=== PATIENT | female | born 1960 | race Caucasian/White ===

== ENCOUNTER 2017-03-06 10:20 | Inpatient (IN) | payer SELFPAY ==
[~2017-03-06] VITALS: Ht 170.2 cm; Wt 161.5 kg
[2017-03-06 12:30] VITALS: BP 82/39
[2017-03-06 15:00] VITALS: BP 86/37
[2017-03-06] MEDS ORDERED: 0.9 % SODIUM CHLORIDE 10 ML DISP.SYRIN. IV PRN (18:00)
--- NOTE | 2017-03-06 18:33 | HP ---
ADMIT DATE: 03/06/2017 CHIEF COMPLAINT: Acute congestive heart failure, hypotension. HISTORY OF PRESENT ILLNESS: The patient is a 56-year-old catastrophically obese woman with chronic systolic heart failure, hypertension as well as NCIM who presented to [facility] ER with complaints of dyspnea, lower extremity edema and cellulitis. The patient relates that her respiratory symptoms have been going on for about a couple of weeks that slowly has been getting worse. She denies any productive cough, although in the past day she has developed some cough without any sputum; however, symptoms became worse and worse and although initially she had plan of going to [facility], she diverted and went to the ER instead. She has recurrent lower extremity infections with increasing erythema, more on the left than on the right. There is a wound that as waxing and waning in its healing status as well. In the Emergency Room, at [facility] two days ago she was found with right patchy infiltrate suggestive of pneumonia or atypical congestive heart failure. She also had blisters on her left rooney surrounded by cellulitis. A CTA of the chest showing no evidence of pulmonary embolus; however, marked adenopathy in the left axilla which has progressed relative to previous exam two months ago, also numerous nodular opacities in the lungs were noted, some of which appeared larger on today's study, favoring malignant process over infectious etiology. Also noted was enlargement of the right lobe of the thyroid with associated mediastinal extension. The patient was subsequently transferred to [facility] for further attention and management. PAST MEDICAL HISTORY: COPD/asthma, sleep apnea, obesity related hypoventilation syndrome, CHF, chronic systolic with an EF of 30%, hypertension, hyperlipidemia, anxiety. FAMILY HISTORY: Premature CAD in brother in his 40s. SOCIAL HISTORY: Quit smoking about a year ago after accumulating 1 pack per day for 30+ years. Denies any alcohol or drug use. ALLERGIES: No known drug allergies. MAR reconciled with home medications. REVIEW OF SYSTEMS: Positive as per HPI. Endorses significant dyspnea with exertion, unable to walk more than 50 feet at a time. Symptoms are somewhat better currently as far as her cellulitis is concerned. Rest of organ system review is essentially benign. LABORATORY DATA: CBC from today shows WBC of 6.9, hemoglobin 12.1, platelets of 195. Chemistries with BUN and creatinine of 19 and 1.00. Electrolytes essentially within normal limits. Calcium at 8.3. LFTs within normal. ProBNP 5695, albumin 2.5. ASSESSMENT AND PLAN: The patient is a 56-year-old morbidly obese woman with cardiac issues as well as new lung findings suggesting metastatic cancer. Given the distribution of axillary lymphadenopathy and lung mets, suspicion for breast cancer would be a top of the list. We will obtain consult with Dr. Gutierrez. Congestive heart failure chronic in her. Labs actually appear fairly stable. The shortness of breath is clearly multifactorial. Cardiology with Dr. Moore has been following, will be consulted here as well. The patient has lower extremity cellulitis, more likely due to chronic venous stasis and poor circulation due to her body habitus. Infectious Disease will be consulted to help with regimen. Other home medications will be continued for the time being. FRANCISCA RODRIGUEZ MD DR: UR/nts JOB#: [id number] / [id number] CAESAR
[2017-03-06 19:00] VITALS: BP 98/59
[2017-03-06] MEDS: IPRATRPIUM/ALBUTEROL 0.5/2.5MG 3 ML NEBU. NEB SCH (19:53)
[2017-03-06] MEDS: NYSTATIN TOPICAL POWDER 15GM BOTTLE. TP SCH (20:45)
[2017-03-06] MEDS: oxyCODONE/APAP 5/325 1 TAB TABLET PO PRN (21:49)
[2017-03-06] MEDS: ONDANSETRON ODT 4 MG TAB.RAPDIS. PO PRN (21:51)
[2017-03-06 23:00] VITALS: BP 90/70
[2017-03-07 03:08] VITALS: BP 92/52
--- NOTE | 2017-03-07 05:13 | ACF ---
Admission Forms Criteria HEART FAILURE: COMMON COMPLICATIONS (Place 'X' for any and all applicable criteria): Ongoing inpatient care may be indicated for heart failure with 1 or more of the following (1)(2)(3)(4)(5)(6)(7)(8): [ ]I. New-onset heart failure [ ]II. Acute cardiac ischemia causing or associated with failure [ ]III. Ongoing need for care for primary condition requiring frequent therapy adjustments because of changes in cardiac function (eg, drug dosage changes for drugs that are renally metabolized) [X]IV. Complications of heart failure, including 1 or more of the following: [ ]a) Hemodynamic instability [ ]b) Pericardial effusion [ ]c) Symptomatic pleural effusion [ ]d) Hypoxemia [ ]e) Tachypnea [X]f) Dyspnea [ ]g) Syncope [ ]h) Altered mental status [ ]i) Acute renal insufficiency that is severe (reduction of more than 50% in estimated glomerular filtration rate from baseline) or progressive reduction of more than 25% in estimated glomerular filtration rate from baseline, with creatinine continuing to rise) [ ]j) Debilitating anasarca (eg tissue breakdown with infection, inability to void due to edema) (E) [ ]k) Clinically significant metabolic abnormalities due to heart failure (eg, new-onset metabolic acidosis) Extended stay may be needed until ALL of the following are present (1)(3)(18)(41 )(55) [ ]a) Hemodynamic stability [ ]b) Stable and effective diuretic regimen established (or patient on stable dialysis regimen if in chronic renal failure) [ ]c) Volume status acceptable on oral medication [ ]d) Breathing comfortably at rest [ ]e) Saturation of arterial oxygen greater than 90% or at acceptable baseline [ ]f) Pulmonary edema absent or improved [ ]g) Peripheral or sacral edema absent or improved [ ]h) Renal function stable and manageable at a lower level of care [ ]i) Complications (eg, pleural effusion) resolved or manageable at a lower level of care [ ]g) Patient or caregiver has received written discharge instructions or educational material addressing activity level, diet, discharge medications, follow-up appointment, weight monitoring, and what to do if symptoms worsen.(25)(26) The original [facility] [employer] content created by [employer] has been revised. The portions of the content which have been revised are identified through the use of italic text, and [facility] has neither reviewed nor approved the modified material.All other unmodified content is copyright [facility]. Please see references footnoted in the original [facility] edition 2015 Admission Criteria Met?: Yes STEFFANY GARCIA Mar 07, 2017 05:13 FRANCISCA RODRIGUEZ MD Mar 07, 2017 09:25
[2017-03-07 07:00] VITALS: BP 123/59
[2017-03-07] MEDS: IPRATRPIUM/ALBUTEROL 0.5/2.5MG 3 ML NEBU. NEB SCH ×4 (07:52→19:31)
--- NOTE | 2017-03-07 09:14 | PDOC ---
Provider Note Provider Note Med onc consult: 1. Mantle cell lymphoma - plan bone marrow bx, CT, portacath for chemo. SW to help with medicaid application. Pt interested in chemo. See dictation TEJINDER LAGUNA MD Mar 07, 2017 09:14
[2017-03-07] MEDS ORDERED: CONTRAST GIVEN MC PRN (09:15)
[2017-03-07] MEDS: NYSTATIN TOPICAL POWDER 15GM BOTTLE. TP SCH ×2 (09:15→20:30)
[2017-03-07] MEDS ORDERED: IOHEXOL 300 MG/ML 75 ML VIAL IV ONE (09:15)
[2017-03-07] MEDS ORDERED: IOHEXOL 240 MG/ML 50ML VIAL. PO ONE (09:15)
[2017-03-07] MEDS: oxyCODONE/APAP 5/325 1 TAB TABLET PO PRN (09:42)
--- NOTE | 2017-03-07 09:46 | PDOC2 ---
LANCE NINO MECHANICAL ASSEMBLY 03/07/17 0945: CARDIAC CONSULT DATE OF CONSULT Date of Consult DATE: 03/07/17 TIME: 09:44 REASON FOR CONSULT Reason for Consult: Dr. Muro REFERRING PHYSICIAN Referring Physician: CHF Hypotension SOURCE Source: Chart review, Patient HISTORY OF PRESENT ILLNESS HISTORY OF PRESENT ILLNESS This is a 56 yo female, with a h/o NICM, who presented to [facility] with complaints of shortness of breath. Please see consult 03/06/17 at [facility] for full details. CT chest notable for marked left axilla adenopathy and multiple lung nodules suggestive of malignancy. Study negative for PE. LE US negative for DVT. Patient was transferred to [facility] for further care. PAST MEDICAL HISTORY Cardiovascular: CHF (NICM LVEF 20-25%), HTN, Hyperlipidemia Pulmonary: Asthma, COPD, Other (CAMILO) Psych: Anxiety PAST SURGICAL HISTORY Past Surgical History: Other (none) FAMILY HISTORY Family History: Coronary Artery Disease SOCIAL HISTORY Smoke: Quit ( 1 year ago) ALCOHOL: none Drugs: None CURRENT MEDICATIONS CURRENT MEDICATIONS Current Medications Medications (Trade) Dose Ordered Sig/Andres Route PRN Reason Start Time Stop Time Status Last Admin Dose Admin Enoxaparin Sodium (Lovenox 150mg Syringe) 150 mg Q12HR SQ 03/06/17 21:00 03/06/17 20:45 Albuterol/ Ipratropium (Duoneb) 3 ml RTQID NEB 03/06/17 20:00 03/07/17 07:52 Nystatin (Nystop) 1 john BID TP 03/06/17 21:00 03/07/17 09:15 Ondansetron HCl (Zofran Odt) 4 mg PRN Q6HRS PRN PO NAUSEA/VOMITING 03/06/17 18:00 03/06/17 21:51 Ceftriaxone Sodium 1 gm/ Sodium Chloride 50 ml @ 100 mls/hr Q24H IV 03/06/17 20:00 03/06/17 20:58 Oxycodone/ Acetaminophen (Percocet 5/325) 1 tab PRN Q4HRS PRN PO PAIN 03/06/17 18:00 03/07/17 09:42 ALLERGIES ALLERGIES: Coded Allergies: Penicillins (Verified Allergy, Intermediate, 03/07/17) TOLERATES ROCEPHIN ROS Review of System 14 point ROS conducted with pertinent positives noted above in HPI. PHYSICAL EXAM General: Alert, Oriented X3, Cooperative, No acute distress HEENT: Atraumatic, Other (diminished bases ) Lungs: Clear to auscultation, Other (diminished bases) Heart: Regular rate, Normal S1, Normal S2, No murmurs Abdomen: Soft, Other (obese ) Extremities: Other (2+ bilateral LE edema ) Skin: Other (bilateral LE edema, DRSG to LLE) Neuro: Normal speech, Sensation intact Psych/Mental Status: Mental status NL, Mood NL MUSCULOSKELETAL: Osteoarthritic changes both hands VITALS VITALS Vital Signs Date Time Temp Pulse Resp B/P (MAP) Pulse Ox O2 Delivery O2 Flow Rate FiO2 03/07/17 09:42 16 91 Nasal Cannula 2.0 03/07/17 07:00 96.6 93 123/59 (80) 96.6 ECHOCARDIOGRAM ECHOCARDIOGRAM <Conclusion> Left ventricle systolic function is severely impaired.The Ejection Fraction is 20-25%. There is severe global hypokinesis of the left ventricle. Tissue Doppler imaging reveals moderate left ventricular diastolic dysfunction. Doppler and Color Flow revealed mild to moderate tricuspid regurgitation. The PA pressure was estimated at 45 mmHg. The IVC is dilated and collapses <50% with inspiration. DATE: 12/30/16 1634 HEART CATH HEART CATH CORONARY ANGIOGRAPHY: LM is a large caliber vessel with normal angiographic appearance. LAD is a large caliber vessel with mild luminal irregularities. LCx is a moderate caliber non-dominant vessel with normal angiographic appearance. OM1 is a moderate to large caliber vessel with normal angiographic appearance. RCA is a large caliber dominant vessel with proximal 30% and a distal 50% stenosis. RPDA and RPL are moderate caliber vessels with normal angiographic appearance. Conclusion 1. Elevated left ventricular filling pressure. 2. Severe LV dysfunction. EF 30%. 3. No significant obstructive coronary disease. Recommendations Aggressive Medical Therapy DATE: 11/23/15 1723 ASSESSMENT/PLAN ASSESSMENT/PLAN 1. Chronic systolic heart failure with NICM 20-25% 2. Hypertension with present hypotension 3. Cellulitis 4. Mantle cell lymphoma (new finding); further workup ongoing today. Recommendations Appears compensated from a HF standpoint. Labs at [facility] with concern for intravascular depletion along with hypotension. Hold lasix today. Repeat labs Hold antiHTN therapy Supportive care. Social work following for medicaid application. Palliative care consulted. Problems: SAQIB RAY MD 03/07/17 1640: CARDIAC CONSULT ALLERGIES ALLERGIES: Coded Allergies: Penicillins (Verified Allergy, Intermediate, 03/07/17) TOLERATES ROCEPHIN ASSESSMENT/PLAN ASSESSMENT/PLAN Seen and examined. AGree with above [employer] NET DEVELOPER note. Will start hydralazine 10mg IVP prn q 4 hours. Start imdur 30mg daily Supportive care for now. Monitor LV function after chemotherapy. Will follow along. Problems: LANCE NINO APRN Mar 07, 2017 09:45 SAQIB RAY MD Mar 07, 2017 16:40
[2017-03-07 10:42] LABS: BASO # 0.1 x10^3/uL (0.0-0.2); BASO % 1 % (0-3); EOS % 3 % (0-3); HEMATOCRIT 38.7 % (36.0-47.0); HEMOGLOBIN 12.2 g/dL (12.0-15.5); LYMPH # 1.4 x10^3/uL (1.0-4.8); LYMPH % 19 % (24-48); MEAN CORPUSCULAR HEMOGLOBIN 29 pg (25-35); MEAN CORPUSCULAR HGB CONC 32 g/dL (31-37); MEAN CORPUSCULAR VOLUME 91 fL (79-100); MONO % 14 % (0-9); NEUT % 64 % (31-73); PLATELET COUNT 189 x10^3/uL (140-400); RED BLOOD COUNT 4.28 x10^6/uL (3.50-5.40); RED CELL DISTRIBUTION WIDTH 17.1 % (11.5-14.5); WHITE BLOOD COUNT 7.8 x10^3/uL (4.0-11.0)
[2017-03-07 10:43] LABS: ALBUMIN 2.4 g/dL (3.4-5.0); ALBUMIN/GLOBULIN RATIO 0.5 (1.0-1.7); CREATININE 1.5 mg/dL (0.6-1.0); GFR 35.7; POTASSIUM 4.6 mmol/L (3.5-5.1); TOTAL BILIRUBIN 1.3 mg/dL (0.2-1.0); TOTAL PROTEIN 7.3 g/dL (6.4-8.2)
[2017-03-07 10:53] LABS: INR 1.3 (0.8-1.1); PROTHROMBIN TIME PATIENT 15.6 SEC (11.7-14.0)
[2017-03-07 11:00] VITALS: BP 123/60
[2017-03-07] MEDS: ALLOPURINOL 100 MG TABLET. PO SCH (11:00)
--- NOTE | 2017-03-07 12:12 | PDOC ---
PROGRESS NOTES Chief Complaint Chief Complaint Acute CHF Hypotension PMH: COPD/asthma Sleep apnea Obesity related hypoventilation syndrome CHF - chronic systolic with EF of 30% htn hld anxiety History of Present Illness History of Present Illness Patient laying in bed, left leg dressing CDI. Spoke with Dr. Gutierrez - patient has biopsy on 01/01/17 - confirmed mantle cell lymphoma, awaiting staging to progress with treatment plan. Spoke with RN: pt has a planned bx and portacath planned Vitals Vitals Vital Signs Date Time Temp Pulse Resp B/P (MAP) Pulse Ox O2 Delivery O2 Flow Rate FiO2 03/07/17 11:21 94 Nasal Cannula 2.0 03/07/17 09:42 16 03/07/17 07:00 96.6 93 123/59 (80) 96.6 Physical Exam General: Alert, Oriented X3, Cooperative, No acute distress Heart: Regular rate, Normal S1, Normal S2 Lungs: Clear Abdomen: Soft, Other (obese ) Extremities: No clubbing, No cyanosis Skin: Other (bilateral LE edema ) Labs LABS Laboratory Tests Test 03/07/17 09:50 White Blood Count 7.8 x10^3/uL (4.0-11.0) Red Blood Count 4.28 x10^6/uL (3.50-5.40) Hemoglobin 12.2 g/dL (12.0-15.5) Hematocrit 38.7 % (36.0-47.0) Mean Corpuscular Volume 91 fL (79-100) Mean Corpuscular Hemoglobin 29 pg (25-35) Mean Corpuscular Hemoglobin Concent 32 g/dL (31-37) Red Cell Distribution Width 17.1 % (11.5-14.5) Platelet Count 189 x10^3/uL (140-400) Neutrophils (%) (Auto) 64 % (31-73) Lymphocytes (%) (Auto) 19 % (24-48) Monocytes (%) (Auto) 14 % (0-9) Eosinophils (%) (Auto) 3 % (0-3) Basophils (%) (Auto) 1 % (0-3) Neutrophils # (Auto) 5.0 x10^3uL (1.8-7.7) Lymphocytes # (Auto) 1.4 x10^3/uL (1.0-4.8) Monocytes # (Auto) 1.1 x10^3/uL (0.0-1.1) Eosinophils # (Auto) 0.2 x10^3/uL (0.0-0.7) Basophils # (Auto) 0.1 x10^3/uL (0.0-0.2) Prothrombin Time 15.6 SEC (11.7-14.0) Prothromb Time International Ratio 1.3 (0.8-1.1) Sodium Level 130 mmol/L (136-145) Potassium Level 4.6 mmol/L (3.5-5.1) Chloride Level 94 mmol/L (98-107) Carbon Dioxide Level 31 mmol/L (21-32) Anion Gap 5 (6-14) Blood Urea Nitrogen 33 mg/dL (7-20) Creatinine 1.5 mg/dL (0.6-1.0) Estimated GFR (Cockcroft-Gault) 35.7 BUN/Creatinine Ratio 22 (6-20) Glucose Level 106 mg/dL (70-99) Uric Acid 8.7 mg/dL (2.6-6.0) Calcium Level 8.0 mg/dL (8.5-10.1) Total Bilirubin 1.3 mg/dL (0.2-1.0) Aspartate Amino Transf (AST/SGOT) 320 U/L (15-37) Alanine Aminotransferase (ALT/SGPT) 285 U/L (14-59) Alkaline Phosphatase 103 U/L (46-116) Lactate Dehydrogenase 204 U/L (81-234) Total Protein 7.3 g/dL (6.4-8.2) Albumin 2.4 g/dL (3.4-5.0) Albumin/Globulin Ratio 0.5 (1.0-1.7) Review of Systems Review of Systems fatigue c/o hunger Assessment and Plan Assessmemt and Plan Mantle cell lymphoma - Dr. Gutierrez following, awaiting staging for treatment plan Acute CHF, hypotension - Cardiology consulted, awaiting rec Left lower leg cellulitis d/t chronic venous stasis 1.Heme/on following - awaiting staging 2.Cardiology consulted - awaiting rec 3.ID consulted for left LE cellulitis - awaiting rec 4.Continue home meds 5.Continue wound care 6.Recheck labs in am 7.PT/OT 8. Appreciate subspecialty input Problems: Comment Review of Relevant I have reviewed the following items kailey (where applicable) has been applied. Labs Laboratory Tests Test 03/07/17 09:50 White Blood Count 7.8 x10^3/uL (4.0-11.0) Red Blood Count 4.28 x10^6/uL (3.50-5.40) Hemoglobin 12.2 g/dL (12.0-15.5) Hematocrit 38.7 % (36.0-47.0) Mean Corpuscular Volume 91 fL (79-100) Mean Corpuscular Hemoglobin 29 pg (25-35) Mean Corpuscular Hemoglobin Concent 32 g/dL (31-37) Red Cell Distribution Width 17.1 % (11.5-14.5) Platelet Count 189 x10^3/uL (140-400) Neutrophils (%) (Auto) 64 % (31-73) Lymphocytes (%) (Auto) 19 % (24-48) Monocytes (%) (Auto) 14 % (0-9) Eosinophils (%) (Auto) 3 % (0-3) Basophils (%) (Auto) 1 % (0-3) Neutrophils # (Auto) 5.0 x10^3uL (1.8-7.7) Lymphocytes # (Auto) 1.4 x10^3/uL (1.0-4.8) Monocytes # (Auto) 1.1 x10^3/uL (0.0-1.1) Eosinophils # (Auto) 0.2 x10^3/uL (0.0-0.7) Basophils # (Auto) 0.1 x10^3/uL (0.0-0.2) Prothrombin Time 15.6 SEC (11.7-14.0) Prothromb Time International Ratio 1.3 (0.8-1.1) Sodium Level 130 mmol/L (136-145) Potassium Level 4.6 mmol/L (3.5-5.1) Chloride Level 94 mmol/L (98-107) Carbon Dioxide Level 31 mmol/L (21-32) Anion Gap 5 (6-14) Blood Urea Nitrogen 33 mg/dL (7-20) Creatinine 1.5 mg/dL (0.6-1.0) Estimated GFR (Cockcroft-Gault) 35.7 BUN/Creatinine Ratio 22 (6-20) Glucose Level 106 mg/dL (70-99) Uric Acid 8.7 mg/dL (2.6-6.0) Calcium Level 8.0 mg/dL (8.5-10.1) Total Bilirubin 1.3 mg/dL (0.2-1.0) Aspartate Amino Transf (AST/SGOT) 320 U/L (15-37) Alanine Aminotransferase (ALT/SGPT) 285 U/L (14-59) Alkaline Phosphatase 103 U/L (46-116) Lactate Dehydrogenase 204 U/L (81-234) Total Protein 7.3 g/dL (6.4-8.2) Albumin 2.4 g/dL (3.4-5.0) Albumin/Globulin Ratio 0.5 (1.0-1.7) Laboratory Tests Test 03/07/17 09:50 White Blood Count 7.8 x10^3/uL (4.0-11.0) Red Blood Count 4.28 x10^6/uL (3.50-5.40) Hemoglobin 12.2 g/dL (12.0-15.5) Hematocrit 38.7 % (36.0-47.0) Mean Corpuscular Volume 91 fL (79-100) Mean Corpuscular Hemoglobin 29 pg (25-35) Mean Corpuscular Hemoglobin Concent 32 g/dL (31-37) Red Cell Distribution Width 17.1 % (11.5-14.5) Platelet Count 189 x10^3/uL (140-400) Neutrophils (%) (Auto) 64 % (31-73) Lymphocytes (%) (Auto) 19 % (24-48) Monocytes (%) (Auto) 14 % (0-9) Eosinophils (%) (Auto) 3 % (0-3) Basophils (%) (Auto) 1 % (0-3) Neutrophils # (Auto) 5.0 x10^3uL (1.8-7.7) Lymphocytes # (Auto) 1.4 x10^3/uL (1.0-4.8) Monocytes # (Auto) 1.1 x10^3/uL (0.0-1.1) Eosinophils # (Auto) 0.2 x10^3/uL (0.0-0.7) Basophils # (Auto) 0.1 x10^3/uL (0.0-0.2) Prothrombin Time 15.6 SEC (11.7-14.0) Prothromb Time International Ratio 1.3 (0.8-1.1) Sodium Level 130 mmol/L (136-145) Potassium Level 4.6 mmol/L (3.5-5.1) Chloride Level 94 mmol/L (98-107) Carbon Dioxide Level 31 mmol/L (21-32) Anion Gap 5 (6-14) Blood Urea Nitrogen 33 mg/dL (7-20) Creatinine 1.5 mg/dL (0.6-1.0) Estimated GFR (Cockcroft-Gault) 35.7 BUN/Creatinine Ratio 22 (6-20) Glucose Level 106 mg/dL (70-99) Uric Acid 8.7 mg/dL (2.6-6.0) Calcium Level 8.0 mg/dL (8.5-10.1) Total Bilirubin 1.3 mg/dL (0.2-1.0) Aspartate Amino Transf (AST/SGOT) 320 U/L (15-37) Alanine Aminotransferase (ALT/SGPT) 285 U/L (14-59) Alkaline Phosphatase 103 U/L (46-116) Lactate Dehydrogenase 204 U/L (81-234) Total Protein 7.3 g/dL (6.4-8.2) Albumin 2.4 g/dL (3.4-5.0) Albumin/Globulin Ratio 0.5 (1.0-1.7) Medications Current Medications Enoxaparin Sodium (Lovenox 150mg Syringe) 150 mg Q12HR SQ Last administered on 03/06/17 20:45; Start 03/06/17 at 21:00 Albuterol/ Ipratropium (Duoneb) 3 ml RTQID NEB Last administered on 03/07/17 11:21; Start 03/06/17 at 20:00 Nystatin (Nystop) 1 john BID TP Last administered on 03/07/17 09:15; Start at 21:00 Ondansetron HCl (Zofran Odt) 4 mg PRN Q6HRS PRN PO NAUSEA/VOMITING Last administered on 03/06/17 21:51; Start 03/06/17 at 18:00 Ceftriaxone Sodium 1 gm/ Sodium Chloride 50 ml @ 100 mls/hr Q24H IV Last administered on 03/06/17t 20:58; Start 03/06/17 at 20:00 Oxycodone/ Acetaminophen (Percocet 5/325) 1 tab PRN Q4HRS PRN PO PAIN Last administered on 03/07/17 09:42; Start 03/06/17 at 18:00 Sodium Chloride (Normal Saline Flush) 3 ml PRN DAILY PRN IV AFTER MEDS AND BLOOD DRAWS; Start 03/06/17 at 18:00 Iohexol (Omnipaque 300 Mg/ml) 75 ml 1X ONCE IV ; Start 03/07/17 at 09:15; Stop 03/07/17 at 09:16; Status DC Iohexol (Omnipaque 240 Mg/ml) 50 ml 1X ONCE PO ; Start 03/07/17 at 09:15; Stop 03/07/17 at 09:16; Status DC Info (Do NOT chart on this entry -- for MONITORING) 1 each PRN DAILY PRN MC SEE COMMENTS; Start 03/07/17 at 09:15; Stop 03/09/17 at 09:14 Allopurinol (Zyloprim) 100 mg DAILY PO ; Start 03/07/17 at 11:00 Vitals/I & O Vital Sign - Last 24 Hours 03/06/17 03/06/17 03/06/17 03/06/17 12:30 14:20 15:00 19:00 Temp 97.9 97.9 96.6 97.9 97.9 96.6 Pulse 78 85 78 Resp 18 18 20 B/P (MAP) 82/39 (53) 86/37 (53) 98/59 (72) Pulse Ox 96 92 90 O2 Delivery Nasal Cannula Room Air Nasal Cannula Nasal Cannula 03/06/17 03/06/17 03/06/17 03/06/17 19:51 20:00 21:49 22:49 Pulse Ox 91 91 93 O2 Delivery Nasal Cannula Nasal Cannula Room Air Room Air O2 Flow Rate 2.0 2.0 2.0 2.0 03/06/17 03/07/17 03/07/17 03/07/17 23:00 03:08 07:00 07:53 Temp 97.7 98.5 96.6 97.7 98.5 96.6 Pulse 77 80 93 Resp 20 20 20 B/P (MAP) 90/70 (77) 92/52 (65) 123/59 (80) Pulse Ox 94 96 94 97 O2 Delivery Nasal Cannula Nasal Cannula Nasal Cannula Nasal Cannula O2 Flow Rate 3.0 03/07/17 03/07/17 03/07/17 08:00 09:42 11:21 Resp 16 Pulse Ox 91 94 O2 Delivery Nasal Cannula Nasal Cannula Nasal Cannula O2 Flow Rate 2.0 2.0 2.0 LETA CALLOWAY III DO Mar 07, 2017 12:12
[2017-03-07] MEDS ORDERED: ANTI-COAG MONITOR BY PHARMACY. MC PRN (13:30)
[2017-03-07 15:00] VITALS: BP 120/60
--- NOTE | 2017-03-07 15:23 | PDOC2 ---
PALLIATIVE CARE Palliative Care Note Palliative Care Consult requested by Dr. Muro to address goals of care. Diagnosis: Mantel Cell Lymphoma PAST MEDICAL HISTORY: COPD/asthma, sleep apnea, obesity related hypoventilation syndrome, CHF, chronic systolic with an EF of 30%, hypertension, hyperlipidemia, anxiety. Patient seen along with Dr. Gutierrez. Patient has been offered chemotherapy for treatment of Lymphoma. She would like to proceed with treatments. Cardiology Consult pending; Bone Marrow bx and insertions of port pending. Code Status: DNR/DNI. Patient states she has no family. "They have all " "Only has friends" Above will be reviewed with CHIARA. PARKER unavailable week of 03/10 FIOR VALENTE Mar 07, 2017 15:23
[2017-03-07] MEDS ORDERED: HEPARIN PF 500 UNIT/5 ML DISP.SYRIN. IV ONE ×2 (15:25→16:15)
[2017-03-07] MEDS ORDERED: LIDOCAINE 1%/EPI 1:100,000 20 ML VIAL. ONE (15:25)
[2017-03-07] MEDS ORDERED: fentaNYL PF VIAL 100 MCG/2 ML VIAL ONE (15:58)
[2017-03-07] MEDS ORDERED: CLINDAMYCIN 600MG PREMIX 50 ML IV ONE ×2 (16:06→16:30)
[2017-03-07] MEDS ORDERED: ONDANSETRON PF 4 MG/2 ML VIAL. ONE (16:14)
[2017-03-07] MEDS ORDERED: LIDOCAINE 1%/EPI 1:100,000 20 ML VIAL. INJ ONE (16:15)
[2017-03-07] MEDS ORDERED: ONDANSETRON PF 4 MG/2 ML VIAL. IV ONE (16:30)
--- NOTE | 2017-03-07 16:41 | RAD ---
Procedure: Ultrasound and fluoroscopically guided placement of right internal jugular power port.. 03/07/2017 4:37 PM Clinical Indication: staging mantle cell lymphoma Sedation: Conscious sedation was administered for 30 minutes. The patient was monitored by a qualified independent observer throughout the time of sedation. Please refer to the medical record for exact doses of medications utilized to achieve moderate sedation. Fluoro time: 1.4 min dose: 6 Gycm2 Consent: The procedure was explained in its entirety to the patient or the patients designated insurance sales representative by a member of the treatment team, including a discussion of the risks, benefits and commonly accepted alternatives to the procedure, as well as the expected consequences of no therapy whatsoever. Discussion of the risks included, but was not limited to, those that are most frequent and those that are rare but possibly severe or life-threatening, as well as the possibility of unforeseen complications. Technique and Findings: All elements of maximal sterile barrier technique including the use of a cap, mask, sterile gown, sterile gloves, large sterile sheet, appropriate hand hygiene, and 2% chlorhexidine for cutaneous antisepsis (or acceptable alternative antiseptic per current guidelines) were followed for this procedure. Following informed consent, and a timeout procedure, the patient was prepped and draped in the usual sterile fashion. Ultrasound interrogation of the right neck revealed patency and compressibility of the right internal jugular vein. A 21-gauge micropuncture was then used to gain access to this vein under ultrasound guidance. A hard copy ultrasound image was recorded. The needle was exchanged over a wire for a sheath. A 1 inch incision was made several centimeters inferior to the sternotomy site. A catheter was tunneled from this site dermatotomy site in the neck. Catheter was advanced through peel-away sheath such that its tip was in the proximal right atrium with the patient supine. The catheter was trimmed to length and connected to the port reservoir. The port was found to flush and aspirate normally. The wound was closed in layers using 4-0 Vicryl suture. Sterile dressings were applied. Impression: Successful ultrasound and fluoroscopically guided placement of a right internal jugular PowerPort
[2017-03-07] MEDS ORDERED: hydrALAZINE 20 MG/ML VIAL. IVP PRN (16:45)
[2017-03-07 19:00] VITALS: BP 151/73
--- NOTE | 2017-03-07 19:04 | CONS ---
DATE OF CONSULTATION: 03/07/2017 MEDICAL ONCOLOGY CONSULTATION Consultation requested by Dr. Beth Muro. REASON FOR CONSULTATION: Mantle cell lymphoma presenting with left axillary lymphadenopathy. HISTORY OF PRESENT ILLNESS: The patient is a 56-year-old female who had presented to [facility] in 12/2016 with worsening edema, abdominal distention and cellulitis of bilateral lower extremities. She has a history of congestive heart failure with very poor ejection fraction of 30% at that time. However, the note from the chemical production technician from 03/07/2017 reveals that her ejection fraction is 20-25%. She denies loss of weight or loss of appetite. No fevers, chills or night sweats. She underwent a CT angiogram at [facility] in 12/2016 that revealed bilateral lung ground-glass opacities and a 5.4 cm left axillary lymph node in addition to mediastinal lymphadenopathy. Her symptoms of congestive heart failure had improved with diuretics at that time. She was evaluated by Dr. Sarah Huston on 12/31/2016 and biopsy of the left axillary lymph node was recommended. 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 Based on the morphology and immunohistochemical staining pattern and flow cytometry, the findings were consistent with involvement by mantle cell lymphoma. There are also suggestions of possible biclonal lymphoproliferative disorder with both mantle cell lymphoma and plasma cell neoplasm. Dr. Huston notified the patient of these results and she did not express interest in chemotherapy at that time. In addition, she did not have any insurance and she did not follow up with Dr. Huston. She presented to [facility] on 03/06/[address] with [address] scan of the chest was performed on 03/04/2017 that revealed marked lymphadenopathy in the left axilla, which has progressed when compared to the previous examination. There are also numerous nodular opacities in the lungs, some of which appear larger when compared to the prior study from 12/2016. She underwent bilateral lower extremity venous Doppler on 03/04/2017 that is negative for DVT. PAST MEDICAL HISTORY: Congestive heart failure with a left ventricular ejection fraction of 22-25%. Hypertension, hyperlipidemia, asthma, COPD, obstructive sleep apnea, anxiety, chronic pedal edema, history of cellulitis in the lower extremities, obesity, gastroesophageal reflux disease. FAMILY HISTORY: Brother at the age of 47 from myocardial infarction. SOCIAL HISTORY: She has a history of smoking 1 pack of cigarettes per day for 10 years that she quit in 2013. REVIEW OF SYSTEMS: A 14-point review of systems was performed. Pertinent positives are mentioned in the history of present illness. Rest of the system review is negative. PHYSICAL EXAMINATION: GENERAL APPEARANCE: The patient is a 56-year-old female who is obese and in no acute cardiorespiratory distress. VITAL SIGNS: Blood pressure 123/60, temperature 98.1. HEENT: Head: Atraumatic, normocephalic. Eyes: No icterus. NECK: Supple. CHEST: Bilaterally symmetrical. HEART: S1, S2 normal. ABDOMEN: Soft, nontender. No hepatosplenomegaly. CENTRAL NERVOUS SYSTEM: No focal neurological deficits. LYMPHATICS: No clear lymphadenopathy palpable in the left axilla. Difficult to feel the lymph nodes because of her obese status. MUSCULOSKELETAL: She has evidence of bilateral pedal edema, bilateral chronic skin changes due to chronic edema. LABORATORY DATA: WBC 7.8, hemoglobin 12.2, platelet count 189. Sodium 130, potassium 4.6, creatinine 1.5. Uric acid 8.7, calcium 8, total bilirubin 1.3, AST 320, ALT 285, albumin 2.4. IMPRESSION AND PLAN: 1. Mantle cell lymphoma involving the left axillary lymph nodes and possible involvement of the lungs. The lymphadenopathy has progressed between 12/2016 to 02/2017. She had an ultrasound-guided biopsy of the left axillary lymph node on 01/01/2017, which revealed mantle cell lymphoma in addition to kappa predominant plasmacytosis. There is a possibility that she has a biclonal lymphoproliferative disorder with both mantle cell lymphoma and plasma cell neoplasm. I will obtain further studies with serum protein electrophoresis, bone survey and bone marrow biopsy. I will also obtain CT scan of the neck, chest, abdomen and pelvis for completion of staging workup. I discussed in detail with the patient regarding the diagnosis and treatment options for mantle cell lymphoma. I recommended chemotherapy with bendamustine and rituximab given for 6 cycles. She has poor performance status with ECOG performance status score of 3. In addition, she has significant comorbidities including congestive heart failure with an ejection fraction of only 20-25%. The presence of her comorbidities would increase the likelihood of toxicities due to chemotherapy. I explained all of my concerns to the patient. However, if untreated, the lymphoma is likely fatal. The patient mentions that she would like to proceed with treatments. I reviewed the risks and benefits, and she understands and agrees to proceed with chemotherapy once the staging workup is completed. I discussed with Dr. Leta Rodríguez, Iliana Lawson from palliative care and registered nurse. 2. Elevated liver function test likely changes from congestive heart failure. Continue to monitor. 3. Hyponatremia due to congestive heart failure, monitor. 4. Congestive heart failure with an ejection fraction of 20-25%. Appreciate Cardiology management. 5. Elevated uric acid - ordered allopurinol 100 mg daily. TEJINDER LAGUNA MD DR: ROLA/nts JOB#: [id number] / [id number] LETA Hernandez DO MTDD
[2017-03-07 23:00] VITALS: BP 139/69
[2017-03-08 00:09] LABS: HEP B SURFACE ABDY Non Reactive (.)
[2017-03-08] MEDS: oxyCODONE/APAP 5/325 1 TAB TABLET PO PRN ×4 (01:37→21:18)
[2017-03-08 03:01] VITALS: BP 134/74
[2017-03-08 04:24] LABS: BASO # 0.1 x10^3/uL (0.0-0.2); BASO % 1 % (0-3); EOS % 3 % (0-3); HEMATOCRIT 36.3 % (36.0-47.0); LYMPH # 1.4 x10^3/uL (1.0-4.8); LYMPH % 18 % (24-48); MEAN CORPUSCULAR HEMOGLOBIN 29 pg (25-35); MEAN CORPUSCULAR HGB CONC 33 g/dL (31-37); MEAN CORPUSCULAR VOLUME 88 fL (79-100); MONO % 16 % (0-9); NEUT % 62 % (31-73); PLATELET COUNT 162 x10^3/uL (140-400); RED BLOOD COUNT 4.13 x10^6/uL (3.50-5.40); RED CELL DISTRIBUTION WIDTH 17.4 % (11.5-14.5); WHITE BLOOD COUNT 7.6 x10^3/uL (4.0-11.0)
[2017-03-08 04:38] LABS: CREATININE 1.1 mg/dL (0.6-1.0)
[2017-03-08] MEDS: ONDANSETRON ODT 4 MG TAB.RAPDIS. PO PRN (06:34)
[2017-03-08 07:15] VITALS: BP 125/56
[2017-03-08] MEDS: IPRATRPIUM/ALBUTEROL 0.5/2.5MG 3 ML NEBU. NEB SCH ×4 (07:28→20:04)
--- NOTE | 2017-03-08 08:36 | PDOC ---
CARDIO Progress Notes Date and Time Date of Service 03/08/2017 Time of Evaluation 0810 Subjective Subjective: No Chest Pain, No Palpitations, No Dizziness, Other (mild SOA but much better) Vitals Vitals Vital Signs Date Time Temp Pulse Resp B/P (MAP) Pulse Ox O2 Delivery O2 Flow Rate FiO2 03/08/17 07:34 18 93 Nasal Cannula 03/08/17 06:34 2.0 03/08/17 03:01 97.7 78 134/74 (94) 97.7 Weight Weight [ ] Laboratory Labs Laboratory Tests Test 03/07/17 09:50 03/08/17 04:05 White Blood Count 7.8 x10^3/uL (4.0-11.0) 7.6 x10^3/uL (4.0-11.0) Red Blood Count 4.28 x10^6/uL (3.50-5.40) 4.13 x10^6/uL (3.50-5.40) Hemoglobin 12.2 g/dL (12.0-15.5) 12.0 g/dL (12.0-15.5) Hematocrit 38.7 % (36.0-47.0) 36.3 % (36.0-47.0) Mean Corpuscular Volume 91 fL (79-100) 88 fL (79-100) Mean Corpuscular Hemoglobin 29 pg (25-35) 29 pg (25-35) Mean Corpuscular Hemoglobin Concent 32 g/dL (31-37) 33 g/dL (31-37) Red Cell Distribution Width 17.1 % (11.5-14.5) 17.4 % (11.5-14.5) Platelet Count 189 x10^3/uL (140-400) 162 x10^3/uL (140-400) Neutrophils (%) (Auto) 64 % (31-73) 62 % (31-73) Lymphocytes (%) (Auto) 19 % (24-48) 18 % (24-48) Monocytes (%) (Auto) 14 % (0-9) 16 % (0-9) Eosinophils (%) (Auto) 3 % (0-3) 3 % (0-3) Basophils (%) (Auto) 1 % (0-3) 1 % (0-3) Neutrophils # (Auto) 5.0 x10^3uL (1.8-7.7) 4.7 x10^3uL (1.8-7.7) Lymphocytes # (Auto) 1.4 x10^3/uL (1.0-4.8) 1.4 x10^3/uL (1.0-4.8) Monocytes # (Auto) 1.1 x10^3/uL (0.0-1.1) 1.2 x10^3/uL (0.0-1.1) Eosinophils # (Auto) 0.2 x10^3/uL (0.0-0.7) 0.3 x10^3/uL (0.0-0.7) Basophils # (Auto) 0.1 x10^3/uL (0.0-0.2) 0.1 x10^3/uL (0.0-0.2) Prothrombin Time 15.6 SEC (11.7-14.0) Prothromb Time International Ratio 1.3 (0.8-1.1) Sodium Level 130 mmol/L (136-145) 132 mmol/L (136-145) Potassium Level 4.6 mmol/L (3.5-5.1) 5.0 mmol/L (3.5-5.1) Chloride Level 94 mmol/L (98-107) 97 mmol/L (98-107) Carbon Dioxide Level 31 mmol/L (21-32) 32 mmol/L (21-32) Anion Gap 5 (6-14) 3 (6-14) Blood Urea Nitrogen 33 mg/dL (7-20) 24 mg/dL (7-20) Creatinine 1.5 mg/dL (0.6-1.0) 1.1 mg/dL (0.6-1.0) Estimated GFR (Cockcroft-Gault) 35.7 51.0 BUN/Creatinine Ratio 22 (6-20) Glucose Level 106 mg/dL (70-99) 100 mg/dL (70-99) Uric Acid 8.7 mg/dL (2.6-6.0) Calcium Level 8.0 mg/dL (8.5-10.1) 8.0 mg/dL (8.5-10.1) Total Bilirubin 1.3 mg/dL (0.2-1.0) Aspartate Amino Transf (AST/SGOT) 320 U/L (15-37) Alanine Aminotransferase (ALT/SGPT) 285 U/L (14-59) Alkaline Phosphatase 103 U/L (46-116) Lactate Dehydrogenase 204 U/L (81-234) Total Protein 7.3 g/dL (6.4-8.2) Albumin 2.4 g/dL (3.4-5.0) Albumin/Globulin Ratio 0.5 (1.0-1.7) Rnul-8-Xbqrkwlmtsyje 4.6 mg/L (0.6-2.4) Hepatitis B Surface Antibody Non reactive (.) Hepatitis B Core Total Antibody Negative (Negative) Physical Exam HEENT: Neck Supple W Full Motion Chest: Symmetric LUNGS: Other (diminished bases) Heart: S1S2, RRR (SR) Abdomen: Soft N/T, Other (morbid obese) Extremities: No Calf Tenderness Neurology: alert, oriented, follow commands Assessment Assessment 1. Chronic systolic heart failure with NICM 20-25%: Compensated 2. Hypertension with present hypotension: BP much more adequate. NPO for CT today. 3. Cellulitis 4. Mantle cell lymphoma (new finding); further workup ongoing today. 5. PSVT: bursts of wide complex tach, appears to be AFIB with aberrancy. Recommendations 1. BP much more adequate. Expect to resume lasix tomorrow if hydration is adequate. Maintain intravascular volume. 2000 FR 2. Will resume low dose lopressor 3. Supportive care.Palliative care on board. CA staging pending 4. Social work following for medicaid application. 5. Start on ECASA 81 mg, Will monitor rhyrhm trend. Reeval for NOAC consideration once staging including BM Bx is complete. 6. Serum Mg replace if low. CASSANDRA WOLF ELEVATORS INSPECTOR Mar 08, 2017 08:36
--- NOTE | 2017-03-08 08:40 | PDOC ---
PROGRESS NOTES Chief Complaint Chief Complaint Dyspnea Hypotension Leg cellulitis ASSESSMENT AND PLAN: 1. Dyspnea: multifactorial, incl CAMILO, obesity related hypoventilation syndrome , lung mets, COPD/asthma. cannot r/o PE, hence therapeutic lovenox 2. Hypotension: resolved. poss med related 3. CHF: chronic systolic (EF 30%); on imdur only. cardiology following 4. HTN, HLD: currently off meds 5. L LE cellulitis: on ceftriaxone. 6. Mantle cell NHL: poss [facility] biclonal population with plasma cell dyscrasia. Dr Gutierrez following. W/U and treatment prep in progress 7. Anxiety: no acute issues History of Present Illness History of Present Illness breathing stable. some pain in her leg Vitals Vitals Vital Signs Date Time Temp Pulse Resp B/P (MAP) Pulse Ox O2 Delivery O2 Flow Rate FiO2 03/08/17 07:34 18 93 Nasal Cannula 03/08/17 06:34 2.0 03/08/17 03:01 97.7 78 134/74 (94) 97.7 Physical Exam General: Alert, Oriented X3, Cooperative, No acute distress Heart: Regular rate, No murmurs Lungs: Clear Abdomen: Normal bowel sounds, Soft, Other (obese ) Extremities: Other (2+ bilateral LE edema ) Skin: Other (bilateral LE edema, DRSG to LLE) Labs LABS Laboratory Tests Test 03/07/17 09:50 03/08/17 04:05 White Blood Count 7.8 x10^3/uL (4.0-11.0) 7.6 x10^3/uL (4.0-11.0) Red Blood Count 4.28 x10^6/uL (3.50-5.40) 4.13 x10^6/uL (3.50-5.40) Hemoglobin 12.2 g/dL (12.0-15.5) 12.0 g/dL (12.0-15.5) Hematocrit 38.7 % (36.0-47.0) 36.3 % (36.0-47.0) Mean Corpuscular Volume 91 fL (79-100) 88 fL (79-100) Mean Corpuscular Hemoglobin 29 pg (25-35) 29 pg (25-35) Mean Corpuscular Hemoglobin Concent 32 g/dL (31-37) 33 g/dL (31-37) Red Cell Distribution Width 17.1 % (11.5-14.5) 17.4 % (11.5-14.5) Platelet Count 189 x10^3/uL (140-400) 162 x10^3/uL (140-400) Neutrophils (%) (Auto) 64 % (31-73) 62 % (31-73) Lymphocytes (%) (Auto) 19 % (24-48) 18 % (24-48) Monocytes (%) (Auto) 14 % (0-9) 16 % (0-9) Eosinophils (%) (Auto) 3 % (0-3) 3 % (0-3) Basophils (%) (Auto) 1 % (0-3) 1 % (0-3) Neutrophils # (Auto) 5.0 x10^3uL (1.8-7.7) 4.7 x10^3uL (1.8-7.7) Lymphocytes # (Auto) 1.4 x10^3/uL (1.0-4.8) 1.4 x10^3/uL (1.0-4.8) Monocytes # (Auto) 1.1 x10^3/uL (0.0-1.1) 1.2 x10^3/uL (0.0-1.1) Eosinophils # (Auto) 0.2 x10^3/uL (0.0-0.7) 0.3 x10^3/uL (0.0-0.7) Basophils # (Auto) 0.1 x10^3/uL (0.0-0.2) 0.1 x10^3/uL (0.0-0.2) Prothrombin Time 15.6 SEC (11.7-14.0) Prothromb Time International Ratio 1.3 (0.8-1.1) Sodium Level 130 mmol/L (136-145) 132 mmol/L (136-145) Potassium Level 4.6 mmol/L (3.5-5.1) 5.0 mmol/L (3.5-5.1) Chloride Level 94 mmol/L (98-107) 97 mmol/L (98-107) Carbon Dioxide Level 31 mmol/L (21-32) 32 mmol/L (21-32) Anion Gap 5 (6-14) 3 (6-14) Blood Urea Nitrogen 33 mg/dL (7-20) 24 mg/dL (7-20) Creatinine 1.5 mg/dL (0.6-1.0) 1.1 mg/dL (0.6-1.0) Estimated GFR (Cockcroft-Gault) 35.7 51.0 BUN/Creatinine Ratio 22 (6-20) Glucose Level 106 mg/dL (70-99) 100 mg/dL (70-99) Uric Acid 8.7 mg/dL (2.6-6.0) Calcium Level 8.0 mg/dL (8.5-10.1) 8.0 mg/dL (8.5-10.1) Total Bilirubin 1.3 mg/dL (0.2-1.0) Aspartate Amino Transf (AST/SGOT) 320 U/L (15-37) Alanine Aminotransferase (ALT/SGPT) 285 U/L (14-59) Alkaline Phosphatase 103 U/L (46-116) Lactate Dehydrogenase 204 U/L (81-234) Total Protein 7.3 g/dL (6.4-8.2) Albumin 2.4 g/dL (3.4-5.0) Albumin/Globulin Ratio 0.5 (1.0-1.7) Thoo-8-Cmzuevxdxjdzj 4.6 mg/L (0.6-2.4) Hepatitis B Surface Antibody Non reactive (.) Hepatitis B Core Total Antibody Negative (Negative) FRANCISCA RODRIGUEZ MD Mar 08, 2017 08:40
[2017-03-08 10:28] VITALS: BP 109/61
[2017-03-08] MEDS ORDERED: MORPHINE SULFATE 2 MG/ML DISP.SYRIN. IV ONE (11:45)
[2017-03-08] MEDS: ASPIRIN ENTERIC COATED 81 MG TABLET.DR. PO SCH (14:06)
[2017-03-08] MEDS: ISOSORBIDE MONONITRATE ER 30 MG TAB.ER.24H PO SCH (14:07)
[2017-03-08] MEDS: ALLOPURINOL 100 MG TABLET. PO SCH (14:07)
[2017-03-08] MEDS: NYSTATIN TOPICAL POWDER 15GM BOTTLE. TP SCH ×2 (14:07→21:22)
[2017-03-08] MEDS: METOPROLOL TART IMMED RELEASE 25 MG TABLET. PO SCH ×2 (14:07→21:19)
[2017-03-08 15:02] VITALS: BP 113/65
[2017-03-08] MEDS ORDERED: diphenhydrAMINE 50 MG/ML VIAL IVP PRN (17:30)
[2017-03-08] MEDS: diphenhydrAMINE 50 MG/ML VIAL IVP PRN (17:39)
--- NOTE | 2017-03-08 18:01 | PDOC ---
PROGRESS NOTES Subjective Subjective c/c -f/u of Mantle cell lymphoma Objective Objective Vital Signs Date Time Temp Pulse Resp B/P (MAP) Pulse Ox O2 Delivery O2 Flow Rate FiO2 03/08/17 17:18 98 Nasal Cannula 2.0 03/08/17 15:02 97.5 80 16 113/65 (81) 97.5 Intake and Output 03/09/17 07:00 Intake Total 90 ml Balance 90 ml Intake Oral 90 ml # Voids 7 Physical Exam Heart: Normal S1, Normal S2 General: Alert, Oriented X3 Neuro: Normal speech Assessment Assessment IMPRESSION AND PLAN: 1. Mantle cell lymphoma involving the left axillary lymph nodes and possible involvement of the lungs. The lymphadenopathy has progressed between 12/2016 to 02/2017. She had an ultrasound-guided biopsy of the left axillary lymph node on 01/01/2017, which revealed mantle cell lymphoma in addition to kappa predominant plasmacytosis. There is a possibility that she has a biclonal lymphoproliferative disorder with both mantle cell lymphoma and plasma cell neoplasm. I will obtain further studies with serum protein electrophoresis, bone survey and bone marrow biopsy. I will also obtain CT scan of the neck, chest, abdomen and pelvis for completion of staging workup. I discussed in detail with the patient regarding the diagnosis and treatment options for mantle cell lymphoma. I recommended chemotherapy with bendamustine and rituximab given for 6 cycles. She has poor performance status with ECOG performance status score of 3. In addition, she has significant comorbidities including congestive heart failure with an ejection fraction of only 20-25%. The presence of her comorbidities would increase the likelihood of toxicities due to chemotherapy. s/p port 03/07/17 Plan bone marrow 03/10/17 Then plan chemo. 2. Elevated liver function test likely changes from congestive heart failure. Continue to monitor. 3. Hyponatremia due to congestive heart failure, monitor. 4. Congestive heart failure with an ejection fraction of 20-25%. Appreciate Cardiology management. 5. Elevated uric acid - ordered allopurinol 100 mg daily. Comment Review of Relevant I have reviewed the following items kailey (where applicable) has been applied. Labs Laboratory Tests Test 03/07/17 09:50 03/08/17 04:05 White Blood Count 7.8 x10^3/uL (4.0-11.0) 7.6 x10^3/uL (4.0-11.0) Red Blood Count 4.28 x10^6/uL (3.50-5.40) 4.13 x10^6/uL (3.50-5.40) Hemoglobin 12.2 g/dL (12.0-15.5) 12.0 g/dL (12.0-15.5) Hematocrit 38.7 % (36.0-47.0) 36.3 % (36.0-47.0) Mean Corpuscular Volume 91 fL (79-100) 88 fL (79-100) Mean Corpuscular Hemoglobin 29 pg (25-35) 29 pg (25-35) Mean Corpuscular Hemoglobin Concent 32 g/dL (31-37) 33 g/dL (31-37) Red Cell Distribution Width 17.1 % (11.5-14.5) 17.4 % (11.5-14.5) Platelet Count 189 x10^3/uL (140-400) 162 x10^3/uL (140-400) Neutrophils (%) (Auto) 64 % (31-73) 62 % (31-73) Lymphocytes (%) (Auto) 19 % (24-48) 18 % (24-48) Monocytes (%) (Auto) 14 % (0-9) 16 % (0-9) Eosinophils (%) (Auto) 3 % (0-3) 3 % (0-3) Basophils (%) (Auto) 1 % (0-3) 1 % (0-3) Neutrophils # (Auto) 5.0 x10^3uL (1.8-7.7) 4.7 x10^3uL (1.8-7.7) Lymphocytes # (Auto) 1.4 x10^3/uL (1.0-4.8) 1.4 x10^3/uL (1.0-4.8) Monocytes # (Auto) 1.1 x10^3/uL (0.0-1.1) 1.2 x10^3/uL (0.0-1.1) Eosinophils # (Auto) 0.2 x10^3/uL (0.0-0.7) 0.3 x10^3/uL (0.0-0.7) Basophils # (Auto) 0.1 x10^3/uL (0.0-0.2) 0.1 x10^3/uL (0.0-0.2) Prothrombin Time 15.6 SEC (11.7-14.0) Prothromb Time International Ratio 1.3 (0.8-1.1) Sodium Level 130 mmol/L (136-145) 132 mmol/L (136-145) Potassium Level 4.6 mmol/L (3.5-5.1) 5.0 mmol/L (3.5-5.1) Chloride Level 94 mmol/L (98-107) 97 mmol/L (98-107) Carbon Dioxide Level 31 mmol/L (21-32) 32 mmol/L (21-32) Anion Gap 5 (6-14) 3 (6-14) Blood Urea Nitrogen 33 mg/dL (7-20) 24 mg/dL (7-20) Creatinine 1.5 mg/dL (0.6-1.0) 1.1 mg/dL (0.6-1.0) Estimated GFR (Cockcroft-Gault) 35.7 51.0 BUN/Creatinine Ratio 22 (6-20) Glucose Level 106 mg/dL (70-99) 100 mg/dL (70-99) Uric Acid 8.7 mg/dL (2.6-6.0) Calcium Level 8.0 mg/dL (8.5-10.1) 8.0 mg/dL (8.5-10.1) Total Bilirubin 1.3 mg/dL (0.2-1.0) Aspartate Amino Transf (AST/SGOT) 320 U/L (15-37) Alanine Aminotransferase (ALT/SGPT) 285 U/L (14-59) Alkaline Phosphatase 103 U/L (46-116) Lactate Dehydrogenase 204 U/L (81-234) Total Protein 7.3 g/dL (6.4-8.2) Albumin 2.4 g/dL (3.4-5.0) Albumin/Globulin Ratio 0.5 (1.0-1.7) Vbwe-0-Acprvopdfeyiq 4.6 mg/L (0.6-2.4) Hepatitis B Surface Antibody Non reactive (.) Hepatitis B Core Total Antibody Negative (Negative) Magnesium Level 2.3 mg/dL (1.8-2.4) Laboratory Tests Test 03/08/17 04:05 White Blood Count 7.6 x10^3/uL (4.0-11.0) Red Blood Count 4.13 x10^6/uL (3.50-5.40) Hemoglobin 12.0 g/dL (12.0-15.5) Hematocrit 36.3 % (36.0-47.0) Mean Corpuscular Volume 88 fL (79-100) Mean Corpuscular Hemoglobin 29 pg (25-35) Mean Corpuscular Hemoglobin Concent 33 g/dL (31-37) Red Cell Distribution Width 17.4 % (11.5-14.5) Platelet Count 162 x10^3/uL (140-400) Neutrophils (%) (Auto) 62 % (31-73) Lymphocytes (%) (Auto) 18 % (24-48) Monocytes (%) (Auto) 16 % (0-9) Eosinophils (%) (Auto) 3 % (0-3) Basophils (%) (Auto) 1 % (0-3) Neutrophils # (Auto) 4.7 x10^3uL (1.8-7.7) Lymphocytes # (Auto) 1.4 x10^3/uL (1.0-4.8) Monocytes # (Auto) 1.2 x10^3/uL (0.0-1.1) Eosinophils # (Auto) 0.3 x10^3/uL (0.0-0.7) Basophils # (Auto) 0.1 x10^3/uL (0.0-0.2) Sodium Level 132 mmol/L (136-145) Potassium Level 5.0 mmol/L (3.5-5.1) Chloride Level 97 mmol/L (98-107) Carbon Dioxide Level 32 mmol/L (21-32) Anion Gap 3 (6-14) Blood Urea Nitrogen 24 mg/dL (7-20) Creatinine 1.1 mg/dL (0.6-1.0) Estimated GFR (Cockcroft-Gault) 51.0 Glucose Level 100 mg/dL (70-99) Calcium Level 8.0 mg/dL (8.5-10.1) Magnesium Level 2.3 mg/dL (1.8-2.4) Medications Current Medications Enoxaparin Sodium (Lovenox 150mg Syringe) 150 mg Q12HR SQ Last administered on 03/08/17 14:08; Start 03/06/17 at 21:00 Albuterol/ Ipratropium (Duoneb) 3 ml RTQID NEB Last administered on 03/08/17 15:29; Start 03/06/17 at 20:00 Nystatin (Nystop) 1 john BID TP Last administered on 03/08/17 14:07; Start at 21:00 Ondansetron HCl (Zofran Odt) 4 mg PRN Q6HRS PRN PO NAUSEA/VOMITING Last administered on 03/08/17 06:34; Start 03/06/17 at 18:00 Ceftriaxone Sodium 1 gm/ Sodium Chloride 50 ml @ 100 mls/hr Q24H IV Last administered on 03/07/17 20:28; Start 03/06/17 at 20:00 Oxycodone/ Acetaminophen (Percocet 5/325) 1 tab PRN Q4HRS PRN PO PAIN Last administered on 03/08/17 15:54; Start 03/06/17 at 18:00 Sodium Chloride (Normal Saline Flush) 3 ml PRN DAILY PRN IV AFTER MEDS AND BLOOD DRAWS; Start 03/06/17 at 18:00 Iohexol (Omnipaque 300 Mg/ml) 75 ml 1X ONCE IV ; Start 03/07/17 at 09:15; Stop 03/07/17 at 09:16; Status DC Iohexol (Omnipaque 240 Mg/ml) 50 ml 1X ONCE PO Last administered on 03/07/17 09:15; Start 03/07/17 at 09:15; Stop 03/07/17 at 09:16; Status DC Info (Do NOT chart on this entry -- for MONITORING) 1 each PRN DAILY PRN MC SEE COMMENTS; Start 03/07/17 at 09:15; Stop 03/09/17 at 09:14 Allopurinol (Zyloprim) 100 mg DAILY PO Last administered on 03/08/17 14:07; Start 03/07/17 at 11:00 Info (Anti-Coagulation Monitoring By Pharmacy) 1 each PRN DAILY PRN MC SEE COMMENTS Last administered on 03/07/17 13:28; Start 03/07/17 at 13:30 Lidocaine/ Epinephrine (Xylocaine 1%-Epi 1:100,000) 20 ml STK-MED ONCE .ROUTE ; Start 03/07/17 at 15:25; Stop 03/07/17 at 15:26; Status DC Heparin Sodium (Porcine) (Hep Lock Adult) 500 unit STK-MED ONCE IV ; Start 03/07 at 15:25; Stop 03/07/17 at 15:26; Status DC Heparin Sodium/ Sodium Chloride 500 ml @ As Directed STK-MED ONCE .ROUTE ; Start 03/07/17 at 15:25; Stop 03/07/17 at 15:26; Status DC Cefazolin Sodium 0 ml @ As Directed STK-MED ONCE IV ; Start 03/07/17 at 15:58; Stop 03/07/17 at 15:59; Status DC Fentanyl Citrate (Fentanyl 2ml Vial) 100 mcg STK-MED ONCE .ROUTE ; Start at 15:58; Stop 03/07/17 at 15:59; Status DC Heparin Sodium/ Sodium Chloride 1,000 unit 1X ONCE IART Last administered on 16:25; Start 03/07/17 at 16:15; Stop 03/07/17 at 16:16; Status DC Lidocaine/ Epinephrine (Xylocaine 1%-Epi 1:100,000) 20 ml 1X ONCE INJ Last administered on 03/07/17 16:25; Start 03/07/17 at 16:15; Stop 03/07/17 at 16:16 ; Status DC Heparin Sodium (Porcine) (Hep Lock Adult) 500 unit 1X ONCE IV Last administered on 03/07/17 16:30; Start 03/07/17 at 16:15; Stop 03/07/17 at 16:16 ; Status DC Clindamycin Phosphate 50 ml @ As Directed STK-MED ONCE IV ; Start 03/07/17 at 16 :06; Stop 03/07/17 at 16:07; Status DC Ondansetron HCl (Zofran) 4 mg STK-MED ONCE .ROUTE ; Start 03/07/17 at 16:14; Stop 03/07/17 at 16:15; Status DC Clindamycin Phosphate 50 ml @ 100 mls/hr 1X ONCE IV Last administered on 03/07 16:33; Start 03/07/17 at 16:30; Stop 03/07/17 at 16:59; Status DC Ondansetron HCl (Zofran) 4 mg 1X ONCE IV Last administered on 03/07/17 16:32 ; Start 03/07/17 at 16:30; Stop 03/07/17 at 16:31; Status DC Hydralazine HCl (Apresoline) 10 mg PRN Q4HRS PRN IVP ELEVATED BP, SEE COMMENTS ; Start 03/07/17 at 16:45 Isosorbide Mononitrate (Imdur) 30 mg DAILY PO Last administered on 03/08/17 14 :07; Start 03/08/17 at 09:00 Metoprolol Tartrate (Lopressor) 12.5 mg BID PO Last administered on 03/08/17 14:07; Start 03/08/17 at 09:00 Aspirin (Ecotrin) 81 mg DAILYWBKFT PO Last administered on 03/08/17 14:06; Start 03/08/17 at 08:00 Morphine Sulfate 2 mg 1X ONCE IV Last administered on 03/08/17 11:45; Start 03/08/17 at 11:45; Stop 03/08/17 at 11:46; Status DC Diphenhydramine HCl (Benadryl) 25 mg Q6HRS PRN IVP itching; Start 03/08/17 at 17:30; Status Cancel Diphenhydramine HCl (Benadryl) 50 mg Q8HRS PRN IVP itching Last administered on 03/08/17 17:39; Start 03/08/17 at 17:30 Vitals/I & O Vital Sign - Last 24 Hours 03/07/17 03/07/17 03/07/17 03/07/17 19:00 19:33 19:39 23:00 Temp 97.5 97.7 97.5 97.7 Pulse 83 88 Resp 20 20 B/P (MAP) 151/73 (99) 139/69 (92) Pulse Ox 96 97 91 O2 Delivery Nasal Cannula Room Air Nasal Cannula Nasal Cannula O2 Flow Rate 2.0 03/08/17 03/08/17 03/08/17 03/08/17 01:37 03:01 06:34 07:15 Temp 97.7 97.9 97.7 97.9 Pulse 78 86 Resp 20 18 B/P (MAP) 134/74 (94) 125/56 (79) Pulse Ox 93 93 93 93 O2 Delivery Nasal Cannula Nasal Cannula Nasal Cannula Nasal Cannula O2 Flow Rate 2.0 2.0 2.0 03/08/17 03/08/17 03/08/17 03/08/17 07:29 07:34 08:00 10:28 Temp 98.1 98.1 Pulse 81 Resp 18 16 B/P (MAP) 109/61 (77) Pulse Ox 96 95 O2 Delivery Room Air Nasal Cannula Nasal Cannula O2 Flow Rate 2.0 03/08/17 03/08/17 03/08/17 03/08/17 11:26 11:45 12:15 14:07 Pulse 81 B/P (MAP) 109/61 Pulse Ox 94 O2 Delivery Room Air Nasal Cannula Nasal Cannula 03/08/17 03/08/17 03/08/17 03/08/17 14:07 15:02 15:31 15:54 Temp 97.5 97.5 Pulse 81 80 Resp 16 B/P (MAP) 109/61 113/65 (81) Pulse Ox 97 98 O2 Delivery Nasal Cannula Room Air Nasal Cannula O2 Flow Rate 2.0 03/08/17 17:18 Pulse Ox 98 O2 Delivery Nasal Cannula O2 Flow Rate 2.0 Intake and Output 03/08/17 03/08/17 03/09/17 15:00 23:00 07:00 Intake Total 90 ml Balance 90 ml TEJINDER LAGUNA MD Mar 08, 2017 18:01
[2017-03-08 19:00] VITALS: BP 126/81
[2017-03-08 23:00] VITALS: BP 115/67
[2017-03-09] VITALS (12 sets, daily range): BP systolic 115–150; BP diastolic 57–80
[2017-03-09 05:42] LABS: BASO # 0.1 x10^3/uL (0.0-0.2); BASO % 1 % (0-3); EOS % 5 % (0-3); HEMATOCRIT 35.8 % (36.0-47.0); HEMOGLOBIN 11.7 g/dL (12.0-15.5); LYMPH # 1.2 x10^3/uL (1.0-4.8); LYMPH % 19 % (24-48); MEAN CORPUSCULAR HEMOGLOBIN 29 pg (25-35); MEAN CORPUSCULAR HGB CONC 33 g/dL (31-37); MEAN CORPUSCULAR VOLUME 89 fL (79-100); MONO % 16 % (0-9); NEUT % 60 % (31-73); PLATELET COUNT 160 x10^3/uL (140-400); RED CELL DISTRIBUTION WIDTH 17.3 % (11.5-14.5); WHITE BLOOD COUNT 6.3 x10^3/uL (4.0-11.0)
[2017-03-09 05:54] LABS: GFR 56.9
[2017-03-09] MEDS: IPRATRPIUM/ALBUTEROL 0.5/2.5MG 3 ML NEBU. NEB SCH ×4 (08:00→20:00)
[2017-03-09] MEDS: ASPIRIN ENTERIC COATED 81 MG TABLET.DR. PO SCH (08:00)
[2017-03-09] MEDS: ALLOPURINOL 100 MG TABLET. PO SCH (08:37)
[2017-03-09] MEDS: ISOSORBIDE MONONITRATE ER 30 MG TAB.ER.24H PO SCH (08:37)
[2017-03-09] MEDS: NYSTATIN TOPICAL POWDER 15GM BOTTLE. TP SCH ×2 (08:37→22:00)
[2017-03-09] MEDS: METOPROLOL TART IMMED RELEASE 25 MG TABLET. PO SCH ×2 (08:37→21:52)
--- NOTE | 2017-03-09 09:48 | RAD ---
CT neck, chest, abdomen and pelvis without contrast 03/08/2017 at 1259 hours Indication: Mantle cell lymphoma, staging. Comparison: None available Technique: Multiple noncontrast axial images of the neck, chest, abdomen and pelvis were obtained. Coronal and sagittal reformats are provided. Findings: Neck: Orbits are normal in appearance. There is an ovoid soft tissue density in the medial right orbit resulting in mass effect on the medial rectus muscle. The lesion measures approximately 14 x 6 mm and is indeterminate. There is low-attenuation in the left frontal lobe which may represent remote infarct. Paranasal sinuses are well aerated. Skull base is intact. Parotid glands are intact. [employer] space appear normal. Parapharyngeal fat is preserved. Floor of mouth appears normal. Lobulated appearance of the right submandibular gland is suspected. There is soft tissue attenuation in the right level 2 cervical distribution, as well as right level 3 and 4 which may represent matted lymphadenopathy. Left cervical chain is clear. There is a right thyroid mass measuring 3.1 x 3.4 cm. No definite level 5 or supraclavicular lymph nodes are identified. Nasal cavity, nasopharynx, oropharynx and hypopharynx are normal. Larynx appears intact. Chest: Lateral intravenous contrast limits evaluation of lymphadenopathy. Pathologically enlarged left axillary lymph nodes are present measuring up to 7.0 x 3.4 cm (series 3, image 13). Retropectoral left chest wall lymphadenopathy is identified with thomas conglomerate measuring approximately 7.5 x 7.4 cm. Prevascular lymph nodes, right paratracheal and suspected right hilar lymph nodes are present. There is a 15 mm short axis (the right axillary region. Internal mammary chain appears normal. Heart is enlarged. No pericardial effusion. Thoracic aorta is normal in course and caliber. Multifocal patchy nodular opacities are identified throughout the lungs bilaterally with more focal consolidation at the right lower lobe. Largest parenchymal opacity measures 2.2 x 2.3 cm in the right lower lobe (series 3, image 36). There is a parenchymal opacity in the left upper lobe measuring 14 x 14 mm (series 3, image 16). There is a small right pleural effusion. Abdomen/pelvis: Alignment of intravenous contrast with evaluation the solid abdominal viscera. Additionally, body habitus limits evaluation. No suspicious hepatic masses are identified. Spleen is normal in size. Adrenal glands are normal in appearance. Pancreas appears atrophic. Gallbladder is present without adjacent plantar changes. Oral contrast was administered. The abdominal aorta is normal in course and caliber with scattered atherosclerotic obscuration. Right common iliac lymph node measures 18 mm by short axis (series 4, image 63). Aortocaval lymph node measures 10 mm by short axis (series 4, image 53). Left superior neck lymph node measures 16 mm by short axis (series 4, image 51). Left external iliac lymph node measures 10 mm by short axis. Kidneys enhance symmetrically. No suspicious renal masses are identified. No hydronephrosis. No calculi are identified in the kidneys, ureters or urinary bladder. Urinary bladder is within normal limits given degree of distention. Small and large bowel are normal in caliber without evidence for bowel obstruction. There is a left ventral abdominal wall hernia containing nondilated loops of small bowel. Hernia measures 4.5 cm at the ostia. No suspicious osseous lesions are identified. Impression: 1. Right cervical chain lymphadenopathy involving level 2, 3 and 4. 2. There is a 14 x 6 mm extraconal mass within the medial right orbit with mass effect on the medial rectus muscle. This finding is indeterminate on noncontrast CT and may reflect orbital involvement of lymphoma versus a hemangioma or venous varix. Further evaluation with MRI brain and orbits is recommended (area of hypoattenuation in the left frontal lobe may be further evaluated). 3. Heterogeneous right thyroid mass may represent thyroid goiter versus lymphomatous involvement versus primary thyroid neoplasm. Correlation with PET/CT may be of benefit. 4. Thoracic lymphadenopathy centered in the left axilla, as detailed above. Additional borderline to pathologically enlarged lymph nodes are identified in the mediastinum and right axilla. 5. Multifocal patchy nodular parenchymal opacities with more focal airspace consolidation the right lower lobe may reflect infectious or inflammatory process versus lymphomatous involvement. Further evaluation with PET/CT may be of benefit. Small right pleural effusion. 6. Spleen is not enlarged. 7. Retroperitoneal and bilateral iliac lymph nodes are identified, as detailed above. No pathologically enlarged inguinal lymph nodes are present. 8. Left central abdominal hernia containing nondilated loops of small bowel. PQRS Compliance Statement: One or more of the following individualized dose reduction techniques were utilized for this examination: 1. Automated exposure control 2. Adjustment of the mA and/or kV according to patient size 3. Use of iterative reconstruction technique
--- NOTE | 2017-03-09 10:03 | PDOC ---
PROGRESS NOTES Subjective Subjective The patient remains short of breath. Objective Objective Vital Signs Date Time Temp Pulse Resp B/P (MAP) Pulse Ox O2 Delivery O2 Flow Rate FiO2 03/09/17 08:37 73 126/73 03/09/17 03:00 98.2 18 94 Room Air 3.0 98.2 Physical Exam Abdomen: Normal bowel sounds Heart: Regular rate General: mild distress Lungs: Other (decreased breath sounds) Assessment Assessment Assessment 1. Chronic systolic heart failure with NICM 20-25%: Continue shortness of breath. We'll resume Lasix. 2. Hypertension with present hypotension: Blood pressure improved today. Mild Lasix as above. 3. Cellulitis. Continue present treatment. 4. Mantle cell lymphoma (new finding); chemotherapy as per oncology. 5. PSVT: bursts of wide complex tach, appears to be AFIB with aberrancy. Comment Review of Relevant I have reviewed the following items kailey (where applicable) has been applied. Labs Laboratory Tests Test 03/08/17 04:05 03/09/17 05:30 White Blood Count 7.6 x10^3/uL (4.0-11.0) 6.3 x10^3/uL (4.0-11.0) Red Blood Count 4.13 x10^6/uL (3.50-5.40) 4.00 x10^6/uL (3.50-5.40) Hemoglobin 12.0 g/dL (12.0-15.5) 11.7 g/dL (12.0-15.5) Hematocrit 36.3 % (36.0-47.0) 35.8 % (36.0-47.0) Mean Corpuscular Volume 88 fL (79-100) 89 fL (79-100) Mean Corpuscular Hemoglobin 29 pg (25-35) 29 pg (25-35) Mean Corpuscular Hemoglobin Concent 33 g/dL (31-37) 33 g/dL (31-37) Red Cell Distribution Width 17.4 % (11.5-14.5) 17.3 % (11.5-14.5) Platelet Count 162 x10^3/uL (140-400) 160 x10^3/uL (140-400) Neutrophils (%) (Auto) 62 % (31-73) 60 % (31-73) Lymphocytes (%) (Auto) 18 % (24-48) 19 % (24-48) Monocytes (%) (Auto) 16 % (0-9) 16 % (0-9) Eosinophils (%) (Auto) 3 % (0-3) 5 % (0-3) Basophils (%) (Auto) 1 % (0-3) 1 % (0-3) Neutrophils # (Auto) 4.7 x10^3uL (1.8-7.7) 3.7 x10^3uL (1.8-7.7) Lymphocytes # (Auto) 1.4 x10^3/uL (1.0-4.8) 1.2 x10^3/uL (1.0-4.8) Monocytes # (Auto) 1.2 x10^3/uL (0.0-1.1) 1.0 x10^3/uL (0.0-1.1) Eosinophils # (Auto) 0.3 x10^3/uL (0.0-0.7) 0.3 x10^3/uL (0.0-0.7) Basophils # (Auto) 0.1 x10^3/uL (0.0-0.2) 0.1 x10^3/uL (0.0-0.2) Sodium Level 132 mmol/L (136-145) 133 mmol/L (136-145) Potassium Level 5.0 mmol/L (3.5-5.1) 5.0 mmol/L (3.5-5.1) Chloride Level 97 mmol/L (98-107) 97 mmol/L (98-107) Carbon Dioxide Level 32 mmol/L (21-32) 33 mmol/L (21-32) Anion Gap 3 (6-14) 3 (6-14) Blood Urea Nitrogen 24 mg/dL (7-20) 21 mg/dL (7-20) Creatinine 1.1 mg/dL (0.6-1.0) 1.0 mg/dL (0.6-1.0) Estimated GFR (Cockcroft-Gault) 51.0 56.9 Glucose Level 100 mg/dL (70-99) 90 mg/dL (70-99) Calcium Level 8.0 mg/dL (8.5-10.1) 8.0 mg/dL (8.5-10.1) Magnesium Level 2.3 mg/dL (1.8-2.4) Laboratory Tests Test 03/09/17 05:30 White Blood Count 6.3 x10^3/uL (4.0-11.0) Red Blood Count 4.00 x10^6/uL (3.50-5.40) Hemoglobin 11.7 g/dL (12.0-15.5) Hematocrit 35.8 % (36.0-47.0) Mean Corpuscular Volume 89 fL (79-100) Mean Corpuscular Hemoglobin 29 pg (25-35) Mean Corpuscular Hemoglobin Concent 33 g/dL (31-37) Red Cell Distribution Width 17.3 % (11.5-14.5) Platelet Count 160 x10^3/uL (140-400) Neutrophils (%) (Auto) 60 % (31-73) Lymphocytes (%) (Auto) 19 % (24-48) Monocytes (%) (Auto) 16 % (0-9) Eosinophils (%) (Auto) 5 % (0-3) Basophils (%) (Auto) 1 % (0-3) Neutrophils # (Auto) 3.7 x10^3uL (1.8-7.7) Lymphocytes # (Auto) 1.2 x10^3/uL (1.0-4.8) Monocytes # (Auto) 1.0 x10^3/uL (0.0-1.1) Eosinophils # (Auto) 0.3 x10^3/uL (0.0-0.7) Basophils # (Auto) 0.1 x10^3/uL (0.0-0.2) Sodium Level 133 mmol/L (136-145) Potassium Level 5.0 mmol/L (3.5-5.1) Chloride Level 97 mmol/L (98-107) Carbon Dioxide Level 33 mmol/L (21-32) Anion Gap 3 (6-14) Blood Urea Nitrogen 21 mg/dL (7-20) Creatinine 1.0 mg/dL (0.6-1.0) Estimated GFR (Cockcroft-Gault) 56.9 Glucose Level 90 mg/dL (70-99) Calcium Level 8.0 mg/dL (8.5-10.1) Medications Current Medications Enoxaparin Sodium (Lovenox 150mg Syringe) 150 mg Q12HR SQ Last administered on 03/08/17 21:20; Start 03/06/17 at 21:00 Albuterol/ Ipratropium (Duoneb) 3 ml RTQID NEB Last administered on 03/08/17 20:04; Start 03/06/17 at 20:00 Nystatin (Nystop) 1 john BID TP Last administered on 03/09/17 08:37; Start at 21:00 Ondansetron HCl (Zofran Odt) 4 mg PRN Q6HRS PRN PO NAUSEA/VOMITING Last administered on 03/08/17 06:34; Start 03/06/17 at 18:00 Ceftriaxone Sodium 1 gm/ Sodium Chloride 50 ml @ 100 mls/hr Q24H IV Last administered on 03/08/17 21:20; Start 03/06/17 at 20:00 Oxycodone/ Acetaminophen (Percocet 5/325) 1 tab PRN Q4HRS PRN PO PAIN Last administered on 03/08/17 21:18; Start 03/06/17 at 18:00 Sodium Chloride (Normal Saline Flush) 3 ml PRN DAILY PRN IV AFTER MEDS AND BLOOD DRAWS; Start 03/06/17 at 18:00 Iohexol (Omnipaque 300 Mg/ml) 75 ml 1X ONCE IV ; Start 03/07/17 at 09:15; Stop 03/07/17 at 09:16; Status DC Iohexol (Omnipaque 240 Mg/ml) 50 ml 1X ONCE PO Last administered on 03/07/17 09:15; Start 03/07/17 at 09:15; Stop 03/07/17 at 09:16; Status DC Info (Do NOT chart on this entry -- for MONITORING) 1 each PRN DAILY PRN MC SEE COMMENTS; Start 03/07/17 at 09:15; Stop 03/09/17 at 09:14; Status DC Allopurinol (Zyloprim) 100 mg DAILY PO Last administered on 03/09/17 08:37; Start 03/07/17 at 11:00 Info (Anti-Coagulation Monitoring By Pharmacy) 1 each PRN DAILY PRN MC SEE COMMENTS Last administered on 03/07/17 13:28; Start 03/07/17 at 13:30 Lidocaine/ Epinephrine (Xylocaine 1%-Epi 1:100,000) 20 ml STK-MED ONCE .ROUTE ; Start 03/07/17 at 15:25; Stop 03/07/17 at 15:26; Status DC Heparin Sodium (Porcine) (Hep Lock Adult) 500 unit STK-MED ONCE IV ; Start 03/07 at 15:25; Stop 03/07/17 at 15:26; Status DC Heparin Sodium/ Sodium Chloride 500 ml @ As Directed STK-MED ONCE .ROUTE ; Start 03/07/17 at 15:25; Stop 03/07/17 at 15:26; Status DC Cefazolin Sodium 0 ml @ As Directed STK-MED ONCE IV ; Start 03/07/17 at 15:58; Stop 03/07/17 at 15:59; Status DC Fentanyl Citrate (Fentanyl 2ml Vial) 100 mcg STK-MED ONCE .ROUTE ; Start at 15:58; Stop 03/07/17 at 15:59; Status DC Heparin Sodium/ Sodium Chloride 1,000 unit 1X ONCE IART Last administered on 16:25; Start 03/07/17 at 16:15; Stop 03/07/17 at 16:16; Status DC Lidocaine/ Epinephrine (Xylocaine 1%-Epi 1:100,000) 20 ml 1X ONCE INJ Last administered on 03/07/17 16:25; Start 03/07/17 at 16:15; Stop 03/07/17 at 16:16 ; Status DC Heparin Sodium (Porcine) (Hep Lock Adult) 500 unit 1X ONCE IV Last administered on 03/07/17 16:30; Start 03/07/17 at 16:15; Stop 03/07/17 at 16:16 ; Status DC Clindamycin Phosphate 50 ml @ As Directed STK-MED ONCE IV ; Start 03/07/17 at 16 :06; Stop 03/07/17 at 16:07; Status DC Ondansetron HCl (Zofran) 4 mg STK-MED ONCE .ROUTE ; Start 03/07/17 at 16:14; Stop 03/07/17 at 16:15; Status DC Clindamycin Phosphate 50 ml @ 100 mls/hr 1X ONCE IV Last administered on 03/07 16:33; Start 03/07/17 at 16:30; Stop 03/07/17 at 16:59; Status DC Ondansetron HCl (Zofran) 4 mg 1X ONCE IV Last administered on 03/07/17 16:32 ; Start 03/07/17 at 16:30; Stop 03/07/17 at 16:31; Status DC Hydralazine HCl (Apresoline) 10 mg PRN Q4HRS PRN IVP ELEVATED BP, SEE COMMENTS ; Start 03/07/17 at 16:45 Isosorbide Mononitrate (Imdur) 30 mg DAILY PO Last administered on 03/09/17 08 :37; Start 03/08/17 at 09:00 Metoprolol Tartrate (Lopressor) 12.5 mg BID PO Last administered on 03/09/17 08:37; Start 03/08/17 at 09:00 Aspirin (Ecotrin) 81 mg [id number] PO Last administered on 03/08/17 14:06; Start 03/08/17 at 08:00 Morphine Sulfate 2 mg 1X ONCE IV Last administered on 03/08/17 11:45; Start 03/08/17 at 11:45; Stop 03/08/17 at 11:46; Status DC Diphenhydramine HCl (Benadryl) 25 mg Q6HRS PRN IVP itching; Start 03/08/17 at 17:30; Status Cancel Diphenhydramine HCl (Benadryl) 50 mg Q8HRS PRN IVP itching Last administered on 03/08/17 17:39; Start 03/08/17 at 17:30 Vitals/I & O Vital Sign - Last 24 Hours 03/08/17 03/08/17 03/08/17 03/08/17 10:28 11:26 11:45 12:15 Temp 98.1 98.1 Pulse 81 Resp 16 B/P (MAP) 109/61 (77) Pulse Ox 95 94 O2 Delivery Nasal Cannula Room Air Nasal Cannula Nasal Cannula 03/08/17 03/08/17 03/08/17 03/08/17 14:07 14:07 15:02 15:31 Temp 97.5 97.5 Pulse 81 81 80 Resp 16 B/P (MAP) 109/61 109/61 113/65 (81) Pulse Ox 97 98 O2 Delivery Nasal Cannula Room Air O2 Flow Rate 2.0 03/08/17 03/08/17 03/08/17 03/08/17 15:54 19:00 20:00 20:05 Temp 98.5 98.5 Pulse 78 Resp 18 B/P (MAP) 126/81 (96) Pulse Ox 96 96 O2 Delivery Nasal Cannula Nasal Cannula Nasal Cannula Nasal Cannula O2 Flow Rate 3.0 2.5 3.0 03/08/17 03/08/17 03/08/17 03/08/17 21:18 21:19 22:18 23:00 Temp 98.3 98.3 Pulse 78 69 Resp 20 18 18 B/P (MAP) 126/81 115/67 (83) Pulse Ox 96 96 96 O2 Delivery Nasal Cannula Nasal Cannula Nasal Cannula O2 Flow Rate 3.0 3.0 3.0 03/09/17 03/09/17 03/09/17 03:00 08:37 08:37 Temp 98.2 98.2 Pulse 73 73 73 Resp 18 B/P (MAP) 126/73 (90) 126/73 126/73 Pulse Ox 94 O2 Delivery Room Air O2 Flow Rate 3.0 KI WU MD Mar 09, 2017 10:03
[2017-03-09] MEDS: FUROSEMIDE 40 MG/4 ML VIAL. IVP SCH (10:15)
--- NOTE | 2017-03-09 12:21 | PDOC ---
PROGRESS NOTES Subjective Subjective c/c -f/u of Mantle cell lymphoma Objective Objective Vital Signs Date Time Temp Pulse Resp B/P (MAP) Pulse Ox O2 Delivery O2 Flow Rate FiO2 03/09/17 10:58 97 Nasal Cannula 3.0 03/09/17 10:30 97.5 73 20 137/68 (91) 97.5 Intake and Output 03/10/17 07:00 Intake Total 120 ml Balance 120 ml Intake Oral 120 ml Physical Exam General: Alert, Oriented X3 Neuro: Normal speech Psych/Mental Status: Mental status NL Assessment Assessment IMPRESSION AND PLAN: 1. Mantle cell lymphoma involving the left axillary lymph nodes and possible involvement of the lungs. The lymphadenopathy has progressed between 12/2016 to 02/2017. She had an ultrasound-guided biopsy of the left axillary lymph node on 01/01/2017, which revealed mantle cell lymphoma in addition to kappa predominant plasmacytosis. There is a possibility that she has a biclonal lymphoproliferative disorder with both mantle cell lymphoma and plasma cell neoplasm. I will obtain further studies with serum protein electrophoresis, bone survey and bone marrow biopsy. CT scan of the neck, chest, abdomen and pelvis [address] reveals axillary, mediastinal and retroperitoneal lymphadenopathy. 14 x 6 mm extraconal mass within the medial right orbit with mass effect on the medial rectus muscle. This finding is indeterminate on noncontrast CT and may reflect orbital involvement of lymphoma versus a hemangioma or venous varix. Ordered MRI brain and orbits. I discussed in detail with the patient regarding the diagnosis and treatment options for mantle cell lymphoma. I recommended chemotherapy with bendamustine and rituximab given for 6 cycles. She has poor performance status with ECOG performance status score of 3. In addition, she has significant comorbidities including congestive heart failure with an ejection fraction of only 20-25%. The presence of her comorbidities would increase the likelihood of toxicities due to chemotherapy. s/p port 03/07/17 Plan bone marrow 03/10/17 Then plan chemo. 2. Elevated liver function test likely changes from congestive heart failure. Continue to monitor. 3. Hyponatremia due to congestive heart failure, monitor. 4. Congestive heart failure with an ejection fraction of 20-25%. Appreciate Cardiology management. 5. Elevated uric acid - ordered allopurinol 100 mg daily. 6. Bleeding from port site from 7.30 am 02/1717. RN contacted Dr Thompson and DDAVP was ordered. I will order PT,PTT,fibrinogen. I d/[place] [address]: Impression: 1. Right cervical chain lymphadenopathy involving level 2, 3 and 4. 2. There is a 14 x 6 mm extraconal mass within the medial right orbit with mass effect on the medial rectus muscle. This finding is indeterminate on noncontrast CT and may reflect orbital involvement of lymphoma versus a hemangioma or venous varix. Further evaluation with MRI brain and orbits is recommended (area of hypoattenuation in the left frontal lobe may be further evaluated). 3. Heterogeneous right thyroid mass may represent thyroid goiter versus lymphomatous involvement versus primary thyroid neoplasm. Correlation with PET/CT may be of benefit. 4. Thoracic lymphadenopathy centered in the left axilla, as detailed above. Additional borderline to pathologically enlarged lymph nodes are identified in the mediastinum and right axilla. 5. Multifocal patchy nodular parenchymal opacities with more focal airspace consolidation the right lower lobe may reflect infectious or inflammatory process versus lymphomatous involvement. Further evaluation with PET/CT may be of benefit. Small right pleural effusion. 6. Spleen is not enlarged. 7. Retroperitoneal and bilateral iliac lymph nodes are identified, as detailed above. No pathologically enlarged inguinal lymph nodes are present. 8. Left central abdominal hernia containing nondilated loops of small bowel. Comment Review of Relevant I have reviewed the following items kailey (where applicable) has been applied. Labs Laboratory Tests Test 03/08/17 04:05 03/09/17 05:30 White Blood Count 7.6 x10^3/uL (4.0-11.0) 6.3 x10^3/uL (4.0-11.0) Red Blood Count 4.13 x10^6/uL (3.50-5.40) 4.00 x10^6/uL (3.50-5.40) Hemoglobin 12.0 g/dL (12.0-15.5) 11.7 g/dL (12.0-15.5) Hematocrit 36.3 % (36.0-47.0) 35.8 % (36.0-47.0) Mean Corpuscular Volume 88 fL (79-100) 89 fL (79-100) Mean Corpuscular Hemoglobin 29 pg (25-35) 29 pg (25-35) Mean Corpuscular Hemoglobin Concent 33 g/dL (31-37) 33 g/dL (31-37) Red Cell Distribution Width 17.4 % (11.5-14.5) 17.3 % (11.5-14.5) Platelet Count 162 x10^3/uL (140-400) 160 x10^3/uL (140-400) Neutrophils (%) (Auto) 62 % (31-73) 60 % (31-73) Lymphocytes (%) (Auto) 18 % (24-48) 19 % (24-48) Monocytes (%) (Auto) 16 % (0-9) 16 % (0-9) Eosinophils (%) (Auto) 3 % (0-3) 5 % (0-3) Basophils (%) (Auto) 1 % (0-3) 1 % (0-3) Neutrophils # (Auto) 4.7 x10^3uL (1.8-7.7) 3.7 x10^3uL (1.8-7.7) Lymphocytes # (Auto) 1.4 x10^3/uL (1.0-4.8) 1.2 x10^3/uL (1.0-4.8) Monocytes # (Auto) 1.2 x10^3/uL (0.0-1.1) 1.0 x10^3/uL (0.0-1.1) Eosinophils # (Auto) 0.3 x10^3/uL (0.0-0.7) 0.3 x10^3/uL (0.0-0.7) Basophils # (Auto) 0.1 x10^3/uL (0.0-0.2) 0.1 x10^3/uL (0.0-0.2) Sodium Level 132 mmol/L (136-145) 133 mmol/L (136-145) Potassium Level 5.0 mmol/L (3.5-5.1) 5.0 mmol/L (3.5-5.1) Chloride Level 97 mmol/L (98-107) 97 mmol/L (98-107) Carbon Dioxide Level 32 mmol/L (21-32) 33 mmol/L (21-32) Anion Gap 3 (6-14) 3 (6-14) Blood Urea Nitrogen 24 mg/dL (7-20) 21 mg/dL (7-20) Creatinine 1.1 mg/dL (0.6-1.0) 1.0 mg/dL (0.6-1.0) Estimated GFR (Cockcroft-Gault) 51.0 56.9 Glucose Level 100 mg/dL (70-99) 90 mg/dL (70-99) Calcium Level 8.0 mg/dL (8.5-10.1) 8.0 mg/dL (8.5-10.1) Magnesium Level 2.3 mg/dL (1.8-2.4) Laboratory Tests Test 03/09/17 05:30 White Blood Count 6.3 x10^3/uL (4.0-11.0) Red Blood Count 4.00 x10^6/uL (3.50-5.40) Hemoglobin 11.7 g/dL (12.0-15.5) Hematocrit 35.8 % (36.0-47.0) Mean Corpuscular Volume 89 fL (79-100) Mean Corpuscular Hemoglobin 29 pg (25-35) Mean Corpuscular Hemoglobin Concent 33 g/dL (31-37) Red Cell Distribution Width 17.3 % (11.5-14.5) Platelet Count 160 x10^3/uL (140-400) Neutrophils (%) (Auto) 60 % (31-73) Lymphocytes (%) (Auto) 19 % (24-48) Monocytes (%) (Auto) 16 % (0-9) Eosinophils (%) (Auto) 5 % (0-3) Basophils (%) (Auto) 1 % (0-3) Neutrophils # (Auto) 3.7 x10^3uL (1.8-7.7) Lymphocytes # (Auto) 1.2 x10^3/uL (1.0-4.8) Monocytes # (Auto) 1.0 x10^3/uL (0.0-1.1) Eosinophils # (Auto) 0.3 x10^3/uL (0.0-0.7) Basophils # (Auto) 0.1 x10^3/uL (0.0-0.2) Sodium Level 133 mmol/L (136-145) Potassium Level 5.0 mmol/L (3.5-5.1) Chloride Level 97 mmol/L (98-107) Carbon Dioxide Level 33 mmol/L (21-32) Anion Gap 3 (6-14) Blood Urea Nitrogen 21 mg/dL (7-20) Creatinine 1.0 mg/dL (0.6-1.0) Estimated GFR (Cockcroft-Gault) 56.9 Glucose Level 90 mg/dL (70-99) Calcium Level 8.0 mg/dL (8.5-10.1) Medications Current Medications Enoxaparin Sodium (Lovenox 150mg Syringe) 150 mg Q12HR SQ Last administered on 03/08/17 21:20; Start 03/06/17 at 21:00; Stop 03/09/17 at 11:54; Status DC Albuterol/ Ipratropium (Duoneb) 3 ml RTQID NEB Last administered on 03/09/17 10:56; Start 03/06/17 at 20:00 Nystatin (Nystop) 1 john BID TP Last administered on 03/09/17 08:37; Start at 21:00 Ondansetron HCl (Zofran Odt) 4 mg PRN Q6HRS PRN PO NAUSEA/VOMITING Last administered on 03/08/17 06:34; Start 03/06/17 at 18:00 Ceftriaxone Sodium 1 gm/ Sodium Chloride 50 ml @ 100 mls/hr Q24H IV Last administered on 03/08/17 21:20; Start 03/06/17 at 20:00 Oxycodone/ Acetaminophen (Percocet 5/325) 1 tab PRN Q4HRS PRN PO PAIN Last administered on 03/08/17 21:18; Start 03/06/17 at 18:00 Sodium Chloride (Normal Saline Flush) 3 ml PRN DAILY PRN IV AFTER MEDS AND BLOOD DRAWS; Start 03/06/17 at 18:00 Iohexol (Omnipaque 300 Mg/ml) 75 ml 1X ONCE IV ; Start 03/07/17 at 09:15; Stop 03/07/17 at 09:16; Status DC Iohexol (Omnipaque 240 Mg/ml) 50 ml 1X ONCE PO Last administered on 03/07/17 09:15; Start 03/07/17 at 09:15; Stop 03/07/17 at 09:16; Status DC Info (Do NOT chart on this entry -- for MONITORING) 1 each PRN DAILY PRN MC SEE COMMENTS; Start 03/07/17 at 09:15; Stop 03/09/17 at 09:14; Status DC Allopurinol (Zyloprim) 100 mg DAILY PO Last administered on 03/09/17 08:37; Start 03/07/17 at 11:00 Info (Anti-Coagulation Monitoring By Pharmacy) 1 each PRN DAILY PRN MC SEE COMMENTS Last administered on 03/07/17 13:28; Start 03/07/17 at 13:30 Lidocaine/ Epinephrine (Xylocaine 1%-Epi 1:100,000) 20 ml STK-MED ONCE .ROUTE ; Start 03/07/17 at 15:25; Stop 03/07/17 at 15:26; Status DC Heparin Sodium (Porcine) (Hep Lock Adult) 500 unit STK-MED ONCE IV ; Start 03/07 at 15:25; Stop 03/07/17 at 15:26; Status DC Heparin Sodium/ Sodium Chloride 500 ml @ As Directed STK-MED ONCE .ROUTE ; Start 03/07/17 at 15:25; Stop 03/07/17 at 15:26; Status DC Cefazolin Sodium 0 ml @ As Directed STK-MED ONCE IV ; Start 03/07/17 at 15:58; Stop 03/07/17 at 15:59; Status DC Fentanyl Citrate (Fentanyl 2ml Vial) 100 mcg STK-MED ONCE .ROUTE ; Start at 15:58; Stop 03/07/17 at 15:59; Status DC Heparin Sodium/ Sodium Chloride 1,000 unit 1X ONCE IART Last administered on 16:25; Start 03/07/17 at 16:15; Stop 03/07/17 at 16:16; Status DC Lidocaine/ Epinephrine (Xylocaine 1%-Epi 1:100,000) 20 ml 1X ONCE INJ Last administered on 03/07/17 16:25; Start 03/07/17 at 16:15; Stop 03/07/17 at 16:16 ; Status DC Heparin Sodium (Porcine) (Hep Lock Adult) 500 unit 1X ONCE IV Last administered on 03/07/17 16:30; Start 03/07/17 at 16:15; Stop 03/07/17 at 16:16 ; Status DC Clindamycin Phosphate 50 ml @ As Directed STK-MED ONCE IV ; Start 03/07/17 at 16 :06; Stop 03/07/17 at 16:07; Status DC Ondansetron HCl (Zofran) 4 mg STK-MED ONCE .ROUTE ; Start 03/07/17 at 16:14; Stop 03/07/17 at 16:15; Status DC Clindamycin Phosphate 50 ml @ 100 mls/hr 1X ONCE IV Last administered on 03/07 16:33; Start 03/07/17 at 16:30; Stop 03/07/17 at 16:59; Status DC Ondansetron HCl (Zofran) 4 mg 1X ONCE IV Last administered on 03/07/17 16:32 ; Start 03/07/17 at 16:30; Stop 03/07/17 at 16:31; Status DC Hydralazine HCl (Apresoline) 10 mg PRN Q4HRS PRN IVP ELEVATED BP, SEE COMMENTS ; Start 03/07/17 at 16:45 Isosorbide Mononitrate (Imdur) 30 mg DAILY PO Last administered on 03/09/17 08 :37; Start 03/08/17 at 09:00 Metoprolol Tartrate (Lopressor) 12.5 mg BID PO Last administered on 03/09/17 08:37; Start 03/08/17 at 09:00 Aspirin (Ecotrin) 81 mg DAILYWBKFT PO Last administered on 03/08/17 14:06; Start 03/08/17 at 08:00; Stop 03/09/17 at 11:54; Status DC Morphine Sulfate 2 mg 1X ONCE IV Last administered on 03/08/17 11:45; Start 03/08/17 at 11:45; Stop 03/08/17 at 11:46; Status DC Diphenhydramine HCl (Benadryl) 25 mg Q6HRS PRN IVP itching; Start 03/08/17 at 17:30; Status Cancel Diphenhydramine HCl (Benadryl) 50 mg Q8HRS PRN IVP itching Last administered on 03/08/17 17:39; Start 03/08/17 at 17:30 Furosemide (Lasix) 40 mg DAILY IVP ; Start 03/09/17 at 10:15 Vitals/I & O Vital Sign - Last 24 Hours 03/08/17 03/08/17 03/08/17 03/08/17 14:07 14:07 15:02 15:31 Temp 97.5 97.5 Pulse 81 81 80 Resp 16 B/P (MAP) 109/61 109/61 113/65 (81) Pulse Ox 97 98 O2 Delivery Nasal Cannula Room Air O2 Flow Rate 2.0 03/08/17 03/08/17 03/08/17 03/08/17 15:54 19:00 20:00 20:05 Temp 98.5 98.5 Pulse 78 Resp 18 B/P (MAP) 126/81 (96) Pulse Ox 96 96 O2 Delivery Nasal Cannula Nasal Cannula Nasal Cannula Nasal Cannula O2 Flow Rate 3.0 2.5 3.0 03/08/17 03/08/17 03/08/17 03/08/17 21:18 21:19 22:18 23:00 Temp 98.3 98.3 Pulse 78 69 Resp 20 18 18 B/P (MAP) 126/81 115/67 (83) Pulse Ox 96 96 96 O2 Delivery Nasal Cannula Nasal Cannula Nasal Cannula O2 Flow Rate 3.0 3.0 3.0 03/09/17 03/09/17 03/09/17 03/09/17 03:00 07:35 07:45 08:37 Temp 98.2 97.7 98.2 97.7 Pulse 73 75 73 Resp 18 20 B/P (MAP) 126/73 (90) 147/80 (102) 126/73 Pulse Ox 94 95 O2 Delivery Room Air Nasal Cannula Nasal Cannula O2 Flow Rate 3.0 2.5 3.0 03/09/17 03/09/17 03/09/17 08:37 10:30 10:58 Temp 97.5 97.5 Pulse 73 73 Resp 20 B/P (MAP) 126/73 137/68 (91) Pulse Ox 97 97 O2 Delivery Nasal Cannula Nasal Cannula O2 Flow Rate 3.0 3.0 Intake and Output 03/09/17 03/09/17 03/10/17 15:00 23:00 07:00 Intake Total 120 ml Balance 120 ml TEJINDER LAGUNA MD Mar 09, 2017 12:21
[2017-03-09 12:39] LABS: BASO # 0.1 x10^3/uL (0.0-0.2); BASO % 1 % (0-3); EOS % 4 % (0-3); HEMATOCRIT 34.8 % (36.0-47.0); LYMPH # 1.2 x10^3/uL (1.0-4.8); LYMPH % 16 % (24-48); MEAN CORPUSCULAR HEMOGLOBIN 29 pg (25-35); MEAN CORPUSCULAR HGB CONC 32 g/dL (31-37); MEAN CORPUSCULAR VOLUME 92 fL (79-100); MONO % 14 % (0-9); NEUT % 64 % (31-73); PLATELET COUNT 157 x10^3/uL (140-400); RED CELL DISTRIBUTION WIDTH 17.9 % (11.5-14.5); WHITE BLOOD COUNT 7.3 x10^3/uL (4.0-11.0)
[2017-03-09 13:09] LABS: INR 1.2 (0.8-1.1); PROTHROMBIN TIME PATIENT 14.3 SEC (11.7-14.0)
--- NOTE | 2017-03-09 14:15 | PDOC ---
PROGRESS NOTES Chief Complaint Chief Complaint Dyspnea Hypotension Leg cellulitis ASSESSMENT AND PLAN: 1. Dyspnea: multifactorial, incl CAMILO, obesity related hypoventilation syndrome , lung mets, COPD/asthma. cannot r/o PE, hence therapeutic lovenox 2. Hypotension: resolved. poss med related 3. CHF: chronic systolic (EF 30%); on imdur only. cardiology following 4. HTN, HLD: currently off meds 5. L LE cellulitis: on ceftriaxone. 6. Mantle cell NHL: poss [facility] biclonal population with plasma cell dyscrasia. Dr Gutierrez following. W/U and treatment prep in progress 7. 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 Overnight the pt pulled out her R portacath with significant bleeding extravasating across to her L chest. Attempt to control bleeding has been only moderately successful due to the anatomic location of the vein behind the clavicle. Current attempt is being made with pressure bandages and 10lbs of weight. Consulted vascular surgery. Lasix is being held to maintain intravascular volume. Continuing to follow Hgb regularly. Pt was experiencing lots of pain with the portacath site and was in mild distress with the bed elevated at an angle. Vitals Vitals Vital Signs Date Time Temp Pulse Resp B/P (MAP) Pulse Ox O2 Delivery O2 Flow Rate FiO2 03/09/17 10:58 97 Nasal Cannula 3.0 03/09/17 10:30 97.5 73 20 137/68 (91) 97.5 Physical Exam Physical Exam R portacath site bleeding General: Alert, Oriented X3, mild distress Heart: Regular rate Lungs: Clear Abdomen: Normal bowel sounds Extremities: Other (2+ bilateral LE edema ) Skin: Other (bilateral LE edema, DRSG to LLE) Labs LABS Laboratory Tests Test 03/09/17 05:30 03/09/17 12:10 03/09/17 12:50 White Blood Count 6.3 x10^3/uL (4.0-11.0) 7.3 x10^3/uL (4.0-11.0) Red Blood Count 4.00 x10^6/uL (3.50-5.40) 3.80 x10^6/uL (3.50-5.40) Hemoglobin 11.7 g/dL (12.0-15.5) 11.0 g/dL (12.0-15.5) Hematocrit 35.8 % (36.0-47.0) 34.8 % (36.0-47.0) Mean Corpuscular Volume 89 fL (79-100) 92 fL (79-100) Mean Corpuscular Hemoglobin 29 pg (25-35) 29 pg (25-35) Mean Corpuscular Hemoglobin Concent 33 g/dL (31-37) 32 g/dL (31-37) Red Cell Distribution Width 17.3 % (11.5-14.5) 17.9 % (11.5-14.5) Platelet Count 160 x10^3/uL (140-400) 157 x10^3/uL (140-400) Neutrophils (%) (Auto) 60 % (31-73) 64 % (31-73) Lymphocytes (%) (Auto) 19 % (24-48) 16 % (24-48) Monocytes (%) (Auto) 16 % (0-9) 14 % (0-9) Eosinophils (%) (Auto) 5 % (0-3) 4 % (0-3) Basophils (%) (Auto) 1 % (0-3) 1 % (0-3) Neutrophils # (Auto) 3.7 x10^3uL (1.8-7.7) 4.7 x10^3uL (1.8-7.7) Lymphocytes # (Auto) 1.2 x10^3/uL (1.0-4.8) 1.2 x10^3/uL (1.0-4.8) Monocytes # (Auto) 1.0 x10^3/uL (0.0-1.1) 1.0 x10^3/uL (0.0-1.1) Eosinophils # (Auto) 0.3 x10^3/uL (0.0-0.7) 0.3 x10^3/uL (0.0-0.7) Basophils # (Auto) 0.1 x10^3/uL (0.0-0.2) 0.1 x10^3/uL (0.0-0.2) Sodium Level 133 mmol/L (136-145) Potassium Level 5.0 mmol/L (3.5-5.1) Chloride Level 97 mmol/L (98-107) Carbon Dioxide Level 33 mmol/L (21-32) Anion Gap 3 (6-14) Blood Urea Nitrogen 21 mg/dL (7-20) Creatinine 1.0 mg/dL (0.6-1.0) Estimated GFR (Cockcroft-Gault) 56.9 Glucose Level 90 mg/dL (70-99) Calcium Level 8.0 mg/dL (8.5-10.1) Prothrombin Time 14.3 SEC (11.7-14.0) Prothromb Time International Ratio 1.2 (0.8-1.1) Activated Partial Thromboplast Time 47 SEC (24-38) Fibrinogen 355 mg/dL (200-440) Review of Systems Review of Systems Complains of pain at [facility] Fatigued Assessment and Plan Assessmemt and Plan Dyspnea: multifactorial, incl CAMILO, obesity related hypoventilation syndrome, lung mets, COPD/asthma. cannot r/o PE, hence therapeutic lovenox Anemia: Hgb 11.0 on 03/09/17, continue to monitor during acute bleeding. Held lasix. Hypotension: resolved. poss med related CHF: chronic systolic (EF 20-25%); on imdur only. cardiology following HTN, HLD: currently off meds L LE cellulitis: on ceftriaxone. Mantle cell NHL: poss [facility] biclonal population with plasma cell dyscrasia. Dr Gutierrez following. 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 Labs Laboratory Tests Test 03/08/17 04:05 03/09/17 05:30 03/09/17 12:10 03/09/17 12:50 White Blood Count 7.6 x10^3/uL (4.0-11.0) 6.3 x10^3/uL (4.0-11.0) 7.3 x10^3/uL (4.0-11.0) Red Blood Count 4.13 x10^6/uL (3.50-5.40) 4.00 x10^6/uL (3.50-5.40) 3.80 x10^6/uL (3.50-5.40) Hemoglobin 12.0 g/dL (12.0-15.5) 11.7 g/dL (12.0-15.5) 11.0 g/dL (12.0-15.5) Hematocrit 36.3 % (36.0-47.0) 35.8 % (36.0-47.0) 34.8 % (36.0-47.0) Mean Corpuscular Volume 88 fL (79-100) 89 fL (79-100) 92 fL (79-100) Mean Corpuscular Hemoglobin 29 pg (25-35) 29 pg (25-35) 29 pg (25-35) Mean Corpuscular Hemoglobin Concent 33 g/dL (31-37) 33 g/dL (31-37) 32 g/dL (31-37) Red Cell Distribution Width 17.4 % (11.5-14.5) 17.3 % (11.5-14.5) 17.9 % (11.5-14.5) Platelet Count 162 x10^3/uL (140-400) 160 x10^3/uL (140-400) 157 x10^3/uL (140-400) Neutrophils (%) (Auto) 62 % (31-73) 60 % (31-73) 64 % (31-73) Lymphocytes (%) (Auto) 18 % (24-48) 19 % (24-48) 16 % (24-48) Monocytes (%) (Auto) 16 % (0-9) 16 % (0-9) 14 % (0-9) Eosinophils (%) (Auto) 3 % (0-3) 5 % (0-3) 4 % (0-3) Basophils (%) (Auto) 1 % (0-3) 1 % (0-3) 1 % (0-3) Neutrophils # (Auto) 4.7 x10^3uL (1.8-7.7) 3.7 x10^3uL (1.8-7.7) 4.7 x10^3uL (1.8-7.7) Lymphocytes # (Auto) 1.4 x10^3/uL (1.0-4.8) 1.2 x10^3/uL (1.0-4.8) 1.2 x10^3/uL (1.0-4.8) Monocytes # (Auto) 1.2 x10^3/uL (0.0-1.1) 1.0 x10^3/uL (0.0-1.1) 1.0 x10^3/uL (0.0-1.1) Eosinophils # (Auto) 0.3 x10^3/uL (0.0-0.7) 0.3 x10^3/uL (0.0-0.7) 0.3 x10^3/uL (0.0-0.7) Basophils # (Auto) 0.1 x10^3/uL (0.0-0.2) 0.1 x10^3/uL (0.0-0.2) 0.1 x10^3/uL (0.0-0.2) Sodium Level 132 mmol/L (136-145) 133 mmol/L (136-145) Potassium Level 5.0 mmol/L (3.5-5.1) 5.0 mmol/L (3.5-5.1) Chloride Level 97 mmol/L (98-107) 97 mmol/L (98-107) Carbon Dioxide Level 32 mmol/L (21-32) 33 mmol/L (21-32) Anion Gap 3 (6-14) 3 (6-14) Blood Urea Nitrogen 24 mg/dL (7-20) 21 mg/dL (7-20) Creatinine 1.1 mg/dL (0.6-1.0) 1.0 mg/dL (0.6-1.0) Estimated GFR (Cockcroft-Gault) 51.0 56.9 Glucose Level 100 mg/dL (70-99) 90 mg/dL (70-99) Calcium Level 8.0 mg/dL (8.5-10.1) 8.0 mg/dL (8.5-10.1) Magnesium Level 2.3 mg/dL (1.8-2.4) Prothrombin Time 14.3 SEC (11.7-14.0) Prothromb Time International Ratio 1.2 (0.8-1.1) Activated Partial Thromboplast Time 47 SEC (24-38) Fibrinogen 355 mg/dL (200-440) Laboratory Tests Test 03/09/17 05:30 03/09/17 12:10 03/09/17 12:50 White Blood Count 6.3 x10^3/uL (4.0-11.0) 7.3 x10^3/uL (4.0-11.0) Red Blood Count 4.00 x10^6/uL (3.50-5.40) 3.80 x10^6/uL (3.50-5.40) Hemoglobin 11.7 g/dL (12.0-15.5) 11.0 g/dL (12.0-15.5) Hematocrit 35.8 % (36.0-47.0) 34.8 % (36.0-47.0) Mean Corpuscular Volume 89 fL (79-100) 92 fL (79-100) Mean Corpuscular Hemoglobin 29 pg (25-35) 29 pg (25-35) Mean Corpuscular Hemoglobin Concent 33 g/dL (31-37) 32 g/dL (31-37) Red Cell Distribution Width 17.3 % (11.5-14.5) 17.9 % (11.5-14.5) Platelet Count 160 x10^3/uL (140-400) 157 x10^3/uL (140-400) Neutrophils (%) (Auto) 60 % (31-73) 64 % (31-73) Lymphocytes (%) (Auto) 19 % (24-48) 16 % (24-48) Monocytes (%) (Auto) 16 % (0-9) 14 % (0-9) Eosinophils (%) (Auto) 5 % (0-3) 4 % (0-3) Basophils (%) (Auto) 1 % (0-3) 1 % (0-3) Neutrophils # (Auto) 3.7 x10^3uL (1.8-7.7) 4.7 x10^3uL (1.8-7.7) Lymphocytes # (Auto) 1.2 x10^3/uL (1.0-4.8) 1.2 x10^3/uL (1.0-4.8) Monocytes # (Auto) 1.0 x10^3/uL (0.0-1.1) 1.0 x10^3/uL (0.0-1.1) Eosinophils # (Auto) 0.3 x10^3/uL (0.0-0.7) 0.3 x10^3/uL (0.0-0.7) Basophils # (Auto) 0.1 x10^3/uL (0.0-0.2) 0.1 x10^3/uL (0.0-0.2) Sodium Level 133 mmol/L (136-145) Potassium Level 5.0 mmol/L (3.5-5.1) Chloride Level 97 mmol/L (98-107) Carbon Dioxide Level 33 mmol/L (21-32) Anion Gap 3 (6-14) Blood Urea Nitrogen 21 mg/dL (7-20) Creatinine 1.0 mg/dL (0.6-1.0) Estimated GFR (Cockcroft-Gault) 56.9 Glucose Level 90 mg/dL (70-99) Calcium Level 8.0 mg/dL (8.5-10.1) Prothrombin Time 14.3 SEC (11.7-14.0) Prothromb Time International Ratio 1.2 (0.8-1.1) Activated Partial Thromboplast Time 47 SEC (24-38) Fibrinogen 355 mg/dL (200-440) Medications Current Medications Enoxaparin Sodium (Lovenox 150mg Syringe) 150 mg Q12HR SQ Last administered on 03/08/17 21:20; Start 03/06/17 at 21:00; Stop 03/09/17 at 11:54; Status DC Albuterol/ Ipratropium (Duoneb) 3 ml RTQID NEB Last administered on 03/09/17 10:56; Start 03/06/17 at 20:00 Nystatin (Nystop) 1 john BID TP Last administered on 03/09/17 08:37; Start at 21:00 Ondansetron HCl (Zofran Odt) 4 mg PRN Q6HRS PRN PO NAUSEA/VOMITING Last administered on 03/08/17 06:34; Start 03/06/17 at 18:00 Ceftriaxone Sodium 1 gm/ Sodium Chloride 50 ml @ 100 mls/hr Q24H IV Last administered on 03/08/17 21:20; Start 03/06/17 at 20:00 Oxycodone/ Acetaminophen (Percocet 5/325) 1 tab PRN Q4HRS PRN PO PAIN Last administered on 03/08/17 21:18; Start 03/06/17 at 18:00 Sodium Chloride (Normal Saline Flush) 3 ml PRN DAILY PRN IV AFTER MEDS AND BLOOD DRAWS; Start 03/06/17 at 18:00 Iohexol (Omnipaque 300 Mg/ml) 75 ml 1X ONCE IV ; Start 03/07/17 at 09:15; Stop 03/07/17 at 09:16; Status DC Iohexol (Omnipaque 240 Mg/ml) 50 ml 1X ONCE PO Last administered on 03/07/17 09:15; Start 03/07/17 at 09:15; Stop 03/07/17 at 09:16; Status DC Info (Do NOT chart on this entry -- for MONITORING) 1 each PRN DAILY PRN MC SEE COMMENTS; Start 03/07/17 at 09:15; Stop 03/09/17 at 09:14; Status DC Allopurinol (Zyloprim) 100 mg DAILY PO Last administered on 03/09/17 08:37; Start 03/07/17 at 11:00 Info (Anti-Coagulation Monitoring By Pharmacy) 1 each PRN DAILY PRN MC SEE COMMENTS Last administered on 03/07/17 13:28; Start 03/07/17 at 13:30; Stop at 13:35; Status DC Lidocaine/ Epinephrine (Xylocaine 1%-Epi 1:100,000) 20 ml STK-MED ONCE .ROUTE ; Start 03/07/17 at 15:25; Stop 03/07/17 at 15:26; Status DC Heparin Sodium (Porcine) (Hep Lock Adult) 500 unit STK-MED ONCE IV ; Start 03/07 at 15:25; Stop 03/07/17 at 15:26; Status DC Heparin Sodium/ Sodium Chloride 500 ml @ As Directed STK-MED ONCE .ROUTE ; Start 03/07/17 at 15:25; Stop 03/07/17 at 15:26; Status DC Cefazolin Sodium 0 ml @ As Directed STK-MED ONCE IV ; Start 03/07/17 at 15:58; Stop 03/07/17 at 15:59; Status DC Fentanyl Citrate (Fentanyl 2ml Vial) 100 mcg STK-MED ONCE .ROUTE ; Start at 15:58; Stop 03/07/17 at 15:59; Status DC Heparin Sodium/ Sodium Chloride 1,000 unit 1X ONCE IART Last administered on 16:25; Start 03/07/17 at 16:15; Stop 03/07/17 at 16:16; Status DC Lidocaine/ Epinephrine (Xylocaine 1%-Epi 1:100,000) 20 ml 1X ONCE INJ Last administered on 03/07/17 16:25; Start 03/07/17 at 16:15; Stop 03/07/17 at 16:16 ; Status DC Heparin Sodium (Porcine) (Hep Lock Adult) 500 unit 1X ONCE IV Last administered on 03/07/17 16:30; Start 03/07/17 at 16:15; Stop 03/07/17 at 16:16 ; Status DC Clindamycin Phosphate 50 ml @ As Directed STK-MED ONCE IV ; Start 03/07/17 at 16 :06; Stop 03/07/17 at 16:07; Status DC Ondansetron HCl (Zofran) 4 mg STK-MED ONCE .ROUTE ; Start 03/07/17 at 16:14; Stop 03/07/17 at 16:15; Status DC Clindamycin Phosphate 50 ml @ 100 mls/hr 1X ONCE IV Last administered on 03/07 16:33; Start 03/07/17 at 16:30; Stop 03/07/17 at 16:59; Status DC Ondansetron HCl (Zofran) 4 mg 1X ONCE IV Last administered on 03/07/17 16:32 ; Start 03/07/17 at 16:30; Stop 03/07/17 at 16:31; Status DC Hydralazine HCl (Apresoline) 10 mg PRN Q4HRS PRN IVP ELEVATED BP, SEE COMMENTS ; Start 03/07/17 at 16:45 Isosorbide Mononitrate (Imdur) 30 mg DAILY PO Last administered on 03/09/17 08 :37; Start 03/08/17 at 09:00 Metoprolol Tartrate (Lopressor) 12.5 mg BID PO Last administered on 03/09/17 08:37; Start 03/08/17 at 09:00 Aspirin (Ecotrin) 81 mg DAILYWBKFT PO Last administered on 03/08/17 14:06; Start 03/08/17 at 08:00; Stop 03/09/17 at 11:54; Status DC Morphine Sulfate 2 mg 1X ONCE IV Last administered on 03/08/17 11:45; Start 03/08/17 at 11:45; Stop 03/08/17 at 11:46; Status DC Diphenhydramine HCl (Benadryl) 25 mg Q6HRS PRN IVP itching; Start 03/08/17 at 17:30; Status Cancel Diphenhydramine HCl (Benadryl) 50 mg Q8HRS PRN IVP itching Last administered on 03/08/17 17:39; Start 03/08/17 at 17:30 Furosemide (Lasix) 40 mg DAILY IVP ; Start 03/09/17 at 10:15 Vitals/I & O Vital Sign - Last 24 Hours 03/08/17 03/08/17 03/08/17 03/08/17 14:07 14:07 15:02 15:31 Temp 97.5 97.5 Pulse 81 81 80 Resp 16 B/P (MAP) 109/61 109/61 113/65 (81) Pulse Ox 97 98 O2 Delivery Nasal Cannula Room Air O2 Flow Rate 2.0 03/08/17 03/08/17 03/08/17 03/08/17 15:54 19:00 20:00 20:05 Temp 98.5 98.5 Pulse 78 Resp 18 B/P (MAP) 126/81 (96) Pulse Ox 96 96 O2 Delivery Nasal Cannula Nasal Cannula Nasal Cannula Nasal Cannula O2 Flow Rate 3.0 2.5 3.0 03/08/17 03/08/17 03/08/17 03/08/17 21:18 21:19 22:18 23:00 Temp 98.3 98.3 Pulse 78 69 Resp 20 18 18 B/P (MAP) 126/81 115/67 (83) Pulse Ox 96 96 96 O2 Delivery Nasal Cannula Nasal Cannula Nasal Cannula O2 Flow Rate 3.0 3.0 3.0 03/09/17 03/09/17 03/09/17 03/09/17 03:00 07:35 07:45 08:37 Temp 98.2 97.7 98.2 97.7 Pulse 73 75 73 Resp 18 20 B/P (MAP) 126/73 (90) 147/80 (102) 126/73 Pulse Ox 94 95 O2 Delivery Room Air Nasal Cannula Nasal Cannula O2 Flow Rate 3.0 2.5 3.0 03/09/17 03/09/17 03/09/17 08:37 10:30 10:58 Temp 97.5 97.5 Pulse 73 73 Resp 20 B/P (MAP) 126/73 137/68 (91) Pulse Ox 97 97 O2 Delivery Nasal Cannula Nasal Cannula O2 Flow Rate 3.0 3.0 Intake and Output 03/09/17 03/09/17 03/10/17 15:00 23:00 07:00 Intake Total 120 ml Balance 120 ml LETA CALLOWAY III DO Mar 09, 2017 14:15
[2017-03-09] MEDS ORDERED: NORMAL SALINE IV ONE (15:00)
[2017-03-09] MEDS ORDERED: DESMOPRESSIN IV ONE (15:00)
[2017-03-09] MEDS ORDERED: PROTAMINE 50 MG/5 ML VIAL. IV ONE (15:45)
[2017-03-10] VITALS (22 sets, daily range): BP systolic 86–156; BP diastolic 47–88
[2017-03-10] MEDS ORDERED: THROMBIN TOPICAL 20,000 UNIT SPRAY.SYRN KIT TP ONE (01:00)
[2017-03-10] MEDS ORDERED: SILVER NITRATE STICK TP ONE (01:00)
[2017-03-10] MEDS: oxyCODONE/APAP 5/325 1 TAB TABLET PO PRN (03:27)
[2017-03-10 03:57] LABS: CALCIUM 8.3 mg/dL (8.5-10.1); CREATININE 0.8 mg/dL (0.6-1.0); GFR 73.7
[2017-03-10 05:31] LABS: BASO # 0.1 x10^3/uL (0.0-0.2); BASO % 1 % (0-3); EOS % 4 % (0-3); HEMATOCRIT 34.8 % (36.0-47.0); HEMOGLOBIN 11.2 g/dL (12.0-15.5); LYMPH % 16 % (24-48); MEAN CORPUSCULAR HEMOGLOBIN 29 pg (25-35); MEAN CORPUSCULAR HGB CONC 32 g/dL (31-37); MEAN CORPUSCULAR VOLUME 91 fL (79-100); MONO % 12 % (0-9); NEUT % 67 % (31-73); PLATELET COUNT 154 x10^3/uL (140-400); RED BLOOD COUNT 3.83 x10^6/uL (3.50-5.40); RED CELL DISTRIBUTION WIDTH 17.9 % (11.5-14.5); WHITE BLOOD COUNT 6.4 x10^3/uL (4.0-11.0)
[2017-03-10] MEDS: IPRATRPIUM/ALBUTEROL 0.5/2.5MG 3 ML NEBU. NEB SCH ×4 (07:31→19:54)
[2017-03-10] MEDS ORDERED: IOHEXOL 300 MG/ML 50 ML VIAL. ONE (07:41)
[2017-03-10] MEDS ORDERED: LIDOCAINE 1%/EPI 1:100,000 20 ML VIAL. ONE (08:23)
[2017-03-10] MEDS ORDERED: LIDOCAINE 1%/EPI 1:100,000 20 ML VIAL. INJ ONE (08:30)
[2017-03-10] MEDS ORDERED: THROMBIN TOPICAL 5,000 UNIT VIAL. TP ONE (08:30)
--- NOTE | 2017-03-10 10:57 | PDOC ---
BRIEF OPERATIVE NOTE Pre-Op Diagnosis Continuous venous bleeding from port site Post-Op Diagnosis same Procedure Performed Port evaluation and percutaneous injection of thrombin Surgeon Poonam Anesthesia Type: Local Findings Bleeding at port incision site stopped after percutaneous access into the bleeding vessel and injection of thrombin - 2000 units Complications No immediate Additional Remarks Recommend not accessing this port for 24 hours. Hold anticoagulation for 24 hours. SCD's if tolerated for DVT prophylaxis JANETTE MONTERO MD Mar 10, 2017 10:57
[2017-03-10] MEDS: NYSTATIN TOPICAL POWDER 15GM BOTTLE. TP SCH ×2 (11:11→21:33)
[2017-03-10] MEDS: ISOSORBIDE MONONITRATE ER 30 MG TAB.ER.24H PO SCH (11:12)
[2017-03-10] MEDS: FUROSEMIDE 40 MG/4 ML VIAL. IVP SCH ×2 (11:12→16:42)
[2017-03-10] MEDS: ALLOPURINOL 100 MG TABLET. PO SCH (11:12)
[2017-03-10] MEDS: METOPROLOL TART IMMED RELEASE 25 MG TABLET. PO SCH ×2 (11:12→21:33)
--- NOTE | 2017-03-10 11:29 | PDOC ---
PROGRESS NOTES Chief Complaint Chief Complaint Dyspnea Hypotension Leg cellulitis History of Present Illness History of Present Illness Pt sitting up in bed watching tv and in no distress. Previous bleeding at port site on right side of chest resolved. Area clean and dry with no oozing or discharge. Bm biopsy scheduled for 03/10/17 delayed until 03/11/17. Per phone call with Dr. 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 Dr. Gutierrez advised that patient will receive further chemotherapy at his office. Vitals Vitals Vital Signs Date Time Temp Pulse Resp B/P (MAP) Pulse Ox O2 Delivery O2 Flow Rate FiO2 03/10/17 11:12 74 142/74 03/10/17 10:00 98.2 16 97 Nasal Cannula 3.0 98.2 Physical Exam Physical Exam R portacath site no longer bleeding. General: Alert, Oriented X3, Cooperative, No acute distress, mild distress Heart: Regular rate Lungs: Clear Abdomen: Normal bowel sounds Extremities: Other Skin: Other (Area around port site clean and dry with no bleeding or oozing from port. ) Labs LABS Laboratory Tests Test 03/09/17 12:10 03/09/17 12:50 03/10/17 03:40 03/10/17 05:15 White Blood Count 7.3 x10^3/uL (4.0-11.0) 6.4 x10^3/uL (4.0-11.0) Red Blood Count 3.80 x10^6/uL (3.50-5.40) 3.83 x10^6/uL (3.50-5.40) Hemoglobin 11.0 g/dL (12.0-15.5) 11.2 g/dL (12.0-15.5) Hematocrit 34.8 % (36.0-47.0) 34.8 % (36.0-47.0) Mean Corpuscular Volume 92 fL (79-100) 91 fL (79-100) Mean Corpuscular Hemoglobin 29 pg (25-35) 29 pg (25-35) Mean Corpuscular Hemoglobin Concent 32 g/dL (31-37) 32 g/dL (31-37) Red Cell Distribution Width 17.9 % (11.5-14.5) 17.9 % (11.5-14.5) Platelet Count 157 x10^3/uL (140-400) 154 x10^3/uL (140-400) Neutrophils (%) (Auto) 64 % (31-73) 67 % (31-73) Lymphocytes (%) (Auto) 16 % (24-48) 16 % (24-48) Monocytes (%) (Auto) 14 % (0-9) 12 % (0-9) Eosinophils (%) (Auto) 4 % (0-3) 4 % (0-3) Basophils (%) (Auto) 1 % (0-3) 1 % (0-3) Neutrophils # (Auto) 4.7 x10^3uL (1.8-7.7) 4.3 x10^3uL (1.8-7.7) Lymphocytes # (Auto) 1.2 x10^3/uL (1.0-4.8) 1.0 x10^3/uL (1.0-4.8) Monocytes # (Auto) 1.0 x10^3/uL (0.0-1.1) 0.8 x10^3/uL (0.0-1.1) Eosinophils # (Auto) 0.3 x10^3/uL (0.0-0.7) 0.3 x10^3/uL (0.0-0.7) Basophils # (Auto) 0.1 x10^3/uL (0.0-0.2) 0.1 x10^3/uL (0.0-0.2) Prothrombin Time 14.3 SEC (11.7-14.0) Prothromb Time International Ratio 1.2 (0.8-1.1) Activated Partial Thromboplast Time 47 SEC (24-38) Fibrinogen 355 mg/dL (200-440) Sodium Level 131 mmol/L (136-145) Potassium Level 5.0 mmol/L (3.5-5.1) Chloride Level 97 mmol/L (98-107) Carbon Dioxide Level 28 mmol/L (21-32) Anion Gap 6 (6-14) Blood Urea Nitrogen 18 mg/dL (7-20) Creatinine 0.8 mg/dL (0.6-1.0) Estimated GFR (Cockcroft-Gault) 73.7 Glucose Level 103 mg/dL (70-99) Calcium Level 8.3 mg/dL (8.5-10.1) Magnesium Level 2.5 mg/dL (1.8-2.4) Review of Systems Review of Systems Patient complaining of fatigue. Patient tolerating po nutrition. Assessment and Plan Assessmemt and Plan Dyspnea Hypotension Leg cellulitis ASSESSMENT 1. Dyspnea: multifactorial, incl CAMILO, obesity related hypoventilation syndrome , lung mets, COPD/asthma. cannot r/o PE, hence therapeutic lovenox 2. Hypotension: resolved. poss med related 3. CHF: chronic systolic (EF 30%); on imdur only. cardiology following 4. HTN, HLD: currently off meds 5. L LE cellulitis: on ceftriaxone. 6. Mantle cell NHL: poss [facility] biclonal population with plasma cell dyscrasia. Dr Gutierrez following. W/U and treatment prep in progress 7. Anxiety: no acute issues Plan 1. continue diuresis 2. PTOT as tolerated 3. Refer to Dr. Gutierrez for chemotherapy for mantle cell NHL 4. continue cardiac monitoring 5. continue SCD 6. Monitor port site for recurrence of bleeding or oozing Problems: Comment Review of Relevant I have reviewed the following items kailey (where applicable) has been applied. Labs Laboratory Tests Test 03/09/17 05:30 03/09/17 12:10 03/09/17 12:50 03/10/17 03:40 White Blood Count 6.3 x10^3/uL (4.0-11.0) 7.3 x10^3/uL (4.0-11.0) Red Blood Count 4.00 x10^6/uL (3.50-5.40) 3.80 x10^6/uL (3.50-5.40) Hemoglobin 11.7 g/dL (12.0-15.5) 11.0 g/dL (12.0-15.5) Hematocrit 35.8 % (36.0-47.0) 34.8 % (36.0-47.0) Mean Corpuscular Volume 89 fL (79-100) 92 fL (79-100) Mean Corpuscular Hemoglobin 29 pg (25-35) 29 pg (25-35) Mean Corpuscular Hemoglobin Concent 33 g/dL (31-37) 32 g/dL (31-37) Red Cell Distribution Width 17.3 % (11.5-14.5) 17.9 % (11.5-14.5) Platelet Count 160 x10^3/uL (140-400) 157 x10^3/uL (140-400) Neutrophils (%) (Auto) 60 % (31-73) 64 % (31-73) Lymphocytes (%) (Auto) 19 % (24-48) 16 % (24-48) Monocytes (%) (Auto) 16 % (0-9) 14 % (0-9) Eosinophils (%) (Auto) 5 % (0-3) 4 % (0-3) Basophils (%) (Auto) 1 % (0-3) 1 % (0-3) Neutrophils # (Auto) 3.7 x10^3uL (1.8-7.7) 4.7 x10^3uL (1.8-7.7) Lymphocytes # (Auto) 1.2 x10^3/uL (1.0-4.8) 1.2 x10^3/uL (1.0-4.8) Monocytes # (Auto) 1.0 x10^3/uL (0.0-1.1) 1.0 x10^3/uL (0.0-1.1) Eosinophils # (Auto) 0.3 x10^3/uL (0.0-0.7) 0.3 x10^3/uL (0.0-0.7) Basophils # (Auto) 0.1 x10^3/uL (0.0-0.2) 0.1 x10^3/uL (0.0-0.2) Sodium Level 133 mmol/L (136-145) 131 mmol/L (136-145) Potassium Level 5.0 mmol/L (3.5-5.1) 5.0 mmol/L (3.5-5.1) Chloride Level 97 mmol/L (98-107) 97 mmol/L (98-107) Carbon Dioxide Level 33 mmol/L (21-32) 28 mmol/L (21-32) Anion Gap 3 (6-14) 6 (6-14) Blood Urea Nitrogen 21 mg/dL (7-20) 18 mg/dL (7-20) Creatinine 1.0 mg/dL (0.6-1.0) 0.8 mg/dL (0.6-1.0) Estimated GFR (Cockcroft-Gault) 56.9 73.7 Glucose Level 90 mg/dL (70-99) 103 mg/dL (70-99) Calcium Level 8.0 mg/dL (8.5-10.1) 8.3 mg/dL (8.5-10.1) Prothrombin Time 14.3 SEC (11.7-14.0) Prothromb Time International Ratio 1.2 (0.8-1.1) Activated Partial Thromboplast Time 47 SEC (24-38) Fibrinogen 355 mg/dL (200-440) Magnesium Level 2.5 mg/dL (1.8-2.4) Test 03/10/17 05:15 White Blood Count 6.4 x10^3/uL (4.0-11.0) Red Blood Count 3.83 x10^6/uL (3.50-5.40) Hemoglobin 11.2 g/dL (12.0-15.5) Hematocrit 34.8 % (36.0-47.0) Mean Corpuscular Volume 91 fL (79-100) Mean Corpuscular Hemoglobin 29 pg (25-35) Mean Corpuscular Hemoglobin Concent 32 g/dL (31-37) Red Cell Distribution Width 17.9 % (11.5-14.5) Platelet Count 154 x10^3/uL (140-400) Neutrophils (%) (Auto) 67 % (31-73) Lymphocytes (%) (Auto) 16 % (24-48) Monocytes (%) (Auto) 12 % (0-9) Eosinophils (%) (Auto) 4 % (0-3) Basophils (%) (Auto) 1 % (0-3) Neutrophils # (Auto) 4.3 x10^3uL (1.8-7.7) Lymphocytes # (Auto) 1.0 x10^3/uL (1.0-4.8) Monocytes # (Auto) 0.8 x10^3/uL (0.0-1.1) Eosinophils # (Auto) 0.3 x10^3/uL (0.0-0.7) Basophils # (Auto) 0.1 x10^3/uL (0.0-0.2) Laboratory Tests Test 03/09/17 12:10 03/09/17 12:50 03/10/17 03:40 03/10/17 05:15 White Blood Count 7.3 x10^3/uL (4.0-11.0) 6.4 x10^3/uL (4.0-11.0) Red Blood Count 3.80 x10^6/uL (3.50-5.40) 3.83 x10^6/uL (3.50-5.40) Hemoglobin 11.0 g/dL (12.0-15.5) 11.2 g/dL (12.0-15.5) Hematocrit 34.8 % (36.0-47.0) 34.8 % (36.0-47.0) Mean Corpuscular Volume 92 fL (79-100) 91 fL (79-100) Mean Corpuscular Hemoglobin 29 pg (25-35) 29 pg (25-35) Mean Corpuscular Hemoglobin Concent 32 g/dL (31-37) 32 g/dL (31-37) Red Cell Distribution Width 17.9 % (11.5-14.5) 17.9 % (11.5-14.5) Platelet Count 157 x10^3/uL (140-400) 154 x10^3/uL (140-400) Neutrophils (%) (Auto) 64 % (31-73) 67 % (31-73) Lymphocytes (%) (Auto) 16 % (24-48) 16 % (24-48) Monocytes (%) (Auto) 14 % (0-9) 12 % (0-9) Eosinophils (%) (Auto) 4 % (0-3) 4 % (0-3) Basophils (%) (Auto) 1 % (0-3) 1 % (0-3) Neutrophils # (Auto) 4.7 x10^3uL (1.8-7.7) 4.3 x10^3uL (1.8-7.7) Lymphocytes # (Auto) 1.2 x10^3/uL (1.0-4.8) 1.0 x10^3/uL (1.0-4.8) Monocytes # (Auto) 1.0 x10^3/uL (0.0-1.1) 0.8 x10^3/uL (0.0-1.1) Eosinophils # (Auto) 0.3 x10^3/uL (0.0-0.7) 0.3 x10^3/uL (0.0-0.7) Basophils # (Auto) 0.1 x10^3/uL (0.0-0.2) 0.1 x10^3/uL (0.0-0.2) Prothrombin Time 14.3 SEC (11.7-14.0) Prothromb Time International Ratio 1.2 (0.8-1.1) Activated Partial Thromboplast Time 47 SEC (24-38) Fibrinogen 355 mg/dL (200-440) Sodium Level 131 mmol/L (136-145) Potassium Level 5.0 mmol/L (3.5-5.1) Chloride Level 97 mmol/L (98-107) Carbon Dioxide Level 28 mmol/L (21-32) Anion Gap 6 (6-14) Blood Urea Nitrogen 18 mg/dL (7-20) Creatinine 0.8 mg/dL (0.6-1.0) Estimated GFR (Cockcroft-Gault) 73.7 Glucose Level 103 mg/dL (70-99) Calcium Level 8.3 mg/dL (8.5-10.1) Magnesium Level 2.5 mg/dL (1.8-2.4) Medications Current Medications Enoxaparin Sodium (Lovenox 150mg Syringe) 150 mg Q12HR SQ Last administered on 03/08/17 21:20; Start 03/06/17 at 21:00; Stop 03/09/17 at 11:54; Status DC Albuterol/ Ipratropium (Duoneb) 3 ml RTQID NEB Last administered on 03/10/17 07:31; Start 03/06/17 at 20:00 Nystatin (Nystop) 1 john BID TP Last administered on 03/10/17 11:11; Start at 21:00 Ondansetron HCl (Zofran Odt) 4 mg PRN Q6HRS PRN PO NAUSEA/VOMITING Last administered on 03/08/17 06:34; Start 03/06/17 at 18:00 Ceftriaxone Sodium 1 gm/ Sodium Chloride 50 ml @ 100 mls/hr Q24H IV Last administered on 03/09/17 21:53; Start 03/06/17 at 20:00 Oxycodone/ Acetaminophen (Percocet 5/325) 1 tab PRN Q4HRS PRN PO PAIN Last administered on 03/10/17 03:27; Start 03/06/17 at 18:00 Sodium Chloride (Normal Saline Flush) 3 ml PRN DAILY PRN IV AFTER MEDS AND BLOOD DRAWS; Start 03/06/17 at 18:00 Iohexol (Omnipaque 300 Mg/ml) 75 ml 1X ONCE IV ; Start 03/07/17 at 09:15; Stop 03/07/17 at 09:16; Status DC Iohexol (Omnipaque 240 Mg/ml) 50 ml 1X ONCE PO Last administered on 03/07/17 09:15; Start 03/07/17 at 09:15; Stop 03/07/17 at 09:16; Status DC Info (Do NOT chart on this entry -- for MONITORING) 1 each PRN DAILY PRN MC SEE COMMENTS; Start 03/07/17 at 09:15; Stop 03/09/17 at 09:14; Status DC Allopurinol (Zyloprim) 100 mg DAILY PO Last administered on 03/10/17 11:12; Start 03/07/17 at 11:00 Info (Anti-Coagulation Monitoring By Pharmacy) 1 each PRN DAILY PRN MC SEE COMMENTS Last administered on 03/07/17 13:28; Start 03/07/17 at 13:30; Stop at 13:35; Status DC Lidocaine/ Epinephrine (Xylocaine 1%-Epi 1:100,000) 20 ml STK-MED ONCE .ROUTE ; Start 03/07/17 at 15:25; Stop 03/07/17 at 15:26; Status DC Heparin Sodium (Porcine) (Hep Lock Adult) 500 unit STK-MED ONCE IV ; Start 03/07 at 15:25; Stop 03/07/17 at 15:26; Status DC Heparin Sodium/ Sodium Chloride 500 ml @ As Directed STK-MED ONCE .ROUTE ; Start 03/07/17 at 15:25; Stop 03/07/17 at 15:26; Status DC Cefazolin Sodium 0 ml @ As Directed STK-MED ONCE IV ; Start 03/07/17 at 15:58; Stop 03/07/17 at 15:59; Status DC Fentanyl Citrate (Fentanyl 2ml Vial) 100 mcg STK-MED ONCE .ROUTE ; Start at 15:58; Stop 03/07/17 at 15:59; Status DC Heparin Sodium/ Sodium Chloride 1,000 unit 1X ONCE IART Last administered on 16:25; Start 03/07/17 at 16:15; Stop 03/07/17 at 16:16; Status DC Lidocaine/ Epinephrine (Xylocaine 1%-Epi 1:100,000) 20 ml 1X ONCE INJ Last administered on 03/07/17 16:25; Start 03/07/17 at 16:15; Stop 03/07/17 at 16:16 ; Status DC Heparin Sodium (Porcine) (Hep Lock Adult) 500 unit 1X ONCE IV Last administered on 03/07/17 16:30; Start 03/07/17 at 16:15; Stop 03/07/17 at 16:16 ; Status DC Clindamycin Phosphate 50 ml @ As Directed STK-MED ONCE IV ; Start 03/07/17 at 16 :06; Stop 03/07/17 at 16:07; Status DC Ondansetron HCl (Zofran) 4 mg STK-MED ONCE .ROUTE ; Start 03/07/17 at 16:14; Stop 03/07/17 at 16:15; Status DC Clindamycin Phosphate 50 ml @ 100 mls/hr 1X ONCE IV Last administered on 03/07 16:33; Start 03/07/17 at 16:30; Stop 03/07/17 at 16:59; Status DC Ondansetron HCl (Zofran) 4 mg 1X ONCE IV Last administered on 03/07/17 16:32 ; Start 03/07/17 at 16:30; Stop 03/07/17 at 16:31; Status DC Hydralazine HCl (Apresoline) 10 mg PRN Q4HRS PRN IVP ELEVATED BP, SEE COMMENTS ; Start 03/07/17 at 16:45 Isosorbide Mononitrate (Imdur) 30 mg DAILY PO Last administered on 03/10/17 11 :12; Start 03/08/17 at 09:00 Metoprolol Tartrate (Lopressor) 12.5 mg BID PO Last administered on 03/10/17 11:12; Start 03/08/17 at 09:00 Aspirin (Ecotrin) 81 mg DAILYWBKFT PO Last administered on 03/08/17 14:06; Start 03/08/17 at 08:00; Stop 03/09/17 at 11:54; Status DC Morphine Sulfate 2 mg 1X ONCE IV Last administered on 03/08/17 11:45; Start 03/08/17 at 11:45; Stop 03/08/17 at 11:46; Status DC Diphenhydramine HCl (Benadryl) 25 mg Q6HRS PRN IVP itching; Start 03/08/17 at 17:30; Status Cancel Diphenhydramine HCl (Benadryl) 50 mg Q8HRS PRN IVP itching Last administered on 03/08/17 17:39; Start 03/08/17 at 17:30 Furosemide (Lasix) 40 mg DAILY IVP Last administered on 03/10/17 11:12; Start 03/09/17 at 10:15 Desmopressin Acetate 30 mcg/ Sodium Chloride 57.5 ml @ 115 mls/hr 1X ONCE IV Last administered on 03/09/17 14:48; Start 03/09/17 at 15:00; Stop 03/09/17 at 15:29; Status DC Protamine Sulfate 50 mg 1X ONCE IV Last administered on 03/09/17 16:29; Start 03/09/17 at 15:45; Stop 03/09/17 at 15:46; Status DC Silver Nitrate/ Potassium Nitrate 1 each 1X ONCE TP Last administered on 00:59; Start 03/10/17 at 01:00; Stop 03/10/17 at 01:01; Status DC Thrombin 20,000 unit 1X ONCE TP Last administered on 03/10/17 02:48; Start at 01:00; Stop 03/10/17 at 01:01; Status DC Iohexol (Omnipaque 300 Mg/ml) 50 ml STK-MED ONCE .ROUTE ; Start 03/10/17 at 07: 41; Stop 03/10/17 at 07:42; Status DC Lidocaine/ Epinephrine (Xylocaine 1%-Epi 1:100,000) 20 ml STK-MED ONCE .ROUTE ; Start 03/10/17 at 08:23; Stop 03/10/17 at 08:24; Status DC Thrombin 5,000 unit 1X ONCE TP Last administered on 03/10/17 08:49; Start at 08:30; Stop 03/10/17 at 08:31; Status DC Lidocaine/ Epinephrine (Xylocaine 1%-Epi 1:100,000) 20 ml 1X ONCE INJ Last administered on 03/10/17 08:48; Start 03/10/17 at 08:30; Stop 03/10/17 at 08:31 ; Status DC Vitals/I & O Vital Sign - Last 24 Hours 03/09/17 03/09/17 03/09/17 03/09/17 14:30 15:01 16:00 16:00 Temp 97.5 97.9 97.5 97.9 Pulse 73 71 Resp 20 18 B/P (MAP) 123/62 (82) 136/67 (90) Pulse Ox 97 98 96 O2 Delivery Nasal Cannula Nasal Cannula Nasal Cannula Nasal Cannula O2 Flow Rate 3.0 3.0 2.5 2.5 03/09/17 03/09/17 03/09/17 03/09/17 17:00 18:00 19:00 20:00 Temp 98.5 98.5 Pulse 78 76 78 Resp 18 16 16 B/P (MAP) 129/63 (85) 138/68 (91) 118/66 (83) Pulse Ox 98 100 93 O2 Delivery Nasal Cannula Nasal Cannula Nasal Cannula Nasal Cannula O2 Flow Rate 2.5 2.5 2.0 2.0 03/09/17 03/09/17 03/09/17 03/09/17 20:00 21:00 21:52 22:00 Pulse 76 82 80 82 Resp 18 18 18 B/P (MAP) 127/73 (91) 115/57 (76) 115/57 115/57 (76) Pulse Ox 98 98 98 O2 Delivery Nasal Cannula Nasal Cannula Nasal Cannula O2 Flow Rate 2.0 2.0 2.0 03/09/17 03/10/17 03/10/17 03/10/17 23:00 00:00 01:00 02:00 Pulse 84 77 78 Resp 16 22 B/P (MAP) 150/71 (97) 111/56 (74) 110/67 (81) Pulse Ox 98 96 97 O2 Delivery Nasal Cannula Nasal Cannula Nasal Cannula Nasal Cannula O2 Flow Rate 2.0 2.0 2.0 2.0 03/10/17 03/10/17 03/10/17 03/10/17 03:00 03:27 04:00 04:00 Temp 98.2 98.2 Pulse 78 76 Resp 20 B/P (MAP) 115/61 (79) 124/69 (87) Pulse Ox 97 97 97 O2 Delivery Nasal Cannula Nasal Cannula Nasal Cannula Nasal Cannula O2 Flow Rate 2.0 2.0 2.0 2.0 03/10/17 03/10/17 03/10/17 03/10/17 05:00 06:00 07:30 07:33 Pulse 76 70 B/P (MAP) 127/69 (88) 113/64 (80) Pulse Ox 97 100 98 O2 Delivery Nasal Cannula Nasal Cannula Nasal Cannula Nasal Cannula O2 Flow Rate 2.0 2.0 2.0 3.0 03/10/17 03/10/17 03/10/17 03/10/17 08:49 09:00 10:00 11:12 Temp 98.6 98.2 98.6 98.2 Pulse 80 79 78 74 Resp 22 20 16 B/P (MAP) 153/88 (109) 156/72 (100) 136/69 (91) 142/76 Pulse Ox 100 97 97 O2 Delivery Nasal Cannula Nasal Cannula Nasal Cannula O2 Flow Rate 3.0 3.0 3.0 03/10/17 11:12 Pulse 74 B/P (MAP) 142/74 Intake and Output 03/10/17 03/10/17 03/11/17 15:00 23:00 07:00 Output Total 130 ml Balance -130 ml CASTMICHAEL,NIAL K III DO Mar 10, 2017 11:29
--- NOTE | 2017-03-10 12:39 | PDOC ---
Provider Note Provider Note VASCULAR Bleeding stopped after IR treated with thrombin will sign off CLAUDIA SPARKS MD Mar 10, 2017 12:39
--- NOTE | 2017-03-10 13:46 | PDOC ---
PROGRESS NOTES Subjective Subjective c/c -f/u of Mantle cell lymphoma ROS - -no CP Objective Objective Vital Signs Date Time Temp Pulse Resp B/P (MAP) Pulse Ox O2 Delivery O2 Flow Rate FiO2 03/10/17 13:00 81 12 105/64 (78) 98 Nasal Cannula 3.0 03/10/17 12:00 97.5 97.5 Intake and Output 03/11/17 07:00 Intake Total 300 ml Output Total 590 ml Balance -290 ml Intake Oral 300 ml Output Urine Total 590 ml Physical Exam General: Alert, Oriented X3, No acute distress Neuro: Normal speech Psych/Mental Status: Mental status NL Assessment Assessment IMPRESSION AND PLAN: 1. Mantle cell lymphoma involving the left axillary lymph nodes and possible involvement of the lungs. The lymphadenopathy has progressed between 12/2016 to 02/2017. She had an ultrasound-guided biopsy of the left axillary lymph node on 01/01/2017, which revealed mantle cell lymphoma in addition to kappa predominant plasmacytosis. There is a possibility that she has a biclonal lymphoproliferative disorder with both mantle cell lymphoma and plasma cell neoplasm. I will obtain further studies with serum protein electrophoresis, bone survey and bone marrow biopsy. CT scan of the neck, chest, abdomen and pelvis 10040 reveals axillary, mediastinal and retroperitoneal lymphadenopathy. 14 x 6 mm extraconal mass within the medial right orbit with mass effect on the medial rectus muscle. This finding is indeterminate on noncontrast CT and may reflect orbital involvement of lymphoma versus a hemangioma or venous varix. Ordered MRI brain and orbits. I discussed in detail with the patient regarding the diagnosis and treatment options for mantle cell lymphoma. I recommended chemotherapy with bendamustine and rituximab given for 6 cycles. She has poor performance status with ECOG performance status score of 3. In addition, she has significant comorbidities including congestive heart failure with an ejection fraction of only 20-25%. The presence of her comorbidities would increase the likelihood of toxicities due to chemotherapy. Mantle cell lymphoma prognostic score is 3, which would indicate a 5-yr survival of 60%. s/p port 03/07/17 Plan bone marrow 03/11/17 Then plan chemo. 2. Elevated liver function test likely changes from congestive heart failure. Continue to monitor. 3. Hyponatremia due to congestive heart failure, monitor. 4. Congestive heart failure with an ejection fraction of 20-25%. Appreciate Cardiology management. 5. Elevated uric acid - ordered allopurinol 100 mg daily. 6. Bleeding from port site from 7.30 am 02/1717. Resolved. I d/w RN [place] [address]: Impression: 1. Right cervical chain lymphadenopathy involving level 2, 3 and 4. 2. There is a 14 x 6 mm extraconal mass within the medial right orbit with mass effect on the medial rectus muscle. This finding is indeterminate on noncontrast CT and may reflect orbital involvement of lymphoma versus a hemangioma or venous varix. Further evaluation with MRI brain and orbits is recommended (area of hypoattenuation in the left frontal lobe may be further evaluated). 3. Heterogeneous right thyroid mass may represent thyroid goiter versus lymphomatous involvement versus primary thyroid neoplasm. Correlation with PET/CT may be of benefit. 4. Thoracic lymphadenopathy centered in the left axilla, as detailed above. Additional borderline to pathologically enlarged lymph nodes are identified in the mediastinum and right axilla. 5. Multifocal patchy nodular parenchymal opacities with more focal airspace consolidation the right lower lobe may reflect infectious or inflammatory process versus lymphomatous involvement. Further evaluation with PET/CT may be of benefit. Small right pleural effusion. 6. Spleen is not enlarged. 7. Retroperitoneal and bilateral iliac lymph nodes are identified, as detailed above. No pathologically enlarged inguinal lymph nodes are present. 8. Left central abdominal hernia containing nondilated loops of small bowel. Comment Review of Relevant I have reviewed the following items kailey (where applicable) has been applied. Labs Laboratory Tests Test 03/09/17 05:30 03/09/17 12:10 03/09/17 12:50 03/10/17 03:40 White Blood Count 6.3 x10^3/uL (4.0-11.0) 7.3 x10^3/uL (4.0-11.0) Red Blood Count 4.00 x10^6/uL (3.50-5.40) 3.80 x10^6/uL (3.50-5.40) Hemoglobin 11.7 g/dL (12.0-15.5) 11.0 g/dL (12.0-15.5) Hematocrit 35.8 % (36.0-47.0) 34.8 % (36.0-47.0) Mean Corpuscular Volume 89 fL (79-100) 92 fL (79-100) Mean Corpuscular Hemoglobin 29 pg (25-35) 29 pg (25-35) Mean Corpuscular Hemoglobin Concent 33 g/dL (31-37) 32 g/dL (31-37) Red Cell Distribution Width 17.3 % (11.5-14.5) 17.9 % (11.5-14.5) Platelet Count 160 x10^3/uL (140-400) 157 x10^3/uL (140-400) Neutrophils (%) (Auto) 60 % (31-73) 64 % (31-73) Lymphocytes (%) (Auto) 19 % (24-48) 16 % (24-48) Monocytes (%) (Auto) 16 % (0-9) 14 % (0-9) Eosinophils (%) (Auto) 5 % (0-3) 4 % (0-3) Basophils (%) (Auto) 1 % (0-3) 1 % (0-3) Neutrophils # (Auto) 3.7 x10^3uL (1.8-7.7) 4.7 x10^3uL (1.8-7.7) Lymphocytes # (Auto) 1.2 x10^3/uL (1.0-4.8) 1.2 x10^3/uL (1.0-4.8) Monocytes # (Auto) 1.0 x10^3/uL (0.0-1.1) 1.0 x10^3/uL (0.0-1.1) Eosinophils # (Auto) 0.3 x10^3/uL (0.0-0.7) 0.3 x10^3/uL (0.0-0.7) Basophils # (Auto) 0.1 x10^3/uL (0.0-0.2) 0.1 x10^3/uL (0.0-0.2) Sodium Level 133 mmol/L (136-145) 131 mmol/L (136-145) Potassium Level 5.0 mmol/L (3.5-5.1) 5.0 mmol/L (3.5-5.1) Chloride Level 97 mmol/L (98-107) 97 mmol/L (98-107) Carbon Dioxide Level 33 mmol/L (21-32) 28 mmol/L (21-32) Anion Gap 3 (6-14) 6 (6-14) Blood Urea Nitrogen 21 mg/dL (7-20) 18 mg/dL (7-20) Creatinine 1.0 mg/dL (0.6-1.0) 0.8 mg/dL (0.6-1.0) Estimated GFR (Cockcroft-Gault) 56.9 73.7 Glucose Level 90 mg/dL (70-99) 103 mg/dL (70-99) Calcium Level 8.0 mg/dL (8.5-10.1) 8.3 mg/dL (8.5-10.1) Prothrombin Time 14.3 SEC (11.7-14.0) Prothromb Time International Ratio 1.2 (0.8-1.1) Activated Partial Thromboplast Time 47 SEC (24-38) Fibrinogen 355 mg/dL (200-440) Magnesium Level 2.5 mg/dL (1.8-2.4) Test 03/10/17 05:15 White Blood Count 6.4 x10^3/uL (4.0-11.0) Red Blood Count 3.83 x10^6/uL (3.50-5.40) Hemoglobin 11.2 g/dL (12.0-15.5) Hematocrit 34.8 % (36.0-47.0) Mean Corpuscular Volume 91 fL (79-100) Mean Corpuscular Hemoglobin 29 pg (25-35) Mean Corpuscular Hemoglobin Concent 32 g/dL (31-37) Red Cell Distribution Width 17.9 % (11.5-14.5) Platelet Count 154 x10^3/uL (140-400) Neutrophils (%) (Auto) 67 % (31-73) Lymphocytes (%) (Auto) 16 % (24-48) Monocytes (%) (Auto) 12 % (0-9) Eosinophils (%) (Auto) 4 % (0-3) Basophils (%) (Auto) 1 % (0-3) Neutrophils # (Auto) 4.3 x10^3uL (1.8-7.7) Lymphocytes # (Auto) 1.0 x10^3/uL (1.0-4.8) Monocytes # (Auto) 0.8 x10^3/uL (0.0-1.1) Eosinophils # (Auto) 0.3 x10^3/uL (0.0-0.7) Basophils # (Auto) 0.1 x10^3/uL (0.0-0.2) Laboratory Tests Test 03/10/17 03:40 03/10/17 05:15 Sodium Level 131 mmol/L (136-145) Potassium Level 5.0 mmol/L (3.5-5.1) Chloride Level 97 mmol/L (98-107) Carbon Dioxide Level 28 mmol/L (21-32) Anion Gap 6 (6-14) Blood Urea Nitrogen 18 mg/dL (7-20) Creatinine 0.8 mg/dL (0.6-1.0) Estimated GFR (Cockcroft-Gault) 73.7 Glucose Level 103 mg/dL (70-99) Calcium Level 8.3 mg/dL (8.5-10.1) Magnesium Level 2.5 mg/dL (1.8-2.4) White Blood Count 6.4 x10^3/uL (4.0-11.0) Red Blood Count 3.83 x10^6/uL (3.50-5.40) Hemoglobin 11.2 g/dL (12.0-15.5) Hematocrit 34.8 % (36.0-47.0) Mean Corpuscular Volume 91 fL (79-100) Mean Corpuscular Hemoglobin 29 pg (25-35) Mean Corpuscular Hemoglobin Concent 32 g/dL (31-37) Red Cell Distribution Width 17.9 % (11.5-14.5) Platelet Count 154 x10^3/uL (140-400) Neutrophils (%) (Auto) 67 % (31-73) Lymphocytes (%) (Auto) 16 % (24-48) Monocytes (%) (Auto) 12 % (0-9) Eosinophils (%) (Auto) 4 % (0-3) Basophils (%) (Auto) 1 % (0-3) Neutrophils # (Auto) 4.3 x10^3uL (1.8-7.7) Lymphocytes # (Auto) 1.0 x10^3/uL (1.0-4.8) Monocytes # (Auto) 0.8 x10^3/uL (0.0-1.1) Eosinophils # (Auto) 0.3 x10^3/uL (0.0-0.7) Basophils # (Auto) 0.1 x10^3/uL (0.0-0.2) Medications Current Medications Enoxaparin Sodium (Lovenox 150mg Syringe) 150 mg Q12HR SQ Last administered on 03/08/17 21:20; Start 03/06/17 at 21:00; Stop 03/09/17 at 11:54; Status DC Albuterol/ Ipratropium (Duoneb) 3 ml RTQID NEB Last administered on 03/10/17 07:31; Start 03/06/17 at 20:00 Nystatin (Nystop) 1 john BID TP Last administered on 03/10/17 11:11; Start at 21:00 Ondansetron HCl (Zofran Odt) 4 mg PRN Q6HRS PRN PO NAUSEA/VOMITING Last administered on 03/08/17 06:34; Start 03/06/17 at 18:00 Ceftriaxone Sodium 1 gm/ Sodium Chloride 50 ml @ 100 mls/hr Q24H IV Last administered on 03/09/17 21:53; Start 03/06/17 at 20:00 Oxycodone/ Acetaminophen (Percocet 5/325) 1 tab PRN Q4HRS PRN PO PAIN Last administered on 03/10/17 03:27; Start 03/06/17 at 18:00 Sodium Chloride (Normal Saline Flush) 3 ml PRN DAILY PRN IV AFTER MEDS AND BLOOD DRAWS; Start 03/06/17 at 18:00 Iohexol (Omnipaque 300 Mg/ml) 75 ml 1X ONCE IV ; Start 03/07/17 at 09:15; Stop 03/07/17 at 09:16; Status DC Iohexol (Omnipaque 240 Mg/ml) 50 ml 1X ONCE PO Last administered on 03/07/17 09:15; Start 03/07/17 at 09:15; Stop 03/07/17 at 09:16; Status DC Info (Do NOT chart on this entry -- for MONITORING) 1 each PRN DAILY PRN MC SEE COMMENTS; Start 03/07/17 at 09:15; Stop 03/09/17 at 09:14; Status DC Allopurinol (Zyloprim) 100 mg DAILY PO Last administered on 03/10/17 11:12; Start 03/07/17 at 11:00 Info (Anti-Coagulation Monitoring By Pharmacy) 1 each PRN DAILY PRN MC SEE COMMENTS Last administered on 03/07/17 13:28; Start 03/07/17 at 13:30; Stop at 13:35; Status DC Lidocaine/ Epinephrine (Xylocaine 1%-Epi 1:100,000) 20 ml STK-MED ONCE .ROUTE ; Start 03/07/17 at 15:25; Stop 03/07/17 at 15:26; Status DC Heparin Sodium (Porcine) (Hep Lock Adult) 500 unit STK-MED ONCE IV ; Start 03/07 at 15:25; Stop 03/07/17 at 15:26; Status DC Heparin Sodium/ Sodium Chloride 500 ml @ As Directed STK-MED ONCE .ROUTE ; Start 03/07/17 at 15:25; Stop 03/07/17 at 15:26; Status DC Cefazolin Sodium 0 ml @ As Directed STK-MED ONCE IV ; Start 03/07/17 at 15:58; Stop 03/07/17 at 15:59; Status DC Fentanyl Citrate (Fentanyl 2ml Vial) 100 mcg STK-MED ONCE .ROUTE ; Start at 15:58; Stop 03/07/17 at 15:59; Status DC Heparin Sodium/ Sodium Chloride 1,000 unit 1X ONCE IART Last administered on 16:25; Start 03/07/17 at 16:15; Stop 03/07/17 at 16:16; Status DC Lidocaine/ Epinephrine (Xylocaine 1%-Epi 1:100,000) 20 ml 1X ONCE INJ Last administered on 03/07/17 16:25; Start 03/07/17 at 16:15; Stop 03/07/17 at 16:16 ; Status DC Heparin Sodium (Porcine) (Hep Lock Adult) 500 unit 1X ONCE IV Last administered on 03/07/17 16:30; Start 03/07/17 at 16:15; Stop 03/07/17 at 16:16 ; Status DC Clindamycin Phosphate 50 ml @ As Directed STK-MED ONCE IV ; Start 03/07/17 at 16 :06; Stop 03/07/17 at 16:07; Status DC Ondansetron HCl (Zofran) 4 mg STK-MED ONCE .ROUTE ; Start 03/07/17 at 16:14; Stop 03/07/17 at 16:15; Status DC Clindamycin Phosphate 50 ml @ 100 mls/hr 1X ONCE IV Last administered on 03/07 16:33; Start 03/07/17 at 16:30; Stop 03/07/17 at 16:59; Status DC Ondansetron HCl (Zofran) 4 mg 1X ONCE IV Last administered on 03/07/17 16:32 ; Start 03/07/17 at 16:30; Stop 03/07/17 at 16:31; Status DC Hydralazine HCl (Apresoline) 10 mg PRN Q4HRS PRN IVP ELEVATED BP, SEE COMMENTS ; Start 03/07/17 at 16:45 Isosorbide Mononitrate (Imdur) 30 mg DAILY PO Last administered on 03/10/17 11 :12; Start 03/08/17 at 09:00 Metoprolol Tartrate (Lopressor) 12.5 mg BID PO Last administered on 03/10/17 11:12; Start 03/08/17 at 09:00 Aspirin (Ecotrin) 81 mg DAILYWBKFT PO Last administered on 03/08/17 14:06; Start 03/08/17 at 08:00; Stop 03/09/17 at 11:54; Status DC Morphine Sulfate 2 mg 1X ONCE IV Last administered on 03/08/17 11:45; Start 03/08/17 at 11:45; Stop 03/08/17 at 11:46; Status DC Diphenhydramine HCl (Benadryl) 25 mg Q6HRS PRN IVP itching; Start 03/08/17 at 17:30; Status Cancel Diphenhydramine HCl (Benadryl) 50 mg Q8HRS PRN IVP itching Last administered on 03/08/17 17:39; Start 03/08/17 at 17:30 Furosemide (Lasix) 40 mg DAILY IVP Last administered on 03/10/17 11:12; Start 03/09/17 at 10:15 Desmopressin Acetate 30 mcg/ Sodium Chloride 57.5 ml @ 115 mls/hr 1X ONCE IV Last administered on 03/09/17 14:48; Start 03/09/17 at 15:00; Stop 03/09/17 at 15:29; Status DC Protamine Sulfate 50 mg 1X ONCE IV Last administered on 03/09/17 16:29; Start 03/09/17 at 15:45; Stop 03/09/17 at 15:46; Status DC Silver Nitrate/ Potassium Nitrate 1 each 1X ONCE TP Last administered on 00:59; Start 03/10/17 at 01:00; Stop 03/10/17 at 01:01; Status DC Thrombin 20,000 unit 1X ONCE TP Last administered on 03/10/17 02:48; Start at 01:00; Stop 03/10/17 at 01:01; Status DC Iohexol (Omnipaque 300 Mg/ml) 50 ml STK-MED ONCE .ROUTE ; Start 03/10/17 at 07: 41; Stop 03/10/17 at 07:42; Status DC Lidocaine/ Epinephrine (Xylocaine 1%-Epi 1:100,000) 20 ml STK-MED ONCE .ROUTE ; Start 03/10/17 at 08:23; Stop 03/10/17 at 08:24; Status DC Thrombin 5,000 unit 1X ONCE TP Last administered on 03/10/17 08:49; Start at 08:30; Stop 03/10/17 at 08:31; Status DC Lidocaine/ Epinephrine (Xylocaine 1%-Epi 1:100,000) 20 ml 1X ONCE INJ Last administered on 03/10/17 08:48; Start 03/10/17 at 08:30; Stop 03/10/17 at 08:31 ; Status DC Vitals/I & O Vital Sign - Last 24 Hours 03/09/17 03/09/17 03/09/17 03/09/17 14:30 15:01 16:00 16:00 Temp 97.5 97.9 97.5 97.9 Pulse 73 71 Resp 20 18 B/P (MAP) 123/62 (82) 136/67 (90) Pulse Ox 97 98 96 O2 Delivery Nasal Cannula Nasal Cannula Nasal Cannula Nasal Cannula O2 Flow Rate 3.0 3.0 2.5 2.5 9/17/17 03/09/17 03/09/17 03/09/17 17:00 18:00 19:00 20:00 Temp 98.5 98.5 Pulse 78 76 78 Resp 18 16 16 B/P (MAP) 129/63 (85) 138/68 (91) 118/66 (83) Pulse Ox 98 100 93 O2 Delivery Nasal Cannula Nasal Cannula Nasal Cannula Nasal Cannula O2 Flow Rate 2.5 2.5 2.0 2.0 03/09/17 03/09/17 03/09/17 03/09/17 20:00 21:00 21:52 22:00 Pulse 76 82 80 82 Resp 18 18 18 B/P (MAP) 127/73 (91) 115/57 (76) 115/57 115/57 (76) Pulse Ox 98 98 98 O2 Delivery Nasal Cannula Nasal Cannula Nasal Cannula O2 Flow Rate 2.0 2.0 2.0 03/09/17 03/10/17 03/10/17 03/10/17 23:00 00:00 01:00 02:00 Pulse 84 77 78 Resp 16 22 B/P (MAP) 150/71 (97) 111/56 (74) 110/67 (81) Pulse Ox 98 96 97 O2 Delivery Nasal Cannula Nasal Cannula Nasal Cannula Nasal Cannula O2 Flow Rate 2.0 2.0 2.0 2.0 03/10/17 03/10/17 03/10/17 03/10/17 03:00 03:27 04:00 04:00 Temp 98.2 98.2 Pulse 78 76 Resp 20 B/P (MAP) 115/61 (79) 124/69 (87) Pulse Ox 97 97 97 O2 Delivery Nasal Cannula Nasal Cannula Nasal Cannula Nasal Cannula O2 Flow Rate 2.0 2.0 2.0 2.0 03/10/17 03/10/17 03/10/17 03/10/17 05:00 06:00 07:30 07:33 Pulse 76 70 B/P (MAP) 127/69 (88) 113/64 (80) Pulse Ox 97 100 98 O2 Delivery Nasal Cannula Nasal Cannula Nasal Cannula Nasal Cannula O2 Flow Rate 2.0 2.0 2.0 3.0 03/10/17 03/10/17 03/10/17 03/10/17 08:49 09:00 10:00 11:00 Temp 98.6 98.2 98.6 98.2 Pulse 80 79 78 74 Resp 22 20 16 18 B/P (MAP) 153/88 (109) 156/72 (100) 136/69 (91) 142/76 (98) Pulse Ox 100 97 97 100 O2 Delivery Nasal Cannula Nasal Cannula Nasal Cannula Nasal Cannula O2 Flow Rate 3.0 3.0 3.0 3.0 03/10/17 03/10/17 03/10/17 03/10/17 11:12 11:12 12:00 12:00 Temp 97.5 97.5 Pulse 74 74 81 Resp 16 B/P (MAP) 142/76 142/74 112/66 (81) Pulse Ox 99 O2 Delivery Nasal Cannula Nasal Cannula O2 Flow Rate 3.0 2.0 03/10/17 13:00 Pulse 81 Resp 12 B/P (MAP) 105/64 (78) Pulse Ox 98 O2 Delivery Nasal Cannula O2 Flow Rate 3.0 Intake and Output 03/10/17 03/10/17 03/11/17 15:00 23:00 07:00 Intake Total 300 ml Output Total 590 ml Balance -290 ml TEJINDER LAGUNA MD Mar 10, 2017 13:46
--- NOTE | 2017-03-10 14:38 | PDOC ---
CASSANDRA WOLF LEAD PRINTER 03/10/17 1438: CARDIO Progress Notes Date and Time Date of Service 03/10/2017 Time of Evaluation 1230 Subjective Subjective: No Chest Pain, No shortness of breath, No Palpitations, No Dizziness, Other (feels better today) Vitals Vitals Vital Signs Date Time Temp Pulse Resp B/P (MAP) Pulse Ox O2 Delivery O2 Flow Rate FiO2 03/10/17 13:00 81 12 105/64 (78) 98 Nasal Cannula 3.0 03/10/17 12:00 97.5 97.5 Weight Weight [ ] Input and Output Intake and Output Intake and Output 03/11/17 07:00 Intake Total 300 ml Output Total 965 ml Balance -665 ml Intake Oral 300 ml Output Urine Total 965 ml Laboratory Labs Laboratory Tests Test 03/10/17 03:40 03/10/17 05:15 Sodium Level 131 mmol/L (136-145) Potassium Level 5.0 mmol/L (3.5-5.1) Chloride Level 97 mmol/L (98-107) Carbon Dioxide Level 28 mmol/L (21-32) Anion Gap 6 (6-14) Blood Urea Nitrogen 18 mg/dL (7-20) Creatinine 0.8 mg/dL (0.6-1.0) Estimated GFR (Cockcroft-Gault) 73.7 Glucose Level 103 mg/dL (70-99) Calcium Level 8.3 mg/dL (8.5-10.1) Magnesium Level 2.5 mg/dL (1.8-2.4) White Blood Count 6.4 x10^3/uL (4.0-11.0) Red Blood Count 3.83 x10^6/uL (3.50-5.40) Hemoglobin 11.2 g/dL (12.0-15.5) Hematocrit 34.8 % (36.0-47.0) Mean Corpuscular Volume 91 fL (79-100) Mean Corpuscular Hemoglobin 29 pg (25-35) Mean Corpuscular Hemoglobin Concent 32 g/dL (31-37) Red Cell Distribution Width 17.9 % (11.5-14.5) Platelet Count 154 x10^3/uL (140-400) Neutrophils (%) (Auto) 67 % (31-73) Lymphocytes (%) (Auto) 16 % (24-48) Monocytes (%) (Auto) 12 % (0-9) Eosinophils (%) (Auto) 4 % (0-3) Basophils (%) (Auto) 1 % (0-3) Neutrophils # (Auto) 4.3 x10^3uL (1.8-7.7) Lymphocytes # (Auto) 1.0 x10^3/uL (1.0-4.8) Monocytes # (Auto) 0.8 x10^3/uL (0.0-1.1) Eosinophils # (Auto) 0.3 x10^3/uL (0.0-0.7) Basophils # (Auto) 0.1 x10^3/uL (0.0-0.2) Physical Exam HEENT: Neck Supple W Full Motion Chest: Symmetric LUNGS: Other (diminished bases) Heart: S1S2, RRR (SR) Abdomen: Soft N/T, Other (morbid obese) Extremities: No Calf Tenderness Neurology: alert, oriented, follow commands Assessment Assessment 1. Chronic systolic heart failure with NICM 20-25%: Compensated 2. Hypertension : controlled. hypotension resolved. 3. Leg cellulitis 4. Mantle cell lymphoma (new finding); BM Bx pending 5. PSVT: bursts of wide complex. Much better. x2 episodes upon start of BB. 6. Right chest portacath bleed: prompting transfer to ICU Recommendations 1. Continue lopressor, ASA. daily weight and 2000 FR 2. Supportive care.Palliative care on board. CA staging pending 3. Reeval for NOAC consideration once staging including BM Bx is complete. 4. Continue lasix therapy. Switch to PO 5. Will follow along peripherally. SAQIB RAY MD 03/10/17 1612: CARDIO Progress Notes Plan Plan Patient seen and examined. Agree with above nurse practitioner note. No acute events overnight. Port-A-Cath site bleeding has stopped. Overall clinically stable from a cardiac standpoint. Poor candidate that this time for aggressive diuresis given hypotension and recent bleeding. Close monitoring of blood pressure and fluid intake to help avoid recurrent heart failure in light of her severe LV dysfunction. We will follow along peripherally. Follow-up in the office in approximately 2 weeks after discharge. CASSANDRA WOLF APRN Mar 10, 2017 14:38 SAQIB RAY MD Mar 10, 2017 16:12
[2017-03-11] VITALS (21 sets, daily range): BP systolic 91–138; BP diastolic 36–86
[2017-03-11 05:55] LABS: BASO % 1 % (0-3); EOS % 6 % (0-3); HEMATOCRIT 33.3 % (36.0-47.0); HEMOGLOBIN 10.8 g/dL (12.0-15.5); LYMPH % 15 % (24-48); MEAN CORPUSCULAR HEMOGLOBIN 29 pg (25-35); MEAN CORPUSCULAR HGB CONC 32 g/dL (31-37); MEAN CORPUSCULAR VOLUME 89 fL (79-100); MONO % 14 % (0-9); NEUT % 65 % (31-73); PLATELET COUNT 146 x10^3/uL (140-400); RED BLOOD COUNT 3.75 x10^6/uL (3.50-5.40); RED CELL DISTRIBUTION WIDTH 17.7 % (11.5-14.5); WHITE BLOOD COUNT 6.5 x10^3/uL (4.0-11.0)
[2017-03-11 06:18] LABS: CALCIUM 8.5 mg/dL (8.5-10.1); CREATININE 0.7 mg/dL (0.6-1.0); GFR 85.9; POTASSIUM 4.3 mmol/L (3.5-5.1)
[2017-03-11] MEDS: IPRATRPIUM/ALBUTEROL 0.5/2.5MG 3 ML NEBU. NEB SCH ×4 (07:59→19:30)
[2017-03-11] MEDS: ISOSORBIDE MONONITRATE ER 30 MG TAB.ER.24H PO SCH (09:00)
[2017-03-11] MEDS: METOPROLOL TART IMMED RELEASE 25 MG TABLET. PO SCH ×2 (09:00→21:00)
[2017-03-11] MEDS: FUROSEMIDE 40 MG/4 ML VIAL. IVP SCH ×2 (09:00→16:00)
[2017-03-11] MEDS: NYSTATIN TOPICAL POWDER 15GM BOTTLE. TP SCH ×2 (09:00→20:22)
[2017-03-11] MEDS: ALLOPURINOL 100 MG TABLET. PO SCH (09:00)
--- NOTE | 2017-03-11 11:39 | RAD ---
Procedure: Fluoroscopic guided port check, and intravascular thrombin injection for thrombosis of continuous port site bleeding. Clinical Indication: 56-year-old female status post right internal jugular vein port placement on 03/07/2017, with continuous venous bleeding from the port incision site. Sedation: Local anesthesia only Antibiotics: None Exposure: Kerma-Area Product: 2 Gycm2 Contrast: None Sterility: All elements of maximal sterile barrier technique including the use of a cap, mask, sterile gown, sterile gloves, large sterile sheet, appropriate hand hygiene, and 2% chlorhexidine for cutaneous antisepsis (or acceptable alternative antiseptic per current guidelines) were followed for this procedure. Consent: The procedure was explained in its entirety to the patient or the patients designated labor service representative by a member of the treatment team, including a discussion of the risks, benefits and commonly accepted alternatives to the procedure, as well as the expected consequences of no therapy whatsoever. Discussion of the risks included, but was not limited to, those that are most frequent and those that are rare but possibly severe or life-threatening, as well as the possibility of unforeseen complications. Technique and Findings: Following informed consent, the patient was prepped and draped in usual sterile fashion. Fluoroscopy over the right chest revealed an intact right IJ Port-A-Cath which appeared appropriately positioned. Interrogation of the venotomy puncture site revealed a clean dry incision with no bleeding. Interrogation of the chest wall incision site revealed a slow continuous venous ooze originating from the medial margin of the incision site. Compression for 2 minutes over the venotomy site failed to reduce flow from the incision site. 1% lidocaine with epinephrine was then injected along both sides of the chest wall incision. Thrombin in a concentration of 500 units per cc was then injected along both margins of the incision site as well, with attention to manipulation of the needle tip towards the expected location of the ligated culprit vessel. This did result in hemostasis, indicating successful injection of thrombin into the culprit vessel. Pressure dressing was then applied and the patient was returned to the unit. Complications: No immediate Impression: 1. Right IJ Port-A-Cath in good position. 2. Continuous bleeding from the medial margin of the chest wall incision, successfully controlled following thrombin injection at the site.
[2017-03-11] MEDS ORDERED: LIDOCAINE 1% / SOD BICARB 8.4% 20 ML VIAL. IJ ONE ×2 (11:40→12:15)
--- NOTE | 2017-03-11 11:58 | PDOC ---
PROGRESS NOTES Chief Complaint Chief Complaint Dyspnea Hypotension Leg cellulitis History of Present Illness History of Present Illness Patient woke up from nap during rounds. Two coworkers were present, and the patient gave verbal permission to discuss her medical status with the coworkers present. Patient seemed lethargic. When asked about patient's mental status the nurse agreed the patient did not have altered mental status but was tired. Patient complains that she is not sleeping at night because of anxiety and shortness of breath. Patient visibly distressed. Finished light breakfast po. Patient scheduled for bone marrow biopsy and MRI today (03/11/2017). Vitals Vitals Vital Signs Date Time Temp Pulse Resp B/P (MAP) Pulse Ox O2 Delivery O2 Flow Rate FiO2 03/11/17 08:00 95 Room Air 03/11/17 06:00 81 12 127/56 (79) 2.0 03/11/17 04:00 97.9 97.9 Physical Exam Physical Exam R portacath site no longer bleeding. Awaiting podiatry consult regarding patient 's toenails. General: Alert, Oriented X3, No acute distress, mild distress Heart: Regular rate, Other (distant S1/S2 d/t body habitus) Lungs: Clear Abdomen: Normal bowel sounds Extremities: Other (Wound on anterior aspect left leg. Dressing was clean and dry. ) Skin: Other (Epithelial desquamation present anterior aspect both shins. ) Labs LABS Laboratory Tests Test 03/11/17 05:10 White Blood Count 6.5 x10^3/uL (4.0-11.0) Red Blood Count 3.75 x10^6/uL (3.50-5.40) Hemoglobin 10.8 g/dL (12.0-15.5) Hematocrit 33.3 % (36.0-47.0) Mean Corpuscular Volume 89 fL (79-100) Mean Corpuscular Hemoglobin 29 pg (25-35) Mean Corpuscular Hemoglobin Concent 32 g/dL (31-37) Red Cell Distribution Width 17.7 % (11.5-14.5) Platelet Count 146 x10^3/uL (140-400) Neutrophils (%) (Auto) 65 % (31-73) Lymphocytes (%) (Auto) 15 % (24-48) Monocytes (%) (Auto) 14 % (0-9) Eosinophils (%) (Auto) 6 % (0-3) Basophils (%) (Auto) 1 % (0-3) Neutrophils # (Auto) 4.2 x10^3uL (1.8-7.7) Lymphocytes # (Auto) 1.0 x10^3/uL (1.0-4.8) Monocytes # (Auto) 0.9 x10^3/uL (0.0-1.1) Eosinophils # (Auto) 0.4 x10^3/uL (0.0-0.7) Basophils # (Auto) 0.0 x10^3/uL (0.0-0.2) Sodium Level 134 mmol/L (136-145) Potassium Level 4.3 mmol/L (3.5-5.1) Chloride Level 96 mmol/L (98-107) Carbon Dioxide Level 36 mmol/L (21-32) Anion Gap 2 (6-14) Blood Urea Nitrogen 15 mg/dL (7-20) Creatinine 0.7 mg/dL (0.6-1.0) Estimated GFR (Cockcroft-Gault) 85.9 Glucose Level 102 mg/dL (70-99) Calcium Level 8.5 mg/dL (8.5-10.1) Review of Systems Review of Systems Patient lethargic and complains of trouble sleeping. Patient complains of shortness of breath. She thinks it may improve if she sits further up in bed. Patient denies nausea or vomiting after meals which she says is an improvement. Assessment and Plan Assessmemt and Plan Assessment: Dyspnea Hypotension Leg cellulitis Plan: 1. Await results of bone marrow biopsy 2. Await results of MRI 3. Continue with SCDs 4. Continue with ICU monitoring 5. PTOT as tolerated 6. Await podiatry consult 7. Recheck labs Problems: Comment Review of Relevant I have reviewed the following items kailey (where applicable) has been applied. Labs Laboratory Tests Test 03/09/17 12:10 03/09/17 12:50 03/10/17 03:40 03/10/17 05:15 White Blood Count 7.3 x10^3/uL (4.0-11.0) 6.4 x10^3/uL (4.0-11.0) Red Blood Count 3.80 x10^6/uL (3.50-5.40) 3.83 x10^6/uL (3.50-5.40) Hemoglobin 11.0 g/dL (12.0-15.5) 11.2 g/dL (12.0-15.5) Hematocrit 34.8 % (36.0-47.0) 34.8 % (36.0-47.0) Mean Corpuscular Volume 92 fL (79-100) 91 fL (79-100) Mean Corpuscular Hemoglobin 29 pg (25-35) 29 pg (25-35) Mean Corpuscular Hemoglobin Concent 32 g/dL (31-37) 32 g/dL (31-37) Red Cell Distribution Width 17.9 % (11.5-14.5) 17.9 % (11.5-14.5) Platelet Count 157 x10^3/uL (140-400) 154 x10^3/uL (140-400) Neutrophils (%) (Auto) 64 % (31-73) 67 % (31-73) Lymphocytes (%) (Auto) 16 % (24-48) 16 % (24-48) Monocytes (%) (Auto) 14 % (0-9) 12 % (0-9) Eosinophils (%) (Auto) 4 % (0-3) 4 % (0-3) Basophils (%) (Auto) 1 % (0-3) 1 % (0-3) Neutrophils # (Auto) 4.7 x10^3uL (1.8-7.7) 4.3 x10^3uL (1.8-7.7) Lymphocytes # (Auto) 1.2 x10^3/uL (1.0-4.8) 1.0 x10^3/uL (1.0-4.8) Monocytes # (Auto) 1.0 x10^3/uL (0.0-1.1) 0.8 x10^3/uL (0.0-1.1) Eosinophils # (Auto) 0.3 x10^3/uL (0.0-0.7) 0.3 x10^3/uL (0.0-0.7) Basophils # (Auto) 0.1 x10^3/uL (0.0-0.2) 0.1 x10^3/uL (0.0-0.2) Prothrombin Time 14.3 SEC (11.7-14.0) Prothromb Time International Ratio 1.2 (0.8-1.1) Activated Partial Thromboplast Time 47 SEC (24-38) Fibrinogen 355 mg/dL (200-440) Sodium Level 131 mmol/L (136-145) Potassium Level 5.0 mmol/L (3.5-5.1) Chloride Level 97 mmol/L (98-107) Carbon Dioxide Level 28 mmol/L (21-32) Anion Gap 6 (6-14) Blood Urea Nitrogen 18 mg/dL (7-20) Creatinine 0.8 mg/dL (0.6-1.0) Estimated GFR (Cockcroft-Gault) 73.7 Glucose Level 103 mg/dL (70-99) Calcium Level 8.3 mg/dL (8.5-10.1) Magnesium Level 2.5 mg/dL (1.8-2.4) Test 03/11/17 05:10 White Blood Count 6.5 x10^3/uL (4.0-11.0) Red Blood Count 3.75 x10^6/uL (3.50-5.40) Hemoglobin 10.8 g/dL (12.0-15.5) Hematocrit 33.3 % (36.0-47.0) Mean Corpuscular Volume 89 fL (79-100) Mean Corpuscular Hemoglobin 29 pg (25-35) Mean Corpuscular Hemoglobin Concent 32 g/dL (31-37) Red Cell Distribution Width 17.7 % (11.5-14.5) Platelet Count 146 x10^3/uL (140-400) Neutrophils (%) (Auto) 65 % (31-73) Lymphocytes (%) (Auto) 15 % (24-48) Monocytes (%) (Auto) 14 % (0-9) Eosinophils (%) (Auto) 6 % (0-3) Basophils (%) (Auto) 1 % (0-3) Neutrophils # (Auto) 4.2 x10^3uL (1.8-7.7) Lymphocytes # (Auto) 1.0 x10^3/uL (1.0-4.8) Monocytes # (Auto) 0.9 x10^3/uL (0.0-1.1) Eosinophils # (Auto) 0.4 x10^3/uL (0.0-0.7) Basophils # (Auto) 0.0 x10^3/uL (0.0-0.2) Sodium Level 134 mmol/L (136-145) Potassium Level 4.3 mmol/L (3.5-5.1) Chloride Level 96 mmol/L (98-107) Carbon Dioxide Level 36 mmol/L (21-32) Anion Gap 2 (6-14) Blood Urea Nitrogen 15 mg/dL (7-20) Creatinine 0.7 mg/dL (0.6-1.0) Estimated GFR (Cockcroft-Gault) 85.9 Glucose Level 102 mg/dL (70-99) Calcium Level 8.5 mg/dL (8.5-10.1) Laboratory Tests Test 03/11/17 05:10 White Blood Count 6.5 x10^3/uL (4.0-11.0) Red Blood Count 3.75 x10^6/uL (3.50-5.40) Hemoglobin 10.8 g/dL (12.0-15.5) Hematocrit 33.3 % (36.0-47.0) Mean Corpuscular Volume 89 fL (79-100) Mean Corpuscular Hemoglobin 29 pg (25-35) Mean Corpuscular Hemoglobin Concent 32 g/dL (31-37) Red Cell Distribution Width 17.7 % (11.5-14.5) Platelet Count 146 x10^3/uL (140-400) Neutrophils (%) (Auto) 65 % (31-73) Lymphocytes (%) (Auto) 15 % (24-48) Monocytes (%) (Auto) 14 % (0-9) Eosinophils (%) (Auto) 6 % (0-3) Basophils (%) (Auto) 1 % (0-3) Neutrophils # (Auto) 4.2 x10^3uL (1.8-7.7) Lymphocytes # (Auto) 1.0 x10^3/uL (1.0-4.8) Monocytes # (Auto) 0.9 x10^3/uL (0.0-1.1) Eosinophils # (Auto) 0.4 x10^3/uL (0.0-0.7) Basophils # (Auto) 0.0 x10^3/uL (0.0-0.2) Sodium Level 134 mmol/L (136-145) Potassium Level 4.3 mmol/L (3.5-5.1) Chloride Level 96 mmol/L (98-107) Carbon Dioxide Level 36 mmol/L (21-32) Anion Gap 2 (6-14) Blood Urea Nitrogen 15 mg/dL (7-20) Creatinine 0.7 mg/dL (0.6-1.0) Estimated GFR (Cockcroft-Gault) 85.9 Glucose Level 102 mg/dL (70-99) Calcium Level 8.5 mg/dL (8.5-10.1) Medications Current Medications Enoxaparin Sodium (Lovenox 150mg Syringe) 150 mg Q12HR SQ Last administered on 03/08/17 21:20; Start 03/06/17 at 21:00; Stop 03/09/17 at 11:54; Status DC Albuterol/ Ipratropium (Duoneb) 3 ml RTQID NEB Last administered on 03/11/17 07:59; Start 03/06/17 at 20:00 Nystatin (Nystop) 1 john BID TP Last administered on 03/10/17 21:33; Start at 21:00 Ondansetron HCl (Zofran Odt) 4 mg PRN Q6HRS PRN PO NAUSEA/VOMITING Last administered on 03/08/17 06:34; Start 03/06/17 at 18:00 Ceftriaxone Sodium 1 gm/ Sodium Chloride 50 ml @ 100 mls/hr Q24H IV Last administered on 03/10/17 20:37; Start 03/06/17 at 20:00 Oxycodone/ Acetaminophen (Percocet 5/325) 1 tab PRN Q4HRS PRN PO PAIN Last administered on 03/10/17 03:27; Start 03/06/17 at 18:00 Sodium Chloride (Normal Saline Flush) 3 ml PRN DAILY PRN IV AFTER MEDS AND BLOOD DRAWS; Start 03/06/17 at 18:00 Iohexol (Omnipaque 300 Mg/ml) 75 ml 1X ONCE IV ; Start 03/07/17 at 09:15; Stop 03/07/17 at 09:16; Status DC Iohexol (Omnipaque 240 Mg/ml) 50 ml 1X ONCE PO Last administered on 03/07/17 09:15; Start 03/07/17 at 09:15; Stop 03/07/17 at 09:16; Status DC Info (Do NOT chart on this entry -- for MONITORING) 1 each PRN DAILY PRN MC SEE COMMENTS; Start 03/07/17 at 09:15; Stop 03/09/17 at 09:14; Status DC Allopurinol (Zyloprim) 100 mg DAILY PO Last administered on 03/10/17 11:12; Start 03/07/17 at 11:00 Info (Anti-Coagulation Monitoring By Pharmacy) 1 each PRN DAILY PRN MC SEE COMMENTS Last administered on 03/07/17 13:28; Start 03/07/17 at 13:30; Stop at 13:35; Status DC Lidocaine/ Epinephrine (Xylocaine 1%-Epi 1:100,000) 20 ml STK-MED ONCE .ROUTE ; Start 03/07/17 at 15:25; Stop 03/07/17 at 15:26; Status DC Heparin Sodium (Porcine) (Hep Lock Adult) 500 unit STK-MED ONCE IV ; Start 03/07 at 15:25; Stop 03/07/17 at 15:26; Status DC Heparin Sodium/ Sodium Chloride 500 ml @ As Directed STK-MED ONCE .ROUTE ; Start 03/07/17 at 15:25; Stop 03/07/17 at 15:26; Status DC Cefazolin Sodium 0 ml @ As Directed STK-MED ONCE IV ; Start 03/07/17 at 15:58; Stop 03/07/17 at 15:59; Status DC Fentanyl Citrate (Fentanyl 2ml Vial) 100 mcg STK-MED ONCE .ROUTE ; Start at 15:58; Stop 03/07/17 at 15:59; Status DC Heparin Sodium/ Sodium Chloride 1,000 unit 1X ONCE IART Last administered on 16:25; Start 03/07/17 at 16:15; Stop 03/07/17 at 16:16; Status DC Lidocaine/ Epinephrine (Xylocaine 1%-Epi 1:100,000) 20 ml 1X ONCE INJ Last administered on 03/07/17 16:25; Start 03/07/17 at 16:15; Stop 03/07/17 at 16:16 ; Status DC Heparin Sodium (Porcine) (Hep Lock Adult) 500 unit 1X ONCE IV Last administered on 03/07/17 16:30; Start 03/07/17 at 16:15; Stop 03/07/17 at 16:16 ; Status DC Clindamycin Phosphate 50 ml @ As Directed STK-MED ONCE IV ; Start 03/07/17 at 16 :06; Stop 03/07/17 at 16:07; Status DC Ondansetron HCl (Zofran) 4 mg STK-MED ONCE .ROUTE ; Start 03/07/17 at 16:14; Stop 03/07/17 at 16:15; Status DC Clindamycin Phosphate 50 ml @ 100 mls/hr 1X ONCE IV Last administered on 03/07 16:33; Start 03/07/17 at 16:30; Stop 03/07/17 at 16:59; Status DC Ondansetron HCl (Zofran) 4 mg 1X ONCE IV Last administered on 03/07/17 16:32 ; Start 03/07/17 at 16:30; Stop 03/07/17 at 16:31; Status DC Hydralazine HCl (Apresoline) 10 mg PRN Q4HRS PRN IVP ELEVATED BP, SEE COMMENTS ; Start 03/07/17 at 16:45 Isosorbide Mononitrate (Imdur) 30 mg DAILY PO Last administered on 03/10/17 11 :12; Start 03/08/17 at 09:00 Metoprolol Tartrate (Lopressor) 12.5 mg BID PO Last administered on 03/10/17 21:33; Start 03/08/17 at 09:00 Aspirin (Ecotrin) 81 mg DAILYWBKFT PO Last administered on 03/08/17 14:06; Start 03/08/17 at 08:00; Stop 03/09/17 at 11:54; Status DC Morphine Sulfate 2 mg 1X ONCE IV Last administered on 03/08/17 11:45; Start 03/08/17 at 11:45; Stop 03/08/17 at 11:46; Status DC Diphenhydramine HCl (Benadryl) 25 mg Q6HRS PRN IVP itching; Start 03/08/17 at 17:30; Status Cancel Diphenhydramine HCl (Benadryl) 50 mg Q8HRS PRN IVP itching Last administered on 03/08/17 17:39; Start 03/08/17 at 17:30 Furosemide (Lasix) 40 mg DAILY IVP Last administered on 03/10/17 11:12; Start 03/09/17 at 10:15; Stop 03/10/17 at 14:39; Status DC Desmopressin Acetate 30 mcg/ Sodium Chloride 57.5 ml @ 115 mls/hr 1X ONCE IV Last administered on 03/09/17 14:48; Start 03/09/17 at 15:00; Stop 03/09/17 at 15:29; Status DC Protamine Sulfate 50 mg 1X ONCE IV Last administered on 03/09/17 16:29; Start 03/09/17 at 15:45; Stop 03/09/17 at 15:46; Status DC Silver Nitrate/ Potassium Nitrate 1 each 1X ONCE TP Last administered on 00:59; Start 03/10/17 at 01:00; Stop 03/10/17 at 01:01; Status DC Thrombin 20,000 unit 1X ONCE TP Last administered on 03/10/17 02:48; Start at 01:00; Stop 03/10/17 at 01:01; Status DC Iohexol (Omnipaque 300 Mg/ml) 50 ml STK-MED ONCE .ROUTE ; Start 03/10/17 at 07: 41; Stop 03/10/17 at 07:42; Status DC Lidocaine/ Epinephrine (Xylocaine 1%-Epi 1:100,000) 20 ml STK-MED ONCE .ROUTE ; Start 03/10/17 at 08:23; Stop 03/10/17 at 08:24; Status DC Thrombin 5,000 unit 1X ONCE TP Last administered on 03/10/17 08:49; Start at 08:30; Stop 03/10/17 at 08:31; Status DC Lidocaine/ Epinephrine (Xylocaine 1%-Epi 1:100,000) 20 ml 1X ONCE INJ Last administered on 03/10/17 08:48; Start 03/10/17 at 08:30; Stop 03/10/17 at 08:31 ; Status DC Furosemide (Lasix) 40 mg [id number] IVP Last administered on 03/10/17t 16:42; Start 03/10/17 at 16:00 Vitals/I & O Vital Sign - Last 24 Hours 03/10/17 03/10/17 03/10/17 03/10/17 12:00 12:00 13:00 14:00 Temp 97.5 97.5 Pulse 81 81 71 Resp 16 12 13 B/P (MAP) 112/66 (81) 105/64 (78) 86/55 (65) Pulse Ox 99 98 98 O2 Delivery Nasal Cannula Nasal Cannula Nasal Cannula Nasal Cannula O2 Flow Rate 3.0 2.0 3.0 3.0 03/10/17 03/10/17 03/10/17 03/10/17 15:00 15:27 16:00 16:00 Temp 98.2 98.2 Pulse 75 70 Resp 15 16 B/P (MAP) 87/49 (62) 91/47 (62) Pulse Ox 97 97 99 O2 Delivery Nasal Cannula Nasal Cannula Nasal Cannula Nasal Cannula O2 Flow Rate 3.0 3.0 3.0 2.0 03/10/17 03/10/17 03/10/17 03/10/17 17:00 18:00 19:00 19:00 Temp 98.0 98.0 Pulse 77 79 82 Resp 12 11 15 B/P (MAP) 110/70 (83) 113/65 (81) 120/69 (86) Pulse Ox 97 94 96 O2 Delivery Nasal Cannula Nasal Cannula Nasal Cannula O2 Flow Rate 2.0 2.0 2.0 03/10/17 03/10/17 03/10/17 03/10/17 19:30 19:55 20:00 21:00 Pulse 82 92 Resp 20 24 B/P (MAP) 123/70 (87) 118/69 (85) Pulse Ox 97 95 96 O2 Delivery Nasal Cannula Nasal Cannula Nasal Cannula Nasal Cannula O2 Flow Rate 2.0 3.0 2.0 2.0 03/10/17 03/10/17 03/10/17 03/11/17 21:33 22:00 23:00 00:00 Temp 97.7 97.7 Pulse 88 79 84 75 Resp 18 21 23 B/P (MAP) 116/52 101/47 (65) 119/58 (78) 108/53 (71) Pulse Ox 99 97 100 O2 Delivery Nasal Cannula Nasal Cannula Nasal Cannula O2 Flow Rate 2.0 2.0 2.0 03/11/17 03/11/17 03/11/17 03/11/17 00:00 01:00 02:00 03:00 Pulse 79 78 83 Resp 15 16 20 B/P (MAP) 110/60 (77) 103/61 (75) 113/62 (79) Pulse Ox 98 100 95 O2 Delivery Nasal Cannula Nasal Cannula Nasal Cannula Nasal Cannula O2 Flow Rate 2.0 2.0 2.0 2.0 03/11/17 03/11/17 03/11/17 03/11/17 04:00 04:00 05:00 06:00 Temp 97.9 97.9 Pulse 80 84 81 Resp 16 25 12 B/P (MAP) 108/61 (77) 122/58 (79) 127/56 (79) Pulse Ox 97 99 97 O2 Delivery Nasal Cannula Nasal Cannula Nasal Cannula Nasal Cannula O2 Flow Rate 2.0 2.0 2.0 2.0 03/11/17 08:00 Pulse Ox 95 O2 Delivery Room LETA Rodrigues III DO Mar 11, 2017 11:58
[2017-03-11] MEDS ORDERED: fentaNYL PF VIAL 100 MCG/2 ML VIAL ONE (11:59)
[2017-03-11] MEDS ORDERED: MIDAZOLAM HCL/PF 2 MG/2 ML VIAL. ONE (11:59)
[2017-03-11] MEDS ORDERED: fentaNYL PF VIAL 100 MCG/2 ML VIAL IV ONE ×2 (12:15→14:00)
[2017-03-11] MEDS ORDERED: MIDAZOLAM HCL/PF 2 MG/2 ML VIAL. IV ONE (12:15)
--- NOTE | 2017-03-11 12:59 | PDOC ---
BRIEF OPERATIVE NOTE Pre-Op Diagnosis abnormal labs Post-Op Diagnosis same Procedure Performed Bone Marrow Biopsy Surgeon Poonam Anesthesia Type: Conscious Sedation Specimens Obtained 2 x 2 cc aspirates and 1 x 10g core Complications No immediate JANETTE MONTERO MD Mar 11, 2017 12:59
--- NOTE | 2017-03-11 12:59 | PDOC ---
MODERATE SEDATION ASSESSMENT RISKS/ALTERNATIVES Risks/Alternatives Risks and alternatives of this type of sedation and procedure discussed with: RISK/ALTERNATIVES: Patient H & P ON CHART H & P H & P on chart and reviewed for co-morbid conditions and appropriate labs. H&P ON CHART: Yes STATUS PREG STATUS ASSESSED: Yes MEDS/ALLERGIES REVIEWED Meds/Allergies Reviewed Medications and Allergies including time and route of recently administered narcotics and sedatives. MEDS/ALLERGIES REVIEWED: Yes ASA RATING ASA RATING: II AIRWAY ASSESSMENT Airway Assessment Airway patency, oral function limitations, presence of caps, crowns, dentures, partials, and ability to extend neck assessed. AIRWAY ASSESSMENT: Yes MALLAMPATI SCORE MALLAMPATI SCORE: II PRE-SEDATION ASSESSMENT PRE-SEDATION ASSESSMENT: Yes JANETTE MONTERO MD Mar 11, 2017 12:59
--- NOTE | 2017-03-11 13:04 | RAD ---
Procedure: CT-guided bone marrow aspiration and biopsy Clinical Indication: 56-year-old with mantle cell lymphoma Sedation: Conscious sedation was administered for 13 minutes. The patient was monitored by a qualified independent observer throughout the time of sedation. Please refer to the medical record for exact doses of medications utilized to achieve moderate sedation. Antibiotics: None Fluoro Time: Not applicable Contrast: None Sterility: The procedure was performed in its entirety using appropriate elements of sterile technique. Consent: The procedure was explained in its entirety to the patient or the patients designated human resources representative by a member of the treatment team, including a discussion of the risks, benefits and commonly accepted alternatives to the procedure, as well as the expected consequences of no therapy whatsoever. Discussion of the risks included, but was not limited to, those that are most frequent and those that are rare but possibly severe or life-threatening, as well as the possibility of unforeseen complications. Technique and Findings: Following informed consent, the patient was prepped and draped in usual sterile fashion. Preliminary CT scan of the area of interest was performed. 1% Lidocaine was used to achieve local anesthesia. Under periodic CT surveillance, an 11-gauge needle was advanced through the cortex of the posterior superior iliac spine and 2 separate 2 mL marrow aspirates were obtained and preserved on site by the histology assistant. A single 11-gauge core biopsy specimen was then obtained and preserved in formalin. The needle was then removed and hemostasis was achieved with manual compression. Complications: No immediate Impression: 1. CT-guided bone marrow aspiration and biopsy as described PQRS Compliance Statement: One or more of the following individualized dose reduction techniques were utilized for this examination: 1. Automated exposure control 2. Adjustment of the mA and/or kV according to patient size 3. Use of iterative reconstruction technique
[2017-03-11] MEDS ORDERED: GADOBUTROL 7.5 MMOL/7.5 ML VIAL IV ONE ×2 (13:15)
--- NOTE | 2017-03-11 15:18 | RAD ---
Metastatic skeletal survey, 03/11/2017: History: Mantle cell lymphoma, metastatic bone cancer Multiple views of the bony skeleton were obtained. Some of the images are of poor quality due to the patient's size and difficulty in patient positioning. The following findings are delineated: 1. An AP view of the chest demonstrates mild cardiomegaly. A right jugular central venous catheter extends into the superior aspect of the right atrium. There are patchy pulmonary infiltrates, right greater than left as noted on the recent CT study. No destructive bony lesion is seen. 2. AP and lateral views of the cervical, thoracic and lumbar spine demonstrate moderate scattered spurs. The lateral views are of particularly poor quality due to difficulties in patient positioning. The lateral lumbar spine view is nondiagnostic. There are moderate scattered marginal spurs. No fracture or destructive bony lesion is seen. 3. An AP view of the pelvis reveals no destructive bony lesion. 4. AP views of both humeri and forearms reveal no fracture or destructive bony lesion. 5. AP views of both femurs and lower legs demonstrate moderate degenerative changes at both knees. There is extensive generalized subcutaneous edema. No fracture or destructive bony lesion is seen. 6. A lateral view of the skull reveals no significant abnormality. IMPRESSION: 1. Moderate scattered degenerative changes. 2. No radiographic findings to suggest osseous metastatic disease.
[2017-03-11 15:31] LABS: ALPHA 1 0.3 g/dL (0.0-0.4); ALPHA 2 0.6 g/dL (0.4-1.0); BETA 1.2 g/dL (0.7-1.3); GAMMA 1.9 g/dL (0.4-1.8); M-SPIKE Not Observed g/dL (Not Observed); PROTEIN TOTAL 6.6 g/dL (6.0-8.5)
--- NOTE | 2017-03-11 15:36 | RAD ---
MRI of the brain and orbits without and with contrast 03/11/2017 CLINICAL HISTORY: History of lymphoma with right orbital mass seen on recent CT scan. TECHNIQUE: Unenhanced T1-weighted sagittal and axial and FLAIR, gradient echo and diffusion-weighted axial images of the brain were obtained. Thin section fat saturated T2-weighted axial and coronal and T1-weighted axial and coronal coronal images through the orbits were obtained. After the intravenous administration of 14 cc of Gadavist, enhanced T1-weighted axial and coronal images of the brain were obtained. Additionally enhanced thin section fat saturated T1 T1-weighted axial and coronal images of the orbits were obtained. FINDINGS: Comparison is made to patient's CT scan of the neck dated 03/08/2017. Images from today's MRI examination are degraded by patient motion. There is mild generalized parenchymal atrophy. Patchy, confluent and multiple focal areas of abnormally increased signal intensity are seen within the periventricular and subcortical white matter of both cerebral hemispheres on the FLAIR and T2-weighted images consistent with areas of small vessel ischemic disease. Old areas of lacunar infarction are seen involving the right thalamus and within the periventricular and deep white matter of the left frontotemporal lobe. These measure 5 mm to 1.2 cm in size. No acute parenchymal abnormality is seen. No no extra-axial fluid collection is seen. There is no MRI evidence of acute ischemia/infarction. No area of abnormal parenchymal contrast enhancement is seen. Images through the orbits demonstrate an oval-shaped extraconal mass medial to the medial rectus muscle within the right orbit. This measures 1.7 cm in greatest diameter. It demonstrates decreased signal intensity on the T2-weighted images and is near isointense to muscle on the T1-weighted images. It enhances with contrast. Its CT and MRI appearance are consistent most likely with a hemangioma. This mildly displaces the medial right rectus muscle laterally. No intraconal mass is seen. No mass is seen involving the left orbit. There are minimal bilateral mastoid effusions. Mild to moderate mucosal thickening is seen scattered throughout the paranasal sinuses. Normal flow voids are seen within the major vascular structures surrounding the brain parenchyma. IMPRESSION: 1. No acute parenchymal abnormality is seen. 2. 1.7 cm extraconal mass is seen involving the medial right orbit. This is felt to most likely represent a hemangioma as outlined above. Electronically signed by: Andrew Nowak MD (03/11/2017 3:33 PM) [id number]
--- NOTE | 2017-03-11 16:59 | PDOC ---
PROGRESS NOTES Subjective Subjective c/c - f/u of Mantle cell lymphoma Objective Objective Vital Signs Date Time Temp Pulse Resp B/P (MAP) Pulse Ox O2 Delivery O2 Flow Rate FiO2 03/11/17 16:29 99 Nasal Cannula 3.0 03/11/17 12:24 15 03/11/17 12:15 69 03/11/17 11:00 115/61 (79) 03/11/17 07:00 97.3 97.3 Intake and Output 03/12/17 07:00 Intake Total 270 ml Output Total 240 ml Balance 30 ml Intake Oral 270 ml Output Urine Total 240 ml Physical Exam Heart: Normal S1, Normal S2 General: Alert, Oriented X3 Lungs: Clear to auscultation Assessment Assessment IMPRESSION AND PLAN: 1. Mantle cell lymphoma involving the left axillary lymph nodes and possible involvement of the lungs. The lymphadenopathy has progressed between 12/2016 to 02/2017. She had an ultrasound-guided biopsy of the left axillary lymph node on 01/01/2017, which revealed mantle cell lymphoma in addition to kappa predominant plasmacytosis. There is a possibility that she has a biclonal lymphoproliferative disorder with both mantle cell lymphoma and plasma cell neoplasm. I will obtain further studies with serum protein electrophoresis, bone survey and bone marrow biopsy. CT scan of the neck, chest, abdomen and pelvis [address] reveals axillary, mediastinal and retroperitoneal lymphadenopathy. 14 x 6 mm extraconal mass within the medial right orbit with mass effect on the medial rectus muscle. This finding is indeterminate on noncontrast CT and may reflect orbital involvement of lymphoma versus a hemangioma or venous varix. Ordered MRI brain and orbits. I discussed in detail with the patient regarding the diagnosis and treatment options for mantle cell lymphoma. I recommended chemotherapy with bendamustine and rituximab given for 6 cycles. She has poor performance status with ECOG performance status score of 3. In addition, she has significant comorbidities including congestive heart failure with an ejection fraction of only 20-25%. The presence of her comorbidities would increase the likelihood of toxicities due to chemotherapy. Mantle cell lymphoma prognostic score is 3, which would indicate a 5-yr survival of 60%. s/p port 03/07/17 s/p bone marrow 03/11/17 Plan chemo with bendeka and rituxan 03/13/17. I reviewed risks and benefits and she agrees to proceed. 2. Elevated liver function test likely changes from congestive heart failure. Continue to monitor. 3. Hyponatremia due to congestive heart failure, monitor. 4. Congestive heart failure with an ejection fraction of 20-25%. Appreciate Cardiology management. I d/w cardiology. 5. Elevated uric acid - ordered allopurinol 100 mg daily. 6. Bleeding from port site from 7.30 am 02/1717. Resolved. I d/w RN and [place] [address]: Impression: 1. Right cervical chain lymphadenopathy involving level 2, 3 and 4. 2. There is a 14 x 6 mm extraconal mass within the medial right orbit with mass effect on the medial rectus muscle. This finding is indeterminate on noncontrast CT and may reflect orbital involvement of lymphoma versus a hemangioma or venous varix. Further evaluation with MRI brain and orbits is recommended (area of hypoattenuation in the left frontal lobe may be further evaluated). 3. Heterogeneous right thyroid mass may represent thyroid goiter versus lymphomatous involvement versus primary thyroid neoplasm. Correlation with PET/CT may be of benefit. 4. Thoracic lymphadenopathy centered in the left axilla, as detailed above. Additional borderline to pathologically enlarged lymph nodes are identified in the mediastinum and right axilla. 5. Multifocal patchy nodular parenchymal opacities with more focal airspace consolidation the right lower lobe may reflect infectious or inflammatory process versus lymphomatous involvement. Further evaluation with PET/CT may be of benefit. Small right pleural effusion. 6. Spleen is not enlarged. 7. Retroperitoneal and bilateral iliac lymph nodes are identified, as detailed above. No pathologically enlarged inguinal lymph nodes are present. 8. Left central abdominal hernia containing nondilated loops of small bowel. Comment Review of Relevant I have reviewed the following items kailey (where applicable) has been applied. Labs Laboratory Tests Test 03/10/17 03:40 03/10/17 05:15 03/11/17 05:10 Sodium Level 131 mmol/L (136-145) 134 mmol/L (136-145) Potassium Level 5.0 mmol/L (3.5-5.1) 4.3 mmol/L (3.5-5.1) Chloride Level 97 mmol/L (98-107) 96 mmol/L (98-107) Carbon Dioxide Level 28 mmol/L (21-32) 36 mmol/L (21-32) Anion Gap 6 (6-14) 2 (6-14) Blood Urea Nitrogen 18 mg/dL (7-20) 15 mg/dL (7-20) Creatinine 0.8 mg/dL (0.6-1.0) 0.7 mg/dL (0.6-1.0) Estimated GFR (Cockcroft-Gault) 73.7 85.9 Glucose Level 103 mg/dL (70-99) 102 mg/dL (70-99) Calcium Level 8.3 mg/dL (8.5-10.1) 8.5 mg/dL (8.5-10.1) Magnesium Level 2.5 mg/dL (1.8-2.4) White Blood Count 6.4 x10^3/uL (4.0-11.0) 6.5 x10^3/uL (4.0-11.0) Red Blood Count 3.83 x10^6/uL (3.50-5.40) 3.75 x10^6/uL (3.50-5.40) Hemoglobin 11.2 g/dL (12.0-15.5) 10.8 g/dL (12.0-15.5) Hematocrit 34.8 % (36.0-47.0) 33.3 % (36.0-47.0) Mean Corpuscular Volume 91 fL (79-100) 89 fL (79-100) Mean Corpuscular Hemoglobin 29 pg (25-35) 29 pg (25-35) Mean Corpuscular Hemoglobin Concent 32 g/dL (31-37) 32 g/dL (31-37) Red Cell Distribution Width 17.9 % (11.5-14.5) 17.7 % (11.5-14.5) Platelet Count 154 x10^3/uL (140-400) 146 x10^3/uL (140-400) Neutrophils (%) (Auto) 67 % (31-73) 65 % (31-73) Lymphocytes (%) (Auto) 16 % (24-48) 15 % (24-48) Monocytes (%) (Auto) 12 % (0-9) 14 % (0-9) Eosinophils (%) (Auto) 4 % (0-3) 6 % (0-3) Basophils (%) (Auto) 1 % (0-3) 1 % (0-3) Neutrophils # (Auto) 4.3 x10^3uL (1.8-7.7) 4.2 x10^3uL (1.8-7.7) Lymphocytes # (Auto) 1.0 x10^3/uL (1.0-4.8) 1.0 x10^3/uL (1.0-4.8) Monocytes # (Auto) 0.8 x10^3/uL (0.0-1.1) 0.9 x10^3/uL (0.0-1.1) Eosinophils # (Auto) 0.3 x10^3/uL (0.0-0.7) 0.4 x10^3/uL (0.0-0.7) Basophils # (Auto) 0.1 x10^3/uL (0.0-0.2) 0.0 x10^3/uL (0.0-0.2) Laboratory Tests Test 03/11/17 05:10 White Blood Count 6.5 x10^3/uL (4.0-11.0) Red Blood Count 3.75 x10^6/uL (3.50-5.40) Hemoglobin 10.8 g/dL (12.0-15.5) Hematocrit 33.3 % (36.0-47.0) Mean Corpuscular Volume 89 fL (79-100) Mean Corpuscular Hemoglobin 29 pg (25-35) Mean Corpuscular Hemoglobin Concent 32 g/dL (31-37) Red Cell Distribution Width 17.7 % (11.5-14.5) Platelet Count 146 x10^3/uL (140-400) Neutrophils (%) (Auto) 65 % (31-73) Lymphocytes (%) (Auto) 15 % (24-48) Monocytes (%) (Auto) 14 % (0-9) Eosinophils (%) (Auto) 6 % (0-3) Basophils (%) (Auto) 1 % (0-3) Neutrophils # (Auto) 4.2 x10^3uL (1.8-7.7) Lymphocytes # (Auto) 1.0 x10^3/uL (1.0-4.8) Monocytes # (Auto) 0.9 x10^3/uL (0.0-1.1) Eosinophils # (Auto) 0.4 x10^3/uL (0.0-0.7) Basophils # (Auto) 0.0 x10^3/uL (0.0-0.2) Sodium Level 134 mmol/L (136-145) Potassium Level 4.3 mmol/L (3.5-5.1) Chloride Level 96 mmol/L (98-107) Carbon Dioxide Level 36 mmol/L (21-32) Anion Gap 2 (6-14) Blood Urea Nitrogen 15 mg/dL (7-20) Creatinine 0.7 mg/dL (0.6-1.0) Estimated GFR (Cockcroft-Gault) 85.9 Glucose Level 102 mg/dL (70-99) Calcium Level 8.5 mg/dL (8.5-10.1) Medications Current Medications Enoxaparin Sodium (Lovenox 150mg Syringe) 150 mg Q12HR SQ Last administered on 03/08/17 21:20; Start 03/06/17 at 21:00; Stop 03/09/17 at 11:54; Status DC Albuterol/ Ipratropium (Duoneb) 3 ml RTQID NEB Last administered on 03/11/17 16:29; Start 03/06/17 at 20:00 Nystatin (Nystop) 1 john BID TP Last administered on 03/10/17 21:33; Start at 21:00 Ondansetron HCl (Zofran Odt) 4 mg PRN Q6HRS PRN PO NAUSEA/VOMITING Last administered on 03/08/17 06:34; Start 03/06/17 at 18:00 Ceftriaxone Sodium 1 gm/ Sodium Chloride 50 ml @ 100 mls/hr Q24H IV Last administered on 03/10/17 20:37; Start 03/06/17 at 20:00 Oxycodone/ Acetaminophen (Percocet 5/325) 1 tab PRN Q4HRS PRN PO PAIN Last administered on 03/10/17 03:27; Start 03/06/17 at 18:00 Sodium Chloride (Normal Saline Flush) 3 ml PRN DAILY PRN IV AFTER MEDS AND BLOOD DRAWS; Start 03/06/17 at 18:00 Iohexol (Omnipaque 300 Mg/ml) 75 ml 1X ONCE IV ; Start 03/07/17 at 09:15; Stop 03/07/17 at 09:16; Status DC Iohexol (Omnipaque 240 Mg/ml) 50 ml 1X ONCE PO Last administered on 03/07/17 09:15; Start 03/07/17 at 09:15; Stop 03/07/17 at 09:16; Status DC Info (Do NOT chart on this entry -- for MONITORING) 1 each PRN DAILY PRN MC SEE COMMENTS; Start 03/07/17 at 09:15; Stop 03/09/17 at 09:14; Status DC Allopurinol (Zyloprim) 100 mg DAILY PO Last administered on 03/10/17 11:12; Start 03/07/17 at 11:00 Info (Anti-Coagulation Monitoring By Pharmacy) 1 each PRN DAILY PRN MC SEE COMMENTS Last administered on 03/07/17 13:28; Start 03/07/17 at 13:30; Stop at 13:35; Status DC Lidocaine/ Epinephrine (Xylocaine 1%-Epi 1:100,000) 20 ml STK-MED ONCE .ROUTE ; Start 03/07/17 at 15:25; Stop 03/07/17 at 15:26; Status DC Heparin Sodium (Porcine) (Hep Lock Adult) 500 unit STK-MED ONCE IV ; Start 03/07 at 15:25; Stop 03/07/17 at 15:26; Status DC Heparin Sodium/ Sodium Chloride 500 ml @ As Directed STK-MED ONCE .ROUTE ; Start 03/07/17 at 15:25; Stop 03/07/17 at 15:26; Status DC Cefazolin Sodium 0 ml @ As Directed STK-MED ONCE IV ; Start 03/07/17 at 15:58; Stop 03/07/17 at 15:59; Status DC Fentanyl Citrate (Fentanyl 2ml Vial) 100 mcg STK-MED ONCE .ROUTE ; Start at 15:58; Stop 03/07/17 at 15:59; Status DC Heparin Sodium/ Sodium Chloride 1,000 unit 1X ONCE IART Last administered on 16:25; Start 03/07/17 at 16:15; Stop 03/07/17 at 16:16; Status DC Lidocaine/ Epinephrine (Xylocaine 1%-Epi 1:100,000) 20 ml 1X ONCE INJ Last administered on 03/07/17 16:25; Start 03/07/17 at 16:15; Stop 03/07/17 at 16:16 ; Status DC Heparin Sodium (Porcine) (Hep Lock Adult) 500 unit 1X ONCE IV Last administered on 03/07/17 16:30; Start 03/07/17 at 16:15; Stop 03/07/17 at 16:16 ; Status DC Clindamycin Phosphate 50 ml @ As Directed STK-MED ONCE IV ; Start 03/07/17 at 16 :06; Stop 03/07/17 at 16:07; Status DC Ondansetron HCl (Zofran) 4 mg STK-MED ONCE .ROUTE ; Start 03/07/17 at 16:14; Stop 03/07/17 at 16:15; Status DC Clindamycin Phosphate 50 ml @ 100 mls/hr 1X ONCE IV Last administered on 03/07 16:33; Start 03/07/17 at 16:30; Stop 03/07/17 at 16:59; Status DC Ondansetron HCl (Zofran) 4 mg 1X ONCE IV Last administered on 03/07/17 16:32 ; Start 03/07/17 at 16:30; Stop 03/07/17 at 16:31; Status DC Hydralazine HCl (Apresoline) 10 mg PRN Q4HRS PRN IVP ELEVATED BP, SEE COMMENTS ; Start 03/07/17 at 16:45 Isosorbide Mononitrate (Imdur) 30 mg DAILY PO Last administered on 03/10/17 11 :12; Start 03/08/17 at 09:00 Metoprolol Tartrate (Lopressor) 12.5 mg BID PO Last administered on 03/10/17 21:33; Start 03/08/17 at 09:00 Aspirin (Ecotrin) 81 mg [id number] PO Last administered on 03/08/17 14:06; Start 03/08/17 at 08:00; Stop 03/09/17 at 11:54; Status DC Morphine Sulfate 2 mg 1X ONCE IV Last administered on 03/08/17 11:45; Start 03/08/17 at 11:45; Stop 03/08/17 at 11:46; Status DC Diphenhydramine HCl (Benadryl) 25 mg Q6HRS PRN IVP itching; Start 03/08/17 at 17:30; Status Cancel Diphenhydramine HCl (Benadryl) 50 mg Q8HRS PRN IVP itching Last administered on 03/08/17 17:39; Start 03/08/17 at 17:30 Furosemide (Lasix) 40 mg DAILY IVP Last administered on 03/10/17 11:12; Start 03/09/17 at 10:15; Stop 03/10/17 at 14:39; Status DC Desmopressin Acetate 30 mcg/ Sodium Chloride 57.5 ml @ 115 mls/hr 1X ONCE IV Last administered on 03/09/17 14:48; Start 03/09/17 at 15:00; Stop 03/09/17 at 15:29; Status DC Protamine Sulfate 50 mg 1X ONCE IV Last administered on 03/09/17 16:29; Start 03/09/17 at 15:45; Stop 03/09/17 at 15:46; Status DC Silver Nitrate/ Potassium Nitrate 1 each 1X ONCE TP Last administered on 00:59; Start 03/10/17 at 01:00; Stop 03/10/17 at 01:01; Status DC Thrombin 20,000 unit 1X ONCE TP Last administered on 03/10/17 02:48; Start at 01:00; Stop 03/10/17 at 01:01; Status DC Iohexol (Omnipaque 300 Mg/ml) 50 ml STK-MED ONCE .ROUTE ; Start 03/10/17 at 07: 41; Stop 03/10/17 at 07:42; Status DC Lidocaine/ Epinephrine (Xylocaine 1%-Epi 1:100,000) 20 ml STK-MED ONCE .ROUTE ; Start 03/10/17 at 08:23; Stop 03/10/17 at 08:24; Status DC Thrombin 5,000 unit 1X ONCE TP Last administered on 03/10/17 08:49; Start at 08:30; Stop 03/10/17 at 08:31; Status DC Lidocaine/ Epinephrine (Xylocaine 1%-Epi 1:100,000) 20 ml 1X ONCE INJ Last administered on 03/10/17 08:48; Start 03/10/17 at 08:30; Stop 03/10/17 at 08:31 ; Status DC Furosemide (Lasix) 40 mg [id number] IVP Last administered on 03/10/17 16:42; Start 03/10/17 at 16:00 Lidocaine/Sodium Bicarbonate (Buffered Lidocaine 1%) 20 ml STK-MED ONCE IJ ; Start 03/11/17 at 11:40; Stop 03/11/17 at 11:41; Status DC Fentanyl Citrate (Fentanyl 2ml Vial) 100 mcg STK-MED ONCE .ROUTE ; Start at 11:59; Stop 03/11/17 at 12:00; Status DC Midazolam HCl (Versed) 2 mg STK-MED ONCE .ROUTE ; Start 03/11/17 at 11:59; Stop 03/11/17 at 12:00; Status DC Lidocaine/Sodium Bicarbonate (Buffered Lidocaine 1%) 9 ml 1X ONCE IJ Last administered on 03/11/17 12:23; Start 03/11/17 at 12:15; Stop 03/11/17 at 12:16 ; Status DC Midazolam HCl (Versed) 2 mg 1X ONCE IV Last administered on 03/11/17 12:24; Start 03/11/17 at 12:15; Stop 03/11/17 at 12:16; Status DC Fentanyl Citrate (Fentanyl 2ml Vial) 100 mcg 1X ONCE IV Last administered on 12:24; Start 03/11/17 at 12:15; Stop 03/11/17 at 12:16; Status DC Gadobutrol (Gadavist) 7.5 mmol 1X ONCE IV Last administered on 03/11/17 13:23 ; Start 03/11/17 at 13:15; Stop 03/11/17 at 13:16; Status DC Gadobutrol (Gadavist) 7.5 mmol 1X ONCE IV Last administered on 03/11/17 13:23 ; Start 03/11/17 at 13:15; Stop 03/11/17 at 13:16; Status DC Fentanyl Citrate (Fentanyl 2ml Vial) 100 mcg 1X ONCE IV ; Start 03/11/17 at 14: 00; Stop 03/11/17 at 14:01; Status DC Rituximab 500 mg/ Rituximab 325 mg/ Sodium Chloride 825 ml @ 206.25 mls/ hr 1X ONCE IV ; Start 03/13/17 at 11:30; Stop 03/13/17 at 15:29 Bendamustine HCl 200 mg/Sodium Chloride 500 ml @ 500 mls/hr ONCE ONCE IV ; Start 03/13/17 at 10:30; Stop 03/13/17 at 11:29 Bendamustine HCl 200 mg/Sodium Chloride 500 ml @ 500 mls/hr ONCE ONCE IV ; Start 03/14/17 at 09:00; Stop 03/14/17 at 09:59 Ondansetron HCl 12 mg/Sodium Chloride 56 ml @ 100 mls/hr ONCE ONCE IV ; Start 03/13/17 at 10:00; Stop 03/13/17 at 10:33 Ondansetron HCl 12 mg/Sodium Chloride 56 ml @ 100 mls/hr ONCE ONCE IV ; Start 03/14/17 at 08:30; Stop 03/14/17 at 09:03 Dexamethasone Sodium Phosphate (Decadron) 12 mg ONCE ONCE IV ; Start 03/13/17 at 10:00; Stop 03/13/17 at 10:01 Dexamethasone Sodium Phosphate (Decadron) 12 mg ONCE ONCE IV ; Start 03/14/17 at 08:30; Stop 03/14/17 at 08:31 Diphenhydramine HCl (Benadryl) 25 mg ONCE ONCE IV ; Start 03/13/17 at 10:00; Stop 03/13/17 at 10:01 Acetaminophen (Tylenol) 650 mg ONCE ONCE PO ; Start 03/13/17 at 10:00; Stop at 10:01 Vitals/I & O Vital Sign - Last 24 Hours 03/10/17 03/10/17 03/10/17 03/10/17 17:00 18:00 19:00 19:00 Temp 98.0 98.0 Pulse 77 79 82 Resp 12 11 15 B/P (MAP) 110/70 (83) 113/65 (81) 120/69 (86) Pulse Ox 97 94 96 O2 Delivery Nasal Cannula Nasal Cannula Nasal Cannula O2 Flow Rate 2.0 2.0 2.0 03/10/17 03/10/17 03/10/17 03/10/17 19:30 19:55 20:00 21:00 Pulse 82 92 Resp 20 24 B/P (MAP) 123/70 (87) 118/69 (85) Pulse Ox 97 95 96 O2 Delivery Nasal Cannula Nasal Cannula Nasal Cannula Nasal Cannula O2 Flow Rate 2.0 3.0 2.0 2.0 03/10/17 03/10/17 03/10/17 03/11/17 21:33 22:00 23:00 00:00 Temp 97.7 97.7 Pulse 88 79 84 75 Resp 18 21 23 B/P (MAP) 116/52 101/47 (65) 119/58 (78) 108/53 (71) Pulse Ox 99 97 100 O2 Delivery Nasal Cannula Nasal Cannula Nasal Cannula O2 Flow Rate 2.0 2.0 2.0 03/11/17 03/11/17 03/11/17 03/11/17 00:00 01:00 02:00 03:00 Pulse 79 78 83 Resp 15 16 20 B/P (MAP) 110/60 (77) 103/61 (75) 113/62 (79) Pulse Ox 98 100 95 O2 Delivery Nasal Cannula Nasal Cannula Nasal Cannula Nasal Cannula O2 Flow Rate 2.0 2.0 2.0 2.0 03/11/17 03/11/17 03/11/17 03/11/17 04:00 04:00 05:00 06:00 Temp 97.9 97.9 Pulse 80 84 81 Resp 16 25 12 B/P (MAP) 108/61 (77) 122/58 (79) 127/56 (79) Pulse Ox 97 99 97 O2 Delivery Nasal Cannula Nasal Cannula Nasal Cannula Nasal Cannula O2 Flow Rate 2.0 2.0 2.0 2.0 03/11/17 03/11/17 03/11/17 03/11/17 07:00 08:00 08:00 09:00 Temp 97.3 97.3 Pulse 76 76 76 Resp 18 16 10 B/P (MAP) 121/57 (78) 119/61 (80) 118/59 (78) Pulse Ox 99 95 95 97 O2 Delivery Nasal Cannula Room Air Room Air Room Air O2 Flow Rate 2.0 03/11/17 03/11/17 03/11/17 03/11/17 10:00 11:00 12:07 12:12 Pulse 80 84 79 81 Resp 17 33 8 5 B/P (MAP) 132/65 (87) 115/61 (79) Pulse Ox 94 91 96 91 O2 Delivery Room Air Room Air Nasal Cannula Nasal Cannula O2 Flow Rate 3.0 3.0 03/11/17 03/11/17 03/11/17 12:15 12:24 16:29 Pulse 69 Resp 14 15 Pulse Ox 94 94 99 O2 Delivery Nasal Cannula Nasal Cannula Nasal Cannula O2 Flow Rate 3.0 3.0 3.0 Intake and Output 03/11/17 03/11/17 03/12/17 15:00 23:00 07:00 Intake Total 270 ml Output Total 240 ml Balance 30 ml TEJINDER LAGUNA MD Mar 11, 2017 16:59
[2017-03-11] MEDS: oxyCODONE/APAP 5/325 1 TAB TABLET PO PRN (22:29)
[2017-03-12] VITALS (11 sets, daily range): BP systolic 95–147; BP diastolic 45–63
[2017-03-12 06:09] LABS: CALCIUM 8.2 mg/dL (8.5-10.1); CREATININE 0.9 mg/dL (0.6-1.0); GFR 64.3; POTASSIUM 4.3 mmol/L (3.5-5.1)
[2017-03-12 06:11] LABS: BASO % 1 % (0-3); EOS % 8 % (0-3); HEMATOCRIT 31.2 % (36.0-47.0); HEMOGLOBIN 10.1 g/dL (12.0-15.5); LYMPH % 18 % (24-48); MEAN CORPUSCULAR HEMOGLOBIN 29 pg (25-35); MEAN CORPUSCULAR HGB CONC 32 g/dL (31-37); MEAN CORPUSCULAR VOLUME 89 fL (79-100); MONO % 15 % (0-9); NEUT % 58 % (31-73); PLATELET COUNT 142 x10^3/uL (140-400); RED CELL DISTRIBUTION WIDTH 17.7 % (11.5-14.5); WHITE BLOOD COUNT 5.7 x10^3/uL (4.0-11.0)
[2017-03-12] MEDS: IPRATRPIUM/ALBUTEROL 0.5/2.5MG 3 ML NEBU. NEB SCH ×4 (07:27→20:20)
[2017-03-12 07:29] LABS: KAPPA LAMBDA RATIO 1.96 (0.26-1.65)
[2017-03-12 08:25] LABS: IMMUNOGLOBULIN A 258 mg/dL (87-352); IMMUNOGLOBULIN G 2056 mg/dL (700-1600); IMMUNOGLOBULIN M 61 mg/dL (26-217)
[2017-03-12] MEDS ORDERED: FLU VACC QS2017-18 (36MOS+)/PF 0.5 ML SYRINGE. VAX IM ONE (08:30)
[2017-03-12] MEDS ORDERED: INFLUENZA VAX SCREEN BY RX. MC ONE (08:30)
[2017-03-12] MEDS: NYSTATIN TOPICAL POWDER 15GM BOTTLE. TP SCH ×2 (09:00→20:48)
[2017-03-12] MEDS: ISOSORBIDE MONONITRATE ER 30 MG TAB.ER.24H PO SCH (09:00)
[2017-03-12] MEDS: METOPROLOL TART IMMED RELEASE 25 MG TABLET. PO SCH ×2 (09:20→20:47)
[2017-03-12] MEDS: ALLOPURINOL 100 MG TABLET. PO SCH (09:20)
[2017-03-12] MEDS: FUROSEMIDE 40 MG TABLET. PO SCH ×2 (09:20→17:07)
--- NOTE | 2017-03-12 09:46 | PDOC ---
CASSANDRA WOLF MANAGER MED[employer] AFFAIRS 03/12/17 0946: CARDIO Progress Notes Date and Time Date of Service 03/12/2017 Time of Evaluation 0920 Subjective Subjective: No Chest Pain, No shortness of breath, No Palpitations, No Dizziness, Other (appetite not good today) Vitals Vitals Vital Signs Date Time Temp Pulse Resp B/P (MAP) Pulse Ox O2 Delivery O2 Flow Rate FiO2 03/12/17 09:20 98 110/47 03/12/17 07:32 93 Room Air 03/12/17 06:00 18 3.0 03/12/17 04:00 98.0 98.0 Weight Weight [ ] Laboratory Labs Laboratory Tests Test 03/12/17 05:20 White Blood Count 5.7 x10^3/uL (4.0-11.0) Red Blood Count 3.50 x10^6/uL (3.50-5.40) Hemoglobin 10.1 g/dL (12.0-15.5) Hematocrit 31.2 % (36.0-47.0) Mean Corpuscular Volume 89 fL (79-100) Mean Corpuscular Hemoglobin 29 pg (25-35) Mean Corpuscular Hemoglobin Concent 32 g/dL (31-37) Red Cell Distribution Width 17.7 % (11.5-14.5) Platelet Count 142 x10^3/uL (140-400) Neutrophils (%) (Auto) 58 % (31-73) Lymphocytes (%) (Auto) 18 % (24-48) Monocytes (%) (Auto) 15 % (0-9) Eosinophils (%) (Auto) 8 % (0-3) Basophils (%) (Auto) 1 % (0-3) Neutrophils # (Auto) 3.3 x10^3uL (1.8-7.7) Lymphocytes # (Auto) 1.0 x10^3/uL (1.0-4.8) Monocytes # (Auto) 0.9 x10^3/uL (0.0-1.1) Eosinophils # (Auto) 0.4 x10^3/uL (0.0-0.7) Basophils # (Auto) 0.0 x10^3/uL (0.0-0.2) Sodium Level 132 mmol/L (136-145) Potassium Level 4.3 mmol/L (3.5-5.1) Chloride Level 96 mmol/L (98-107) Carbon Dioxide Level 35 mmol/L (21-32) Anion Gap 1 (6-14) Blood Urea Nitrogen 12 mg/dL (7-20) Creatinine 0.9 mg/dL (0.6-1.0) Estimated GFR (Cockcroft-Gault) 64.3 Glucose Level 120 mg/dL (70-99) Calcium Level 8.2 mg/dL (8.5-10.1) Physical Exam HEENT: Neck Supple W Full Motion Chest: Symmetric LUNGS: Other (diminished bases) Heart: S1S2, RRR (SR) Abdomen: Soft N/T, Other (morbid obese) Extremities: No Calf Tenderness, Other (2+ bilateral LE pitting edema) Neurology: alert, oriented, follow commands Assessment Assessment 1. Chronic systolic heart failure with NICM 20-25%: Compensated 2. Hypertension : controlled 3. Leg cellulitis 4. Mantle cell lymphoma (new finding): BM Bx result pending. 5. Arrhythmia: noted with few episodes of NSVT. Last week was noted with possible AFIB with aberrancy (no further episodes) Recommendations 1. Increase lopressor and will uptitrate with goal HR 60-70 if BP trend is adequate. Start on low dose lisinopril 2. Lasix change to PO. Continue with ASA. Will DC imdur for now to accommodate other cardiac meds. 3. Will consider for outpt event monitor 4. Continue with Hemonc treatment plan. 5. Lipid panel 6. Will follow peripherally. NSVT CHF compensated. ASA Start on low dose ACEi and increase BB, DC imdur ' Change lasix to po Good UOP and weight loss. F/U in 2 weeks SAQIB RAY MD 03/12/17 1818: CARDIO Progress Notes Plan Plan Pt. seen and examined. Agree with above DUST MIXER note. Will follow along peripherally. Close outpt follow up in the office in 2 weeks. CASSANDRA WOLF APRN Mar 12, 2017 09:46 SAQIB RAY MD Mar 12, 2017 18:18
--- NOTE | 2017-03-12 09:58 | PDOC ---
PROGRESS NOTES Subjective Subjective c/c - f/u of Mantle cell lymphoma Objective Objective Vital Signs Date Time Temp Pulse Resp B/P (MAP) Pulse Ox O2 Delivery O2 Flow Rate FiO2 03/12/17 09:20 98 110/47 03/12/17 07:32 93 Room Air 03/12/17 06:00 18 3.0 03/12/17 04:00 98.0 98.0 Physical Exam Heart: Normal S1, Normal S2 General: Alert, Oriented X3 Lungs: Clear to auscultation Neuro: Normal speech Psych/Mental Status: Mental status NL Assessment Assessment IMPRESSION AND PLAN: 1. Mantle cell lymphoma involving the left axillary lymph nodes and possible involvement of the lungs. The lymphadenopathy has progressed between 12/2016 to 02/2017. She had an ultrasound-guided biopsy of the left axillary lymph node on 01/01/2017, which revealed mantle cell lymphoma in addition to kappa predominant plasmacytosis. There is a possibility that she has a biclonal lymphoproliferative disorder with both mantle cell lymphoma and plasma cell neoplasm. bone marrow biopsy results pending. CT scan of the neck, chest, abdomen and pelvis [address] reveals axillary, mediastinal and retroperitoneal lymphadenopathy. 14 x 6 mm extraconal mass within the medial right orbit with mass effect on the medial rectus muscle. 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 I discussed in detail with the patient regarding the diagnosis and treatment options for mantle cell lymphoma. I recommended chemotherapy with bendamustine and rituximab given for 6 cycles. She has poor performance status with ECOG performance status score of 3. In addition, she has significant comorbidities including congestive heart failure with an ejection fraction of only 20-25%. The presence of her comorbidities would increase the likelihood of toxicities due to chemotherapy. Mantle cell lymphoma prognostic score is 3, which would indicate a 5-yr survival of 60%. s/p port 03/07/17 s/p bone marrow 03/11/17 Plan chemo with bendeka and rituxan 03/13/17. I reviewed risks and benefits and she agrees to proceed. I also d/w with her the prognosis with and without treatment and I d/w cardiology regarding her prognosis from CHF (survival 3-5 yrs) and I informed her. She expressed concerns regarding transportation. I again mentioned to her that she should start chemo treatments if she can commit to be compliant with f/u for toxicities and f/u for future chemo. She will think about it. 2. Elevated liver function test likely changes from congestive heart failure. Continue to monitor. 3. Hyponatremia due to congestive heart failure, monitor. 4. Congestive heart failure with an ejection fraction of 20-25%. Appreciate Cardiology management. I d/w cardiology. 5. Elevated uric acid - ordered allopurinol 100 mg daily. 6. Bleeding from port site from 7.30 am 02/1717. Resolved. I d/w RN and [place] [address]: Impression: 1. Right cervical chain lymphadenopathy involving level 2, 3 and 4. 2. There is a 14 x 6 mm extraconal mass within the medial right orbit with mass effect on the medial rectus muscle. This finding is indeterminate on noncontrast CT and may reflect orbital involvement of lymphoma versus a hemangioma or venous varix. Further evaluation with MRI brain and orbits is recommended (area of hypoattenuation in the left frontal lobe may be further evaluated). 3. Heterogeneous right thyroid mass may represent thyroid goiter versus lymphomatous involvement versus primary thyroid neoplasm. Correlation with PET/CT may be of benefit. 4. Thoracic lymphadenopathy centered in the left axilla, as detailed above. Additional borderline to pathologically enlarged lymph nodes are identified in the mediastinum and right axilla. 5. Multifocal patchy nodular parenchymal opacities with more focal airspace consolidation the right lower lobe may reflect infectious or inflammatory process versus lymphomatous involvement. Further evaluation with PET/CT may be of benefit. Small right pleural effusion. 6. Spleen is not enlarged. 7. Retroperitoneal and bilateral iliac lymph nodes are identified, as detailed above. No pathologically enlarged inguinal lymph nodes are present. 8. Left central abdominal hernia containing nondilated loops of small bowel. Comment Review of Relevant I have reviewed the following items kailey (where applicable) has been applied. Labs Laboratory Tests Test 03/11/17 05:10 03/12/17 05:20 White Blood Count 6.5 x10^3/uL (4.0-11.0) 5.7 x10^3/uL (4.0-11.0) Red Blood Count 3.75 x10^6/uL (3.50-5.40) 3.50 x10^6/uL (3.50-5.40) Hemoglobin 10.8 g/dL (12.0-15.5) 10.1 g/dL (12.0-15.5) Hematocrit 33.3 % (36.0-47.0) 31.2 % (36.0-47.0) Mean Corpuscular Volume 89 fL (79-100) 89 fL (79-100) Mean Corpuscular Hemoglobin 29 pg (25-35) 29 pg (25-35) Mean Corpuscular Hemoglobin Concent 32 g/dL (31-37) 32 g/dL (31-37) Red Cell Distribution Width 17.7 % (11.5-14.5) 17.7 % (11.5-14.5) Platelet Count 146 x10^3/uL (140-400) 142 x10^3/uL (140-400) Neutrophils (%) (Auto) 65 % (31-73) 58 % (31-73) Lymphocytes (%) (Auto) 15 % (24-48) 18 % (24-48) Monocytes (%) (Auto) 14 % (0-9) 15 % (0-9) Eosinophils (%) (Auto) 6 % (0-3) 8 % (0-3) Basophils (%) (Auto) 1 % (0-3) 1 % (0-3) Neutrophils # (Auto) 4.2 x10^3uL (1.8-7.7) 3.3 x10^3uL (1.8-7.7) Lymphocytes # (Auto) 1.0 x10^3/uL (1.0-4.8) 1.0 x10^3/uL (1.0-4.8) Monocytes # (Auto) 0.9 x10^3/uL (0.0-1.1) 0.9 x10^3/uL (0.0-1.1) Eosinophils # (Auto) 0.4 x10^3/uL (0.0-0.7) 0.4 x10^3/uL (0.0-0.7) Basophils # (Auto) 0.0 x10^3/uL (0.0-0.2) 0.0 x10^3/uL (0.0-0.2) Sodium Level 134 mmol/L (136-145) 132 mmol/L (136-145) Potassium Level 4.3 mmol/L (3.5-5.1) 4.3 mmol/L (3.5-5.1) Chloride Level 96 mmol/L (98-107) 96 mmol/L (98-107) Carbon Dioxide Level 36 mmol/L (21-32) 35 mmol/L (21-32) Anion Gap 2 (6-14) 1 (6-14) Blood Urea Nitrogen 15 mg/dL (7-20) 12 mg/dL (7-20) Creatinine 0.7 mg/dL (0.6-1.0) 0.9 mg/dL (0.6-1.0) Estimated GFR (Cockcroft-Gault) 85.9 64.3 Glucose Level 102 mg/dL (70-99) 120 mg/dL (70-99) Calcium Level 8.5 mg/dL (8.5-10.1) 8.2 mg/dL (8.5-10.1) Laboratory Tests Test 03/12/17 05:20 White Blood Count 5.7 x10^3/uL (4.0-11.0) Red Blood Count 3.50 x10^6/uL (3.50-5.40) Hemoglobin 10.1 g/dL (12.0-15.5) Hematocrit 31.2 % (36.0-47.0) Mean Corpuscular Volume 89 fL (79-100) Mean Corpuscular Hemoglobin 29 pg (25-35) Mean Corpuscular Hemoglobin Concent 32 g/dL (31-37) Red Cell Distribution Width 17.7 % (11.5-14.5) Platelet Count 142 x10^3/uL (140-400) Neutrophils (%) (Auto) 58 % (31-73) Lymphocytes (%) (Auto) 18 % (24-48) Monocytes (%) (Auto) 15 % (0-9) Eosinophils (%) (Auto) 8 % (0-3) Basophils (%) (Auto) 1 % (0-3) Neutrophils # (Auto) 3.3 x10^3uL (1.8-7.7) Lymphocytes # (Auto) 1.0 x10^3/uL (1.0-4.8) Monocytes # (Auto) 0.9 x10^3/uL (0.0-1.1) Eosinophils # (Auto) 0.4 x10^3/uL (0.0-0.7) Basophils # (Auto) 0.0 x10^3/uL (0.0-0.2) Sodium Level 132 mmol/L (136-145) Potassium Level 4.3 mmol/L (3.5-5.1) Chloride Level 96 mmol/L (98-107) Carbon Dioxide Level 35 mmol/L (21-32) Anion Gap 1 (6-14) Blood Urea Nitrogen 12 mg/dL (7-20) Creatinine 0.9 mg/dL (0.6-1.0) Estimated GFR (Cockcroft-Gault) 64.3 Glucose Level 120 mg/dL (70-99) Calcium Level 8.2 mg/dL (8.5-10.1) Medications Current Medications Enoxaparin Sodium (Lovenox 150mg Syringe) 150 mg Q12HR SQ Last administered on 03/08/17 21:20; Start 03/06/17 at 21:00; Stop 03/09/17 at 11:54; Status DC Albuterol/ Ipratropium (Duoneb) 3 ml RTQID NEB Last administered on 03/12/17 07:27; Start 03/06/17 at 20:00 Nystatin (Nystop) 1 john BID TP Last administered on 03/11/17 20:22; Start at 21:00 Ondansetron HCl (Zofran Odt) 4 mg PRN Q6HRS PRN PO NAUSEA/VOMITING Last administered on 03/08/17 06:34; Start 03/06/17 at 18:00 Ceftriaxone Sodium 1 gm/ Sodium Chloride 50 ml @ 100 mls/hr Q24H IV Last administered on 03/11/17 20:21; Start 03/06/17 at 20:00 Oxycodone/ Acetaminophen (Percocet 5/325) 1 tab PRN Q4HRS PRN PO PAIN Last administered on 03/11/17 22:29; Start 03/06/17 at 18:00 Sodium Chloride (Normal Saline Flush) 3 ml PRN DAILY PRN IV AFTER MEDS AND BLOOD DRAWS; Start 03/06/17 at 18:00 Iohexol (Omnipaque 300 Mg/ml) 75 ml 1X ONCE IV ; Start 03/07/17 at 09:15; Stop 03/07/17 at 09:16; Status DC Iohexol (Omnipaque 240 Mg/ml) 50 ml 1X ONCE PO Last administered on 03/07/17 09:15; Start 03/07/17 at 09:15; Stop 03/07/17 at 09:16; Status DC Info (Do NOT chart on this entry -- for MONITORING) 1 each PRN DAILY PRN MC SEE COMMENTS; Start 03/07/17 at 09:15; Stop 03/09/17 at 09:14; Status DC Allopurinol (Zyloprim) 100 mg DAILY PO Last administered on 03/12/17 09:20; Start 03/07/17 at 11:00 Info (Anti-Coagulation Monitoring By Pharmacy) 1 each PRN DAILY PRN MC SEE COMMENTS Last administered on 03/07/17 13:28; Start 03/07/17 at 13:30; Stop at 13:35; Status DC Lidocaine/ Epinephrine (Xylocaine 1%-Epi 1:100,000) 20 ml STK-MED ONCE .ROUTE ; Start 03/07/17 at 15:25; Stop 03/07/17 at 15:26; Status DC Heparin Sodium (Porcine) (Hep Lock Adult) 500 unit STK-MED ONCE IV ; Start 03/07 at 15:25; Stop 03/07/17 at 15:26; Status DC Heparin Sodium/ Sodium Chloride 500 ml @ As Directed STK-MED ONCE .ROUTE ; Start 03/07/17 at 15:25; Stop 03/07/17 at 15:26; Status DC Cefazolin Sodium 0 ml @ As Directed STK-MED ONCE IV ; Start 03/07/17 at 15:58; Stop 03/07/17 at 15:59; Status DC Fentanyl Citrate (Fentanyl 2ml Vial) 100 mcg STK-MED ONCE .ROUTE ; Start at 15:58; Stop 03/07/17 at 15:59; Status DC Heparin Sodium/ Sodium Chloride 1,000 unit 1X ONCE IART Last administered on 16:25; Start 03/07/17 at 16:15; Stop 03/07/17 at 16:16; Status DC Lidocaine/ Epinephrine (Xylocaine 1%-Epi 1:100,000) 20 ml 1X ONCE INJ Last administered on 03/07/17 16:25; Start 03/07/17 at 16:15; Stop 03/07/17 at 16:16 ; Status DC Heparin Sodium (Porcine) (Hep Lock Adult) 500 unit 1X ONCE IV Last administered on 03/07/17 16:30; Start 03/07/17 at 16:15; Stop 03/07/17 at 16:16 ; Status DC Clindamycin Phosphate 50 ml @ As Directed STK-MED ONCE IV ; Start 03/07/17 at 16 :06; Stop 03/07/17 at 16:07; Status DC Ondansetron HCl (Zofran) 4 mg STK-MED ONCE .ROUTE ; Start 03/07/17 at 16:14; Stop 03/07/17 at 16:15; Status DC Clindamycin Phosphate 50 ml @ 100 mls/hr 1X ONCE IV Last administered on 03/07 16:33; Start 03/07/17 at 16:30; Stop 03/07/17 at 16:59; Status DC Ondansetron HCl (Zofran) 4 mg 1X ONCE IV Last administered on 03/07/17 16:32 ; Start 03/07/17 at 16:30; Stop 03/07/17 at 16:31; Status DC Hydralazine HCl (Apresoline) 10 mg PRN Q4HRS PRN IVP ELEVATED BP, SEE COMMENTS ; Start 03/07/17 at 16:45 Isosorbide Mononitrate (Imdur) 30 mg DAILY PO Last administered on 03/11/17 09 :00; Start 03/08/17 at 09:00; Stop 03/12/17 at 09:46; Status DC Metoprolol Tartrate (Lopressor) 12.5 mg BID PO Last administered on 03/12/17 09:20; Start 03/08/17 at 09:00; Stop 03/12/17 at 09:46; Status DC Aspirin (Ecotrin) 81 mg [id number] PO Last administered on 03/08/17 14:06; Start 03/08/17 at 08:00; Stop 03/09/17 at 11:54; Status DC Morphine Sulfate 2 mg 1X ONCE IV Last administered on 03/08/17 11:45; Start 03/08/17 at 11:45; Stop 03/08/17 at 11:46; Status DC Diphenhydramine HCl (Benadryl) 25 mg Q6HRS PRN IVP itching; Start 03/08/17 at 17:30; Status Cancel Diphenhydramine HCl (Benadryl) 50 mg Q8HRS PRN IVP itching Last administered on 03/08/17 17:39; Start 03/08/17 at 17:30 Furosemide (Lasix) 40 mg DAILY IVP Last administered on 03/10/17 11:12; Start 03/09/17 at 10:15; Stop 03/10/17 at 14:39; Status DC Desmopressin Acetate 30 mcg/ Sodium Chloride 57.5 ml @ 115 mls/hr 1X ONCE IV Last administered on 03/09/17 14:48; Start 03/09/17 at 15:00; Stop 03/09/17 at 15:29; Status DC Protamine Sulfate 50 mg 1X ONCE IV Last administered on 03/09/17 16:29; Start 03/09/17 at 15:45; Stop 03/09/17 at 15:46; Status DC Silver Nitrate/ Potassium Nitrate 1 each 1X ONCE TP Last administered on 00:59; Start 03/10/17 at 01:00; Stop 03/10/17 at 01:01; Status DC Thrombin 20,000 unit 1X ONCE TP Last administered on 03/10/17 02:48; Start at 01:00; Stop 03/10/17 at 01:01; Status DC Iohexol (Omnipaque 300 Mg/ml) 50 ml STK-MED ONCE .ROUTE ; Start 03/10/17 at 07: 41; Stop 03/10/17 at 07:42; Status DC Lidocaine/ Epinephrine (Xylocaine 1%-Epi 1:100,000) 20 ml STK-MED ONCE .ROUTE ; Start 03/10/17 at 08:23; Stop 03/10/17 at 08:24; Status DC Thrombin 5,000 unit 1X ONCE TP Last administered on 03/10/17 08:49; Start at 08:30; Stop 03/10/17 at 08:31; Status DC Lidocaine/ Epinephrine (Xylocaine 1%-Epi 1:100,000) 20 ml 1X ONCE INJ Last administered on 03/10/17 08:48; Start 03/10/17 at 08:30; Stop 03/10/17 at 08:31 ; Status DC Furosemide (Lasix) 40 mg [id number] IVP Last administered on 03/11/17 16:00; Start 03/10/17 at 16:00; Stop 03/12/17 at 08:19; Status DC Lidocaine/Sodium Bicarbonate (Buffered Lidocaine 1%) 20 ml STK-MED ONCE IJ ; Start 03/11/17 at 11:40; Stop 03/11/17 at 11:41; Status DC Fentanyl Citrate (Fentanyl 2ml Vial) 100 mcg STK-MED ONCE .ROUTE ; Start at 11:59; Stop 03/11/17 at 12:00; Status DC Midazolam HCl (Versed) 2 mg STK-MED ONCE .ROUTE ; Start 03/11/17 at 11:59; Stop 03/11/17 at 12:00; Status DC Lidocaine/Sodium Bicarbonate (Buffered Lidocaine 1%) 9 ml 1X ONCE IJ Last administered on 03/11/17 12:23; Start 03/11/17 at 12:15; Stop 03/11/17 at 12:16 ; Status DC Midazolam HCl (Versed) 2 mg 1X ONCE IV Last administered on 03/11/17 12:24; Start 03/11/17 at 12:15; Stop 03/11/17 at 12:16; Status DC Fentanyl Citrate (Fentanyl 2ml Vial) 100 mcg 1X ONCE IV Last administered on 12:24; Start 03/11/17 at 12:15; Stop 03/11/17 at 12:16; Status DC Gadobutrol (Gadavist) 7.5 mmol 1X ONCE IV Last administered on 03/11/17 13:23 ; Start 03/11/17 at 13:15; Stop 03/11/17 at 13:16; Status DC Gadobutrol (Gadavist) 7.5 mmol 1X ONCE IV Last administered on 03/11/17 13:23 ; Start 03/11/17 at 13:15; Stop 03/11/17 at 13:16; Status DC Fentanyl Citrate (Fentanyl 2ml Vial) 100 mcg 1X ONCE IV Last administered on 14:00; Start 03/11/17 at 14:00; Stop 03/11/17 at 14:01; Status DC Rituximab 500 mg/ Rituximab 325 mg/ Sodium Chloride 825 ml @ 206.25 mls/ hr 1X ONCE IV ; Start 03/13/17 at 11:30; Stop 03/13/17 at 15:29 Bendamustine HCl 200 mg/Sodium Chloride 500 ml @ 500 mls/hr ONCE ONCE IV ; Start 03/13/17 at 10:30; Stop 03/13/17 at 11:29 Bendamustine HCl 200 mg/Sodium Chloride 500 ml @ 500 mls/hr ONCE ONCE IV ; Start 03/14/17 at 09:00; Stop 03/14/17 at 09:59 Ondansetron HCl 12 mg/Sodium Chloride 56 ml @ 100 mls/hr ONCE ONCE IV ; Start 03/13/17 at 10:00; Stop 03/13/17 at 10:33 Ondansetron HCl 12 mg/Sodium Chloride 56 ml @ 100 mls/hr ONCE ONCE IV ; Start 03/14/17 at 08:30; Stop 03/14/17 at 09:03 Dexamethasone Sodium Phosphate (Decadron) 12 mg ONCE ONCE IV ; Start 03/13/17 at 10:00; Stop 03/13/17 at 10:01 Dexamethasone Sodium Phosphate (Decadron) 12 mg ONCE ONCE IV ; Start 03/14/17 at 08:30; Stop 03/14/17 at 08:31 Diphenhydramine HCl (Benadryl) 25 mg ONCE ONCE IV ; Start 03/13/17 at 10:00; Stop 03/13/17 at 10:01 Acetaminophen (Tylenol) 650 mg ONCE ONCE PO ; Start 03/13/17 at 10:00; Stop at 10:01 Furosemide (Lasix) 40 mg [id number] PO Last administered on 03/12/17 09:20; Start 03/12/17 at 09:00 Info (Do NOT chart on this placeholder) 1 each 1X ONCE MC ; Start 03/12/17 at 08:30; Stop 03/12/17 at 08:31; Status UNV Influenza Virus Vaccine Quadrival (Fluarix Quad [id number] Syringe) 0.5 ml ONCE ONCE VAX IM Last administered on 03/12/17t 09:27; Start 03/12/17 at 08:30; Stop 03/12/17 at 08:31; Status DC Metoprolol Tartrate (Lopressor) 25 mg BID PO ; Start 03/12/17 at 21:00 Lisinopril (Prinivil) 5 mg DAILY PO ; Start 03/13/17 at 09:00 Vitals/I & O Vital Sign - Last 24 Hours 03/11/17 03/11/17 03/11/17 03/11/17 10:00 11:00 12:00 12:00 Pulse 80 84 Resp 17 33 B/P (MAP) 132/65 (87) 115/61 (79) Pulse Ox 94 91 O2 Delivery Room Air Room Air Nasal Cannula Nasal Cannula 03/11/17 03/11/17 03/11/17 03/11/17 12:07 12:12 12:15 12:24 Pulse 79 81 69 Resp 8 5 14 15 Pulse Ox 96 91 94 94 O2 Delivery Nasal Cannula Nasal Cannula Nasal Cannula Nasal Cannula O2 Flow Rate 3.0 3.0 3.0 3.0 03/11/17 03/11/17 03/11/17 03/11/17 12:54 15:00 16:00 16:00 Temp 98.0 98.0 Pulse 76 Resp 18 16 B/P (MAP) 135/77 (96) Pulse Ox 99 96 98 O2 Delivery Nasal Cannula Nasal Cannula Nasal Cannula Nasal Cannula O2 Flow Rate 3.0 3.0 3.0 03/11/17 03/11/17 03/11/17 03/11/17 16:29 19:00 19:31 19:45 Pulse 76 Resp 14 B/P (MAP) 91/36 (54) Pulse Ox 99 98 97 O2 Delivery Nasal Cannula Nasal Cannula Nasal Cannula Nasal Cannula O2 Flow Rate 3.0 3.0 3.0 3.0 03/11/17 03/11/17 03/11/17 03/11/17 20:00 21:00 21:02 22:00 Pulse 82 80 76 79 Resp 14 10 14 B/P (MAP) 94/45 (61) 96/43 103/47 (65) 96/43 (60) Pulse Ox 98 100 93 O2 Delivery Nasal Cannula Nasal Cannula Room Air O2 Flow Rate 3.0 3.0 03/11/17 03/11/17 03/11/17 03/11/17 22:29 23:00 23:29 23:58 Pulse 79 Resp 22 14 14 B/P (MAP) 98/55 (69) Pulse Ox 96 96 96 O2 Delivery Nasal Cannula Nasal Cannula Nasal Cannula Nasal Cannula O2 Flow Rate 3.0 3.0 3.0 3.0 03/12/17 03/12/17 03/12/17 03/12/17 00:05 01:00 02:00 03:00 Temp 97.8 97.8 Pulse 79 77 79 85 Resp 16 16 16 16 B/P (MAP) 95/47 (63) 95/50 (65) 96/48 (64) 147/63 (91) Pulse Ox 96 96 93 95 O2 Delivery Nasal Cannula Nasal Cannula Nasal Cannula Nasal Cannula O2 Flow Rate 3.0 3.0 3.0 3.0 03/12/17 03/12/17 03/12/17 03/12/17 04:00 04:00 05:00 06:00 Temp 98.0 98.0 Pulse 95 83 82 Resp 14 16 18 B/P (MAP) 117/50 (72) 126/50 (75) 117/49 (71) Pulse Ox 95 94 96 O2 Delivery Nasal Cannula Nasal Cannula Nasal Cannula Nasal Cannula O2 Flow Rate 3.0 3.0 3.0 3.0 03/12/17 03/12/17 03/12/17 07:32 09:00 09:20 Pulse 97 98 B/P (MAP) 110/47 110/47 Pulse Ox 93 O2 Delivery Room TEJINDER Marin MD Mar 12, 2017 09:58
--- NOTE | 2017-03-12 11:40 | PDOC ---
PROGRESS NOTES Chief Complaint Chief Complaint Dyspnea Hypotension Leg cellulitis PMH COPD Asthma Sleep Apnea Obesity related hypoventilation syndrome CHF Systolic HF with EF<30% Anxiety History of Present Illness History of Present Illness Pt was laying in bed and conversant. Contact precautions were removed. Central line was not bleeding. Pt discussed feeling anxiety when the nurse was in the room previously. Pt discussed inability to make travel arrangements to receive chemotherapy once out of the hospital. Chemo is scheduled to begin tomorrow after a bone marrow biopsy was performed yesterday. Discussed financial feasibility and plan of care with RN. Bone mets scan done revealing no lesions. 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 General: Alert, Oriented X3, Cooperative, No acute distress Heart: Regular rate, Normal S1, Normal S2 Lungs: Clear Abdomen: Normal bowel sounds, No hepatosplenomegaly, No masses Extremities: No cyanosis, Other (Wound on anterior aspect left leg. Dressing was clean and dry. ) Skin: Other (stasis ulcer on LLE) Labs LABS Laboratory Tests Test 03/12/17 05:20 White Blood Count 5.7 x10^3/uL (4.0-11.0) Red Blood Count 3.50 x10^6/uL (3.50-5.40) Hemoglobin 10.1 g/dL (12.0-15.5) Hematocrit 31.2 % (36.0-47.0) Mean Corpuscular Volume 89 fL (79-100) Mean Corpuscular Hemoglobin 29 pg (25-35) Mean Corpuscular Hemoglobin Concent 32 g/dL (31-37) Red Cell Distribution Width 17.7 % (11.5-14.5) Platelet Count 142 x10^3/uL (140-400) Neutrophils (%) (Auto) 58 % (31-73) Lymphocytes (%) (Auto) 18 % (24-48) Monocytes (%) (Auto) 15 % (0-9) Eosinophils (%) (Auto) 8 % (0-3) Basophils (%) (Auto) 1 % (0-3) Neutrophils # (Auto) 3.3 x10^3uL (1.8-7.7) Lymphocytes # (Auto) 1.0 x10^3/uL (1.0-4.8) Monocytes # (Auto) 0.9 x10^3/uL (0.0-1.1) Eosinophils # (Auto) 0.4 x10^3/uL (0.0-0.7) Basophils # (Auto) 0.0 x10^3/uL (0.0-0.2) Sodium Level 132 mmol/L (136-145) Potassium Level 4.3 mmol/L (3.5-5.1) Chloride Level 96 mmol/L (98-107) Carbon Dioxide Level 35 mmol/L (21-32) Anion Gap 1 (6-14) Blood Urea Nitrogen 12 mg/dL (7-20) Creatinine 0.9 mg/dL (0.6-1.0) Estimated GFR (Cockcroft-Gault) 64.3 Glucose Level 120 mg/dL (70-99) Calcium Level 8.2 mg/dL (8.5-10.1) Magnesium Level 1.8 mg/dL (1.8-2.4) Review of Systems Review of Systems Pt complains of anxiety Pt complains of hunger Pt complains of fatigue Assessment and Plan Assessmemt and Plan Assessment Dyspnea Hypotension Leg cellulitis PMH COPD Asthma Sleep Apnea Obesity related hypoventilation syndrome CHF Systolic HF with EF<30% Anxiety Plan Cont. ICU monitoring Appreciate subspecialty input Cont. Medications Recheck labs Awaiting probable chemo tomorrow Problems: Comment Review of Relevant I have reviewed the following items kailey (where applicable) has been applied. Labs Laboratory Tests Test 03/11/17 05:10 03/12/17 05:20 White Blood Count 6.5 x10^3/uL (4.0-11.0) 5.7 x10^3/uL (4.0-11.0) Red Blood Count 3.75 x10^6/uL (3.50-5.40) 3.50 x10^6/uL (3.50-5.40) Hemoglobin 10.8 g/dL (12.0-15.5) 10.1 g/dL (12.0-15.5) Hematocrit 33.3 % (36.0-47.0) 31.2 % (36.0-47.0) Mean Corpuscular Volume 89 fL (79-100) 89 fL (79-100) Mean Corpuscular Hemoglobin 29 pg (25-35) 29 pg (25-35) Mean Corpuscular Hemoglobin Concent 32 g/dL (31-37) 32 g/dL (31-37) Red Cell Distribution Width 17.7 % (11.5-14.5) 17.7 % (11.5-14.5) Platelet Count 146 x10^3/uL (140-400) 142 x10^3/uL (140-400) Neutrophils (%) (Auto) 65 % (31-73) 58 % (31-73) Lymphocytes (%) (Auto) 15 % (24-48) 18 % (24-48) Monocytes (%) (Auto) 14 % (0-9) 15 % (0-9) Eosinophils (%) (Auto) 6 % (0-3) 8 % (0-3) Basophils (%) (Auto) 1 % (0-3) 1 % (0-3) Neutrophils # (Auto) 4.2 x10^3uL (1.8-7.7) 3.3 x10^3uL (1.8-7.7) Lymphocytes # (Auto) 1.0 x10^3/uL (1.0-4.8) 1.0 x10^3/uL (1.0-4.8) Monocytes # (Auto) 0.9 x10^3/uL (0.0-1.1) 0.9 x10^3/uL (0.0-1.1) Eosinophils # (Auto) 0.4 x10^3/uL (0.0-0.7) 0.4 x10^3/uL (0.0-0.7) Basophils # (Auto) 0.0 x10^3/uL (0.0-0.2) 0.0 x10^3/uL (0.0-0.2) Sodium Level 134 mmol/L (136-145) 132 mmol/L (136-145) Potassium Level 4.3 mmol/L (3.5-5.1) 4.3 mmol/L (3.5-5.1) Chloride Level 96 mmol/L (98-107) 96 mmol/L (98-107) Carbon Dioxide Level 36 mmol/L (21-32) 35 mmol/L (21-32) Anion Gap 2 (6-14) 1 (6-14) Blood Urea Nitrogen 15 mg/dL (7-20) 12 mg/dL (7-20) Creatinine 0.7 mg/dL (0.6-1.0) 0.9 mg/dL (0.6-1.0) Estimated GFR (Cockcroft-Gault) 85.9 64.3 Glucose Level 102 mg/dL (70-99) 120 mg/dL (70-99) Calcium Level 8.5 mg/dL (8.5-10.1) 8.2 mg/dL (8.5-10.1) Magnesium Level 1.8 mg/dL (1.8-2.4) Laboratory Tests Test 03/12/17 05:20 White Blood Count 5.7 x10^3/uL (4.0-11.0) Red Blood Count 3.50 x10^6/uL (3.50-5.40) Hemoglobin 10.1 g/dL (12.0-15.5) Hematocrit 31.2 % (36.0-47.0) Mean Corpuscular Volume 89 fL (79-100) Mean Corpuscular Hemoglobin 29 pg (25-35) Mean Corpuscular Hemoglobin Concent 32 g/dL (31-37) Red Cell Distribution Width 17.7 % (11.5-14.5) Platelet Count 142 x10^3/uL (140-400) Neutrophils (%) (Auto) 58 % (31-73) Lymphocytes (%) (Auto) 18 % (24-48) Monocytes (%) (Auto) 15 % (0-9) Eosinophils (%) (Auto) 8 % (0-3) Basophils (%) (Auto) 1 % (0-3) Neutrophils # (Auto) 3.3 x10^3uL (1.8-7.7) Lymphocytes # (Auto) 1.0 x10^3/uL (1.0-4.8) Monocytes # (Auto) 0.9 x10^3/uL (0.0-1.1) Eosinophils # (Auto) 0.4 x10^3/uL (0.0-0.7) Basophils # (Auto) 0.0 x10^3/uL (0.0-0.2) Sodium Level 132 mmol/L (136-145) Potassium Level 4.3 mmol/L (3.5-5.1) Chloride Level 96 mmol/L (98-107) Carbon Dioxide Level 35 mmol/L (21-32) Anion Gap 1 (6-14) Blood Urea Nitrogen 12 mg/dL (7-20) Creatinine 0.9 mg/dL (0.6-1.0) Estimated GFR (Cockcroft-Gault) 64.3 Glucose Level 120 mg/dL (70-99) Calcium Level 8.2 mg/dL (8.5-10.1) Magnesium Level 1.8 mg/dL (1.8-2.4) Medications Current Medications Enoxaparin Sodium (Lovenox 150mg Syringe) 150 mg Q12HR SQ Last administered on 03/08/17 21:20; Start 03/06/17 at 21:00; Stop 03/09/17 at 11:54; Status DC Albuterol/ Ipratropium (Duoneb) 3 ml RTQID NEB Last administered on 03/12/17 11:09; Start 03/06/17 at 20:00 Nystatin (Nystop) 1 john BID TP Last administered on 03/11/17 20:22; Start at 21:00 Ondansetron HCl (Zofran Odt) 4 mg PRN Q6HRS PRN PO NAUSEA/VOMITING Last administered on 03/08/17 06:34; Start 03/06/17 at 18:00 Ceftriaxone Sodium 1 gm/ Sodium Chloride 50 ml @ 100 mls/hr Q24H IV Last administered on 03/11/17 20:21; Start 03/06/17 at 20:00 Oxycodone/ Acetaminophen (Percocet 5/325) 1 tab PRN Q4HRS PRN PO PAIN Last administered on 03/11/17 22:29; Start 03/06/17 at 18:00 Sodium Chloride (Normal Saline Flush) 3 ml PRN DAILY PRN IV AFTER MEDS AND BLOOD DRAWS; Start 03/06/17 at 18:00 Iohexol (Omnipaque 300 Mg/ml) 75 ml 1X ONCE IV ; Start 03/07/17 at 09:15; Stop 03/07/17 at 09:16; Status DC Iohexol (Omnipaque 240 Mg/ml) 50 ml 1X ONCE PO Last administered on 03/07/17 09:15; Start 03/07/17 at 09:15; Stop 03/07/17 at 09:16; Status DC Info (Do NOT chart on this entry -- for MONITORING) 1 each PRN DAILY PRN MC SEE COMMENTS; Start 03/07/17 at 09:15; Stop 03/09/17 at 09:14; Status DC Allopurinol (Zyloprim) 100 mg DAILY PO Last administered on 03/12/17 09:20; Start 03/07/17 at 11:00 Info (Anti-Coagulation Monitoring By Pharmacy) 1 each PRN DAILY PRN MC SEE COMMENTS Last administered on 03/07/17 13:28; Start 03/07/17 at 13:30; Stop at 13:35; Status DC Lidocaine/ Epinephrine (Xylocaine 1%-Epi 1:100,000) 20 ml STK-MED ONCE .ROUTE ; Start 03/07/17 at 15:25; Stop 03/07/17 at 15:26; Status DC Heparin Sodium (Porcine) (Hep Lock Adult) 500 unit STK-MED ONCE IV ; Start 03/07 at 15:25; Stop 03/07/17 at 15:26; Status DC Heparin Sodium/ Sodium Chloride 500 ml @ As Directed STK-MED ONCE .ROUTE ; Start 03/07/17 at 15:25; Stop 03/07/17 at 15:26; Status DC Cefazolin Sodium 0 ml @ As Directed STK-MED ONCE IV ; Start 03/07/17 at 15:58; Stop 03/07/17 at 15:59; Status DC Fentanyl Citrate (Fentanyl 2ml Vial) 100 mcg STK-MED ONCE .ROUTE ; Start at 15:58; Stop 03/07/17 at 15:59; Status DC Heparin Sodium/ Sodium Chloride 1,000 unit 1X ONCE IART Last administered on 16:25; Start 03/07/17 at 16:15; Stop 03/07/17 at 16:16; Status DC Lidocaine/ Epinephrine (Xylocaine 1%-Epi 1:100,000) 20 ml 1X ONCE INJ Last administered on 03/07/17 16:25; Start 03/07/17 at 16:15; Stop 03/07/17 at 16:16 ; Status DC Heparin Sodium (Porcine) (Hep Lock Adult) 500 unit 1X ONCE IV Last administered on 03/07/17 16:30; Start 03/07/17 at 16:15; Stop 03/07/17 at 16:16 ; Status DC Clindamycin Phosphate 50 ml @ As Directed STK-MED ONCE IV ; Start 03/07/17 at 16 :06; Stop 03/07/17 at 16:07; Status DC Ondansetron HCl (Zofran) 4 mg STK-MED ONCE .ROUTE ; Start 03/07/17 at 16:14; Stop 03/07/17 at 16:15; Status DC Clindamycin Phosphate 50 ml @ 100 mls/hr 1X ONCE IV Last administered on 03/07 16:33; Start 03/07/17 at 16:30; Stop 03/07/17 at 16:59; Status DC Ondansetron HCl (Zofran) 4 mg 1X ONCE IV Last administered on 03/07/17 16:32 ; Start 03/07/17 at 16:30; Stop 03/07/17 at 16:31; Status DC Hydralazine HCl (Apresoline) 10 mg PRN Q4HRS PRN IVP ELEVATED BP, SEE COMMENTS ; Start 03/07/17 at 16:45 Isosorbide Mononitrate (Imdur) 30 mg DAILY PO Last administered on 03/11/17 09 :00; Start 03/08/17 at 09:00; Stop 03/12/17 at 09:46; Status DC Metoprolol Tartrate (Lopressor) 12.5 mg BID PO Last administered on 03/12/17 09:20; Start 03/08/17 at 09:00; Stop 03/12/17 at 09:46; Status DC Aspirin (Ecotrin) 81 mg [id number] PO Last administered on 03/08/17 14:06; Start 03/08/17 at 08:00; Stop 03/09/17 at 11:54; Status DC Morphine Sulfate 2 mg 1X ONCE IV Last administered on 03/08/17 11:45; Start 03/08/17 at 11:45; Stop 03/08/17 at 11:46; Status DC Diphenhydramine HCl (Benadryl) 25 mg Q6HRS PRN IVP itching; Start 03/08/17 at 17:30; Status Cancel Diphenhydramine HCl (Benadryl) 50 mg Q8HRS PRN IVP itching Last administered on 03/08/17 17:39; Start 03/08/17 at 17:30 Furosemide (Lasix) 40 mg DAILY IVP Last administered on 03/10/17 11:12; Start 03/09/17 at 10:15; Stop 03/10/17 at 14:39; Status DC Desmopressin Acetate 30 mcg/ Sodium Chloride 57.5 ml @ 115 mls/hr 1X ONCE IV Last administered on 03/09/17 14:48; Start 03/09/17 at 15:00; Stop 03/09/17 at 15:29; Status DC Protamine Sulfate 50 mg 1X ONCE IV Last administered on 03/09/17 16:29; Start 03/09/17 at 15:45; Stop 03/09/17 at 15:46; Status DC Silver Nitrate/ Potassium Nitrate 1 each 1X ONCE TP Last administered on 00:59; Start 03/10/17 at 01:00; Stop 03/10/17 at 01:01; Status DC Thrombin 20,000 unit 1X ONCE TP Last administered on 03/10/17 02:48; Start at 01:00; Stop 03/10/17 at 01:01; Status DC Iohexol (Omnipaque 300 Mg/ml) 50 ml STK-MED ONCE .ROUTE ; Start 03/10/17 at 07: 41; Stop 03/10/17 at 07:42; Status DC Lidocaine/ Epinephrine (Xylocaine 1%-Epi 1:100,000) 20 ml STK-MED ONCE .ROUTE ; Start 03/10/17 at 08:23; Stop 03/10/17 at 08:24; Status DC Thrombin 5,000 unit 1X ONCE TP Last administered on 03/10/17 08:49; Start at 08:30; Stop 03/10/17 at 08:31; Status DC Lidocaine/ Epinephrine (Xylocaine 1%-Epi 1:100,000) 20 ml 1X ONCE INJ Last administered on 03/10/17 08:48; Start 03/10/17 at 08:30; Stop 03/10/17 at 08:31 ; Status DC Furosemide (Lasix) 40 mg [id number] IVP Last administered on 03/11/17 16:00; Start 03/10/17 at 16:00; Stop 03/12/17 at 08:19; Status DC Lidocaine/Sodium Bicarbonate (Buffered Lidocaine 1%) 20 ml STK-MED ONCE IJ ; Start 03/11/17 at 11:40; Stop 03/11/17 at 11:41; Status DC Fentanyl Citrate (Fentanyl 2ml Vial) 100 mcg STK-MED ONCE .ROUTE ; Start at 11:59; Stop 03/11/17 at 12:00; Status DC Midazolam HCl (Versed) 2 mg STK-MED ONCE .ROUTE ; Start 03/11/17 at 11:59; Stop 03/11/17 at 12:00; Status DC Lidocaine/Sodium Bicarbonate (Buffered Lidocaine 1%) 9 ml 1X ONCE IJ Last administered on 03/11/17 12:23; Start 03/11/17 at 12:15; Stop 03/11/17 at 12:16 ; Status DC Midazolam HCl (Versed) 2 mg 1X ONCE IV Last administered on 03/11/17 12:24; Start 03/11/17 at 12:15; Stop 03/11/17 at 12:16; Status DC Fentanyl Citrate (Fentanyl 2ml Vial) 100 mcg 1X ONCE IV Last administered on 12:24; Start 03/11/17 at 12:15; Stop 03/11/17 at 12:16; Status DC Gadobutrol (Gadavist) 7.5 mmol 1X ONCE IV Last administered on 03/11/17 13:23 ; Start 03/11/17 at 13:15; Stop 03/11/17 at 13:16; Status DC Gadobutrol (Gadavist) 7.5 mmol 1X ONCE IV Last administered on 03/11/17 13:23 ; Start 03/11/17 at 13:15; Stop 03/11/17 at 13:16; Status DC Fentanyl Citrate (Fentanyl 2ml Vial) 100 mcg 1X ONCE IV Last administered on t 14:00; Start 03/11/17 at 14:00; Stop 03/11/17 at 14:01; Status DC Rituximab 500 mg/ Rituximab 325 mg/ Sodium Chloride 825 ml @ 206.25 mls/ hr 1X ONCE IV ; Start 03/13/17 at 11:30; Stop 03/13/17 at 15:29 Bendamustine HCl 200 mg/Sodium Chloride 500 ml @ 500 mls/hr ONCE ONCE IV ; Start 03/13/17 at 10:30; Stop 03/13/17 at 11:29 Bendamustine HCl 200 mg/Sodium Chloride 500 ml @ 500 mls/hr ONCE ONCE IV ; Start 03/14/17 at 09:00; Stop 03/14/17 at 09:59 Ondansetron HCl 12 mg/Sodium Chloride 56 ml @ 100 mls/hr ONCE ONCE IV ; Start 03/13/17 at 10:00; Stop 03/13/17 at 10:33 Ondansetron HCl 12 mg/Sodium Chloride 56 ml @ 100 mls/hr ONCE ONCE IV ; Start 03/14/17 at 08:30; Stop 03/14/17 at 09:03 Dexamethasone Sodium Phosphate (Decadron) 12 mg ONCE ONCE IV ; Start 03/13/17 at 10:00; Stop 03/13/17 at 10:01 Dexamethasone Sodium Phosphate (Decadron) 12 mg ONCE ONCE IV ; Start 03/14/17 at 08:30; Stop 03/14/17 at 08:31 Diphenhydramine HCl (Benadryl) 25 mg ONCE ONCE IV ; Start 03/13/17 at 10:00; Stop 03/13/17 at 10:01 Acetaminophen (Tylenol) 650 mg ONCE ONCE PO ; Start 03/13/17 at 10:00; Stop at 10:01 Furosemide (Lasix) 40 mg [id number] PO Last administered on 03/12/17t 09:20; Start 03/12/17 at 09:00 Info (Do NOT chart on this placeholder) 1 each 1X ONCE MC ; Start 03/12/17 at 08:30; Stop 03/12/17 at 08:31; Status UNV Influenza Virus Vaccine Quadrival (Fluarix Quad [id number] Syringe) 0.5 ml ONCE ONCE VAX IM Last administered on 03/12/17t 09:27; Start 03/12/17 at 08:30; Stop 03/12/17 at 08:31; Status DC Metoprolol Tartrate (Lopressor) 25 mg BID PO ; Start 03/12/17 at 21:00 Lisinopril (Prinivil) 5 mg DAILY PO ; Start 03/13/17 at 09:00 Vitals/I & O Vital Sign - Last 24 Hours 03/11/17 03/11/17 03/11/17 03/11/17 12:00 12:00 12:07 12:12 Pulse 79 81 Resp 8 5 Pulse Ox 96 91 O2 Delivery Nasal Cannula Nasal Cannula Nasal Cannula Nasal Cannula O2 Flow Rate 3.0 3.0 03/11/17 03/11/17 03/11/17 03/11/17 12:15 12:24 12:54 15:00 Pulse 69 76 Resp 14 15 18 B/P (MAP) 135/77 (96) Pulse Ox 94 94 99 96 O2 Delivery Nasal Cannula Nasal Cannula Nasal Cannula Nasal Cannula O2 Flow Rate 3.0 3.0 3.0 3.0 03/11/17 03/11/17 03/11/17 03/11/17 16:00 16:00 16:29 19:00 Temp 98.0 98.0 Pulse 76 Resp 16 14 B/P (MAP) 91/36 (54) Pulse Ox 98 99 98 O2 Delivery Nasal Cannula Nasal Cannula Nasal Cannula Nasal Cannula O2 Flow Rate 3.0 3.0 3.0 03/11/17 03/11/17 03/11/17 03/11/17 19:31 19:45 20:00 21:00 Pulse 82 80 Resp 14 B/P (MAP) 94/45 (61) 96/43 Pulse Ox 97 98 O2 Delivery Nasal Cannula Nasal Cannula Nasal Cannula O2 Flow Rate 3.0 3.0 3.0 03/11/17 03/11/17 03/11/17 03/11/17 21:02 22:00 22:29 23:00 Pulse 76 79 79 Resp 10 14 22 14 B/P (MAP) 103/47 (65) 96/43 (60) 98/55 (69) Pulse Ox 100 93 96 96 O2 Delivery Nasal Cannula Room Air Nasal Cannula Nasal Cannula O2 Flow Rate 3.0 3.0 3.0 03/11/17 03/11/17 03/12/17 03/12/17 23:29 23:58 00:05 01:00 Temp 97.8 97.8 Pulse 79 77 Resp 14 16 16 B/P (MAP) 95/47 (63) 95/50 (65) Pulse Ox 96 96 96 O2 Delivery Nasal Cannula Nasal Cannula Nasal Cannula Nasal Cannula O2 Flow Rate 3.0 3.0 3.0 3.0 03/12/17 03/12/17 03/12/17 03/12/17 02:00 03:00 04:00 04:00 Temp 98.0 98.0 Pulse 79 85 95 Resp 16 16 14 B/P (MAP) 96/48 (64) 147/63 (91) 117/50 (72) Pulse Ox 93 95 95 O2 Delivery Nasal Cannula Nasal Cannula Nasal Cannula Nasal Cannula O2 Flow Rate 3.0 3.0 3.0 3.0 03/12/17 03/12/17 03/12/17 03/12/17 05:00 06:00 07:32 09:00 Pulse 83 82 97 Resp 16 18 B/P (MAP) 126/50 (75) 117/49 (71) 110/47 Pulse Ox 94 96 93 O2 Delivery Nasal Cannula Nasal Cannula Room Air O2 Flow Rate 3.0 3.0 03/12/17 03/12/17 09:20 11:09 Pulse 98 B/P (MAP) 110/47 Pulse Ox 96 O2 Delivery Nasal Cannula O2 Flow Rate 2.0 LETA CALLOWAY III DO Mar 12, 2017 11:40
[2017-03-12] MEDS ORDERED: METOPROLOL TART IMMED RELEASE 25 MG TABLET. PO ONE (12:30)
[2017-03-12] MEDS ORDERED: LISINOPRIL 2.5 MG TABLET PO ONE (12:30)
[2017-03-12 13:08] LABS: CHOLESTEROL/HDL RATIO 4.4
--- NOTE | 2017-03-12 15:45 | PDOC2 ---
PALLIATIVE CARE Palliative Care Note Palliative Care Spoke with Ms Oates regarding her goals and plans for chemotherapy. She will not make a decision regarding chemotherapy until she has spoke with Bora and Juan friends whom she relies on for support and rides. Patient understands she is scheduled to have chemotherapy tomorrow but states she "will not have this until she has talked with her friends." "I don't want to , but I'm not afraid to " States she is considering moving to [place] to a new apartment and will be getting her health care from [place] physicians. Code States: DNR/DNI Patient states she has more information for Medicaid Application. Spoke with Ambreen from [facility] who will obtain this information from patient. Meeting offered to facilitate discussion about chemotherapy with her and her friends but patient would not commit to meeting. Plan: Will speak with patient again tomorrow and offer more discussion. FIOR VALENTE Mar 12, 2017 15:45
[2017-03-12] MEDS: ONDANSETRON ODT 4 MG TAB.RAPDIS. PO PRN (22:01)
[2017-03-13] VITALS (13 sets, daily range): BP systolic 118–148; BP diastolic 57–77
[2017-03-13] MEDS ORDERED: POLYETHYLENE GLYCOL 3350 17 GM PACKET. PO PRN (06:15)
[2017-03-13] MEDS ORDERED: ACETAMINOPHEN 325 MG TABLET. PO ONE (06:30)
[2017-03-13] MEDS ORDERED: NORMAL SALINE IV ONE ×3 (06:30→08:00)
[2017-03-13] MEDS ORDERED: ONDANSETRON IV ONE (06:30)
[2017-03-13] MEDS ORDERED: DEXAMETHASONE SOD PHOS 4 MG/ML VIAL IV ONE (06:30)
[2017-03-13] MEDS ORDERED: diphenhydrAMINE 50 MG/ML VIAL IV ONE (06:30)
[2017-03-13 06:36] LABS: CALCIUM 8.2 mg/dL (8.5-10.1); CREATININE 0.9 mg/dL (0.6-1.0); GFR 64.3; POTASSIUM 4.1 mmol/L (3.5-5.1)
[2017-03-13 06:37] LABS: BASO # 0.1 x10^3/uL (0.0-0.2); BASO % 1 % (0-3); EOS % 6 % (0-3); HEMATOCRIT 31.8 % (36.0-47.0); HEMOGLOBIN 10.4 g/dL (12.0-15.5); LYMPH % 17 % (24-48); MEAN CORPUSCULAR HEMOGLOBIN 29 pg (25-35); MEAN CORPUSCULAR HGB CONC 33 g/dL (31-37); MEAN CORPUSCULAR VOLUME 89 fL (79-100); MONO % 14 % (0-9); NEUT % 63 % (31-73); PLATELET COUNT 149 x10^3/uL (140-400); RED BLOOD COUNT 3.59 x10^6/uL (3.50-5.40); RED CELL DISTRIBUTION WIDTH 17.7 % (11.5-14.5); WHITE BLOOD COUNT 5.8 x10^3/uL (4.0-11.0)
[2017-03-13] MEDS: IPRATRPIUM/ALBUTEROL 0.5/2.5MG 3 ML NEBU. NEB SCH ×4 (06:47→20:00)
[2017-03-13] MEDS ORDERED: BENDAMUSTINE IV ONE (07:00)
[2017-03-13] MEDS ORDERED: RITUXIMAB IV ONE (08:00)
[2017-03-13] MEDS ORDERED: LISINOPRIL 5 MG TABLET. PO SCH (09:00)
[2017-03-13] MEDS ORDERED: LISINOPRIL 2.5 MG TABLET PO SCH (09:00)
[2017-03-13] MEDS: NYSTATIN TOPICAL POWDER 15GM BOTTLE. TP SCH ×2 (09:00→21:00)
[2017-03-13] MEDS: ALLOPURINOL 100 MG TABLET. PO SCH (10:04)
[2017-03-13] MEDS: FUROSEMIDE 40 MG TABLET. PO SCH ×2 (10:05→17:18)
[2017-03-13] MEDS: METOPROLOL TART IMMED RELEASE 25 MG TABLET. PO SCH ×2 (10:05→22:03)
--- NOTE | 2017-03-13 10:52 | PDOC ---
PROGRESS NOTES Subjective Subjective c/c - f/u of MAntle cell NHL ROS - no CP Objective Objective Vital Signs Date Time Temp Pulse Resp B/P (MAP) Pulse Ox O2 Delivery O2 Flow Rate FiO2 03/13/17 10:31 98.5 90 20 133/65 (87) 90 Room Air 98.5 03/13/17 08:00 3.0 Physical Exam Abdomen: No tenderness Heart: Normal S1, Normal S2 Extremities: No clubbing General: Alert, Oriented X3, No acute distress Lungs: Clear to auscultation MUSCULOSKELETAL: No joint tenderness Neck: Supple Neuro: Normal speech Psych/Mental Status: Mental status NL Skin: No significant lesion Assessment Assessment IMPRESSION AND PLAN: 1. Mantle cell lymphoma involving the left axillary lymph nodes and possible involvement of the lungs. The lymphadenopathy has progressed between 12/2016 to 02/2017. She had an ultrasound-guided biopsy of the left axillary lymph node on 01/01/2017, which revealed mantle cell lymphoma in addition to kappa predominant plasmacytosis. There is a possibility that she has a biclonal lymphoproliferative disorder with both mantle cell lymphoma and plasma cell neoplasm. bone marrow biopsy results pending. CT scan of the neck, chest, abdomen and pelvis [address] reveals axillary, mediastinal and retroperitoneal lymphadenopathy. 14 x 6 mm extraconal mass within the medial right orbit with mass effect on the medial rectus muscle. 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 I discussed in detail with the patient regarding the diagnosis and treatment options for mantle cell lymphoma. I recommended chemotherapy with bendamustine and rituximab given for 6 cycles. She has poor performance status with ECOG performance status score of 3. In addition, she has significant comorbidities including congestive heart failure with an ejection fraction of only 20-25%. The presence of her comorbidities would increase the likelihood of toxicities due to chemotherapy. Mantle cell lymphoma prognostic score is 3, which would indicate a 5-yr survival of 60%. s/p port 03/07/17 s/p bone marrow 03/11/17 Plan chemo with bendeka and rituxan 03/13/17. I reviewed risks and benefits and she agrees to proceed. I also d/w with her the prognosis with and without treatment and I d/w cardiology regarding her prognosis from CHF (survival 3-5 yrs) and I informed her. She expressed concerns regarding transportation. She decided to pursue with chemotherapy. She was started on Rituxan and bendeka 03/13/17. I d/w chemo nurse, and rituxan infusion is ongoing and no reactions noted. Continue to monitor for toxicities. She will get Cycle 1Day 2 tomorrow and then she can be discharged with f/u with me in 1-2 weeks. 2. Elevated liver function test likely changes from congestive heart failure. Continue to monitor. 3. Hyponatremia due to congestive heart failure, monitor. 4. Congestive heart failure with an ejection fraction of 20-25%. Appreciate Cardiology management. I d/w cardiology. 5. Elevated uric acid - ordered allopurinol 100 mg daily. 6. Bleeding from port site from 7.30 am 02/1717. Resolved. I d/w RN [place] [address]: Impression: 1. Right cervical chain lymphadenopathy involving level 2, 3 and 4. 2. There is a 14 x 6 mm extraconal mass within the medial right orbit with mass effect on the medial rectus muscle. This finding is indeterminate on noncontrast CT and may reflect orbital involvement of lymphoma versus a hemangioma or venous varix. Further evaluation with MRI brain and orbits is recommended (area of hypoattenuation in the left frontal lobe may be further evaluated). 3. Heterogeneous right thyroid mass may represent thyroid goiter versus lymphomatous involvement versus primary thyroid neoplasm. Correlation with PET/CT may be of benefit. 4. Thoracic lymphadenopathy centered in the left axilla, as detailed above. Additional borderline to pathologically enlarged lymph nodes are identified in the mediastinum and right axilla. 5. Multifocal patchy nodular parenchymal opacities with more focal airspace consolidation the right lower lobe may reflect infectious or inflammatory process versus lymphomatous involvement. Further evaluation with PET/CT may be of benefit. Small right pleural effusion. 6. Spleen is not enlarged. 7. Retroperitoneal and bilateral iliac lymph nodes are identified, as detailed above. No pathologically enlarged inguinal lymph nodes are present. 8. Left central abdominal hernia containing nondilated loops of small bowel. Comment Review of Relevant I have reviewed the following items kailey (where applicable) has been applied. Labs Comment Review of Relevant I have reviewed the following items kailey (where applicable) has been applied. Labs Laboratory Tests Test 03/12/17 05:20 03/13/17 06:15 White Blood Count 5.7 x10^3/uL (4.0-11.0) 5.8 x10^3/uL (4.0-11.0) Red Blood Count 3.50 x10^6/uL (3.50-5.40) 3.59 x10^6/uL (3.50-5.40) Hemoglobin 10.1 g/dL (12.0-15.5) 10.4 g/dL (12.0-15.5) Hematocrit 31.2 % (36.0-47.0) 31.8 % (36.0-47.0) Mean Corpuscular Volume 89 fL (79-100) 89 fL (79-100) Mean Corpuscular Hemoglobin 29 pg (25-35) 29 pg (25-35) Mean Corpuscular Hemoglobin Concent 32 g/dL (31-37) 33 g/dL (31-37) Red Cell Distribution Width 17.7 % (11.5-14.5) 17.7 % (11.5-14.5) Platelet Count 142 x10^3/uL (140-400) 149 x10^3/uL (140-400) Neutrophils (%) (Auto) 58 % (31-73) 63 % (31-73) Lymphocytes (%) (Auto) 18 % (24-48) 17 % (24-48) Monocytes (%) (Auto) 15 % (0-9) 14 % (0-9) Eosinophils (%) (Auto) 8 % (0-3) 6 % (0-3) Basophils (%) (Auto) 1 % (0-3) 1 % (0-3) Neutrophils # (Auto) 3.3 x10^3uL (1.8-7.7) 3.7 x10^3uL (1.8-7.7) Lymphocytes # (Auto) 1.0 x10^3/uL (1.0-4.8) 1.0 x10^3/uL (1.0-4.8) Monocytes # (Auto) 0.9 x10^3/uL (0.0-1.1) 0.8 x10^3/uL (0.0-1.1) Eosinophils # (Auto) 0.4 x10^3/uL (0.0-0.7) 0.3 x10^3/uL (0.0-0.7) Basophils # (Auto) 0.0 x10^3/uL (0.0-0.2) 0.1 x10^3/uL (0.0-0.2) Sodium Level 132 mmol/L (136-145) 135 mmol/L (136-145) Potassium Level 4.3 mmol/L (3.5-5.1) 4.1 mmol/L (3.5-5.1) Chloride Level 96 mmol/L (98-107) 97 mmol/L (98-107) Carbon Dioxide Level 35 mmol/L (21-32) 37 mmol/L (21-32) Anion Gap 1 (6-14) 1 (6-14) Blood Urea Nitrogen 12 mg/dL (7-20) 14 mg/dL (7-20) Creatinine 0.9 mg/dL (0.6-1.0) 0.9 mg/dL (0.6-1.0) Estimated GFR (Cockcroft-Gault) 64.3 64.3 Glucose Level 120 mg/dL (70-99) 101 mg/dL (70-99) Calcium Level 8.2 mg/dL (8.5-10.1) 8.2 mg/dL (8.5-10.1) Magnesium Level 1.8 mg/dL (1.8-2.4) Triglycerides Level 56 mg/dL (0-150) Cholesterol Level 87 mg/dL (0-200) LDL Cholesterol, Calculated 56 mg/dL (0-100) VLDL Cholesterol, Calculated 11 mg/dL (0-40) Non-HDL Cholesterol Calculated 67 mg/dL (0-129) HDL Cholesterol 20 mg/dL (40-60) Cholesterol/HDL Ratio 4.4 Laboratory Tests Test 03/13/17 06:15 White Blood Count 5.8 x10^3/uL (4.0-11.0) Red Blood Count 3.59 x10^6/uL (3.50-5.40) Hemoglobin 10.4 g/dL (12.0-15.5) Hematocrit 31.8 % (36.0-47.0) Mean Corpuscular Volume 89 fL (79-100) Mean Corpuscular Hemoglobin 29 pg (25-35) Mean Corpuscular Hemoglobin Concent 33 g/dL (31-37) Red Cell Distribution Width 17.7 % (11.5-14.5) Platelet Count 149 x10^3/uL (140-400) Neutrophils (%) (Auto) 63 % (31-73) Lymphocytes (%) (Auto) 17 % (24-48) Monocytes (%) (Auto) 14 % (0-9) Eosinophils (%) (Auto) 6 % (0-3) Basophils (%) (Auto) 1 % (0-3) Neutrophils # (Auto) 3.7 x10^3uL (1.8-7.7) Lymphocytes # (Auto) 1.0 x10^3/uL (1.0-4.8) Monocytes # (Auto) 0.8 x10^3/uL (0.0-1.1) Eosinophils # (Auto) 0.3 x10^3/uL (0.0-0.7) Basophils # (Auto) 0.1 x10^3/uL (0.0-0.2) Sodium Level 135 mmol/L (136-145) Potassium Level 4.1 mmol/L (3.5-5.1) Chloride Level 97 mmol/L (98-107) Carbon Dioxide Level 37 mmol/L (21-32) Anion Gap 1 (6-14) Blood Urea Nitrogen 14 mg/dL (7-20) Creatinine 0.9 mg/dL (0.6-1.0) Estimated GFR (Cockcroft-Gault) 64.3 Glucose Level 101 mg/dL (70-99) Calcium Level 8.2 mg/dL (8.5-10.1) Medications Current Medications Enoxaparin Sodium (Lovenox 150mg Syringe) 150 mg Q12HR SQ Last administered on 03/08/17 21:20; Start 03/06/17 at 21:00; Stop 03/09/17 at 11:54; Status DC Albuterol/ Ipratropium (Duoneb) 3 ml RTQID NEB Last administered on 03/13/17 06:47; Start 03/06/17 at 20:00 Nystatin (Nystop) 1 john BID TP Last administered on 03/13/17 09:00; Start at 21:00 Ondansetron HCl (Zofran Odt) 4 mg PRN Q6HRS PRN PO NAUSEA/VOMITING Last administered on 03/12/17 22:01; Start 03/06/17 at 18:00 Ceftriaxone Sodium 1 gm/ Sodium Chloride 50 ml @ 100 mls/hr Q24H IV Last administered on 03/12/17 20:47; Start 03/06/17 at 20:00 Oxycodone/ Acetaminophen (Percocet 5/325) 1 tab PRN Q4HRS PRN PO PAIN Last administered on 03/11/17 22:29; Start 03/06/17 at 18:00 Sodium Chloride (Normal Saline Flush) 3 ml PRN DAILY PRN IV AFTER MEDS AND BLOOD DRAWS; Start 03/06/17 at 18:00 Iohexol (Omnipaque 300 Mg/ml) 75 ml 1X ONCE IV ; Start 03/07/17 at 09:15; Stop 03/07/17 at 09:16; Status DC Iohexol (Omnipaque 240 Mg/ml) 50 ml 1X ONCE PO Last administered on 03/07/17 09:15; Start 03/07/17 at 09:15; Stop 03/07/17 at 09:16; Status DC Info (Do NOT chart on this entry -- for MONITORING) 1 each PRN DAILY PRN MC SEE COMMENTS; Start 03/07/17 at 09:15; Stop 03/09/17 at 09:14; Status DC Allopurinol (Zyloprim) 100 mg DAILY PO Last administered on 03/13/17 10:04; Start 03/07/17 at 11:00 Info (Anti-Coagulation Monitoring By Pharmacy) 1 each PRN DAILY PRN MC SEE COMMENTS Last administered on 03/07/17 13:28; Start 03/07/17 at 13:30; Stop at 13:35; Status DC Lidocaine/ Epinephrine (Xylocaine 1%-Epi 1:100,000) 20 ml STK-MED ONCE .ROUTE ; Start 03/07/17 at 15:25; Stop 03/07/17 at 15:26; Status DC Heparin Sodium (Porcine) (Hep Lock Adult) 500 unit STK-MED ONCE IV ; Start 03/07 at 15:25; Stop 03/07/17 at 15:26; Status DC Heparin Sodium/ Sodium Chloride 500 ml @ As Directed STK-MED ONCE .ROUTE ; Start 03/07/17 at 15:25; Stop 03/07/17 at 15:26; Status DC Cefazolin Sodium 0 ml @ As Directed STK-MED ONCE IV ; Start 03/07/17 at 15:58; Stop 03/07/17 at 15:59; Status DC Fentanyl Citrate (Fentanyl 2ml Vial) 100 mcg STK-MED ONCE .ROUTE ; Start at 15:58; Stop 03/07/17 at 15:59; Status DC Heparin Sodium/ Sodium Chloride 1,000 unit 1X ONCE IART Last administered on 16:25; Start 03/07/17 at 16:15; Stop 03/07/17 at 16:16; Status DC Lidocaine/ Epinephrine (Xylocaine 1%-Epi 1:100,000) 20 ml 1X ONCE INJ Last administered on 03/07/17 16:25; Start 03/07/17 at 16:15; Stop 03/07/17 at 16:16 ; Status DC Heparin Sodium (Porcine) (Hep Lock Adult) 500 unit 1X ONCE IV Last administered on 03/07/17 16:30; Start 03/07/17 at 16:15; Stop 03/07/17 at 16:16 ; Status DC Clindamycin Phosphate 50 ml @ As Directed STK-MED ONCE IV ; Start 03/07/17 at 16 :06; Stop 03/07/17 at 16:07; Status DC Ondansetron HCl (Zofran) 4 mg STK-MED ONCE .ROUTE ; Start 03/07/17 at 16:14; Stop 03/07/17 at 16:15; Status DC Clindamycin Phosphate 50 ml @ 100 mls/hr 1X ONCE IV Last administered on 03/07 16:33; Start 03/07/17 at 16:30; Stop 03/07/17 at 16:59; Status DC Ondansetron HCl (Zofran) 4 mg 1X ONCE IV Last administered on 03/07/17 16:32 ; Start 03/07/17 at 16:30; Stop 03/07/17 at 16:31; Status DC Hydralazine HCl (Apresoline) 10 mg PRN Q4HRS PRN IVP ELEVATED BP, SEE COMMENTS ; Start 03/07/17 at 16:45 Isosorbide Mononitrate (Imdur) 30 mg DAILY PO Last administered on 03/11/17 09 :00; Start 03/08/17 at 09:00; Stop 03/12/17 at 09:46; Status DC Metoprolol Tartrate (Lopressor) 12.5 mg BID PO Last administered on 03/12/17 09:20; Start 03/08/17 at 09:00; Stop 03/12/17 at 09:46; Status DC Aspirin (Ecotrin) 81 mg [id number] PO Last administered on 03/08/17 14:06; Start 03/08/17 at 08:00; Stop 03/09/17 at 11:54; Status DC Morphine Sulfate 2 mg 1X ONCE IV Last administered on 03/08/17 11:45; Start 03/08/17 at 11:45; Stop 03/08/17 at 11:46; Status DC Diphenhydramine HCl (Benadryl) 25 mg Q6HRS PRN IVP itching; Start 03/08/17 at 17:30; Status Cancel Diphenhydramine HCl (Benadryl) 50 mg Q8HRS PRN IVP itching Last administered on 03/08/17 17:39; Start 03/08/17 at 17:30 Furosemide (Lasix) 40 mg DAILY IVP Last administered on 03/10/17 11:12; Start 03/09/17 at 10:15; Stop 03/10/17 at 14:39; Status DC Desmopressin Acetate 30 mcg/ Sodium Chloride 57.5 ml @ 115 mls/hr 1X ONCE IV Last administered on 03/09/17 14:48; Start 03/09/17 at 15:00; Stop 03/09/17 at 15:29; Status DC Protamine Sulfate 50 mg 1X ONCE IV Last administered on 03/09/17 16:29; Start 03/09/17 at 15:45; Stop 03/09/17 at 15:46; Status DC Silver Nitrate/ Potassium Nitrate 1 each 1X ONCE TP Last administered on 00:59; Start 03/10/17 at 01:00; Stop 03/10/17 at 01:01; Status DC Thrombin 20,000 unit 1X ONCE TP Last administered on 03/10/17 02:48; Start at 01:00; Stop 03/10/17 at 01:01; Status DC Iohexol (Omnipaque 300 Mg/ml) 50 ml STK-MED ONCE .ROUTE ; Start 03/10/17 at 07: 41; Stop 03/10/17 at 07:42; Status DC Lidocaine/ Epinephrine (Xylocaine 1%-Epi 1:100,000) 20 ml STK-MED ONCE .ROUTE ; Start 03/10/17 at 08:23; Stop 03/10/17 at 08:24; Status DC Thrombin 5,000 unit 1X ONCE TP Last administered on 03/10/17 08:49; Start at 08:30; Stop 03/10/17 at 08:31; Status DC Lidocaine/ Epinephrine (Xylocaine 1%-Epi 1:100,000) 20 ml 1X ONCE INJ Last administered on 03/10/17 08:48; Start 03/10/17 at 08:30; Stop 03/10/17 at 08:31 ; Status DC Furosemide (Lasix) 40 mg [id number] IVP Last administered on 03/11/17 16:00; Start 03/10/17 at 16:00; Stop 03/12/17 at 08:19; Status DC Lidocaine/Sodium Bicarbonate (Buffered Lidocaine 1%) 20 ml STK-MED ONCE IJ ; Start 03/11/17 at 11:40; Stop 03/11/17 at 11:41; Status DC Fentanyl Citrate (Fentanyl 2ml Vial) 100 mcg STK-MED ONCE .ROUTE ; Start at 11:59; Stop 03/11/17 at 12:00; Status DC Midazolam HCl (Versed) 2 mg STK-MED ONCE .ROUTE ; Start 03/11/17 at 11:59; Stop 03/11/17 at 12:00; Status DC Lidocaine/Sodium Bicarbonate (Buffered Lidocaine 1%) 9 ml 1X ONCE IJ Last administered on 03/11/17 12:23; Start 03/11/17 at 12:15; Stop 03/11/17 at 12:16 ; Status DC Midazolam HCl (Versed) 2 mg 1X ONCE IV Last administered on 03/11/17 12:24; Start 03/11/17 at 12:15; Stop 03/11/17 at 12:16; Status DC Fentanyl Citrate (Fentanyl 2ml Vial) 100 mcg 1X ONCE IV Last administered on 12:24; Start 03/11/17 at 12:15; Stop 03/11/17 at 12:16; Status DC Gadobutrol (Gadavist) 7.5 mmol 1X ONCE IV Last administered on 03/11/17 13:23 ; Start 03/11/17 at 13:15; Stop 03/11/17 at 13:16; Status DC Gadobutrol (Gadavist) 7.5 mmol 1X ONCE IV Last administered on 03/11/17 13:23 ; Start 03/11/17 at 13:15; Stop 03/11/17 at 13:16; Status DC Fentanyl Citrate (Fentanyl 2ml Vial) 100 mcg 1X ONCE IV Last administered on 14:00; Start 03/11/17 at 14:00; Stop 03/11/17 at 14:01; Status DC Rituximab 825 mg/ Sodium Chloride 332.5 ml @ 15 mls/hr 1X ONCE IV Last administered on 03/13/17 08:38; Start 03/13/17 at 08:00; Stop 03/14/17 at 06:09 Bendamustine HCl 200 mg/Sodium Chloride 500 ml @ 500 mls/hr ONCE ONCE IV ; Start 03/13/17 at 07:00; Stop 03/13/17 at 07:59; Status DC Bendamustine HCl 200 mg/Sodium Chloride 500 ml @ 500 mls/hr ONCE ONCE IV ; Start 03/14/17 at 09:00; Stop 03/14/17 at 09:59 Ondansetron HCl 16 mg/Sodium Chloride 58 ml @ 103.571 mls/hr ONCE ONCE IV Last administered on 03/13/17 07:25; Start 03/13/17 at 06:30; Stop 03/13/17 at 07:03; Status DC Ondansetron HCl 16 mg/Sodium Chloride 58 ml @ 103.571 mls/hr ONCE ONCE IV ; Start 03/14/17 at 08:30; Stop 03/14/17 at 09:03 Dexamethasone Sodium Phosphate (Decadron) 12 mg ONCE ONCE IV Last administered on 03/13/17 07:24; Start 03/13/17 at 06:30; Stop 03/13/17 at 06:31 ; Status DC Dexamethasone Sodium Phosphate (Decadron) 12 mg ONCE ONCE IV ; Start 03/14/17 at 08:30; Stop 03/14/17 at 08:31 Diphenhydramine HCl (Benadryl) 25 mg ONCE ONCE IV Last administered on 07:24; Start 03/13/17 at 06:30; Stop 03/13/17 at 06:31; Status DC Acetaminophen (Tylenol) 650 mg ONCE ONCE PO Last administered on 03/13/17 07: 25; Start 03/13/17 at 06:30; Stop 03/13/17 at 06:31; Status DC Furosemide (Lasix) 40 mg [id number] PO Last administered on 03/13/17 10:05; Start 03/12/17 at 09:00 Info (Do NOT chart on this placeholder) 1 each 1X ONCE MC ; Start 03/12/17 at 08:30; Stop 03/12/17 at 08:31; Status UNV Influenza Virus Vaccine Quadrival (Fluarix Quad 8272-2700 Syringe) 0.5 ml ONCE ONCE VAX IM Last administered on 03/12/17 09:27; Start 03/12/17 at 08:30; Stop 03/12/17 at 08:31; Status DC Metoprolol Tartrate (Lopressor) 25 mg BID PO Last administered on 03/13/17 10: 05; Start 03/12/17 at 21:00 Lisinopril (Prinivil) 5 mg DAILY PO ; Start 03/13/17 at 09:00; Stop 03/13/17 at 09:00; Status DC Lisinopril (Prinivil) 2.5 mg DAILY PO Last administered on 03/13/17 10:04; Start 03/13/17 at 09:00 Metoprolol Tartrate (Lopressor) 12.5 mg 1X ONCE PO Last administered on 13:06; Start 03/12/17 at 12:30; Stop 03/12/17 at 12:31; Status DC Lisinopril (Prinivil) 2.5 mg 1X ONCE PO Last administered on 03/12/17 13:07; Start 03/12/17 at 12:30; Stop 03/12/17 at 12:31; Status DC Enoxaparin Sodium (Lovenox Per Pharmacy Prophylaxis Dosing) 1 each PRN DAILY PRN MC SEE COMMENTS; Start 03/12/17 at 13:30 Enoxaparin Sodium (Lovenox 60mg Syringe) 60 mg Q12HR SQ Last administered on t 10:04; Start 03/12/17 at 14:00 Polyethylene Glycol (miraLAX PACKET) 17 gm PRN DAILY PRN PO CONSTIPATION; Start 03/13/17 at 06:15 Vitals/I & O Vital Sign - Last 24 Hours 03/12/17 03/12/17 03/12/17 03/12/17 11:00 11:09 13:06 13:07 Pulse 78 98 98 Resp 18 B/P (MAP) 110/62 (78) 110/47 110/47 Pulse Ox 96 96 O2 Delivery Nasal Cannula Nasal Cannula O2 Flow Rate 3.0 2.0 03/12/17 03/12/17 03/12/17 03/12/17 15:00 15:17 19:40 20:00 Temp 99.3 98.6 99.3 98.6 Pulse 85 100 Resp 20 16 B/P (MAP) 105/48 (67) 115/59 (77) Pulse Ox 93 93 95 O2 Delivery Nasal Cannula Room Air Room Air Room Air O2 Flow Rate 3.0 03/12/17 03/12/17 03/12/17 03/13/17 20:20 20:47 23:23 03:05 Temp 98.3 98.6 98.3 98.6 Pulse 100 94 92 Resp 16 16 B/P (MAP) 115/59 120/45 (70) 124/73 (90) Pulse Ox 100 91 90 O2 Delivery Room Air Room Air Room Air 03/13/17 03/13/17 03/13/17 03/13/17 06:52 06:55 08:00 09:00 Temp 98.3 98.8 98.3 98.8 Pulse 87 90 Resp 16 20 B/P (MAP) 122/65 (84) 129/62 (84) Pulse Ox 99 93 91 O2 Delivery Room Air Room Air Room Air Room Air O2 Flow Rate 3.0 03/13/17 03/13/17 03/13/17 03/13/17 09:33 10:02 10:04 10:05 Temp 98.6 98.8 98.6 98.8 Pulse 87 94 94 94 Resp 20 20 B/P (MAP) 135/59 (84) 130/69 (89) 130/69 130/69 Pulse Ox 90 92 O2 Delivery Room Air Room Air 03/13/17 10:31 Temp 98.5 98.5 Pulse 90 Resp 20 B/P (MAP) 133/65 (87) Pulse Ox 90 O2 Delivery Room Air TEJINDER LAGUNA MD Mar 13, 2017 10:52
--- NOTE | 2017-03-13 13:28 | PDOC ---
PROGRESS NOTES Chief Complaint Chief Complaint acute CHF, systolic Hypotension Leg cellulitis COPD Asthma Sleep Apnea Obesity related hypoventilation syndrome, morbid obesity, BMI 56 CHF, acute systolic exacerbation Systolic HF with EF<30% Anxiety DO nos nonhodgkins lymphoma, NEW, chemo started today History of Present Illness History of Present Illness has walked some , feeling better no event Chemo today, bud well Vitals Vitals Vital Signs Date Time Temp Pulse Resp B/P (MAP) Pulse Ox O2 Delivery O2 Flow Rate FiO2 03/13/17 12:50 98.8 87 20 125/57 (79) 94 Nasal Cannula 1.0 98.8 Physical Exam Physical Exam R portacath site no longer bleeding. General: Alert, Oriented X3, No acute distress Heart: Normal S1, Normal S2 Lungs: Clear Abdomen: No tenderness Extremities: No clubbing Skin: No rashes, No significant lesion Labs LABS Laboratory Tests Test 03/13/17 06:15 White Blood Count 5.8 x10^3/uL (4.0-11.0) Red Blood Count 3.59 x10^6/uL (3.50-5.40) Hemoglobin 10.4 g/dL (12.0-15.5) Hematocrit 31.8 % (36.0-47.0) Mean Corpuscular Volume 89 fL (79-100) Mean Corpuscular Hemoglobin 29 pg (25-35) Mean Corpuscular Hemoglobin Concent 33 g/dL (31-37) Red Cell Distribution Width 17.7 % (11.5-14.5) Platelet Count 149 x10^3/uL (140-400) Neutrophils (%) (Auto) 63 % (31-73) Lymphocytes (%) (Auto) 17 % (24-48) Monocytes (%) (Auto) 14 % (0-9) Eosinophils (%) (Auto) 6 % (0-3) Basophils (%) (Auto) 1 % (0-3) Neutrophils # (Auto) 3.7 x10^3uL (1.8-7.7) Lymphocytes # (Auto) 1.0 x10^3/uL (1.0-4.8) Monocytes # (Auto) 0.8 x10^3/uL (0.0-1.1) Eosinophils # (Auto) 0.3 x10^3/uL (0.0-0.7) Basophils # (Auto) 0.1 x10^3/uL (0.0-0.2) Sodium Level 135 mmol/L (136-145) Potassium Level 4.1 mmol/L (3.5-5.1) Chloride Level 97 mmol/L (98-107) Carbon Dioxide Level 37 mmol/L (21-32) Anion Gap 1 (6-14) Blood Urea Nitrogen 14 mg/dL (7-20) Creatinine 0.9 mg/dL (0.6-1.0) Estimated GFR (Cockcroft-Gault) 64.3 Glucose Level 101 mg/dL (70-99) Calcium Level 8.2 mg/dL (8.5-10.1) Review of Systems Review of Systems weak dyspnea Comment Review of Relevant I have reviewed the following items kailey (where applicable) has been applied. Labs Laboratory Tests Test 03/12/17 05:20 03/13/17 06:15 White Blood Count 5.7 x10^3/uL (4.0-11.0) 5.8 x10^3/uL (4.0-11.0) Red Blood Count 3.50 x10^6/uL (3.50-5.40) 3.59 x10^6/uL (3.50-5.40) Hemoglobin 10.1 g/dL (12.0-15.5) 10.4 g/dL (12.0-15.5) Hematocrit 31.2 % (36.0-47.0) 31.8 % (36.0-47.0) Mean Corpuscular Volume 89 fL (79-100) 89 fL (79-100) Mean Corpuscular Hemoglobin 29 pg (25-35) 29 pg (25-35) Mean Corpuscular Hemoglobin Concent 32 g/dL (31-37) 33 g/dL (31-37) Red Cell Distribution Width 17.7 % (11.5-14.5) 17.7 % (11.5-14.5) Platelet Count 142 x10^3/uL (140-400) 149 x10^3/uL (140-400) Neutrophils (%) (Auto) 58 % (31-73) 63 % (31-73) Lymphocytes (%) (Auto) 18 % (24-48) 17 % (24-48) Monocytes (%) (Auto) 15 % (0-9) 14 % (0-9) Eosinophils (%) (Auto) 8 % (0-3) 6 % (0-3) Basophils (%) (Auto) 1 % (0-3) 1 % (0-3) Neutrophils # (Auto) 3.3 x10^3uL (1.8-7.7) 3.7 x10^3uL (1.8-7.7) Lymphocytes # (Auto) 1.0 x10^3/uL (1.0-4.8) 1.0 x10^3/uL (1.0-4.8) Monocytes # (Auto) 0.9 x10^3/uL (0.0-1.1) 0.8 x10^3/uL (0.0-1.1) Eosinophils # (Auto) 0.4 x10^3/uL (0.0-0.7) 0.3 x10^3/uL (0.0-0.7) Basophils # (Auto) 0.0 x10^3/uL (0.0-0.2) 0.1 x10^3/uL (0.0-0.2) Sodium Level 132 mmol/L (136-145) 135 mmol/L (136-145) Potassium Level 4.3 mmol/L (3.5-5.1) 4.1 mmol/L (3.5-5.1) Chloride Level 96 mmol/L (98-107) 97 mmol/L (98-107) Carbon Dioxide Level 35 mmol/L (21-32) 37 mmol/L (21-32) Anion Gap 1 (6-14) 1 (6-14) Blood Urea Nitrogen 12 mg/dL (7-20) 14 mg/dL (7-20) Creatinine 0.9 mg/dL (0.6-1.0) 0.9 mg/dL (0.6-1.0) Estimated GFR (Cockcroft-Gault) 64.3 64.3 Glucose Level 120 mg/dL (70-99) 101 mg/dL (70-99) Calcium Level 8.2 mg/dL (8.5-10.1) 8.2 mg/dL (8.5-10.1) Magnesium Level 1.8 mg/dL (1.8-2.4) Triglycerides Level 56 mg/dL (0-150) Cholesterol Level 87 mg/dL (0-200) LDL Cholesterol, Calculated 56 mg/dL (0-100) VLDL Cholesterol, Calculated 11 mg/dL (0-40) Non-HDL Cholesterol Calculated 67 mg/dL (0-129) HDL Cholesterol 20 mg/dL (40-60) Cholesterol/HDL Ratio 4.4 Laboratory Tests Test 03/13/17 06:15 White Blood Count 5.8 x10^3/uL (4.0-11.0) Red Blood Count 3.59 x10^6/uL (3.50-5.40) Hemoglobin 10.4 g/dL (12.0-15.5) Hematocrit 31.8 % (36.0-47.0) Mean Corpuscular Volume 89 fL (79-100) Mean Corpuscular Hemoglobin 29 pg (25-35) Mean Corpuscular Hemoglobin Concent 33 g/dL (31-37) Red Cell Distribution Width 17.7 % (11.5-14.5) Platelet Count 149 x10^3/uL (140-400) Neutrophils (%) (Auto) 63 % (31-73) Lymphocytes (%) (Auto) 17 % (24-48) Monocytes (%) (Auto) 14 % (0-9) Eosinophils (%) (Auto) 6 % (0-3) Basophils (%) (Auto) 1 % (0-3) Neutrophils # (Auto) 3.7 x10^3uL (1.8-7.7) Lymphocytes # (Auto) 1.0 x10^3/uL (1.0-4.8) Monocytes # (Auto) 0.8 x10^3/uL (0.0-1.1) Eosinophils # (Auto) 0.3 x10^3/uL (0.0-0.7) Basophils # (Auto) 0.1 x10^3/uL (0.0-0.2) Sodium Level 135 mmol/L (136-145) Potassium Level 4.1 mmol/L (3.5-5.1) Chloride Level 97 mmol/L (98-107) Carbon Dioxide Level 37 mmol/L (21-32) Anion Gap 1 (6-14) Blood Urea Nitrogen 14 mg/dL (7-20) Creatinine 0.9 mg/dL (0.6-1.0) Estimated GFR (Cockcroft-Gault) 64.3 Glucose Level 101 mg/dL (70-99) Calcium Level 8.2 mg/dL (8.5-10.1) Medications Current Medications Enoxaparin Sodium (Lovenox 150mg Syringe) 150 mg Q12HR SQ Last administered on 03/08/17 21:20; Start 03/06/17 at 21:00; Stop 03/09/17 at 11:54; Status DC Albuterol/ Ipratropium (Duoneb) 3 ml RTQID NEB Last administered on 03/13/17 10:52; Start 03/06/17 at 20:00 Nystatin (Nystop) 1 john BID TP Last administered on 03/13/17 09:00; Start at 21:00 Ondansetron HCl (Zofran Odt) 4 mg PRN Q6HRS PRN PO NAUSEA/VOMITING Last administered on 03/12/17 22:01; Start 03/06/17 at 18:00 Ceftriaxone Sodium 1 gm/ Sodium Chloride 50 ml @ 100 mls/hr Q24H IV Last administered on 03/12/17 20:47; Start 03/06/17 at 20:00 Oxycodone/ Acetaminophen (Percocet 5/325) 1 tab PRN Q4HRS PRN PO PAIN Last administered on 03/11/17 22:29; Start 03/06/17 at 18:00 Sodium Chloride (Normal Saline Flush) 3 ml PRN DAILY PRN IV AFTER MEDS AND BLOOD DRAWS; Start 03/06/17 at 18:00 Iohexol (Omnipaque 300 Mg/ml) 75 ml 1X ONCE IV ; Start 03/07/17 at 09:15; Stop 03/07/17 at 09:16; Status DC Iohexol (Omnipaque 240 Mg/ml) 50 ml 1X ONCE PO Last administered on 03/07/17 09:15; Start 03/07/17 at 09:15; Stop 03/07/17 at 09:16; Status DC Info (Do NOT chart on this entry -- for MONITORING) 1 each PRN DAILY PRN MC SEE COMMENTS; Start 03/07/17 at 09:15; Stop 03/09/17 at 09:14; Status DC Allopurinol (Zyloprim) 100 mg DAILY PO Last administered on 03/13/17 10:04; Start 03/07/17 at 11:00 Info (Anti-Coagulation Monitoring By Pharmacy) 1 each PRN DAILY PRN MC SEE COMMENTS Last administered on 03/07/17 13:28; Start 03/07/17 at 13:30; Stop at 13:35; Status DC Lidocaine/ Epinephrine (Xylocaine 1%-Epi 1:100,000) 20 ml STK-MED ONCE .ROUTE ; Start 03/07/17 at 15:25; Stop 03/07/17 at 15:26; Status DC Heparin Sodium (Porcine) (Hep Lock Adult) 500 unit STK-MED ONCE IV ; Start 03/07 at 15:25; Stop 03/07/17 at 15:26; Status DC Heparin Sodium/ Sodium Chloride 500 ml @ As Directed STK-MED ONCE .ROUTE ; Start 03/07/17 at 15:25; Stop 03/07/17 at 15:26; Status DC Cefazolin Sodium 0 ml @ As Directed STK-MED ONCE IV ; Start 03/07/17 at 15:58; Stop 03/07/17 at 15:59; Status DC Fentanyl Citrate (Fentanyl 2ml Vial) 100 mcg STK-MED ONCE .ROUTE ; Start at 15:58; Stop 03/07/17 at 15:59; Status DC Heparin Sodium/ Sodium Chloride 1,000 unit 1X ONCE IART Last administered on 16:25; Start 03/07/17 at 16:15; Stop 03/07/17 at 16:16; Status DC Lidocaine/ Epinephrine (Xylocaine 1%-Epi 1:100,000) 20 ml 1X ONCE INJ Last administered on 03/07/17 16:25; Start 03/07/17 at 16:15; Stop 03/07/17 at 16:16 ; Status DC Heparin Sodium (Porcine) (Hep Lock Adult) 500 unit 1X ONCE IV Last administered on 03/07/17 16:30; Start 03/07/17 at 16:15; Stop 03/07/17 at 16:16 ; Status DC Clindamycin Phosphate 50 ml @ As Directed STK-MED ONCE IV ; Start 03/07/17 at 16 :06; Stop 03/07/17 at 16:07; Status DC Ondansetron HCl (Zofran) 4 mg STK-MED ONCE .ROUTE ; Start 03/07/17 at 16:14; Stop 03/07/17 at 16:15; Status DC Clindamycin Phosphate 50 ml @ 100 mls/hr 1X ONCE IV Last administered on 03/07 16:33; Start 03/07/17 at 16:30; Stop 03/07/17 at 16:59; Status DC Ondansetron HCl (Zofran) 4 mg 1X ONCE IV Last administered on 03/07/17 16:32 ; Start 03/07/17 at 16:30; Stop 03/07/17 at 16:31; Status DC Hydralazine HCl (Apresoline) 10 mg PRN Q4HRS PRN IVP ELEVATED BP, SEE COMMENTS ; Start 03/07/17 at 16:45 Isosorbide Mononitrate (Imdur) 30 mg DAILY PO Last administered on 03/11/17 09 :00; Start 03/08/17 at 09:00; Stop 03/12/17 at 09:46; Status DC Metoprolol Tartrate (Lopressor) 12.5 mg BID PO Last administered on 03/12/17 09:20; Start 03/08/17 at 09:00; Stop 03/12/17 at 09:46; Status DC Aspirin (Ecotrin) 81 mg [id number] PO Last administered on 03/08/17 14:06; Start 03/08/17 at 08:00; Stop 03/09/17 at 11:54; Status DC Morphine Sulfate 2 mg 1X ONCE IV Last administered on 03/08/17 11:45; Start 03/08/17 at 11:45; Stop 03/08/17 at 11:46; Status DC Diphenhydramine HCl (Benadryl) 25 mg Q6HRS PRN IVP itching; Start 03/08/17 at 17:30; Status Cancel Diphenhydramine HCl (Benadryl) 50 mg Q8HRS PRN IVP itching Last administered on 03/08/17 17:39; Start 03/08/17 at 17:30 Furosemide (Lasix) 40 mg DAILY IVP Last administered on 03/10/17 11:12; Start 03/09/17 at 10:15; Stop 03/10/17 at 14:39; Status DC Desmopressin Acetate 30 mcg/ Sodium Chloride 57.5 ml @ 115 mls/hr 1X ONCE IV Last administered on 03/09/17 14:48; Start 03/09/17 at 15:00; Stop 03/09/17 at 15:29; Status DC Protamine Sulfate 50 mg 1X ONCE IV Last administered on 03/09/17 16:29; Start 03/09/17 at 15:45; Stop 03/09/17 at 15:46; Status DC Silver Nitrate/ Potassium Nitrate 1 each 1X ONCE TP Last administered on 00:59; Start 03/10/17 at 01:00; Stop 03/10/17 at 01:01; Status DC Thrombin 20,000 unit 1X ONCE TP Last administered on 03/10/17 02:48; Start at 01:00; Stop 03/10/17 at 01:01; Status DC Iohexol (Omnipaque 300 Mg/ml) 50 ml STK-MED ONCE .ROUTE ; Start 03/10/17 at 07: 41; Stop 03/10/17 at 07:42; Status DC Lidocaine/ Epinephrine (Xylocaine 1%-Epi 1:100,000) 20 ml STK-MED ONCE .ROUTE ; Start 03/10/17 at 08:23; Stop 03/10/17 at 08:24; Status DC Thrombin 5,000 unit 1X ONCE TP Last administered on 03/10/17 08:49; Start at 08:30; Stop 03/10/17 at 08:31; Status DC Lidocaine/ Epinephrine (Xylocaine 1%-Epi 1:100,000) 20 ml 1X ONCE INJ Last administered on 03/10/17 08:48; Start 03/10/17 at 08:30; Stop 03/10/17 at 08:31 ; Status DC Furosemide (Lasix) 40 mg [id number] IVP Last administered on 03/11/17 16:00; Start 03/10/17 at 16:00; Stop 03/12/17 at 08:19; Status DC Lidocaine/Sodium Bicarbonate (Buffered Lidocaine 1%) 20 ml STK-MED ONCE IJ ; Start 03/11/17 at 11:40; Stop 03/11/17 at 11:41; Status DC Fentanyl Citrate (Fentanyl 2ml Vial) 100 mcg STK-MED ONCE .ROUTE ; Start at 11:59; Stop 03/11/17 at 12:00; Status DC Midazolam HCl (Versed) 2 mg STK-MED ONCE .ROUTE ; Start 03/11/17 at 11:59; Stop 03/11/17 at 12:00; Status DC Lidocaine/Sodium Bicarbonate (Buffered Lidocaine 1%) 9 ml 1X ONCE IJ Last administered on 03/11/17 12:23; Start 03/11/17 at 12:15; Stop 03/11/17 at 12:16 ; Status DC Midazolam HCl (Versed) 2 mg 1X ONCE IV Last administered on 03/11/17 12:24; Start 03/11/17 at 12:15; Stop 03/11/17 at 12:16; Status DC Fentanyl Citrate (Fentanyl 2ml Vial) 100 mcg 1X ONCE IV Last administered on 12:24; Start 03/11/17 at 12:15; Stop 03/11/17 at 12:16; Status DC Gadobutrol (Gadavist) 7.5 mmol 1X ONCE IV Last administered on 03/11/17 13:23 ; Start 03/11/17 at 13:15; Stop 03/11/17 at 13:16; Status DC Gadobutrol (Gadavist) 7.5 mmol 1X ONCE IV Last administered on 03/11/17 13:23 ; Start 03/11/17 at 13:15; Stop 03/11/17 at 13:16; Status DC Fentanyl Citrate (Fentanyl 2ml Vial) 100 mcg 1X ONCE IV Last administered on 14:00; Start 03/11/17 at 14:00; Stop 03/11/17 at 14:01; Status DC Rituximab 825 mg/ Sodium Chloride 332.5 ml @ 15 mls/hr 1X ONCE IV Last administered on 03/13/17 08:38; Start 03/13/17 at 08:00; Stop 03/14/17 at 06:09 Bendamustine HCl 200 mg/Sodium Chloride 500 ml @ 500 mls/hr ONCE ONCE IV Last administered on 03/13/17 13:11; Start 03/13/17 at 07:00; Stop 03/13/17 at 07:59; Status DC Bendamustine HCl 200 mg/Sodium Chloride 500 ml @ 500 mls/hr ONCE ONCE IV ; Start 03/14/17 at 09:00; Stop 03/14/17 at 09:59 Ondansetron HCl 16 mg/Sodium Chloride 58 ml @ 103.571 mls/hr ONCE ONCE IV Last administered on 03/13/17 07:25; Start 03/13/17 at 06:30; Stop 03/13/17 at 07:03; Status DC Ondansetron HCl 16 mg/Sodium Chloride 58 ml @ 103.571 mls/hr ONCE ONCE IV ; Start 03/14/17 at 08:30; Stop 03/14/17 at 09:03 Dexamethasone Sodium Phosphate (Decadron) 12 mg ONCE ONCE IV Last administered on 03/13/17 07:24; Start 03/13/17 at 06:30; Stop 03/13/17 at 06:31 ; Status DC Dexamethasone Sodium Phosphate (Decadron) 12 mg ONCE ONCE IV ; Start 03/14/17 at 08:30; Stop 03/14/17 at 08:31 Diphenhydramine HCl (Benadryl) 25 mg ONCE ONCE IV Last administered on 07:24; Start 03/13/17 at 06:30; Stop 03/13/17 at 06:31; Status DC Acetaminophen (Tylenol) 650 mg ONCE ONCE PO Last administered on 03/13/17 07: 25; Start 03/13/17 at 06:30; Stop 03/13/17 at 06:31; Status DC Furosemide (Lasix) 40 mg [id number] PO Last administered on 03/13/17 10:05; Start 03/12/17 at 09:00 Info (Do NOT chart on this placeholder) 1 each 1X ONCE MC ; Start 03/12/17 at 08:30; Stop 03/12/17 at 08:31; Status UNV Influenza Virus Vaccine Quadrival (Fluarix Quad 7715-5507 Syringe) 0.5 ml ONCE ONCE VAX IM Last administered on 03/12/17 09:27; Start 03/12/17 at 08:30; Stop 03/12/17 at 08:31; Status DC Metoprolol Tartrate (Lopressor) 25 mg BID PO Last administered on 03/13/17 10: 05; Start 03/12/17 at 21:00 Lisinopril (Prinivil) 5 mg DAILY PO ; Start 03/13/17 at 09:00; Stop 03/13/17 at 09:00; Status DC Lisinopril (Prinivil) 2.5 mg DAILY PO Last administered on 03/13/17 10:04; Start 03/13/17 at 09:00 Metoprolol Tartrate (Lopressor) 12.5 mg 1X ONCE PO Last administered on 13:06; Start 03/12/17 at 12:30; Stop 03/12/17 at 12:31; Status DC Lisinopril (Prinivil) 2.5 mg 1X ONCE PO Last administered on 03/12/17 13:07; Start 03/12/17 at 12:30; Stop 03/12/17 at 12:31; Status DC Enoxaparin Sodium (Lovenox Per Pharmacy Prophylaxis Dosing) 1 each PRN DAILY PRN MC SEE COMMENTS; Start 03/12/17 at 13:30 Enoxaparin Sodium (Lovenox 60mg Syringe) 60 mg Q12HR SQ Last administered on 10:04; Start 03/12/17 at 14:00 Polyethylene Glycol (miraLAX PACKET) 17 gm PRN DAILY PRN PO CONSTIPATION; Start 03/13/17 at 06:15 Vitals/I & O Vital Sign - Last 24 Hours 03/12/17 03/12/17 03/12/17 03/12/17 15:00 15:17 19:40 20:00 Temp 99.3 98.6 99.3 98.6 Pulse 85 100 Resp 20 16 B/P (MAP) 105/48 (67) 115/59 (77) Pulse Ox 93 93 95 O2 Delivery Nasal Cannula Room Air Room Air Room Air O2 Flow Rate 3.0 03/12/17 03/12/17 03/12/17 03/13/17 20:20 20:47 23:23 03:05 Temp 98.3 98.6 98.3 98.6 Pulse 100 94 92 Resp 16 16 B/P (MAP) 115/59 120/45 (70) 124/73 (90) Pulse Ox 100 91 90 O2 Delivery Room Air Room Air Room Air 03/13/17 03/13/17 03/13/17 03/13/17 06:52 06:55 08:00 09:00 Temp 98.3 98.8 98.3 98.8 Pulse 87 90 Resp 16 20 B/P (MAP) 122/65 (84) 129/62 (84) Pulse Ox 99 93 91 O2 Delivery Room Air Room Air Room Air Room Air O2 Flow Rate 3.0 03/13/17 03/13/17 03/13/17 03/13/17 09:33 10:02 10:04 10:05 Temp 98.6 98.8 98.6 98.8 Pulse 87 94 94 94 Resp 20 20 B/P (MAP) 135/59 (84) 130/69 (89) 130/69 130/69 Pulse Ox 90 92 O2 Delivery Room Air Room Air 03/13/17 03/13/17 03/13/17 03/13/17 10:31 10:52 11:00 11:22 Temp 98.5 98.6 99.3 98.5 98.6 99.3 Pulse 90 95 101 Resp 20 20 22 B/P (MAP) 133/65 (87) 134/69 (90) 148/73 (98) Pulse Ox 90 90 94 94 O2 Delivery Room Air Room Air Room Air O2 Flow Rate 1.0 1.0 03/13/17 03/13/17 12:01 12:50 Temp 98.6 98.8 98.6 98.8 Pulse 97 87 Resp 20 20 B/P (MAP) 126/77 (93) 125/57 (79) Pulse Ox 93 94 O2 Delivery Room Air Nasal Cannula O2 Flow Rate 1.0 1.0 RONA CORONA MD Mar 13, 2017 13:28
--- NOTE | 2017-03-13 14:38 | PDOC2 ---
PALLIATIVE CARE Palliative Care Note Palliative Care Patient has completed chemotherapy today. Will have chemo again tomorrow. Alert and in better spirits today. Would like to complete AD. Patient plans to go back to [place] when discharged and eventually move to [place]. Message for Monica GUADARRAMA to assist with AD. FIOR VALENTE Mar 13, 2017 14:38
[2017-03-13] MEDS ORDERED: METOPROLOL TART IMMED RELEASE 50 MG TABLET. PO ONE (16:00)
[2017-03-14 02:49] VITALS: BP 145/76
[2017-03-14 05:22] LABS: CALCIUM 8.6 mg/dL (8.5-10.1); CREATININE 0.9 mg/dL (0.6-1.0); GFR 64.3; POTASSIUM 4.4 mmol/L (3.5-5.1)
[2017-03-14 05:32] LABS: BASO % 0 % (0-3); EOS % 0 % (0-3); HEMATOCRIT 31.7 % (36.0-47.0); HEMOGLOBIN 10.4 g/dL (12.0-15.5); LYMPH # 0.4 x10^3/uL (1.0-4.8); LYMPH % 7 % (24-48); MEAN CORPUSCULAR HEMOGLOBIN 29 pg (25-35); MEAN CORPUSCULAR HGB CONC 33 g/dL (31-37); MEAN CORPUSCULAR VOLUME 88 fL (79-100); MONO % 10 % (0-9); NEUT % 82 % (31-73); PLATELET COUNT 147 x10^3/uL (140-400); RED BLOOD COUNT 3.59 x10^6/uL (3.50-5.40); RED CELL DISTRIBUTION WIDTH 17.7 % (11.5-14.5); WHITE BLOOD COUNT 5.4 x10^3/uL (4.0-11.0)
[2017-03-14 07:00] VITALS: BP 136/78
[2017-03-14] MEDS ORDERED: DEXAMETHASONE SOD PHOS 4 MG/ML VIAL IV ONE (08:30)
[2017-03-14] MEDS ORDERED: NORMAL SALINE IV ONE ×2 (08:30→09:00)
[2017-03-14] MEDS ORDERED: ONDANSETRON IV ONE (08:30)
[2017-03-14] MEDS: IPRATRPIUM/ALBUTEROL 0.5/2.5MG 3 ML NEBU. NEB SCH ×4 (08:46→20:22)
[2017-03-14] MEDS: NYSTATIN TOPICAL POWDER 15GM BOTTLE. TP SCH ×2 (09:00→22:13)
[2017-03-14] MEDS ORDERED: BENDAMUSTINE IV ONE (09:00)
[2017-03-14] MEDS: METOPROLOL SUCC 24HR ER 25 MG TAB.ER.24H. PO SCH (09:10)
[2017-03-14] MEDS: FUROSEMIDE 40 MG TABLET. PO SCH ×2 (09:11→16:22)
[2017-03-14] MEDS: ALLOPURINOL 100 MG TABLET. PO SCH (09:11)
[2017-03-14] MEDS: LISINOPRIL 5 MG TABLET. PO SCH (09:11)
[2017-03-14 11:00] VITALS: BP 125/63
--- NOTE | 2017-03-14 11:41 | PDOC ---
CARDIO Progress Notes Date and Time Date of Service 03/14/2017 Time of Evaluation 1110 Subjective Subjective: No Chest Pain, No shortness of breath, No Palpitations, No Dizziness, Other (feels better, going home today, and tolerating chemo) Vitals Vitals Vital Signs Date Time Temp Pulse Resp B/P (MAP) Pulse Ox O2 Delivery O2 Flow Rate FiO2 03/14/17 09:11 78 136/78 03/14/17 08:48 95 Nasal Cannula 3.0 03/14/17 07:00 97.6 20 97.6 Weight Weight [ ] Laboratory Labs Laboratory Tests Test 03/14/17 04:55 White Blood Count 5.4 x10^3/uL (4.0-11.0) Red Blood Count 3.59 x10^6/uL (3.50-5.40) Hemoglobin 10.4 g/dL (12.0-15.5) Hematocrit 31.7 % (36.0-47.0) Mean Corpuscular Volume 88 fL (79-100) Mean Corpuscular Hemoglobin 29 pg (25-35) Mean Corpuscular Hemoglobin Concent 33 g/dL (31-37) Red Cell Distribution Width 17.7 % (11.5-14.5) Platelet Count 147 x10^3/uL (140-400) Neutrophils (%) (Auto) 82 % (31-73) Lymphocytes (%) (Auto) 7 % (24-48) Monocytes (%) (Auto) 10 % (0-9) Eosinophils (%) (Auto) 0 % (0-3) Basophils (%) (Auto) 0 % (0-3) Neutrophils # (Auto) 4.4 x10^3uL (1.8-7.7) Lymphocytes # (Auto) 0.4 x10^3/uL (1.0-4.8) Monocytes # (Auto) 0.6 x10^3/uL (0.0-1.1) Eosinophils # (Auto) 0.0 x10^3/uL (0.0-0.7) Basophils # (Auto) 0.0 x10^3/uL (0.0-0.2) Sodium Level 136 mmol/L (136-145) Potassium Level 4.4 mmol/L (3.5-5.1) Chloride Level 99 mmol/L (98-107) Carbon Dioxide Level 37 mmol/L (21-32) Anion Gap 0 (6-14) Blood Urea Nitrogen 15 mg/dL (7-20) Creatinine 0.9 mg/dL (0.6-1.0) Estimated GFR (Cockcroft-Gault) 64.3 Glucose Level 150 mg/dL (70-99) Calcium Level 8.6 mg/dL (8.5-10.1) Physical Exam HEENT: Neck Supple W Full Motion Chest: Symmetric LUNGS: Other (diminished bases) Heart: S1S2, RRR (off tele) Abdomen: Soft N/T, Other (morbid obese) Extremities: No Calf Tenderness, Other (2+ bilateral LE pitting edema) Neurology: alert, oriented, follow commands Assessment Assessment 1. Chronic systolic heart failure with NICM 20-25%: Compensated 2. Hypertension : controlled 3. Leg cellulitis 4. Mantle cell lymphoma (new finding): BM Bx result pending. 5. Arrhythmia: no tachyarrhythmias overnight per staff. Noted with prior few possible AFIB aberrancy episodes and few NSVT episodes Recommendations 1. Home with toprol XL 75 mg pod daily with lisinopril at 5 mg daily 2. Lasix/ASA. HDL 20 but otherwise very well controlled. Repeat lipids in 6-8 weeks. 3. Follow up in our office as scheduled. Will consider for outpt event monitor. 4. Continue with Hemonc treatment plan. CASSANDRA WOLF APRN Mar 14, 2017 11:41
--- NOTE | 2017-03-14 12:27 | PDOC ---
PROGRESS NOTES Subjective Subjective c/c -f/u of Mantle cell lymphoma ROS - no n/v Objective Objective Vital Signs Date Time Temp Pulse Resp B/P (MAP) Pulse Ox O2 Delivery O2 Flow Rate FiO2 03/14/17 12:03 Nasal Cannula 3.0 03/14/17 11:00 97.8 81 20 125/63 (83) 93 97.8 Physical Exam Heart: Normal S1, Normal S2 General: Alert, Oriented X3 Lungs: Clear to auscultation Assessment Assessment IMPRESSION AND PLAN: 1. Mantle cell lymphoma involving the left axillary lymph nodes and possible involvement of the lungs. The lymphadenopathy has progressed between 12/2016 to 02/2017. She had an ultrasound-guided biopsy of the left axillary lymph node on 01/01/2017, which revealed mantle cell lymphoma in addition to kappa predominant plasmacytosis. There is a possibility that she has a biclonal lymphoproliferative disorder with both mantle cell lymphoma and plasma cell neoplasm. bone marrow biopsy results pending. CT scan of the neck, chest, abdomen and pelvis [address] reveals axillary, mediastinal and retroperitoneal lymphadenopathy. 14 x 6 mm extraconal mass within the medial right orbit with mass effect on the medial rectus muscle. 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 I discussed in detail with the patient regarding the diagnosis and treatment options for mantle cell lymphoma. I recommended chemotherapy with bendamustine and rituximab given for 6 cycles. She has poor performance status with ECOG performance status score of 3. In addition, she has significant comorbidities including congestive heart failure with an ejection fraction of only 20-25%. The presence of her comorbidities would increase the likelihood of toxicities due to chemotherapy. Mantle cell lymphoma prognostic score is 3, which would indicate a 5-yr survival of 60%. s/p port 03/07/17 s/p bone marrow 03/11/17 She was started on Rituxan and bendeka 03/13/17. I d/w chemo nurse, no reactions noted. Continue to monitor for toxicities. She will get Cycle 1Day 2 03/14/17 and then she can be discharged with f/u with me in 1-2 weeks. 2. Elevated liver function test likely changes from congestive heart failure. Continue to monitor. 3. Hyponatremia due to congestive heart failure, monitor. 4. Congestive heart failure with an ejection fraction of 20-25%. Appreciate Cardiology management. I d/w cardiology. 5. Elevated uric acid - ordered allopurinol 100 mg daily. Comment Review of Relevant I have reviewed the following items kailey (where applicable) has been applied. Labs Laboratory Tests Test 03/13/17 06:15 03/14/17 04:55 White Blood Count 5.8 x10^3/uL (4.0-11.0) 5.4 x10^3/uL (4.0-11.0) Red Blood Count 3.59 x10^6/uL (3.50-5.40) 3.59 x10^6/uL (3.50-5.40) Hemoglobin 10.4 g/dL (12.0-15.5) 10.4 g/dL (12.0-15.5) Hematocrit 31.8 % (36.0-47.0) 31.7 % (36.0-47.0) Mean Corpuscular Volume 89 fL (79-100) 88 fL (79-100) Mean Corpuscular Hemoglobin 29 pg (25-35) 29 pg (25-35) Mean Corpuscular Hemoglobin Concent 33 g/dL (31-37) 33 g/dL (31-37) Red Cell Distribution Width 17.7 % (11.5-14.5) 17.7 % (11.5-14.5) Platelet Count 149 x10^3/uL (140-400) 147 x10^3/uL (140-400) Neutrophils (%) (Auto) 63 % (31-73) 82 % (31-73) Lymphocytes (%) (Auto) 17 % (24-48) 7 % (24-48) Monocytes (%) (Auto) 14 % (0-9) 10 % (0-9) Eosinophils (%) (Auto) 6 % (0-3) 0 % (0-3) Basophils (%) (Auto) 1 % (0-3) 0 % (0-3) Neutrophils # (Auto) 3.7 x10^3uL (1.8-7.7) 4.4 x10^3uL (1.8-7.7) Lymphocytes # (Auto) 1.0 x10^3/uL (1.0-4.8) 0.4 x10^3/uL (1.0-4.8) Monocytes # (Auto) 0.8 x10^3/uL (0.0-1.1) 0.6 x10^3/uL (0.0-1.1) Eosinophils # (Auto) 0.3 x10^3/uL (0.0-0.7) 0.0 x10^3/uL (0.0-0.7) Basophils # (Auto) 0.1 x10^3/uL (0.0-0.2) 0.0 x10^3/uL (0.0-0.2) Sodium Level 135 mmol/L (136-145) 136 mmol/L (136-145) Potassium Level 4.1 mmol/L (3.5-5.1) 4.4 mmol/L (3.5-5.1) Chloride Level 97 mmol/L (98-107) 99 mmol/L (98-107) Carbon Dioxide Level 37 mmol/L (21-32) 37 mmol/L (21-32) Anion Gap 1 (6-14) 0 (6-14) Blood Urea Nitrogen 14 mg/dL (7-20) 15 mg/dL (7-20) Creatinine 0.9 mg/dL (0.6-1.0) 0.9 mg/dL (0.6-1.0) Estimated GFR (Cockcroft-Gault) 64.3 64.3 Glucose Level 101 mg/dL (70-99) 150 mg/dL (70-99) Calcium Level 8.2 mg/dL (8.5-10.1) 8.6 mg/dL (8.5-10.1) Laboratory Tests Test 03/14/17 04:55 White Blood Count 5.4 x10^3/uL (4.0-11.0) Red Blood Count 3.59 x10^6/uL (3.50-5.40) Hemoglobin 10.4 g/dL (12.0-15.5) Hematocrit 31.7 % (36.0-47.0) Mean Corpuscular Volume 88 fL (79-100) Mean Corpuscular Hemoglobin 29 pg (25-35) Mean Corpuscular Hemoglobin Concent 33 g/dL (31-37) Red Cell Distribution Width 17.7 % (11.5-14.5) Platelet Count 147 x10^3/uL (140-400) Neutrophils (%) (Auto) 82 % (31-73) Lymphocytes (%) (Auto) 7 % (24-48) Monocytes (%) (Auto) 10 % (0-9) Eosinophils (%) (Auto) 0 % (0-3) Basophils (%) (Auto) 0 % (0-3) Neutrophils # (Auto) 4.4 x10^3uL (1.8-7.7) Lymphocytes # (Auto) 0.4 x10^3/uL (1.0-4.8) Monocytes # (Auto) 0.6 x10^3/uL (0.0-1.1) Eosinophils # (Auto) 0.0 x10^3/uL (0.0-0.7) Basophils # (Auto) 0.0 x10^3/uL (0.0-0.2) Sodium Level 136 mmol/L (136-145) Potassium Level 4.4 mmol/L (3.5-5.1) Chloride Level 99 mmol/L (98-107) Carbon Dioxide Level 37 mmol/L (21-32) Anion Gap 0 (6-14) Blood Urea Nitrogen 15 mg/dL (7-20) Creatinine 0.9 mg/dL (0.6-1.0) Estimated GFR (Cockcroft-Gault) 64.3 Glucose Level 150 mg/dL (70-99) Calcium Level 8.6 mg/dL (8.5-10.1) Medications Current Medications Enoxaparin Sodium (Lovenox 150mg Syringe) 150 mg Q12HR SQ Last administered on 03/08/17 21:20; Start 03/06/17 at 21:00; Stop 03/09/17 at 11:54; Status DC Albuterol/ Ipratropium (Duoneb) 3 ml RTQID NEB Last administered on 03/14/17 08:46; Start 03/06/17 at 20:00 Nystatin (Nystop) 1 john BID TP Last administered on 03/13/17 09:00; Start at 21:00 Ondansetron HCl (Zofran Odt) 4 mg PRN Q6HRS PRN PO NAUSEA/VOMITING Last administered on 03/12/17 22:01; Start 03/06/17 at 18:00 Ceftriaxone Sodium 1 gm/ Sodium Chloride 50 ml @ 100 mls/hr Q24H IV Last administered on 03/13/17 22:02; Start 03/06/17 at 20:00 Oxycodone/ Acetaminophen (Percocet 5/325) 1 tab PRN Q4HRS PRN PO PAIN Last administered on 03/11/17 22:29; Start 03/06/17 at 18:00 Sodium Chloride (Normal Saline Flush) 3 ml PRN DAILY PRN IV AFTER MEDS AND BLOOD DRAWS; Start 03/06/17 at 18:00 Iohexol (Omnipaque 300 Mg/ml) 75 ml 1X ONCE IV ; Start 03/07/17 at 09:15; Stop 03/07/17 at 09:16; Status DC Iohexol (Omnipaque 240 Mg/ml) 50 ml 1X ONCE PO Last administered on 03/07/17 09:15; Start 03/07/17 at 09:15; Stop 03/07/17 at 09:16; Status DC Info (Do NOT chart on this entry -- for MONITORING) 1 each PRN DAILY PRN MC SEE COMMENTS; Start 03/07/17 at 09:15; Stop 03/09/17 at 09:14; Status DC Allopurinol (Zyloprim) 100 mg DAILY PO Last administered on 03/14/17 09:11; Start 03/07/17 at 11:00 Info (Anti-Coagulation Monitoring By Pharmacy) 1 each PRN DAILY PRN MC SEE COMMENTS Last administered on 03/07/17 13:28; Start 03/07/17 at 13:30; Stop at 13:35; Status DC Lidocaine/ Epinephrine (Xylocaine 1%-Epi 1:100,000) 20 ml STK-MED ONCE .ROUTE ; Start 03/07/17 at 15:25; Stop 03/07/17 at 15:26; Status DC Heparin Sodium (Porcine) (Hep Lock Adult) 500 unit STK-MED ONCE IV ; Start 03/07 at 15:25; Stop 03/07/17 at 15:26; Status DC Heparin Sodium/ Sodium Chloride 500 ml @ As Directed STK-MED ONCE .ROUTE ; Start 03/07/17 at 15:25; Stop 03/07/17 at 15:26; Status DC Cefazolin Sodium 0 ml @ As Directed STK-MED ONCE IV ; Start 03/07/17 at 15:58; Stop 03/07/17 at 15:59; Status DC Fentanyl Citrate (Fentanyl 2ml Vial) 100 mcg STK-MED ONCE .ROUTE ; Start at 15:58; Stop 03/07/17 at 15:59; Status DC Heparin Sodium/ Sodium Chloride 1,000 unit 1X ONCE IART Last administered on 16:25; Start 03/07/17 at 16:15; Stop 03/07/17 at 16:16; Status DC Lidocaine/ Epinephrine (Xylocaine 1%-Epi 1:100,000) 20 ml 1X ONCE INJ Last administered on 03/07/17 16:25; Start 03/07/17 at 16:15; Stop 03/07/17 at 16:16 ; Status DC Heparin Sodium (Porcine) (Hep Lock Adult) 500 unit 1X ONCE IV Last administered on 03/07/17 16:30; Start 03/07/17 at 16:15; Stop 03/07/17 at 16:16 ; Status DC Clindamycin Phosphate 50 ml @ As Directed STK-MED ONCE IV ; Start 03/07/17 at 16 :06; Stop 03/07/17 at 16:07; Status DC Ondansetron HCl (Zofran) 4 mg STK-MED ONCE .ROUTE ; Start 03/07/17 at 16:14; Stop 03/07/17 at 16:15; Status DC Clindamycin Phosphate 50 ml @ 100 mls/hr 1X ONCE IV Last administered on 03/07 16:33; Start 03/07/17 at 16:30; Stop 03/07/17 at 16:59; Status DC Ondansetron HCl (Zofran) 4 mg 1X ONCE IV Last administered on 03/07/17 16:32 ; Start 03/07/17 at 16:30; Stop 03/07/17 at 16:31; Status DC Hydralazine HCl (Apresoline) 10 mg PRN Q4HRS PRN IVP ELEVATED BP, SEE COMMENTS ; Start 03/07/17 at 16:45 Isosorbide Mononitrate (Imdur) 30 mg DAILY PO Last administered on 03/11/17 09 :00; Start 03/08/17 at 09:00; Stop 03/12/17 at 09:46; Status DC Metoprolol Tartrate (Lopressor) 12.5 mg BID PO Last administered on 03/12/17 09:20; Start 03/08/17 at 09:00; Stop 03/12/17 at 09:46; Status DC Aspirin (Ecotrin) 81 mg [id number] PO Last administered on 03/08/17 14:06; Start 03/08/17 at 08:00; Stop 03/09/17 at 11:54; Status DC Morphine Sulfate 2 mg 1X ONCE IV Last administered on 03/08/17 11:45; Start 03/08/17 at 11:45; Stop 03/08/17 at 11:46; Status DC Diphenhydramine HCl (Benadryl) 25 mg Q6HRS PRN IVP itching; Start 03/08/17 at 17:30; Status Cancel Diphenhydramine HCl (Benadryl) 50 mg Q8HRS PRN IVP itching Last administered on 03/08/17 17:39; Start 03/08/17 at 17:30 Furosemide (Lasix) 40 mg DAILY IVP Last administered on 03/10/17 11:12; Start 03/09/17 at 10:15; Stop 03/10/17 at 14:39; Status DC Desmopressin Acetate 30 mcg/ Sodium Chloride 57.5 ml @ 115 mls/hr 1X ONCE IV Last administered on 03/09/17 14:48; Start 03/09/17 at 15:00; Stop 03/09/17 at 15:29; Status DC Protamine Sulfate 50 mg 1X ONCE IV Last administered on 03/09/17 16:29; Start 03/09/17 at 15:45; Stop 03/09/17 at 15:46; Status DC Silver Nitrate/ Potassium Nitrate 1 each 1X ONCE TP Last administered on 00:59; Start 03/10/17 at 01:00; Stop 03/10/17 at 01:01; Status DC Thrombin 20,000 unit 1X ONCE TP Last administered on 03/10/17 02:48; Start at 01:00; Stop 03/10/17 at 01:01; Status DC Iohexol (Omnipaque 300 Mg/ml) 50 ml STK-MED ONCE .ROUTE ; Start 03/10/17 at 07: 41; Stop 03/10/17 at 07:42; Status DC Lidocaine/ Epinephrine (Xylocaine 1%-Epi 1:100,000) 20 ml STK-MED ONCE .ROUTE ; Start 03/10/17 at 08:23; Stop 03/10/17 at 08:24; Status DC Thrombin 5,000 unit 1X ONCE TP Last administered on 03/10/17 08:49; Start at 08:30; Stop 03/10/17 at 08:31; Status DC Lidocaine/ Epinephrine (Xylocaine 1%-Epi 1:100,000) 20 ml 1X ONCE INJ Last administered on 03/10/17 08:48; Start 03/10/17 at 08:30; Stop 03/10/17 at 08:31 ; Status DC Furosemide (Lasix) 40 mg [id number] IVP Last administered on 03/11/17 16:00; Start 03/10/17 at 16:00; Stop 03/12/17 at 08:19; Status DC Lidocaine/Sodium Bicarbonate (Buffered Lidocaine 1%) 20 ml STK-MED ONCE IJ ; Start 03/11/17 at 11:40; Stop 03/11/17 at 11:41; Status DC Fentanyl Citrate (Fentanyl 2ml Vial) 100 mcg STK-MED ONCE .ROUTE ; Start at 11:59; Stop 03/11/17 at 12:00; Status DC Midazolam HCl (Versed) 2 mg STK-MED ONCE .ROUTE ; Start 03/11/17 at 11:59; Stop 03/11/17 at 12:00; Status DC Lidocaine/Sodium Bicarbonate (Buffered Lidocaine 1%) 9 ml 1X ONCE IJ Last administered on 03/11/17 12:23; Start 03/11/17 at 12:15; Stop 03/11/17 at 12:16 ; Status DC Midazolam HCl (Versed) 2 mg 1X ONCE IV Last administered on 03/11/17 12:24; Start 03/11/17 at 12:15; Stop 03/11/17 at 12:16; Status DC Fentanyl Citrate (Fentanyl 2ml Vial) 100 mcg 1X ONCE IV Last administered on 12:24; Start 03/11/17 at 12:15; Stop 03/11/17 at 12:16; Status DC Gadobutrol (Gadavist) 7.5 mmol 1X ONCE IV Last administered on 03/11/17 13:23 ; Start 03/11/17 at 13:15; Stop 03/11/17 at 13:16; Status DC Gadobutrol (Gadavist) 7.5 mmol 1X ONCE IV Last administered on 03/11/17 13:23 ; Start 03/11/17 at 13:15; Stop 03/11/17 at 13:16; Status DC Fentanyl Citrate (Fentanyl 2ml Vial) 100 mcg 1X ONCE IV Last administered on 14:00; Start 03/11/17 at 14:00; Stop 03/11/17 at 14:01; Status DC Rituximab 825 mg/ Sodium Chloride 332.5 ml @ 15 mls/hr 1X ONCE IV Last administered on 03/13/17 08:38; Start 03/13/17 at 08:00; Stop 03/14/17 at 06:09 ; Status DC Bendamustine HCl 200 mg/Sodium Chloride 500 ml @ 500 mls/hr ONCE ONCE IV Last administered on 03/13/17 13:11; Start 03/13/17 at 07:00; Stop 03/13/17 at 07:59; Status DC Bendamustine HCl 200 mg/Sodium Chloride 500 ml @ 500 mls/hr ONCE ONCE IV Last administered on 03/14/17 09:00; Start 03/14/17 at 09:00; Stop 03/14/17 at 09:59; Status DC Ondansetron HCl 16 mg/Sodium Chloride 58 ml @ 103.571 mls/hr ONCE ONCE IV Last administered on 03/13/17 07:25; Start 03/13/17 at 06:30; Stop 03/13/17 at 07:03; Status DC Ondansetron HCl 16 mg/Sodium Chloride 58 ml @ 103.571 mls/hr ONCE ONCE IV Last administered on 03/14/17 08:42; Start 03/14/17 at 08:30; Stop 03/14/17 at 09:03; Status DC Dexamethasone Sodium Phosphate (Decadron) 12 mg ONCE ONCE IV Last administered on 03/13/17 07:24; Start 03/13/17 at 06:30; Stop 03/13/17 at 06:31 ; Status DC Dexamethasone Sodium Phosphate (Decadron) 12 mg ONCE ONCE IV Last administered on 03/14/17 09:20; Start 03/14/17 at 08:30; Stop 03/14/17 at 08:31 ; Status DC Diphenhydramine HCl (Benadryl) 25 mg ONCE ONCE IV Last administered on 07:24; Start 03/13/17 at 06:30; Stop 03/13/17 at 06:31; Status DC Acetaminophen (Tylenol) 650 mg ONCE ONCE PO Last administered on 03/13/17 07: 25; Start 03/13/17 at 06:30; Stop 03/13/17 at 06:31; Status DC Furosemide (Lasix) 40 mg [id number] PO Last administered on 03/14/17 09:11; Start 03/12/17 at 09:00 Info (Do NOT chart on this placeholder) 1 each 1X ONCE MC ; Start 03/12/17 at 08:30; Stop 03/12/17 at 08:31; Status UNV Influenza Virus Vaccine Quadrival (Fluarix Quad 3470-0228 Syringe) 0.5 ml ONCE ONCE VAX IM Last administered on 03/12/17 09:27; Start 03/12/17 at 08:30; Stop 03/12/17 at 08:31; Status DC Metoprolol Tartrate (Lopressor) 25 mg BID PO Last administered on 03/13/17 22: 03; Start 03/12/17 at 21:00; Stop 03/13/17 at 23:00; Status DC Lisinopril (Prinivil) 5 mg DAILY PO ; Start 03/13/17 at 09:00; Stop 03/13/17 at 09:00; Status DC Lisinopril (Prinivil) 2.5 mg DAILY PO Last administered on 03/13/17 10:04; Start 03/13/17 at 09:00; Stop 03/14/17 at 08:20; Status DC Metoprolol Tartrate (Lopressor) 12.5 mg 1X ONCE PO Last administered on 13:06; Start 03/12/17 at 12:30; Stop 03/12/17 at 12:31; Status DC Lisinopril (Prinivil) 2.5 mg 1X ONCE PO Last administered on 03/12/17 13:07; Start 03/12/17 at 12:30; Stop 03/12/17 at 12:31; Status DC Enoxaparin Sodium (Lovenox Per Pharmacy Prophylaxis Dosing) 1 each PRN DAILY PRN MC SEE COMMENTS; Start 03/12/17 at 13:30 Enoxaparin Sodium (Lovenox 60mg Syringe) 60 mg Q12HR SQ Last administered on 09:12; Start 03/12/17 at 14:00 Polyethylene Glycol (miraLAX PACKET) 17 gm PRN DAILY PRN PO CONSTIPATION; Start 03/13/17 at 06:15 Metoprolol Tartrate (Lopressor) 25 mg 1X ONCE PO Last administered on 17:19; Start 03/13/17 at 16:00; Stop 03/13/17 at 16:44; Status DC Metoprolol Succinate (Toprol Xl) 75 mg DAILY PO Last administered on 03/14/17 09:10; Start 03/14/17 at 09:00 Lisinopril (Prinivil) 5 mg DAILY PO Last administered on 03/14/17 09:11; Start 03/14/17 at 09:00 Vitals/I & O Vital Sign - Last 24 Hours 03/13/17 03/13/17 03/13/17 03/13/17 12:50 15:05 15:15 17:19 Temp 98.8 97.9 98.8 97.9 Pulse 87 91 91 Resp 20 18 B/P (MAP) 125/57 (79) 132/60 (84) 132/60 Pulse Ox 94 94 91 O2 Delivery Nasal Cannula Nasal Cannula Room Air O2 Flow Rate 1.0 1.0 03/13/17 03/13/17 03/13/17 03/13/17 19:36 20:00 20:01 22:03 Temp 97.9 97.9 Pulse 95 95 Resp 18 B/P (MAP) 118/65 (82) 118/65 Pulse Ox 93 92 O2 Delivery Nasal Cannula Room Air Room Air O2 Flow Rate 3.0 03/13/17 03/14/17 03/14/17 03/14/17 22:15 02:49 07:00 08:00 Temp 98.0 97.8 97.6 98.0 97.8 97.6 Pulse 91 88 78 Resp 18 18 20 B/P (MAP) 121/72 (88) 145/76 (99) 136/78 (97) Pulse Ox 98 94 97 O2 Delivery Nasal Cannula Room Air Room Air Room Air O2 Flow Rate 2.0 3.0 03/14/17 03/14/17 03/14/17 03/14/17 08:48 09:10 09:11 11:00 Temp 97.8 97.8 Pulse 78 78 81 Resp 20 B/P (MAP) 136/78 136/78 125/63 (83) Pulse Ox 95 93 O2 Delivery Nasal Cannula Room Air O2 Flow Rate 3.0 03/14/17 12:03 O2 Delivery Nasal Cannula O2 Flow Rate 3.0 TEJINDER LAGUNA MD Mar 14, 2017 12:27
[2017-03-14] MEDS ORDERED: DOCU-109 PO (12:31)
[2017-03-14] MEDS ORDERED: NYST60PO TP (12:31)
[2017-03-14] MEDS ORDERED: LISI-338 PO (12:31)
[2017-03-14] MEDS ORDERED: PROAIR HFA8.5 GM INH (12:31)
[2017-03-14] MEDS ORDERED: METO-239 PO (12:31)
[2017-03-14] MEDS ORDERED: ALLO100T PO (12:31)
[2017-03-14] MEDS ORDERED: FURO40TA4 PO (12:31)
--- NOTE | 2017-03-14 14:04 | PDOC ---
PROGRESS NOTES Chief Complaint Chief Complaint acute CHF, systolic Hypotension Leg cellulitis COPD Asthma Sleep Apnea Obesity related hypoventilation syndrome, morbid obesity, BMI 56 CHF, acute systolic exacerbation Systolic HF with EF<30% Anxiety DO nos nonhodgkins lymphoma, NEW, chemo started today History of Present Illness History of Present Illness has walked some , feeling better no event Chemo today, bud well Vitals Vitals Vital Signs Date Time Temp Pulse Resp B/P (MAP) Pulse Ox O2 Delivery O2 Flow Rate FiO2 03/14/17 12:03 Nasal Cannula 3.0 03/14/17 11:00 97.8 81 20 125/63 (83) 93 97.8 Physical Exam Physical Exam R portacath site no longer bleeding. General: Alert, Oriented X3 Heart: Normal S1, Normal S2 Lungs: Clear Abdomen: No tenderness Extremities: No clubbing Skin: No rashes, No significant lesion Labs LABS Laboratory Tests Test 03/14/17 04:55 White Blood Count 5.4 x10^3/uL (4.0-11.0) Red Blood Count 3.59 x10^6/uL (3.50-5.40) Hemoglobin 10.4 g/dL (12.0-15.5) Hematocrit 31.7 % (36.0-47.0) Mean Corpuscular Volume 88 fL (79-100) Mean Corpuscular Hemoglobin 29 pg (25-35) Mean Corpuscular Hemoglobin Concent 33 g/dL (31-37) Red Cell Distribution Width 17.7 % (11.5-14.5) Platelet Count 147 x10^3/uL (140-400) Neutrophils (%) (Auto) 82 % (31-73) Lymphocytes (%) (Auto) 7 % (24-48) Monocytes (%) (Auto) 10 % (0-9) Eosinophils (%) (Auto) 0 % (0-3) Basophils (%) (Auto) 0 % (0-3) Neutrophils # (Auto) 4.4 x10^3uL (1.8-7.7) Lymphocytes # (Auto) 0.4 x10^3/uL (1.0-4.8) Monocytes # (Auto) 0.6 x10^3/uL (0.0-1.1) Eosinophils # (Auto) 0.0 x10^3/uL (0.0-0.7) Basophils # (Auto) 0.0 x10^3/uL (0.0-0.2) Sodium Level 136 mmol/L (136-145) Potassium Level 4.4 mmol/L (3.5-5.1) Chloride Level 99 mmol/L (98-107) Carbon Dioxide Level 37 mmol/L (21-32) Anion Gap 0 (6-14) Blood Urea Nitrogen 15 mg/dL (7-20) Creatinine 0.9 mg/dL (0.6-1.0) Estimated GFR (Cockcroft-Gault) 64.3 Glucose Level 150 mg/dL (70-99) Calcium Level 8.6 mg/dL (8.5-10.1) Assessment and Plan Assessmemt and Plan try to DC home today scripts sent to her pharmacy f/u 4 weeks for next chemo, Dr. Gutierrez applying for disability, Problems: Comment Review of Relevant I have reviewed the following items kailey (where applicable) has been applied. Labs Laboratory Tests Test 03/13/17 06:15 03/14/17 04:55 White Blood Count 5.8 x10^3/uL (4.0-11.0) 5.4 x10^3/uL (4.0-11.0) Red Blood Count 3.59 x10^6/uL (3.50-5.40) 3.59 x10^6/uL (3.50-5.40) Hemoglobin 10.4 g/dL (12.0-15.5) 10.4 g/dL (12.0-15.5) Hematocrit 31.8 % (36.0-47.0) 31.7 % (36.0-47.0) Mean Corpuscular Volume 89 fL (79-100) 88 fL (79-100) Mean Corpuscular Hemoglobin 29 pg (25-35) 29 pg (25-35) Mean Corpuscular Hemoglobin Concent 33 g/dL (31-37) 33 g/dL (31-37) Red Cell Distribution Width 17.7 % (11.5-14.5) 17.7 % (11.5-14.5) Platelet Count 149 x10^3/uL (140-400) 147 x10^3/uL (140-400) Neutrophils (%) (Auto) 63 % (31-73) 82 % (31-73) Lymphocytes (%) (Auto) 17 % (24-48) 7 % (24-48) Monocytes (%) (Auto) 14 % (0-9) 10 % (0-9) Eosinophils (%) (Auto) 6 % (0-3) 0 % (0-3) Basophils (%) (Auto) 1 % (0-3) 0 % (0-3) Neutrophils # (Auto) 3.7 x10^3uL (1.8-7.7) 4.4 x10^3uL (1.8-7.7) Lymphocytes # (Auto) 1.0 x10^3/uL (1.0-4.8) 0.4 x10^3/uL (1.0-4.8) Monocytes # (Auto) 0.8 x10^3/uL (0.0-1.1) 0.6 x10^3/uL (0.0-1.1) Eosinophils # (Auto) 0.3 x10^3/uL (0.0-0.7) 0.0 x10^3/uL (0.0-0.7) Basophils # (Auto) 0.1 x10^3/uL (0.0-0.2) 0.0 x10^3/uL (0.0-0.2) Sodium Level 135 mmol/L (136-145) 136 mmol/L (136-145) Potassium Level 4.1 mmol/L (3.5-5.1) 4.4 mmol/L (3.5-5.1) Chloride Level 97 mmol/L (98-107) 99 mmol/L (98-107) Carbon Dioxide Level 37 mmol/L (21-32) 37 mmol/L (21-32) Anion Gap 1 (6-14) 0 (6-14) Blood Urea Nitrogen 14 mg/dL (7-20) 15 mg/dL (7-20) Creatinine 0.9 mg/dL (0.6-1.0) 0.9 mg/dL (0.6-1.0) Estimated GFR (Cockcroft-Gault) 64.3 64.3 Glucose Level 101 mg/dL (70-99) 150 mg/dL (70-99) Calcium Level 8.2 mg/dL (8.5-10.1) 8.6 mg/dL (8.5-10.1) Laboratory Tests Test 03/14/17 04:55 White Blood Count 5.4 x10^3/uL (4.0-11.0) Red Blood Count 3.59 x10^6/uL (3.50-5.40) Hemoglobin 10.4 g/dL (12.0-15.5) Hematocrit 31.7 % (36.0-47.0) Mean Corpuscular Volume 88 fL (79-100) Mean Corpuscular Hemoglobin 29 pg (25-35) Mean Corpuscular Hemoglobin Concent 33 g/dL (31-37) Red Cell Distribution Width 17.7 % (11.5-14.5) Platelet Count 147 x10^3/uL (140-400) Neutrophils (%) (Auto) 82 % (31-73) Lymphocytes (%) (Auto) 7 % (24-48) Monocytes (%) (Auto) 10 % (0-9) Eosinophils (%) (Auto) 0 % (0-3) Basophils (%) (Auto) 0 % (0-3) Neutrophils # (Auto) 4.4 x10^3uL (1.8-7.7) Lymphocytes # (Auto) 0.4 x10^3/uL (1.0-4.8) Monocytes # (Auto) 0.6 x10^3/uL (0.0-1.1) Eosinophils # (Auto) 0.0 x10^3/uL (0.0-0.7) Basophils # (Auto) 0.0 x10^3/uL (0.0-0.2) Sodium Level 136 mmol/L (136-145) Potassium Level 4.4 mmol/L (3.5-5.1) Chloride Level 99 mmol/L (98-107) Carbon Dioxide Level 37 mmol/L (21-32) Anion Gap 0 (6-14) Blood Urea Nitrogen 15 mg/dL (7-20) Creatinine 0.9 mg/dL (0.6-1.0) Estimated GFR (Cockcroft-Gault) 64.3 Glucose Level 150 mg/dL (70-99) Calcium Level 8.6 mg/dL (8.5-10.1) Medications Current Medications Enoxaparin Sodium (Lovenox 150mg Syringe) 150 mg Q12HR SQ Last administered on 03/08/17 21:20; Start 03/06/17 at 21:00; Stop 03/09/17 at 11:54; Status DC Albuterol/ Ipratropium (Duoneb) 3 ml RTQID NEB Last administered on 03/14/17 08:46; Start 03/06/17 at 20:00 Nystatin (Nystop) 1 john BID TP Last administered on 03/13/17 09:00; Start at 21:00 Ondansetron HCl (Zofran Odt) 4 mg PRN Q6HRS PRN PO NAUSEA/VOMITING Last administered on 03/12/17 22:01; Start 03/06/17 at 18:00 Ceftriaxone Sodium 1 gm/ Sodium Chloride 50 ml @ 100 mls/hr Q24H IV Last administered on 03/13/17 22:02; Start 03/06/17 at 20:00 Oxycodone/ Acetaminophen (Percocet 5/325) 1 tab PRN Q4HRS PRN PO PAIN Last administered on 03/11/17 22:29; Start 03/06/17 at 18:00 Sodium Chloride (Normal Saline Flush) 3 ml PRN DAILY PRN IV AFTER MEDS AND BLOOD DRAWS; Start 03/06/17 at 18:00 Iohexol (Omnipaque 300 Mg/ml) 75 ml 1X ONCE IV ; Start 03/07/17 at 09:15; Stop 03/07/17 at 09:16; Status DC Iohexol (Omnipaque 240 Mg/ml) 50 ml 1X ONCE PO Last administered on 03/07/17 09:15; Start 03/07/17 at 09:15; Stop 03/07/17 at 09:16; Status DC Info (Do NOT chart on this entry -- for MONITORING) 1 each PRN DAILY PRN MC SEE COMMENTS; Start 03/07/17 at 09:15; Stop 03/09/17 at 09:14; Status DC Allopurinol (Zyloprim) 100 mg DAILY PO Last administered on 03/14/17 09:11; Start 03/07/17 at 11:00 Info (Anti-Coagulation Monitoring By Pharmacy) 1 each PRN DAILY PRN MC SEE COMMENTS Last administered on 03/07/17 13:28; Start 03/07/17 at 13:30; Stop at 13:35; Status DC Lidocaine/ Epinephrine (Xylocaine 1%-Epi 1:100,000) 20 ml STK-MED ONCE .ROUTE ; Start 03/07/17 at 15:25; Stop 03/07/17 at 15:26; Status DC Heparin Sodium (Porcine) (Hep Lock Adult) 500 unit STK-MED ONCE IV ; Start 03/07 at 15:25; Stop 03/07/17 at 15:26; Status DC Heparin Sodium/ Sodium Chloride 500 ml @ As Directed STK-MED ONCE .ROUTE ; Start 03/07/17 at 15:25; Stop 03/07/17 at 15:26; Status DC Cefazolin Sodium 0 ml @ As Directed STK-MED ONCE IV ; Start 03/07/17 at 15:58; Stop 03/07/17 at 15:59; Status DC Fentanyl Citrate (Fentanyl 2ml Vial) 100 mcg STK-MED ONCE .ROUTE ; Start at 15:58; Stop 03/07/17 at 15:59; Status DC Heparin Sodium/ Sodium Chloride 1,000 unit 1X ONCE IART Last administered on 16:25; Start 03/07/17 at 16:15; Stop 03/07/17 at 16:16; Status DC Lidocaine/ Epinephrine (Xylocaine 1%-Epi 1:100,000) 20 ml 1X ONCE INJ Last administered on 03/07/17 16:25; Start 03/07/17 at 16:15; Stop 03/07/17 at 16:16 ; Status DC Heparin Sodium (Porcine) (Hep Lock Adult) 500 unit 1X ONCE IV Last administered on 03/07/17 16:30; Start 03/07/17 at 16:15; Stop 03/07/17 at 16:16 ; Status DC Clindamycin Phosphate 50 ml @ As Directed STK-MED ONCE IV ; Start 03/07/17 at 16 :06; Stop 03/07/17 at 16:07; Status DC Ondansetron HCl (Zofran) 4 mg STK-MED ONCE .ROUTE ; Start 03/07/17 at 16:14; Stop 03/07/17 at 16:15; Status DC Clindamycin Phosphate 50 ml @ 100 mls/hr 1X ONCE IV Last administered on 03/07 16:33; Start 03/07/17 at 16:30; Stop 03/07/17 at 16:59; Status DC Ondansetron HCl (Zofran) 4 mg 1X ONCE IV Last administered on 03/07/17 16:32 ; Start 03/07/17 at 16:30; Stop 03/07/17 at 16:31; Status DC Hydralazine HCl (Apresoline) 10 mg PRN Q4HRS PRN IVP ELEVATED BP, SEE COMMENTS ; Start 03/07/17 at 16:45 Isosorbide Mononitrate (Imdur) 30 mg DAILY PO Last administered on 03/11/17 09 :00; Start 03/08/17 at 09:00; Stop 03/12/17 at 09:46; Status DC Metoprolol Tartrate (Lopressor) 12.5 mg BID PO Last administered on 03/12/17 09:20; Start 03/08/17 at 09:00; Stop 03/12/17 at 09:46; Status DC Aspirin (Ecotrin) 81 mg [id number] PO Last administered on 03/08/17 14:06; Start 03/08/17 at 08:00; Stop 03/09/17 at 11:54; Status DC Morphine Sulfate 2 mg 1X ONCE IV Last administered on 03/08/17 11:45; Start 03/08/17 at 11:45; Stop 03/08/17 at 11:46; Status DC Diphenhydramine HCl (Benadryl) 25 mg Q6HRS PRN IVP itching; Start 03/08/17 at 17:30; Status Cancel Diphenhydramine HCl (Benadryl) 50 mg Q8HRS PRN IVP itching Last administered on 03/08/17 17:39; Start 03/08/17 at 17:30 Furosemide (Lasix) 40 mg DAILY IVP Last administered on 03/10/17 11:12; Start 03/09/17 at 10:15; Stop 03/10/17 at 14:39; Status DC Desmopressin Acetate 30 mcg/ Sodium Chloride 57.5 ml @ 115 mls/hr 1X ONCE IV Last administered on 03/09/17 14:48; Start 03/09/17 at 15:00; Stop 03/09/17 at 15:29; Status DC Protamine Sulfate 50 mg 1X ONCE IV Last administered on 03/09/17 16:29; Start 03/09/17 at 15:45; Stop 03/09/17 at 15:46; Status DC Silver Nitrate/ Potassium Nitrate 1 each 1X ONCE TP Last administered on 00:59; Start 03/10/17 at 01:00; Stop 03/10/17 at 01:01; Status DC Thrombin 20,000 unit 1X ONCE TP Last administered on 03/10/17 02:48; Start at 01:00; Stop 03/10/17 at 01:01; Status DC Iohexol (Omnipaque 300 Mg/ml) 50 ml STK-MED ONCE .ROUTE ; Start 03/10/17 at 07: 41; Stop 03/10/17 at 07:42; Status DC Lidocaine/ Epinephrine (Xylocaine 1%-Epi 1:100,000) 20 ml STK-MED ONCE .ROUTE ; Start 03/10/17 at 08:23; Stop 03/10/17 at 08:24; Status DC Thrombin 5,000 unit 1X ONCE TP Last administered on 03/10/17 08:49; Start at 08:30; Stop 03/10/17 at 08:31; Status DC Lidocaine/ Epinephrine (Xylocaine 1%-Epi 1:100,000) 20 ml 1X ONCE INJ Last administered on 03/10/17 08:48; Start 03/10/17 at 08:30; Stop 03/10/17 at 08:31 ; Status DC Furosemide (Lasix) 40 mg [id number] IVP Last administered on 03/11/17 16:00; Start 03/10/17 at 16:00; Stop 03/12/17 at 08:19; Status DC Lidocaine/Sodium Bicarbonate (Buffered Lidocaine 1%) 20 ml STK-MED ONCE IJ ; Start 03/11/17 at 11:40; Stop 03/11/17 at 11:41; Status DC Fentanyl Citrate (Fentanyl 2ml Vial) 100 mcg STK-MED ONCE .ROUTE ; Start at 11:59; Stop 03/11/17 at 12:00; Status DC Midazolam HCl (Versed) 2 mg STK-MED ONCE .ROUTE ; Start 03/11/17 at 11:59; Stop 03/11/17 at 12:00; Status DC Lidocaine/Sodium Bicarbonate (Buffered Lidocaine 1%) 9 ml 1X ONCE IJ Last administered on 03/11/17 12:23; Start 03/11/17 at 12:15; Stop 03/11/17 at 12:16 ; Status DC Midazolam HCl (Versed) 2 mg 1X ONCE IV Last administered on 03/11/17 12:24; Start 03/11/17 at 12:15; Stop 03/11/17 at 12:16; Status DC Fentanyl Citrate (Fentanyl 2ml Vial) 100 mcg 1X ONCE IV Last administered on 12:24; Start 03/11/17 at 12:15; Stop 03/11/17 at 12:16; Status DC Gadobutrol (Gadavist) 7.5 mmol 1X ONCE IV Last administered on 03/11/17 13:23 ; Start 03/11/17 at 13:15; Stop 03/11/17 at 13:16; Status DC Gadobutrol (Gadavist) 7.5 mmol 1X ONCE IV Last administered on 03/11/17 13:23 ; Start 03/11/17 at 13:15; Stop 03/11/17 at 13:16; Status DC Fentanyl Citrate (Fentanyl 2ml Vial) 100 mcg 1X ONCE IV Last administered on 14:00; Start 03/11/17 at 14:00; Stop 03/11/17 at 14:01; Status DC Rituximab 825 mg/ Sodium Chloride 332.5 ml @ 15 mls/hr 1X ONCE IV Last administered on 03/13/17 08:38; Start 03/13/17 at 08:00; Stop 03/14/17 at 06:09 ; Status DC Bendamustine HCl 200 mg/Sodium Chloride 500 ml @ 500 mls/hr ONCE ONCE IV Last administered on 03/13/17 13:11; Start 03/13/17 at 07:00; Stop 03/13/17 at 07:59; Status DC Bendamustine HCl 200 mg/Sodium Chloride 500 ml @ 500 mls/hr ONCE ONCE IV Last administered on 03/14/17 09:00; Start 03/14/17 at 09:00; Stop 03/14/17 at 09:59; Status DC Ondansetron HCl 16 mg/Sodium Chloride 58 ml @ 103.571 mls/hr ONCE ONCE IV Last administered on 03/13/17 07:25; Start 03/13/17 at 06:30; Stop 03/13/17 at 07:03; Status DC Ondansetron HCl 16 mg/Sodium Chloride 58 ml @ 103.571 mls/hr ONCE ONCE IV Last administered on 03/14/17 08:42; Start 03/14/17 at 08:30; Stop 03/14/17 at 09:03; Status DC Dexamethasone Sodium Phosphate (Decadron) 12 mg ONCE ONCE IV Last administered on 03/13/17 07:24; Start 03/13/17 at 06:30; Stop 03/13/17 at 06:31 ; Status DC Dexamethasone Sodium Phosphate (Decadron) 12 mg ONCE ONCE IV Last administered on 03/14/17 09:20; Start 03/14/17 at 08:30; Stop 03/14/17 at 08:31 ; Status DC Diphenhydramine HCl (Benadryl) 25 mg ONCE ONCE IV Last administered on 07:24; Start 03/13/17 at 06:30; Stop 03/13/17 at 06:31; Status DC Acetaminophen (Tylenol) 650 mg ONCE ONCE PO Last administered on 03/13/17 07: 25; Start 03/13/17 at 06:30; Stop 03/13/17 at 06:31; Status DC Furosemide (Lasix) 40 mg [id number] PO Last administered on 03/14/17 09:11; Start 03/12/17 at 09:00 Info (Do NOT chart on this placeholder) 1 each 1X ONCE MC ; Start 03/12/17 at 08:30; Stop 03/12/17 at 08:31; Status UNV Influenza Virus Vaccine Quadrival (Fluarix Quad 4541-3210 Syringe) 0.5 ml ONCE ONCE VAX IM Last administered on 03/12/17 09:27; Start 03/12/17 at 08:30; Stop 03/12/17 at 08:31; Status DC Metoprolol Tartrate (Lopressor) 25 mg BID PO Last administered on 03/13/17 22: 03; Start 03/12/17 at 21:00; Stop 03/13/17 at 23:00; Status DC Lisinopril (Prinivil) 5 mg DAILY PO ; Start 03/13/17 at 09:00; Stop 03/13/17 at 09:00; Status DC Lisinopril (Prinivil) 2.5 mg DAILY PO Last administered on 03/13/17 10:04; Start 03/13/17 at 09:00; Stop 03/14/17 at 08:20; Status DC Metoprolol Tartrate (Lopressor) 12.5 mg 1X ONCE PO Last administered on 13:06; Start 03/12/17 at 12:30; Stop 03/12/17 at 12:31; Status DC Lisinopril (Prinivil) 2.5 mg 1X ONCE PO Last administered on 03/12/17 13:07; Start 03/12/17 at 12:30; Stop 03/12/17 at 12:31; Status DC Enoxaparin Sodium (Lovenox Per Pharmacy Prophylaxis Dosing) 1 each PRN DAILY PRN MC SEE COMMENTS; Start 03/12/17 at 13:30 Enoxaparin Sodium (Lovenox 60mg Syringe) 60 mg Q12HR SQ Last administered on 09:12; Start 03/12/17 at 14:00 Polyethylene Glycol (miraLAX PACKET) 17 gm PRN DAILY PRN PO CONSTIPATION; Start 03/13/17 at 06:15 Metoprolol Tartrate (Lopressor) 25 mg 1X ONCE PO Last administered on 17:19; Start 03/13/17 at 16:00; Stop 03/13/17 at 16:44; Status DC Metoprolol Succinate (Toprol Xl) 75 mg DAILY PO Last administered on 03/14/17 09:10; Start 03/14/17 at 09:00 Lisinopril (Prinivil) 5 mg DAILY PO Last administered on 03/14/17 09:11; Start 03/14/17 at 09:00 Vitals/I & O Vital Sign - Last 24 Hours 03/13/17 03/13/17 03/13/17 03/13/17 15:05 15:15 17:19 19:36 Temp 97.9 97.9 97.9 97.9 Pulse 91 91 95 Resp 18 18 B/P (MAP) 132/60 (84) 132/60 118/65 (82) Pulse Ox 94 91 93 O2 Delivery Nasal Cannula Room Air Nasal Cannula O2 Flow Rate 1.0 3.0 03/13/17 03/13/17 03/13/17 03/13/17 20:00 20:01 22:03 22:15 Temp 98.0 98.0 Pulse 95 91 Resp 18 B/P (MAP) 118/65 121/72 (88) Pulse Ox 92 98 O2 Delivery Room Air Room Air Nasal Cannula O2 Flow Rate 2.0 03/14/17 03/14/17 03/14/17 03/14/17 02:49 07:00 08:00 08:48 Temp 97.8 97.6 97.8 97.6 Pulse 88 78 Resp 18 20 B/P (MAP) 145/76 (99) 136/78 (97) Pulse Ox 94 97 95 O2 Delivery Room Air Room Air Room Air Nasal Cannula O2 Flow Rate 3.0 3.0 03/14/17 03/14/17 03/14/17 03/14/17 09:10 09:11 11:00 12:03 Temp 97.8 97.8 Pulse 78 78 81 Resp 20 B/P (MAP) 136/78 136/78 125/63 (83) Pulse Ox 93 O2 Delivery Room Air Nasal Cannula O2 Flow Rate 3.0 RONA CORONA MD Mar 14, 2017 14:04
[2017-03-14 15:00] VITALS: BP 126/66
[2017-03-14] MEDS: oxyCODONE/APAP 5/325 1 TAB TABLET PO PRN (16:23)
[2017-03-14 19:41] VITALS: BP 145/88
[2017-03-14 23:40] VITALS: BP 151/82
[2017-03-15 03:14] VITALS: BP 141/77
[2017-03-15 07:00] VITALS: BP 112/64
[2017-03-15] MEDS: IPRATRPIUM/ALBUTEROL 0.5/2.5MG 3 ML NEBU. NEB SCH ×4 (07:37→20:17)
[2017-03-15] MEDS: FUROSEMIDE 40 MG TABLET. PO SCH ×2 (08:25→17:05)
[2017-03-15] MEDS: METOPROLOL SUCC 24HR ER 25 MG TAB.ER.24H. PO SCH (08:25)
[2017-03-15] MEDS: LISINOPRIL 5 MG TABLET. PO SCH (08:25)
[2017-03-15] MEDS: ALLOPURINOL 100 MG TABLET. PO SCH (08:26)
[2017-03-15] MEDS: NYSTATIN TOPICAL POWDER 15GM BOTTLE. TP SCH ×2 (08:26→21:17)
[2017-03-15 11:00] VITALS: BP 131/88
--- NOTE | 2017-03-15 13:53 | PDOC ---
PROGRESS NOTES Chief Complaint Chief Complaint acute CHF, systolic Hypotension Leg cellulitis COPD Asthma Sleep Apnea Obesity related hypoventilation syndrome, morbid obesity, BMI 56 CHF, acute systolic exacerbation Systolic HF with EF<30% Anxiety DO nos nonhodgkins lymphoma, NEW, chemo started today History of Present Illness History of Present Illness reports worsening of severe depression today, is tearful and emotional to me, reports she "can't imaging making it": at home, has support, she asked to be eval by psych, has been in inpatietn psych before, for hostility to PD, SI, she feels suicidal thoughts today - has no plan would like PAT team to eval she feels she cannot go home no event Chemo completed yesterday Vitals Vitals Vital Signs Date Time Temp Pulse Resp B/P (MAP) Pulse Ox O2 Delivery O2 Flow Rate FiO2 03/15/17 11:54 Room Air 03/15/17 11:00 97.7 85 18 131/88 (102) 94 97.7 03/14/17 17:38 3.0 Physical Exam Physical Exam R portacath site no longer bleeding. General: Alert, Oriented X3 Heart: Normal S1, Normal S2 Lungs: Clear Abdomen: No tenderness Extremities: No clubbing Skin: No rashes, No significant lesion Review of Systems Review of Systems insomnia, anxiety, tearful and emotional very depressed Comment Review of Relevant I have reviewed the following items kailey (where applicable) has been applied. Labs Laboratory Tests Test 03/14/17 04:55 White Blood Count 5.4 x10^3/uL (4.0-11.0) Red Blood Count 3.59 x10^6/uL (3.50-5.40) Hemoglobin 10.4 g/dL (12.0-15.5) Hematocrit 31.7 % (36.0-47.0) Mean Corpuscular Volume 88 fL (79-100) Mean Corpuscular Hemoglobin 29 pg (25-35) Mean Corpuscular Hemoglobin Concent 33 g/dL (31-37) Red Cell Distribution Width 17.7 % (11.5-14.5) Platelet Count 147 x10^3/uL (140-400) Neutrophils (%) (Auto) 82 % (31-73) Lymphocytes (%) (Auto) 7 % (24-48) Monocytes (%) (Auto) 10 % (0-9) Eosinophils (%) (Auto) 0 % (0-3) Basophils (%) (Auto) 0 % (0-3) Neutrophils # (Auto) 4.4 x10^3uL (1.8-7.7) Lymphocytes # (Auto) 0.4 x10^3/uL (1.0-4.8) Monocytes # (Auto) 0.6 x10^3/uL (0.0-1.1) Eosinophils # (Auto) 0.0 x10^3/uL (0.0-0.7) Basophils # (Auto) 0.0 x10^3/uL (0.0-0.2) Sodium Level 136 mmol/L (136-145) Potassium Level 4.4 mmol/L (3.5-5.1) Chloride Level 99 mmol/L (98-107) Carbon Dioxide Level 37 mmol/L (21-32) Anion Gap 0 (6-14) Blood Urea Nitrogen 15 mg/dL (7-20) Creatinine 0.9 mg/dL (0.6-1.0) Estimated GFR (Cockcroft-Gault) 64.3 Glucose Level 150 mg/dL (70-99) Calcium Level 8.6 mg/dL (8.5-10.1) Medications Current Medications Enoxaparin Sodium (Lovenox 150mg Syringe) 150 mg Q12HR SQ Last administered on 03/08/17 21:20; Start 03/06/17 at 21:00; Stop 03/09/17 at 11:54; Status DC Albuterol/ Ipratropium (Duoneb) 3 ml RTQID NEB Last administered on 03/15/17 11:52; Start 03/06/17 at 20:00 Nystatin (Nystop) 1 john BID TP Last administered on 03/15/17 08:26; Start at 21:00 Ondansetron HCl (Zofran Odt) 4 mg PRN Q6HRS PRN PO NAUSEA/VOMITING Last administered on 03/12/17 22:01; Start 03/06/17 at 18:00 Ceftriaxone Sodium 1 gm/ Sodium Chloride 50 ml @ 100 mls/hr Q24H IV Last administered on 03/14/17 22:12; Start 03/06/17 at 20:00 Oxycodone/ Acetaminophen (Percocet 5/325) 1 tab PRN Q4HRS PRN PO PAIN Last administered on 03/14/17 16:23; Start 03/06/17 at 18:00 Sodium Chloride (Normal Saline Flush) 3 ml PRN DAILY PRN IV AFTER MEDS AND BLOOD DRAWS; Start 03/06/17 at 18:00 Iohexol (Omnipaque 300 Mg/ml) 75 ml 1X ONCE IV ; Start 03/07/17 at 09:15; Stop 03/07/17 at 09:16; Status DC Iohexol (Omnipaque 240 Mg/ml) 50 ml 1X ONCE PO Last administered on 03/07/17 09:15; Start 03/07/17 at 09:15; Stop 03/07/17 at 09:16; Status DC Info (Do NOT chart on this entry -- for MONITORING) 1 each PRN DAILY PRN MC SEE COMMENTS; Start 03/07/17 at 09:15; Stop 03/09/17 at 09:14; Status DC Allopurinol (Zyloprim) 100 mg DAILY PO Last administered on 03/15/17 08:26; Start 03/07/17 at 11:00 Info (Anti-Coagulation Monitoring By Pharmacy) 1 each PRN DAILY PRN MC SEE COMMENTS Last administered on 03/07/17 13:28; Start 03/07/17 at 13:30; Stop at 13:35; Status DC Lidocaine/ Epinephrine (Xylocaine 1%-Epi 1:100,000) 20 ml STK-MED ONCE .ROUTE ; Start 03/07/17 at 15:25; Stop 03/07/17 at 15:26; Status DC Heparin Sodium (Porcine) (Hep Lock Adult) 500 unit STK-MED ONCE IV ; Start 03/07 at 15:25; Stop 03/07/17 at 15:26; Status DC Heparin Sodium/ Sodium Chloride 500 ml @ As Directed STK-MED ONCE .ROUTE ; Start 03/07/17 at 15:25; Stop 03/07/17 at 15:26; Status DC Cefazolin Sodium 0 ml @ As Directed STK-MED ONCE IV ; Start 03/07/17 at 15:58; Stop 03/07/17 at 15:59; Status DC Fentanyl Citrate (Fentanyl 2ml Vial) 100 mcg STK-MED ONCE .ROUTE ; Start at 15:58; Stop 03/07/17 at 15:59; Status DC Heparin Sodium/ Sodium Chloride 1,000 unit 1X ONCE IART Last administered on 16:25; Start 03/07/17 at 16:15; Stop 03/07/17 at 16:16; Status DC Lidocaine/ Epinephrine (Xylocaine 1%-Epi 1:100,000) 20 ml 1X ONCE INJ Last administered on 03/07/17 16:25; Start 03/07/17 at 16:15; Stop 03/07/17 at 16:16 ; Status DC Heparin Sodium (Porcine) (Hep Lock Adult) 500 unit 1X ONCE IV Last administered on 03/07/17 16:30; Start 03/07/17 at 16:15; Stop 03/07/17 at 16:16 ; Status DC Clindamycin Phosphate 50 ml @ As Directed STK-MED ONCE IV ; Start 03/07/17 at 16 :06; Stop 03/07/17 at 16:07; Status DC Ondansetron HCl (Zofran) 4 mg STK-MED ONCE .ROUTE ; Start 03/07/17 at 16:14; Stop 03/07/17 at 16:15; Status DC Clindamycin Phosphate 50 ml @ 100 mls/hr 1X ONCE IV Last administered on 03/07 16:33; Start 03/07/17 at 16:30; Stop 03/07/17 at 16:59; Status DC Ondansetron HCl (Zofran) 4 mg 1X ONCE IV Last administered on 03/07/17 16:32 ; Start 03/07/17 at 16:30; Stop 03/07/17 at 16:31; Status DC Hydralazine HCl (Apresoline) 10 mg PRN Q4HRS PRN IVP ELEVATED BP, SEE COMMENTS ; Start 03/07/17 at 16:45 Isosorbide Mononitrate (Imdur) 30 mg DAILY PO Last administered on 03/11/17 09 :00; Start 03/08/17 at 09:00; Stop 03/12/17 at 09:46; Status DC Metoprolol Tartrate (Lopressor) 12.5 mg BID PO Last administered on 03/12/17 09:20; Start 03/08/17 at 09:00; Stop 03/12/17 at 09:46; Status DC Aspirin (Ecotrin) 81 mg [id number] PO Last administered on 03/08/17 14:06; Start 03/08/17 at 08:00; Stop 03/09/17 at 11:54; Status DC Morphine Sulfate 2 mg 1X ONCE IV Last administered on 03/08/17 11:45; Start 03/08/17 at 11:45; Stop 03/08/17 at 11:46; Status DC Diphenhydramine HCl (Benadryl) 25 mg Q6HRS PRN IVP itching; Start 03/08/17 at 17:30; Status Cancel Diphenhydramine HCl (Benadryl) 50 mg Q8HRS PRN IVP itching Last administered on 03/08/17 17:39; Start 03/08/17 at 17:30 Furosemide (Lasix) 40 mg DAILY IVP Last administered on 03/10/17 11:12; Start 03/09/17 at 10:15; Stop 03/10/17 at 14:39; Status DC Desmopressin Acetate 30 mcg/ Sodium Chloride 57.5 ml @ 115 mls/hr 1X ONCE IV Last administered on 03/09/17 14:48; Start 03/09/17 at 15:00; Stop 03/09/17 at 15:29; Status DC Protamine Sulfate 50 mg 1X ONCE IV Last administered on 03/09/17 16:29; Start 03/09/17 at 15:45; Stop 03/09/17 at 15:46; Status DC Silver Nitrate/ Potassium Nitrate 1 each 1X ONCE TP Last administered on 00:59; Start 03/10/17 at 01:00; Stop 03/10/17 at 01:01; Status DC Thrombin 20,000 unit 1X ONCE TP Last administered on 03/10/17 02:48; Start at 01:00; Stop 03/10/17 at 01:01; Status DC Iohexol (Omnipaque 300 Mg/ml) 50 ml STK-MED ONCE .ROUTE ; Start 03/10/17 at 07: 41; Stop 03/10/17 at 07:42; Status DC Lidocaine/ Epinephrine (Xylocaine 1%-Epi 1:100,000) 20 ml STK-MED ONCE .ROUTE ; Start 03/10/17 at 08:23; Stop 03/10/17 at 08:24; Status DC Thrombin 5,000 unit 1X ONCE TP Last administered on 03/10/17 08:49; Start at 08:30; Stop 03/10/17 at 08:31; Status DC Lidocaine/ Epinephrine (Xylocaine 1%-Epi 1:100,000) 20 ml 1X ONCE INJ Last administered on 03/10/17 08:48; Start 03/10/17 at 08:30; Stop 03/10/17 at 08:31 ; Status DC Furosemide (Lasix) 40 mg [id number] IVP Last administered on 03/11/17 16:00; Start 03/10/17 at 16:00; Stop 03/12/17 at 08:19; Status DC Lidocaine/Sodium Bicarbonate (Buffered Lidocaine 1%) 20 ml STK-MED ONCE IJ ; Start 03/11/17 at 11:40; Stop 03/11/17 at 11:41; Status DC Fentanyl Citrate (Fentanyl 2ml Vial) 100 mcg STK-MED ONCE .ROUTE ; Start at 11:59; Stop 03/11/17 at 12:00; Status DC Midazolam HCl (Versed) 2 mg STK-MED ONCE .ROUTE ; Start 03/11/17 at 11:59; Stop 03/11/17 at 12:00; Status DC Lidocaine/Sodium Bicarbonate (Buffered Lidocaine 1%) 9 ml 1X ONCE IJ Last administered on 03/11/17 12:23; Start 03/11/17 at 12:15; Stop 03/11/17 at 12:16 ; Status DC Midazolam HCl (Versed) 2 mg 1X ONCE IV Last administered on 03/11/17 12:24; Start 03/11/17 at 12:15; Stop 03/11/17 at 12:16; Status DC Fentanyl Citrate (Fentanyl 2ml Vial) 100 mcg 1X ONCE IV Last administered on 12:24; Start 03/11/17 at 12:15; Stop 03/11/17 at 12:16; Status DC Gadobutrol (Gadavist) 7.5 mmol 1X ONCE IV Last administered on 03/11/17 13:23 ; Start 03/11/17 at 13:15; Stop 03/11/17 at 13:16; Status DC Gadobutrol (Gadavist) 7.5 mmol 1X ONCE IV Last administered on 03/11/17 13:23 ; Start 03/11/17 at 13:15; Stop 03/11/17 at 13:16; Status DC Fentanyl Citrate (Fentanyl 2ml Vial) 100 mcg 1X ONCE IV Last administered on 14:00; Start 03/11/17 at 14:00; Stop 03/11/17 at 14:01; Status DC Rituximab 825 mg/ Sodium Chloride 332.5 ml @ 15 mls/hr 1X ONCE IV Last administered on 03/13/17 08:38; Start 03/13/17 at 08:00; Stop 03/14/17 at 06:09 ; Status DC Bendamustine HCl 200 mg/Sodium Chloride 500 ml @ 500 mls/hr ONCE ONCE IV Last administered on 03/13/17 13:11; Start 03/13/17 at 07:00; Stop 03/13/17 at 07:59; Status DC Bendamustine HCl 200 mg/Sodium Chloride 500 ml @ 500 mls/hr ONCE ONCE IV Last administered on 03/14/17 09:00; Start 03/14/17 at 09:00; Stop 03/14/17 at 09:59; Status DC Ondansetron HCl 16 mg/Sodium Chloride 58 ml @ 103.571 mls/hr ONCE ONCE IV Last administered on 03/13/17 07:25; Start 03/13/17 at 06:30; Stop 03/13/17 at 07:03; Status DC Ondansetron HCl 16 mg/Sodium Chloride 58 ml @ 103.571 mls/hr ONCE ONCE IV Last administered on 03/14/17 08:42; Start 03/14/17 at 08:30; Stop 03/14/17 at 09:03; Status DC Dexamethasone Sodium Phosphate (Decadron) 12 mg ONCE ONCE IV Last administered on 03/13/17 07:24; Start 03/13/17 at 06:30; Stop 03/13/17 at 06:31 ; Status DC Dexamethasone Sodium Phosphate (Decadron) 12 mg ONCE ONCE IV Last administered on 03/14/17 09:20; Start 03/14/17 at 08:30; Stop 03/14/17 at 08:31 ; Status DC Diphenhydramine HCl (Benadryl) 25 mg ONCE ONCE IV Last administered on 07:24; Start 03/13/17 at 06:30; Stop 03/13/17 at 06:31; Status DC Acetaminophen (Tylenol) 650 mg ONCE ONCE PO Last administered on 03/13/17 07: 25; Start 03/13/17 at 06:30; Stop 03/13/17 at 06:31; Status DC Furosemide (Lasix) 40 mg [id number] PO Last administered on 03/15/17 08:25; Start 03/12/17 at 09:00 Info (Do NOT chart on this placeholder) 1 each 1X ONCE MC ; Start 03/12/17 at 08:30; Stop 03/12/17 at 08:31; Status UNV Influenza Virus Vaccine Quadrival (Fluarix Quad 0426-1819 Syringe) 0.5 ml ONCE ONCE VAX IM Last administered on 03/12/17 09:27; Start 03/12/17 at 08:30; Stop 03/12/17 at 08:31; Status DC Metoprolol Tartrate (Lopressor) 25 mg BID PO Last administered on 03/13/17 22: 03; Start 03/12/17 at 21:00; Stop 03/13/17 at 23:00; Status DC Lisinopril (Prinivil) 5 mg DAILY PO ; Start 03/13/17 at 09:00; Stop 03/13/17 at 09:00; Status DC Lisinopril (Prinivil) 2.5 mg DAILY PO Last administered on 03/13/17 10:04; Start 03/13/17 at 09:00; Stop 03/14/17 at 08:20; Status DC Metoprolol Tartrate (Lopressor) 12.5 mg 1X ONCE PO Last administered on 13:06; Start 03/12/17 at 12:30; Stop 03/12/17 at 12:31; Status DC Lisinopril (Prinivil) 2.5 mg 1X ONCE PO Last administered on 03/12/17 13:07; Start 03/12/17 at 12:30; Stop 03/12/17 at 12:31; Status DC Enoxaparin Sodium (Lovenox Per Pharmacy Prophylaxis Dosing) 1 each PRN DAILY PRN MC SEE COMMENTS; Start 03/12/17 at 13:30 Enoxaparin Sodium (Lovenox 60mg Syringe) 60 mg Q12HR SQ Last administered on 08:24; Start 03/12/17 at 14:00 Polyethylene Glycol (miraLAX PACKET) 17 gm PRN DAILY PRN PO CONSTIPATION; Start 03/13/17 at 06:15 Metoprolol Tartrate (Lopressor) 25 mg 1X ONCE PO Last administered on 17:19; Start 03/13/17 at 16:00; Stop 03/13/17 at 16:44; Status DC Metoprolol Succinate (Toprol Xl) 75 mg DAILY PO Last administered on 03/15/17 08:25; Start 03/14/17 at 09:00 Lisinopril (Prinivil) 5 mg DAILY PO Last administered on 03/15/17 08:25; Start 03/14/17 at 09:00 Vitals/I & O Vital Sign - Last 24 Hours 03/14/17 03/14/17 03/14/17 03/14/17 15:00 16:10 16:23 17:38 Temp 99.7 99.7 Pulse 87 Resp 20 B/P (MAP) 126/66 (86) Pulse Ox 92 92 92 O2 Delivery Room Air Nasal Cannula Room Air Room Air O2 Flow Rate 3.0 3.0 3.0 03/14/17 03/14/17 03/14/17 03/14/17 19:41 20:00 20:24 23:40 Temp 98.3 97.9 98.3 97.9 Pulse 92 92 Resp 18 20 B/P (MAP) 145/88 (107) 151/82 (105) Pulse Ox 97 96 O2 Delivery Room Air Room Air Room Air Room Air 03/15/17 03/15/17 03/15/17 03/15/17 03:14 07:00 07:39 08:10 Temp 98.5 97.8 98.5 97.8 Pulse 87 81 Resp 16 18 B/P (MAP) 141/77 (98) 112/64 (80) Pulse Ox 90 95 90 O2 Delivery Room Air Room Air Room Air Room Air 9/23/03/15/17 03/15/17 03/15/17 08:25 08:25 11:00 11:54 Temp 97.7 97.7 Pulse 81 81 85 Resp 18 B/P (MAP) 112/64 112/64 131/88 (102) Pulse Ox 94 O2 Delivery Room Air Room Air Intake and Output 03/15/17 03/15/17 03/16/17 15:00 23:00 07:00 Intake Total 300 ml Output Total 100 ml Balance 200 ml RONA CORONA MD Mar 15, 2017 13:53
[2017-03-15 15:00] VITALS: BP 119/67
[2017-03-15 19:00] VITALS: BP 103/52
[2017-03-15] MEDS: oxyCODONE/APAP 5/325 1 TAB TABLET PO PRN (21:16)
[2017-03-15] MEDS: diphenhydrAMINE 50 MG/ML VIAL IVP PRN (21:17)
[2017-03-15 23:08] VITALS: BP 104/64
[2017-03-16 03:00] VITALS: BP 111/67
[2017-03-16] MEDS: IPRATRPIUM/ALBUTEROL 0.5/2.5MG 3 ML NEBU. NEB SCH ×4 (07:33→19:16)
[2017-03-16 07:42] VITALS: BP 133/75
[2017-03-16] MEDS: METOPROLOL SUCC 24HR ER 25 MG TAB.ER.24H. PO SCH (07:51)
[2017-03-16] MEDS: LISINOPRIL 5 MG TABLET. PO SCH (07:52)
[2017-03-16] MEDS: FUROSEMIDE 40 MG TABLET. PO SCH ×2 (07:52→15:32)
[2017-03-16] MEDS: ALLOPURINOL 100 MG TABLET. PO SCH (07:52)
[2017-03-16] MEDS: NYSTATIN TOPICAL POWDER 15GM BOTTLE. TP SCH ×2 (07:53→21:39)
[2017-03-16 10:25] VITALS: BP 138/78
[2017-03-16] MEDS: oxyCODONE/APAP 5/325 1 TAB TABLET PO PRN ×3 (10:44→21:39)
--- NOTE | 2017-03-16 12:58 | PDOC ---
PROGRESS NOTES Chief Complaint Chief Complaint Major depression with some SI, would not feel safe at home with knives. NHL, new acute CHF, systolic Hypotension Leg cellulitis COPD Asthma Sleep Apnea Obesity related hypoventilation syndrome, morbid obesity, BMI 56 CHF, acute systolic exacerbation Systolic HF with EF<30% Anxiety DO nos nonhodgkins lymphoma, NEW, chemo started this hospitalization History of Present Illness History of Present Illness reports worsening of severe depression today, is tearful and emotional to me, reports she "can't imaging making it": at home, has support, she asked to be eval by psych, has been [facility] before, for hostility to PD, SI, she feels suicidal thoughts today - has no plan would like PAT team to eval she feels she cannot go home no event Chemo completed yesterday Vitals Vitals Vital Signs Date Time Temp Pulse Resp B/P (MAP) Pulse Ox O2 Delivery O2 Flow Rate FiO2 03/16/17 11:44 16 95 Nasal Cannula 2.0 03/16/17 10:25 97.9 81 138/78 (98) 97.9 Physical Exam Physical Exam R portacath site no longer bleeding. General: Alert, Oriented X3 Heart: Normal S1, Normal S2 Lungs: Clear Abdomen: No tenderness Extremities: No clubbing Skin: No rashes, No significant lesion Review of Systems Review of Systems depression, insomnia anxiety Assessment and Plan Assessmemt and Plan Psych team exam yesterday, placement in inpatient psych recommended, no beds, will try again tomorrow, may be able to re-eval with PAT team, pt may pass, Problems: Comment Review of Relevant I have reviewed the following items kailey (where applicable) has been applied. Medications Current Medications Enoxaparin Sodium (Lovenox 150mg Syringe) 150 mg Q12HR SQ Last administered on 03/08/17 21:20; Start 03/06/17 at 21:00; Stop 03/09/17 at 11:54; Status DC Albuterol/ Ipratropium (Duoneb) 3 ml RTQID NEB Last administered on 03/16/17 11:31; Start 03/06/17 at 20:00 Nystatin (Nystop) 1 john BID TP Last administered on 03/16/17 07:53; Start at 21:00 Ondansetron HCl (Zofran Odt) 4 mg PRN Q6HRS PRN PO NAUSEA/VOMITING Last administered on 03/12/17 22:01; Start 03/06/17 at 18:00 Ceftriaxone Sodium 1 gm/ Sodium Chloride 50 ml @ 100 mls/hr Q24H IV Last administered on 03/15/17 21:17; Start 03/06/17 at 20:00 Oxycodone/ Acetaminophen (Percocet 5/325) 1 tab PRN Q4HRS PRN PO PAIN Last administered on 03/16/17 10:44; Start 03/06/17 at 18:00 Sodium Chloride (Normal Saline Flush) 3 ml PRN DAILY PRN IV AFTER MEDS AND BLOOD DRAWS; Start 03/06/17 at 18:00 Iohexol (Omnipaque 300 Mg/ml) 75 ml 1X ONCE IV ; Start 03/07/17 at 09:15; Stop 03/07/17 at 09:16; Status DC Iohexol (Omnipaque 240 Mg/ml) 50 ml 1X ONCE PO Last administered on 03/07/17 09:15; Start 03/07/17 at 09:15; Stop 03/07/17 at 09:16; Status DC Info (Do NOT chart on this entry -- for MONITORING) 1 each PRN DAILY PRN MC SEE COMMENTS; Start 03/07/17 at 09:15; Stop 03/09/17 at 09:14; Status DC Allopurinol (Zyloprim) 100 mg DAILY PO Last administered on 03/16/17 07:52; Start 03/07/17 at 11:00 Info (Anti-Coagulation Monitoring By Pharmacy) 1 each PRN DAILY PRN MC SEE COMMENTS Last administered on 03/07/17 13:28; Start 03/07/17 at 13:30; Stop at 13:35; Status DC Lidocaine/ Epinephrine (Xylocaine 1%-Epi 1:100,000) 20 ml STK-MED ONCE .ROUTE ; Start 03/07/17 at 15:25; Stop 03/07/17 at 15:26; Status DC Heparin Sodium (Porcine) (Hep Lock Adult) 500 unit STK-MED ONCE IV ; Start 03/07 at 15:25; Stop 03/07/17 at 15:26; Status DC Heparin Sodium/ Sodium Chloride 500 ml @ As Directed STK-MED ONCE .ROUTE ; Start 03/07/17 at 15:25; Stop 03/07/17 at 15:26; Status DC Cefazolin Sodium 0 ml @ As Directed STK-MED ONCE IV ; Start 03/07/17 at 15:58; Stop 03/07/17 at 15:59; Status DC Fentanyl Citrate (Fentanyl 2ml Vial) 100 mcg STK-MED ONCE .ROUTE ; Start at 15:58; Stop 03/07/17 at 15:59; Status DC Heparin Sodium/ Sodium Chloride 1,000 unit 1X ONCE IART Last administered on 16:25; Start 03/07/17 at 16:15; Stop 03/07/17 at 16:16; Status DC Lidocaine/ Epinephrine (Xylocaine 1%-Epi 1:100,000) 20 ml 1X ONCE INJ Last administered on 03/07/17 16:25; Start 03/07/17 at 16:15; Stop 03/07/17 at 16:16 ; Status DC Heparin Sodium (Porcine) (Hep Lock Adult) 500 unit 1X ONCE IV Last administered on 03/07/17 16:30; Start 03/07/17 at 16:15; Stop 03/07/17 at 16:16 ; Status DC Clindamycin Phosphate 50 ml @ As Directed STK-MED ONCE IV ; Start 03/07/17 at 16 :06; Stop 03/07/17 at 16:07; Status DC Ondansetron HCl (Zofran) 4 mg STK-MED ONCE .ROUTE ; Start 03/07/17 at 16:14; Stop 03/07/17 at 16:15; Status DC Clindamycin Phosphate 50 ml @ 100 mls/hr 1X ONCE IV Last administered on 03/07 16:33; Start 03/07/17 at 16:30; Stop 03/07/17 at 16:59; Status DC Ondansetron HCl (Zofran) 4 mg 1X ONCE IV Last administered on 03/07/17 16:32 ; Start 03/07/17 at 16:30; Stop 03/07/17 at 16:31; Status DC Hydralazine HCl (Apresoline) 10 mg PRN Q4HRS PRN IVP ELEVATED BP, SEE COMMENTS ; Start 03/07/17 at 16:45 Isosorbide Mononitrate (Imdur) 30 mg DAILY PO Last administered on 03/11/17 09 :00; Start 03/08/17 at 09:00; Stop 03/12/17 at 09:46; Status DC Metoprolol Tartrate (Lopressor) 12.5 mg BID PO Last administered on 03/12/17 09:20; Start 03/08/17 at 09:00; Stop 03/12/17 at 09:46; Status DC Aspirin (Ecotrin) 81 mg [id number] PO Last administered on 03/08/17 14:06; Start 03/08/17 at 08:00; Stop 03/09/17 at 11:54; Status DC Morphine Sulfate 2 mg 1X ONCE IV Last administered on 03/08/17 11:45; Start 03/08/17 at 11:45; Stop 03/08/17 at 11:46; Status DC Diphenhydramine HCl (Benadryl) 25 mg Q6HRS PRN IVP itching; Start 03/08/17 at 17:30; Status Cancel Diphenhydramine HCl (Benadryl) 50 mg Q8HRS PRN IVP itching Last administered on 03/15/17 21:17; Start 03/08/17 at 17:30 Furosemide (Lasix) 40 mg DAILY IVP Last administered on 03/10/17 11:12; Start 03/09/17 at 10:15; Stop 03/10/17 at 14:39; Status DC Desmopressin Acetate 30 mcg/ Sodium Chloride 57.5 ml @ 115 mls/hr 1X ONCE IV Last administered on 03/09/17 14:48; Start 03/09/17 at 15:00; Stop 03/09/17 at 15:29; Status DC Protamine Sulfate 50 mg 1X ONCE IV Last administered on 03/09/17 16:29; Start 03/09/17 at 15:45; Stop 03/09/17 at 15:46; Status DC Silver Nitrate/ Potassium Nitrate 1 each 1X ONCE TP Last administered on 00:59; Start 03/10/17 at 01:00; Stop 03/10/17 at 01:01; Status DC Thrombin 20,000 unit 1X ONCE TP Last administered on 03/10/17 02:48; Start at 01:00; Stop 03/10/17 at 01:01; Status DC Iohexol (Omnipaque 300 Mg/ml) 50 ml STK-MED ONCE .ROUTE ; Start 03/10/17 at 07: 41; Stop 03/10/17 at 07:42; Status DC Lidocaine/ Epinephrine (Xylocaine 1%-Epi 1:100,000) 20 ml STK-MED ONCE .ROUTE ; Start 03/10/17 at 08:23; Stop 03/10/17 at 08:24; Status DC Thrombin 5,000 unit 1X ONCE TP Last administered on 03/10/17 08:49; Start at 08:30; Stop 03/10/17 at 08:31; Status DC Lidocaine/ Epinephrine (Xylocaine 1%-Epi 1:100,000) 20 ml 1X ONCE INJ Last administered on 03/10/17 08:48; Start 03/10/17 at 08:30; Stop 03/10/17 at 08:31 ; Status DC Furosemide (Lasix) 40 mg [id number] IVP Last administered on 03/11/17 16:00; Start 03/10/17 at 16:00; Stop 03/12/17 at 08:19; Status DC Lidocaine/Sodium Bicarbonate (Buffered Lidocaine 1%) 20 ml STK-MED ONCE IJ ; Start 03/11/17 at 11:40; Stop 03/11/17 at 11:41; Status DC Fentanyl Citrate (Fentanyl 2ml Vial) 100 mcg STK-MED ONCE .ROUTE ; Start at 11:59; Stop 03/11/17 at 12:00; Status DC Midazolam HCl (Versed) 2 mg STK-MED ONCE .ROUTE ; Start 03/11/17 at 11:59; Stop 03/11/17 at 12:00; Status DC Lidocaine/Sodium Bicarbonate (Buffered Lidocaine 1%) 9 ml 1X ONCE IJ Last administered on 03/11/17 12:23; Start 03/11/17 at 12:15; Stop 03/11/17 at 12:16 ; Status DC Midazolam HCl (Versed) 2 mg 1X ONCE IV Last administered on 03/11/17 12:24; Start 03/11/17 at 12:15; Stop 03/11/17 at 12:16; Status DC Fentanyl Citrate (Fentanyl 2ml Vial) 100 mcg 1X ONCE IV Last administered on 12:24; Start 03/11/17 at 12:15; Stop 03/11/17 at 12:16; Status DC Gadobutrol (Gadavist) 7.5 mmol 1X ONCE IV Last administered on 03/11/17 13:23 ; Start 03/11/17 at 13:15; Stop 03/11/17 at 13:16; Status DC Gadobutrol (Gadavist) 7.5 mmol 1X ONCE IV Last administered on 03/11/17 13:23 ; Start 03/11/17 at 13:15; Stop 03/11/17 at 13:16; Status DC Fentanyl Citrate (Fentanyl 2ml Vial) 100 mcg 1X ONCE IV Last administered on 14:00; Start 03/11/17 at 14:00; Stop 03/11/17 at 14:01; Status DC Rituximab 825 mg/ Sodium Chloride 332.5 ml @ 15 mls/hr 1X ONCE IV Last administered on 03/13/17 08:38; Start 03/13/17 at 08:00; Stop 03/14/17 at 06:09 ; Status DC Bendamustine HCl 200 mg/Sodium Chloride 500 ml @ 500 mls/hr ONCE ONCE IV Last administered on 03/13/17 13:11; Start 03/13/17 at 07:00; Stop 03/13/17 at 07:59; Status DC Bendamustine HCl 200 mg/Sodium Chloride 500 ml @ 500 mls/hr ONCE ONCE IV Last administered on 03/14/17 09:00; Start 03/14/17 at 09:00; Stop 03/14/17 at 09:59; Status DC Ondansetron HCl 16 mg/Sodium Chloride 58 ml @ 103.571 mls/hr ONCE ONCE IV Last administered on 03/13/17 07:25; Start 03/13/17 at 06:30; Stop 03/13/17 at 07:03; Status DC Ondansetron HCl 16 mg/Sodium Chloride 58 ml @ 103.571 mls/hr ONCE ONCE IV Last administered on 03/14/17 08:42; Start 03/14/17 at 08:30; Stop 03/14/17 at 09:03; Status DC Dexamethasone Sodium Phosphate (Decadron) 12 mg ONCE ONCE IV Last administered on 03/13/17 07:24; Start 03/13/17 at 06:30; Stop 03/13/17 at 06:31 ; Status DC Dexamethasone Sodium Phosphate (Decadron) 12 mg ONCE ONCE IV Last administered on 03/14/17 09:20; Start 03/14/17 at 08:30; Stop 03/14/17 at 08:31 ; Status DC Diphenhydramine HCl (Benadryl) 25 mg ONCE ONCE IV Last administered on 07:24; Start 03/13/17 at 06:30; Stop 03/13/17 at 06:31; Status DC Acetaminophen (Tylenol) 650 mg ONCE ONCE PO Last administered on 03/13/17 07: 25; Start 03/13/17 at 06:30; Stop 03/13/17 at 06:31; Status DC Furosemide (Lasix) 40 mg [id number] PO Last administered on 03/16/17 07:52; Start 03/12/17 at 09:00 Info (Do NOT chart on this placeholder) 1 each 1X ONCE MC ; Start 03/12/17 at 08:30; Stop 03/12/17 at 08:31; Status UNV Influenza Virus Vaccine Quadrival (Fluarix Quad [id number] Syringe) 0.5 ml ONCE ONCE VAX IM Last administered on 03/12/17 09:27; Start 03/12/17 at 08:30; Stop 03/12/17 at 08:31; Status DC Metoprolol Tartrate (Lopressor) 25 mg BID PO Last administered on 03/13/17 22: 03; Start 03/12/17 at 21:00; Stop 03/13/17 at 23:00; Status DC Lisinopril (Prinivil) 5 mg DAILY PO ; Start 03/13/17 at 09:00; Stop 03/13/17 at 09:00; Status DC Lisinopril (Prinivil) 2.5 mg DAILY PO Last administered on 03/13/17 10:04; Start 03/13/17 at 09:00; Stop 03/14/17 at 08:20; Status DC Metoprolol Tartrate (Lopressor) 12.5 mg 1X ONCE PO Last administered on 13:06; Start 03/12/17 at 12:30; Stop 03/12/17 at 12:31; Status DC Lisinopril (Prinivil) 2.5 mg 1X ONCE PO Last administered on 03/12/17 13:07; Start 03/12/17 at 12:30; Stop 03/12/17 at 12:31; Status DC Enoxaparin Sodium (Lovenox Per Pharmacy Prophylaxis Dosing) 1 each PRN DAILY PRN MC SEE COMMENTS; Start 03/12/17 at 13:30 Enoxaparin Sodium (Lovenox 60mg Syringe) 60 mg Q12HR SQ Last administered on 07:53; Start 03/12/17 at 14:00 Polyethylene Glycol (miraLAX PACKET) 17 gm PRN DAILY PRN PO CONSTIPATION; Start 03/13/17 at 06:15 Metoprolol Tartrate (Lopressor) 25 mg 1X ONCE PO Last administered on 17:19; Start 03/13/17 at 16:00; Stop 03/13/17 at 16:44; Status DC Metoprolol Succinate (Toprol Xl) 75 mg DAILY PO Last administered on 03/16/17 07:51; Start 03/14/17 at 09:00 Lisinopril (Prinivil) 5 mg DAILY PO Last administered on 03/16/17 07:52; Start 03/14/17 at 09:00 Vitals/I & O Vital Sign - Last 24 Hours 03/15/17 03/15/17 03/15/17 03/15/17 15:00 16:05 19:00 20:00 Temp 97.7 98.6 97.7 98.6 Pulse 71 73 Resp 18 16 B/P (MAP) 119/67 (84) 103/52 (69) Pulse Ox 94 95 O2 Delivery Room Air Room Air Room Air Room Air 03/15/17 03/15/17 03/15/17 03/16/17 20:17 21:16 23:08 03:00 Temp 97.8 97.8 97.8 97.8 Pulse 75 70 Resp 19 20 18 B/P (MAP) 104/64 (77) 111/67 (82) Pulse Ox 94 94 91 93 O2 Delivery Room Air Room Air Room Air Room Air 903/16/17 03/16/17 03/16/17 07:34 07:42 07:51 07:52 Temp 97.6 97.6 Pulse 76 76 76 Resp 18 B/P (MAP) 133/75 (94) 133/75 133/76 Pulse Ox 95 93 O2 Delivery Room Air Room Air 03/16/17 03/16/17 03/16/17 03/16/17 08:15 10:25 10:44 11:32 Temp 97.9 97.9 Pulse 81 Resp 18 16 B/P (MAP) 138/78 (98) Pulse Ox 93 93 95 O2 Delivery Room Air Room Air Room Air Room Air 03/16/17 11:44 Resp 16 Pulse Ox 95 O2 Delivery Nasal Cannula O2 Flow Rate 2.0 Intake and Output 03/16/17 03/16/17 03/17/17 15:00 23:00 07:00 Intake Total 120 ml Output Total 325 ml Balance -205 ml RONA CORONA MD Mar 16, 2017 12:58
[2017-03-16 14:35] VITALS: BP 109/58
[2017-03-16 19:49] VITALS: BP 115/53
[2017-03-16] MEDS: diphenhydrAMINE 50 MG/ML VIAL IVP PRN (21:41)
[2017-03-16 23:21] VITALS: BP 118/67
[2017-03-17 03:13] VITALS: BP 176/52
[2017-03-17 07:00] VITALS: BP 129/71
[2017-03-17] MEDS: IPRATRPIUM/ALBUTEROL 0.5/2.5MG 3 ML NEBU. NEB SCH ×2 (08:11→11:59)
--- NOTE | 2017-03-17 09:15 | PDOC ---
PROGRESS NOTES Subjective Subjective c/c - f/u of Mantle cell lymphoma ROS - had nausea today Objective Objective Vital Signs Date Time Temp Pulse Resp B/P (MAP) Pulse Ox O2 Delivery O2 Flow Rate FiO2 03/17/17 08:11 96 Room Air 03/17/17 07:00 98.1 72 20 129/71 (90) 98.1 03/16/17 14:35 1.0 Physical Exam Heart: Normal S1, Normal S2 General: Alert, Oriented X3 Lungs: Clear to auscultation Neuro: Normal speech Psych/Mental Status: Mental status NL Assessment Assessment IMPRESSION AND PLAN: 1. Mantle cell lymphoma involving the left axillary lymph nodes and possible involvement of the lungs. The lymphadenopathy has progressed between 12/2016 to 02/2017. She had an ultrasound-guided biopsy of the left axillary lymph node on 01/01/2017, which revealed mantle cell lymphoma in addition to kappa predominant plasmacytosis. There is a possibility that she has a biclonal lymphoproliferative disorder with both mantle cell lymphoma and plasma cell neoplasm. bone marrow biopsy results pending. CT scan of the neck, chest, abdomen and pelvis 85[address] reveals axillary, mediastinal and retroperitoneal lymphadenopathy. 14 x 6 mm extraconal mass within the medial right orbit with mass effect on the medial rectus muscle. 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 I discussed in detail with the patient regarding the diagnosis and treatment options for mantle cell lymphoma. I recommended chemotherapy with bendamustine and rituximab given for 6 cycles. She has poor performance status with ECOG performance status score of 3. In addition, she has significant comorbidities including congestive heart failure with an ejection fraction of only 20-25%. The presence of her comorbidities would increase the likelihood of toxicities due to chemotherapy. Mantle cell lymphoma prognostic score is 3, which would indicate a 5-yr survival of 60%. s/p port 03/07/17 s/p bone marrow 03/11/17 She was started on Rituxan and bendeka 03/13/17. I d/w chemo nurse, no reactions noted. Continue to monitor for toxicities. s/p Cycle 1Day 2 03/14/17 and then she can be discharged with f/u with me in 1-2 weeks. Tolerated well 2. Elevated liver function test likely changes from congestive heart failure. Continue to monitor. 3. Hyponatremia due to congestive heart failure, monitor. 4. Congestive heart failure with an ejection fraction of 20-25%. Appreciate Cardiology management. I d/w cardiology. 5. Elevated uric acid - cont allopurinol 100 mg daily. Comment Review of Relevant I have reviewed the following items kailey (where applicable) has been applied. Medications Current Medications Enoxaparin Sodium (Lovenox 150mg Syringe) 150 mg Q12HR SQ Last administered on 03/08/17 21:20; Start 03/06/17 at 21:00; Stop 03/09/17 at 11:54; Status DC Albuterol/ Ipratropium (Duoneb) 3 ml RTQID NEB Last administered on 03/17/17 08:11; Start 03/06/17 at 20:00 Nystatin (Nystop) 1 john BID TP Last administered on 03/16/17 21:39; Start at 21:00 Ondansetron HCl (Zofran Odt) 4 mg PRN Q6HRS PRN PO NAUSEA/VOMITING Last administered on 03/12/17 22:01; Start 03/06/17 at 18:00 Ceftriaxone Sodium 1 gm/ Sodium Chloride 50 ml @ 100 mls/hr Q24H IV Last administered on 03/16/17 21:40; Start 03/06/17 at 20:00 Oxycodone/ Acetaminophen (Percocet 5/325) 1 tab PRN Q4HRS PRN PO PAIN Last administered on 03/16/17 21:39; Start 03/06/17 at 18:00 Sodium Chloride (Normal Saline Flush) 3 ml PRN DAILY PRN IV AFTER MEDS AND BLOOD DRAWS; Start 03/06/17 at 18:00 Iohexol (Omnipaque 300 Mg/ml) 75 ml 1X ONCE IV ; Start 03/07/17 at 09:15; Stop 03/07/17 at 09:16; Status DC Iohexol (Omnipaque 240 Mg/ml) 50 ml 1X ONCE PO Last administered on 03/07/17 09:15; Start 03/07/17 at 09:15; Stop 03/07/17 at 09:16; Status DC Info (Do NOT chart on this entry -- for MONITORING) 1 each PRN DAILY PRN MC SEE COMMENTS; Start 03/07/17 at 09:15; Stop 03/09/17 at 09:14; Status DC Allopurinol (Zyloprim) 100 mg DAILY PO Last administered on 03/16/17 07:52; Start 03/07/17 at 11:00 Info (Anti-Coagulation Monitoring By Pharmacy) 1 each PRN DAILY PRN MC SEE COMMENTS Last administered on 03/07/17 13:28; Start 03/07/17 at 13:30; Stop at 13:35; Status DC Lidocaine/ Epinephrine (Xylocaine 1%-Epi 1:100,000) 20 ml STK-MED ONCE .ROUTE ; Start 03/07/17 at 15:25; Stop 03/07/17 at 15:26; Status DC Heparin Sodium (Porcine) (Hep Lock Adult) 500 unit STK-MED ONCE IV ; Start 03/07 at 15:25; Stop 03/07/17 at 15:26; Status DC Heparin Sodium/ Sodium Chloride 500 ml @ As Directed STK-MED ONCE .ROUTE ; Start 03/07/17 at 15:25; Stop 03/07/17 at 15:26; Status DC Cefazolin Sodium 0 ml @ As Directed STK-MED ONCE IV ; Start 03/07/17 at 15:58; Stop 03/07/17 at 15:59; Status DC Fentanyl Citrate (Fentanyl 2ml Vial) 100 mcg STK-MED ONCE .ROUTE ; Start at 15:58; Stop 03/07/17 at 15:59; Status DC Heparin Sodium/ Sodium Chloride 1,000 unit 1X ONCE IART Last administered on 16:25; Start 03/07/17 at 16:15; Stop 03/07/17 at 16:16; Status DC Lidocaine/ Epinephrine (Xylocaine 1%-Epi 1:100,000) 20 ml 1X ONCE INJ Last administered on 03/07/17 16:25; Start 03/07/17 at 16:15; Stop 03/07/17 at 16:16 ; Status DC Heparin Sodium (Porcine) (Hep Lock Adult) 500 unit 1X ONCE IV Last administered on 03/07/17 16:30; Start 03/07/17 at 16:15; Stop 03/07/17 at 16:16 ; Status DC Clindamycin Phosphate 50 ml @ As Directed STK-MED ONCE IV ; Start 03/07/17 at 16 :06; Stop 03/07/17 at 16:07; Status DC Ondansetron HCl (Zofran) 4 mg STK-MED ONCE .ROUTE ; Start 03/07/17 at 16:14; Stop 03/07/17 at 16:15; Status DC Clindamycin Phosphate 50 ml @ 100 mls/hr 1X ONCE IV Last administered on 03/07 16:33; Start 03/07/17 at 16:30; Stop 03/07/17 at 16:59; Status DC Ondansetron HCl (Zofran) 4 mg 1X ONCE IV Last administered on 03/07/17 16:32 ; Start 03/07/17 at 16:30; Stop 03/07/17 at 16:31; Status DC Hydralazine HCl (Apresoline) 10 mg PRN Q4HRS PRN IVP ELEVATED BP, SEE COMMENTS ; Start 03/07/17 at 16:45 Isosorbide Mononitrate (Imdur) 30 mg DAILY PO Last administered on 03/11/17 09 :00; Start 03/08/17 at 09:00; Stop 03/12/17 at 09:46; Status DC Metoprolol Tartrate (Lopressor) 12.5 mg BID PO Last administered on 03/12/17 09:20; Start 03/08/17 at 09:00; Stop 03/12/17 at 09:46; Status DC Aspirin (Ecotrin) 81 mg [id number] PO Last administered on 03/08/17 14:06; Start 03/08/17 at 08:00; Stop 03/09/17 at 11:54; Status DC Morphine Sulfate 2 mg 1X ONCE IV Last administered on 03/08/17 11:45; Start 03/08/17 at 11:45; Stop 03/08/17 at 11:46; Status DC Diphenhydramine HCl (Benadryl) 25 mg Q6HRS PRN IVP itching; Start 03/08/17 at 17:30; Status Cancel Diphenhydramine HCl (Benadryl) 50 mg Q8HRS PRN IVP itching Last administered on 03/16/17 21:41; Start 03/08/17 at 17:30 Furosemide (Lasix) 40 mg DAILY IVP Last administered on 03/10/17 11:12; Start 03/09/17 at 10:15; Stop 03/10/17 at 14:39; Status DC Desmopressin Acetate 30 mcg/ Sodium Chloride 57.5 ml @ 115 mls/hr 1X ONCE IV Last administered on 03/09/17 14:48; Start 03/09/17 at 15:00; Stop 03/09/17 at 15:29; Status DC Protamine Sulfate 50 mg 1X ONCE IV Last administered on 03/09/17 16:29; Start 03/09/17 at 15:45; Stop 03/09/17 at 15:46; Status DC Silver Nitrate/ Potassium Nitrate 1 each 1X ONCE TP Last administered on 00:59; Start 03/10/17 at 01:00; Stop 03/10/17 at 01:01; Status DC Thrombin 20,000 unit 1X ONCE TP Last administered on 03/10/17 02:48; Start at 01:00; Stop 03/10/17 at 01:01; Status DC Iohexol (Omnipaque 300 Mg/ml) 50 ml STK-MED ONCE .ROUTE ; Start 03/10/17 at 07: 41; Stop 03/10/17 at 07:42; Status DC Lidocaine/ Epinephrine (Xylocaine 1%-Epi 1:100,000) 20 ml STK-MED ONCE .ROUTE ; Start 03/10/17 at 08:23; Stop 03/10/17 at 08:24; Status DC Thrombin 5,000 unit 1X ONCE TP Last administered on 03/10/17 08:49; Start at 08:30; Stop 03/10/17 at 08:31; Status DC Lidocaine/ Epinephrine (Xylocaine 1%-Epi 1:100,000) 20 ml 1X ONCE INJ Last administered on 03/10/17 08:48; Start 03/10/17 at 08:30; Stop 03/10/17 at 08:31 ; Status DC Furosemide (Lasix) 40 mg [id number] IVP Last administered on 03/11/17 16:00; Start 03/10/17 at 16:00; Stop 03/12/17 at 08:19; Status DC Lidocaine/Sodium Bicarbonate (Buffered Lidocaine 1%) 20 ml STK-MED ONCE IJ ; Start 03/11/17 at 11:40; Stop 03/11/17 at 11:41; Status DC Fentanyl Citrate (Fentanyl 2ml Vial) 100 mcg STK-MED ONCE .ROUTE ; Start at 11:59; Stop 03/11/17 at 12:00; Status DC Midazolam HCl (Versed) 2 mg STK-MED ONCE .ROUTE ; Start 03/11/17 at 11:59; Stop 03/11/17 at 12:00; Status DC Lidocaine/Sodium Bicarbonate (Buffered Lidocaine 1%) 9 ml 1X ONCE IJ Last administered on 03/11/17 12:23; Start 03/11/17 at 12:15; Stop 03/11/17 at 12:16 ; Status DC Midazolam HCl (Versed) 2 mg 1X ONCE IV Last administered on 03/11/17 12:24; Start 03/11/17 at 12:15; Stop 03/11/17 at 12:16; Status DC Fentanyl Citrate (Fentanyl 2ml Vial) 100 mcg 1X ONCE IV Last administered on 12:24; Start 03/11/17 at 12:15; Stop 03/11/17 at 12:16; Status DC Gadobutrol (Gadavist) 7.5 mmol 1X ONCE IV Last administered on 03/11/17 13:23 ; Start 03/11/17 at 13:15; Stop 03/11/17 at 13:16; Status DC Gadobutrol (Gadavist) 7.5 mmol 1X ONCE IV Last administered on 03/11/17 13:23 ; Start 03/11/17 at 13:15; Stop 03/11/17 at 13:16; Status DC Fentanyl Citrate (Fentanyl 2ml Vial) 100 mcg 1X ONCE IV Last administered on 14:00; Start 03/11/17 at 14:00; Stop 03/11/17 at 14:01; Status DC Rituximab 825 mg/ Sodium Chloride 332.5 ml @ 15 mls/hr 1X ONCE IV Last administered on 03/13/17 08:38; Start 03/13/17 at 08:00; Stop 03/14/17 at 06:09 ; Status DC Bendamustine HCl 200 mg/Sodium Chloride 500 ml @ 500 mls/hr ONCE ONCE IV Last administered on 03/13/17 13:11; Start 03/13/17 at 07:00; Stop 03/13/17 at 07:59; Status DC Bendamustine HCl 200 mg/Sodium Chloride 500 ml @ 500 mls/hr ONCE ONCE IV Last administered on 03/14/17 09:00; Start 03/14/17 at 09:00; Stop 03/14/17 at 09:59; Status DC Ondansetron HCl 16 mg/Sodium Chloride 58 ml @ 103.571 mls/hr ONCE ONCE IV Last administered on 03/13/17 07:25; Start 03/13/17 at 06:30; Stop 03/13/17 at 07:03; Status DC Ondansetron HCl 16 mg/Sodium Chloride 58 ml @ 103.571 mls/hr ONCE ONCE IV Last administered on 03/14/17 08:42; Start 03/14/17 at 08:30; Stop 03/14/17 at 09:03; Status DC Dexamethasone Sodium Phosphate (Decadron) 12 mg ONCE ONCE IV Last administered on 03/13/17 07:24; Start 03/13/17 at 06:30; Stop 03/13/17 at 06:31 ; Status DC Dexamethasone Sodium Phosphate (Decadron) 12 mg ONCE ONCE IV Last administered on 03/14/17 09:20; Start 03/14/17 at 08:30; Stop 03/14/17 at 08:31 ; Status DC Diphenhydramine HCl (Benadryl) 25 mg ONCE ONCE IV Last administered on 07:24; Start 03/13/17 at 06:30; Stop 03/13/17 at 06:31; Status DC Acetaminophen (Tylenol) 650 mg ONCE ONCE PO Last administered on 03/13/17 07: 25; Start 03/13/17 at 06:30; Stop 03/13/17 at 06:31; Status DC Furosemide (Lasix) 40 mg BID94 PO Last administered on 03/16/17 15:32; Start 03/12/17 at 09:00 Info (Do NOT chart on this placeholder) 1 each 1X ONCE MC ; Start 03/12/17 at 08:30; Stop 03/12/17 at 08:31; Status UNV Influenza Virus Vaccine Quadrival (Fluarix Quad [id number] Syringe) 0.5 ml ONCE ONCE VAX IM Last administered on 03/12/17 09:27; Start 03/12/17 at 08:30; Stop 03/12/17 at 08:31; Status DC Metoprolol Tartrate (Lopressor) 25 mg BID PO Last administered on 03/13/17 22: 03; Start 03/12/17 at 21:00; Stop 03/13/17 at 23:00; Status DC Lisinopril (Prinivil) 5 mg DAILY PO ; Start 03/13/17 at 09:00; Stop 03/13/17 at 09:00; Status DC Lisinopril (Prinivil) 2.5 mg DAILY PO Last administered on 03/13/17 10:04; Start 03/13/17 at 09:00; Stop 03/14/17 at 08:20; Status DC Metoprolol Tartrate (Lopressor) 12.5 mg 1X ONCE PO Last administered on 13:06; Start 03/12/17 at 12:30; Stop 03/12/17 at 12:31; Status DC Lisinopril (Prinivil) 2.5 mg 1X ONCE PO Last administered on 03/12/17 13:07; Start 03/12/17 at 12:30; Stop 03/12/17 at 12:31; Status DC Enoxaparin Sodium (Lovenox Per Pharmacy Prophylaxis Dosing) 1 each PRN DAILY PRN MC SEE COMMENTS; Start 03/12/17 at 13:30 Enoxaparin Sodium (Lovenox 60mg Syringe) 60 mg Q12HR SQ Last administered on 21:39; Start 03/12/17 at 14:00 Polyethylene Glycol (miraLAX PACKET) 17 gm PRN DAILY PRN PO CONSTIPATION; Start 03/13/17 at 06:15 Metoprolol Tartrate (Lopressor) 25 mg 1X ONCE PO Last administered on 17:19; Start 03/13/17 at 16:00; Stop 03/13/17 at 16:44; Status DC Metoprolol Succinate (Toprol Xl) 75 mg DAILY PO Last administered on 03/16/17 07:51; Start 03/14/17 at 09:00 Lisinopril (Prinivil) 5 mg DAILY PO Last administered on 03/16/17 07:52; Start 03/14/17 at 09:00 Vitals/I & O Vital Sign - Last 24 Hours 03/16/17 03/16/17 03/16/17 03/16/17 10:25 10:44 11:32 11:44 Temp 97.9 97.9 Pulse 81 Resp 18 16 B/P (MAP) 138/78 (98) Pulse Ox 93 93 95 O2 Delivery Room Air Room Air Room Air O2 Flow Rate 2.0 03/16/17 03/16/17 03/16/17 03/16/17 14:35 15:33 16:04 19:16 Temp 98.4 98.4 Pulse 69 Resp 18 16 B/P (MAP) 109/58 (75) Pulse Ox 95 95 94 O2 Delivery Nasal Cannula Room Air Room Air Room Air O2 Flow Rate 1.0 03/16/17 03/16/17 03/16/17 03/16/17 19:49 20:00 21:39 22:39 Temp 98.2 98.2 Pulse 77 Resp 16 18 18 B/P (MAP) 115/53 (73) Pulse Ox 94 94 95 O2 Delivery Room Air Room Air Room Air Room Air 03/16/17 03/17/17 03/17/17 03/17/17 23:21 03:13 07:00 08:11 Temp 97.8 97.7 98.1 97.8 97.7 98.1 Pulse 68 68 72 Resp 16 16 20 B/P (MAP) 118/67 (84) 176/52 (93) 129/71 (90) Pulse Ox 95 94 95 96 O2 Delivery Room Air Room Air Room Air Room Air TEJINDER LAGUNA MD Mar 17, 2017 09:15
[2017-03-17] MEDS: METOPROLOL SUCC 24HR ER 25 MG TAB.ER.24H. PO SCH (09:38)
[2017-03-17] MEDS: LISINOPRIL 5 MG TABLET. PO SCH (09:39)
[2017-03-17] MEDS: ALLOPURINOL 100 MG TABLET. PO SCH (09:40)
[2017-03-17] MEDS: NYSTATIN TOPICAL POWDER 15GM BOTTLE. TP SCH (09:40)
[2017-03-17] MEDS: FUROSEMIDE 40 MG TABLET. PO SCH (09:41)
[2017-03-17] MEDS: oxyCODONE/APAP 5/325 1 TAB TABLET PO PRN (09:42)
[2017-03-17] MEDS ORDERED: OXYC1TAB7 PO (10:41)
--- NOTE | 2017-03-17 10:45 | PDOC2 ---
PALLIATIVE CARE Palliative Care Note Palliative Care Patient alert. Visiting with [facility]/friend/DPOA Patient wants to go home. Will be returning to [place]. [facility] and Juan are actively looking for her another place to live. Patient will need transportation home. Spoke with Dr. Freeman regarding above. FIOR VALENTE Mar 17, 2017 10:45
--- NOTE | 2017-03-17 10:48 | PDOC3 ---
Discharge Summary Visit Information Date of Admission: Mar 06, 2017 Date of Discharge: Mar 17, 2017 Admitting Diagnosis: CHF Final Diagnosis 1. Mantle cell lymphoma involving the left axillary lymph nodes and possible involvement of the lungs. The lymphadenopathy has progressed between 12/2016 to 02/2017. 2. morbid obesity, BMI 56 3. acute on chronic systolic CHF, ejection fraction of only 20-25%. 4. HTn, poor control, had not been treated 5. anxiety and depression, suicidal intent here for 3 days. 6. hyponatremia and transaminitis from CHF Brief Hospital Course Allergies Allergies Coded Allergies Type Severity Reaction Last Updated Verified Penicillins Allergy Intermediate 03/07/17 Yes Vital Signs Vital Signs Date Time Temp Pulse Resp B/P (MAP) Pulse Ox O2 Delivery O2 Flow Rate FiO2 03/17/17 09:42 20 95 Room Air 03/17/17 09:39 72 129/71 03/17/17 07:00 98.1 98.1 03/16/17 14:35 1.0 Brief Hospital Course Ms. Oates is a 56 old with a h/o NICM, who presented to [facility] with complaints of shortness of breath. . CT chest notable for marked left axilla adenopathy and multiple lung nodules suggestive of malignancy. w/u showed mantle cell lymphoma CHF treated first round chemo given bendamustine and rituximab she then was emotional and tearful and felt suicidal, Psych would have taken her on 03/14, no beds, here 3 additional days, some friends helped, found her a new place to live, ' she has weakness and debility and could not make it up the 8 stairs to her apartment, she thinks better at DC Discharge Information Condition at Discharge: Improved Follow Up: Weeks Disposition/Orders: D/C to Home Scheduled PRN Oxycodone Hcl/Acetaminophen (Oxycodone-Acetaminophen 5-325), 1 TAB PO PRN Q4HRS PRN for PAIN Patient Instructions Patient Instructions > [address] scan of the neck, chest, abdomen and pelvis 03/08/17 reveals axillary, mediastinal and retroperitoneal lymphadenopathy. 14 x 6 mm extraconal mass within the medial right orbit with mass effect on the medial rectus muscle. Dr. Gutierrez plans chemotherapy with bendamustine and rituximab given for 6 cycles. ECOG performance status score of 3. Mantle cell lymphoma prognostic score is 3, which would indicate a 5-yr survival of 60%. RONA CORONA MD Mar 17, 2017 10:48
[2017-03-17 11:18] VITALS: BP 117/49
[2017-03-17] MEDS ORDERED: HEPARIN PF 500 UNIT/5 ML DISP.SYRIN. IV ONE (12:15)
== END 2017-03-17 13:00 | disposition home or self-care (01) | DRG 840 ==
LOC: 5 NORTH 12:29 → 1 WEST ICU 03-09 16:17 → 6 SOUTH 03-12 14:10
PROVIDERS: ADMIT Internal Medicine Hematology & Oncology; ATTEND Internal Medicine Hematology & Oncology
PROC: 0JH60XZ Insertion of Tunneled Vascular Access Device into Chest Subcutaneous Tissue and Fascia, Open Approach (ICD-10-PCS; 2017-03-07)
PROC: 02H633Z Insertion of Infusion Device into Right Atrium, Percutaneous Approach (ICD-10-PCS; 2017-03-07)
PROC: 07DR3ZX Extraction of Iliac Bone Marrow, Percutaneous Approach, Diagnostic (ICD-10-PCS; principal; 2017-03-11)
PROC: 3E053GC Introduction of Other Therapeutic Substance into Peripheral Artery, Percutaneous Approach (ICD-10-PCS; 2017-03-11)
PROC: B244ZZZ Ultrasonography of Right Heart (ICD-10-PCS; 2017-03-11)
PROC: 3E04305 Introduction of Other Antineoplastic into Central Vein, Percutaneous Approach (ICD-10-PCS; 2017-03-11)
DX: C83.14 Mantle cell lymphoma, lymph nodes of axilla and upper limb (principal); N17.0 Acute kidney failure with tubular necrosis; E43 Unspecified severe protein-calorie malnutrition; I47.2 Ventricular tachycardia; I50.23 Acute on chronic systolic (congestive) heart failure; C78.00 Secondary malignant neoplasm of unspecified lung; I11.0 Hypertensive heart disease with heart failure; L03.116 Cellulitis of left lower limb; I95.9 Hypotension, unspecified; C79.51 Secondary malignant neoplasm of bone; Z68.43 Body mass index [BMI] 50.0-59.9, adult; E66.2 Morbid (severe) obesity with alveolar hypoventilation; E87.1 Hypo-osmolality and hyponatremia; I42.9 Cardiomyopathy, unspecified; R45.851 Suicidal ideations; T82.838A Hemorrhage due to vascular prosthetic devices, implants and grafts, initial encounter; Y83.8 Other surgical procedures as the cause of abnormal reaction of the patient, or of later complication, without mention of misadventure at the time of the procedure; I48.91 Unspecified atrial fibrillation; D72.822 Plasmacytosis; Z88.0 Allergy status to penicillin; E78.5 Hyperlipidemia, unspecified; F17.200 Nicotine dependence, unspecified, uncomplicated; F32.9 Major depressive disorder, single episode, unspecified; F41.9 Anxiety disorder, unspecified; G47.33 Obstructive sleep apnea (adult) (pediatric); I73.9 Peripheral vascular disease, unspecified; R59.0 Localized enlarged lymph nodes; R74.0 Nonspecific elevation of levels of transaminase and lactic acid dehydrogenase [LDH]; I87.8 Other specified disorders of veins; R79.89 Other specified abnormal findings of blood chemistry; J44.9 Chronic obstructive pulmonary disease, unspecified; Z51.5 Encounter for palliative care; K21.9 Gastro-esophageal reflux disease without esophagitis; K46.9 Unspecified abdominal hernia without obstruction or gangrene; Z66 Do not resuscitate; Z82.49 Family history of ischemic heart disease and other diseases of the circulatory system; Z85.3 Personal history of malignant neoplasm of breast; Z85.850 Personal history of malignant neoplasm of thyroid; Y92.89 Other specified places as the place of occurrence of the external cause
CPT/HCPCS: 36415; 36561; 38221; 70490; 70543; 70553; 71250; 74176; 76000; 76937; 77001; 77012; 77075; 80048; 80053; 80061; 82232; 82784; 83520; 83615; 83735; 84165; 84550; 85025; 85384; 85610; 85730; 86334; 86704; 86706; 87641; 88184; 88185; 88237; 90686; 94250; 94640; 94760; A9585; C1751; C1892; G0364; J0696; J1100; J1200; J1644; J1650; J1940; J2250; J2270; J2405; J2597; J3010; J3490; J7040; J7050; J7620; J9033; J9310; Q0162; Q9966; 97116; J7030